=== PATIENT | female | born 1930 | race American Indian/Alaskan Native ===

== ENCOUNTER 2016-11-13 08:45 | Emergency (ER) | payer MEDICARE ==
[2016-11-13 08:45] VITALS: BMI 28.2
[2016-11-13] MEDS ORDERED: Sodium Chloride 0.9% 1,000 ML IV ONE (09:31)
--- NOTE | 2016-11-13 09:40 | C.PDOC ---
History Of Present Illness 86 y/o female brought to ED by daughter who reports increased generalized weakness and decreased appetite since yesterday. Daughter denies fever, cough, vomiting, diarrhea, urinary symptoms, SOB, dizziness, or other associated symptoms. Time Seen by Provider: 11/13/16 08:57 Chief Complaint (Nursing): Weakness/Neurological Deficit History Per: Patient History/Exam Limitations: no limitations Onset/Duration Of Symptoms: Days Current Symptoms Are (Timing): Still Present Fall Associated With With Symptoms: No Recent travel outside of the [place]: No Past Medical History Reviewed: Historical Data, Nursing Documentation, Vital Signs Vital Signs: Last Vital Signs Temp 98.1 F 11/13/16 13:31 Pulse 96 H 11/13/16 13:31 Resp 20 11/13/16 13:31 BP 150/100 H 11/13/16 13:31 Pulse Ox 99 11/13/16 13:31 - Medical History PMH: Arthritis, Asthma, Cardia Arrhythmia, HTN, Hypercholesterolemia, Peripheral Edema - [facility] Procedures CATARAC PHACOEMULS/ASPIR (07/20/13) DEBRIDEMENT OF NAIL, NAIL BED OR NAIL FOLD (11/15/13) INSERT LENS AT CATAR EXT (07/20/13) OP RED-INT FIX TIB/FIBUL (11/15/13) PACKED CELL TRANSFUSION (11/15/13) PLICATION OF VENA CAVA (11/15/13) VACCINATION NEC (11/15/13) Family History: States: Unknown Family Hx - Social History Hx Tobacco Use: No Hx Alcohol Use: No Hx Substance Use: No - Immunization History Hx Tetanus Toxoid Vaccination: No Hx Influenza Vaccination: No Hx Pneumococcal Vaccination: No Review Of Systems Except As Marked, All Systems Reviewed And Found Negative. Constitutional: Positive for: Weakness. Negative for: Fever, Chills Cardiovascular: Negative for: Chest Pain Respiratory: Negative for: Cough, Shortness of Breath, Wheezing Gastrointestinal: Negative for: Vomiting, Diarrhea Skin: Negative for: Rash Neurological: Negative for: Dizziness Physical Exam - Physical Exam Appears: Non-toxic, No Acute Distress Skin: Warm, Dry Head: Atraumatic, Normacephalic Eye(s): bilateral: Normal Inspection, PERRL, EOMI Nose: Normal Oral Mucosa: Moist Neck: Normal ROM Chest: Symmetrical Cardiovascular: Rhythm Irregular Respiratory: Normal Breath Sounds, No Accessory Muscle Use, No Wheezing Gastrointestinal/Abdominal: Soft, No Tenderness, No Guarding, No Rebound Back: Normal Inspection Extremity: Capillary Refill (< 2 sec.), Other (chronic venous changes bilateral lower extremities) Pulses: Left Radial: Normal Neurological/Psych: Oriented x3, Normal Speech Gait: Unable To Assess ED Course And Treatment - Laboratory Results Result Diagrams: 11/13/16 09:50 11/13/16 09:50 ECG: Interpreted By Me ECG Rhythm: Sinus Rhythm Interpretation Of ECst degree AV block Rate From EC (bpm) O2 Sat by Pulse Oximetry: 100 (ra) Pulse Ox Interpretation: Normal Medical Decision Making Medical Decision Making: Prior records show: Admitted on 11/15/13 with a R proximal tibia and fibula Fx after a fall. had Thrombocytopenia, likely platelet dysfunction from aspirin and Plavix Plan: * EKG, CXR, bloodwork, urinalysis ordered * IV fluids * Reassess Progress: Labs reviewed abnormal platelet and WBC. [address] Guevara, does not recommend transfusion and no intervention from hematology point of view, can follow up in office [address] Garcia and discussed case including lab findings. She states if patient hemodynamically stable, appropriate for discharge and can follow up in the office Discussed lab findings with family and they are concerned for patient getting home. Arrangements arranged. Patient is stable for discharge and will follow up outpatient. Disposition Counseled Patient/Family Regarding: Studies Performed, Diagnosis, Need For Followup - Disposition Referrals: Lisette Cornejo MD [Staff Provider] - Karel Guevara MD [Staff Provider] - Disposition: HOME/ ROUTINE Disposition Time: 12:01 Condition: STABLE Additional Instructions: Please follow up with your primary doctor and price accuracy supervisor in the office Continue with your normal medications as prescribed Return to the emergency department at any time if symptoms persist or worsen. Instructions: Thrombocytopenia (ED), Weakness (ED) Forms: Smart Voicemail (Moroccan) - POA Present On Arrival: None - Clinical Impression Clinical Impression: Thrombocytopenia, Weakness - PA / FOOD SAFETY MANAGER / Resident Statement MD/DO has reviewed & agrees with the documentation as recorded. - Scribe Statement The provider has reviewed the documentation as recorded by the Scribe SM All medical record entries made by the Scribe were at my direction and personally dictated by me. I have reviewed the chart and agree that the record accurately reflects my personal performance of the history, physical exam, medical decision making, and the department course for this patient. I have also personally directed, reviewed, and agree with the discharge instructions and disposition.
[2016-11-13] MEDS ORDERED: Sodium Chloride 0.9% 1,000 ML ONE (09:49)
[2016-11-13 09:55] LABS: BASO % 0.6 % (0.0-2.0); EOS % 0.4 % (0.0-4.0); HEMATOCRIT 37.1 % (34.0-47.0); MEAN CELL VOLUME 82.4 fL (81.0-99.0); MEAN CORPUSCULAR HEMOGLOBIN 27.9 pg (27.0-31.0); MEAN CORPUSCULAR HGB CONC 33.9 g/dL (33.0-37.0); MEAN PLATELET VOLUME 9.2 fL (7.2-11.7); MONO # 0.5 K/uL (0.0-0.8); MONO % 14.8 % (0.0-10.0); NRBC % 0.2 % (0.0-2.0); RED CELL DISTRIBUTION WIDTH 14.5 % (11.5-14.5); WHITE BLOOD COUNT 3.3 K/uL (4.8-10.8)
[2016-11-13 10:02] LABS: INR 1.2
[2016-11-13 10:11] LABS: CHLORIDE 105 mmol/L (98-107)
[2016-11-13 10:12] LABS: SODIUM 142 mmol/L (132-148)
[2016-11-13 10:14] LABS: ALB/GLOB RATIO 1.1 (1.0-2.1); ALKALINE PHOSPHATASE 89 U/L (38-126); AST/SGOT 29 U/L (14-36); BILIRUBIN,TOTAL 0.9 mg/dL (0.2-1.3); CARBON DIOXIDE 26 mmol/L (22-30); GFR AFRICAN-AMERICAN > 60; TOTAL PROTEIN 7.1 g/dL (6.3-8.3)
[2016-11-13 10:15] LABS: ALT/SGPT 27 U/L (9-52); BLOOD UREA NITROGEN 13 mg/dL (7-17); CALCIUM 8.9 mg/dl (8.6-10.4); GLUCOSE,RANDOM 89 mg/dL (65-105)
[2016-11-13 10:15] LABS: RBC URINE < 1 /hpf (0-3); URINE BILIRUBIN NEGATIVE (NEGATIVE); URINE BLOOD NEGATIVE (NEGATIVE); URINE COLOR Yellow (YELLOW); URINE GLUCOSE (UA) NORMAL (Normal); URINE KETONE NEGATIVE (NEGATIVE); URINE LEUKOCYTE ESTERASE NEG Leu/uL (Negative); URINE PROTEIN NEGATIVE (NEGATIVE); URINE UROBILINOGEN NORMAL mg/dL (0.2-1.0); WBC URINE 2 /hpf (0-5)
--- NOTE | 2016-11-13 10:15 | RAD ---
PROCEDURE: CHEST RADIOGRAPH, 1 VIEW HISTORY: weakness COMPARISON: 11/23/2013 FINDINGS: LUNGS: Clear. PLEURA: No pneumothorax or pleural fluid seen. CARDIOVASCULAR: Mild cardiomegaly OSSEOUS STRUCTURES: acromioclavicular and glenohumeral joint arthrosis .thoracic spondylosis. VISUALIZED UPPER ABDOMEN: Normal. OTHER FINDINGS: None. IMPRESSION: No interval pathology.
[2016-11-13 13:32] VITALS: BP 150/100; PULSE 96; RESP 20; TEMP 98.1
[2016-11-13 16:23] VITALS: O2SAT 100
--- NOTE | 2016-11-14 19:12 | CARD ---
APPROVED REPORT EKG Measurement Heart [id number] <Conclusion> Sinus rhythm with 1st degree AV block Otherwise normal ECG
== END 2016-11-13 13:31 | disposition home or self-care (01) ==
LOC: C.ER 08:45
DX: D69.6 Thrombocytopenia, unspecified (principal); R53.1 Weakness
CPT/HCPCS: 71010; 80053; 81001; 83880; 84484; 85025; 85610; 85730; 87086; 93005; 96360; 99285; J7040

== ENCOUNTER 2016-11-15 13:25 | Inpatient (IN) | payer MEDICARE ==
[2016-11-15 13:25] VITALS: BMI 28.2
--- NOTE | 2016-11-15 14:05 | C.PDOC ---
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 apparently this is the third episode in the last 3 days. pt family reports she was sitting down at home talking to them and suddenly stopped and was staring straight ahead with her eyes open but would not respond. the pt has no memory of the event and has no complaints currently. Time Seen by Provider: 11/15/16 13:38 Chief Complaint (Nursing): Syncope Past Medical History Vital Signs: Last Vital Signs Temp 98 F 11/18/16 16:01 Pulse 74 11/18/16 16:01 Resp 20 11/18/16 16:01 BP 150/78 11/18/16 18:21 Pulse Ox 99 11/18/16 16:01 - Medical History PMH: Arthritis, Asthma, Cardia Arrhythmia, HTN, Hypercholesterolemia, Peripheral Edema - [facility] Procedures CATARAC PHACOEMULS/ASPIR (07/20/13) DEBRIDEMENT OF NAIL, NAIL BED OR NAIL FOLD (11/15/13) INSERT LENS AT CATAR EXT (07/20/13) OP RED-INT FIX TIB/FIBUL (11/15/13) PACKED CELL TRANSFUSION (11/15/13) PLICATION OF VENA CAVA (11/15/13) VACCINATION NEC (11/15/13) Family History: States: Other Other Family History: nc - Social History Hx Tobacco Use: No Hx Alcohol Use: No Hx Substance Use: No - Immunization History Hx Tetanus Toxoid Vaccination: No Hx Influenza Vaccination: No Hx Pneumococcal Vaccination: No Review Of Systems Except As Marked, All Systems Reviewed And Found Negative. Constitutional: Negative for: Fever Eyes: Negative for: Vision Change Cardiovascular: Negative for: Chest Pain Respiratory: Negative for: Cough, Shortness of Breath Gastrointestinal: Negative for: Nausea, Vomiting, Abdominal Pain Neurological: Positive for: Altered Mental Status. Negative for: Weakness, Numbness, Headache Physical Exam - Physical Exam Appears: Well, Non-toxic, No Acute Distress Skin: Warm, Dry Head: Atraumatic Eye(s): bilateral: PERRL, EOMI Nose: No Epistaxis Oral Mucosa: Moist Neck: Normal ROM Cardiovascular: Rhythm Regular Respiratory: No Decreased Breath Sounds, No Accessory Muscle Use, No Rales, No Rhonchi, No Wheezing Gastrointestinal/Abdominal: Soft, No Tenderness Pulses: Left Radial: Normal, Right Radial: Normal Neurological/Psych: Oriented x3, Other (no focal deficits) ED Course And Treatment - Laboratory Results Result Diagrams: 11/18/16 08:19 11/18/16 08:19 O2 Sat by Pulse Oximetry: 96 (RA) Pulse Ox Interpretation: Normal - CT Scan/US CT - Head Other Rad Studies (CT/US): Read By Radiologist, Radiology Report Reviewed CT/US Interpretation: PROCEDURE: CT HEAD WITHOUT CONTRAST. HISTORY: loc. COMPARISON: None available. TECHNIQUE: Axial computed tomography images were obtained through the head/brain without intravenous contrast. Radiation dose: Total exam DLP = 868.72 mGy-cm. This CT exam was performed using one or more of the following dose reduction techniques: Automated exposure control, adjustment of the mA and/or kV according to patient size, and/or use of iterative reconstruction technique. FINDINGS: HEMORRHAGE: No intracranial hemorrhage. BRAIN: No mass effect or edema. Mild diffuse age-appropriate cerebral atrophy. Moderate periventricular white matter lucency with patchy and confluent deep and subcortical white matter lucencies consistent with microvascular ischemic change. No evidence of acute infarct. VENTRICLES: Unremarkable. No hydrocephalus. CALVARIUM: Unremarkable. PARANASAL SINUSES: Unremarkable as visualized. No significant inflammatory changes. MASTOID AIR CELLS: Unremarkable as visualized. No inflammatory changes. OTHER FINDINGS: None. IMPRESSION: No intracranial mass, hemorrhage or evidence of acute infarct. Age-appropriate involutional changes. Medical Decision Making Medical Decision Making: ecg- nsr 90 1st deg avb, no acute ischemia unable to reach pcp after multiple attempts. pt admitted to Dr Suresh. Disposition - Disposition Disposition: HOSPITALIZED Disposition Time: 16:31 Condition: STABLE - Clinical Impression Clinical Impression: Unresponsive episode
[2016-11-15 14:40] LABS: BASO % 0.6 % (0.0-2.0); EOS % 0.4 % (0.0-4.0); HEMATOCRIT 36.1 % (34.0-47.0); LYMPH # 0.9 K/uL (1.0-4.3); LYMPH % 28.9 % (20.0-40.0); MEAN CELL VOLUME 83.2 fL (81.0-99.0); MEAN CORPUSCULAR HEMOGLOBIN 27.9 pg (27.0-31.0); MEAN CORPUSCULAR HGB CONC 33.5 g/dL (33.0-37.0); MEAN PLATELET VOLUME 9.3 fL (7.2-11.7); MONO # 0.5 K/uL (0.0-0.8); MONO % 14.9 % (0.0-10.0); RED CELL DISTRIBUTION WIDTH 14.4 % (11.5-14.5); WHITE BLOOD COUNT 3.2 K/uL (4.8-10.8)
[2016-11-15 14:47] LABS: CHLORIDE 105 mmol/L (98-107); POTASSIUM 4.3 mmol/L (3.6-5.2); SODIUM 139 mmol/L (132-148)
--- NOTE | 2016-11-15 14:47 | CT ---
PROCEDURE: CT HEAD WITHOUT CONTRAST. HISTORY: loc COMPARISON: None available. TECHNIQUE: Axial computed tomography images were obtained through the head/brain without intravenous contrast. Radiation dose: Total exam DLP = 868.72 mGy-cm. This CT exam was performed using one or more of the following dose reduction techniques: Automated exposure control, adjustment of the mA and/or kV according to patient size, and/or use of iterative reconstruction technique. FINDINGS: HEMORRHAGE: No intracranial hemorrhage. BRAIN: No mass effect or edema. Mild diffuse age-appropriate cerebral atrophy. Moderate periventricular white matter lucency with patchy and confluent deep and subcortical white matter lucencies consistent with microvascular ischemic change. No evidence of acute infarct. VENTRICLES: Unremarkable. No hydrocephalus. CALVARIUM: Unremarkable. PARANASAL SINUSES: Unremarkable as visualized. No significant inflammatory changes. MASTOID AIR CELLS: Unremarkable as visualized. No inflammatory changes. OTHER FINDINGS: None. IMPRESSION: No intracranial mass, hemorrhage or evidence of acute infarct. Age-appropriate involutional changes.
[2016-11-15 14:49] LABS: GFR AFRICAN-AMERICAN > 60
[2016-11-15 14:50] LABS: ALB/GLOB RATIO 1.1 (1.0-2.1); ALKALINE PHOSPHATASE 84 U/L (38-126); ALT/SGPT 23 U/L (9-52); AST/SGOT 27 U/L (14-36); BILIRUBIN,TOTAL 0.7 mg/dL (0.2-1.3); BLOOD UREA NITROGEN 15 mg/dL (7-17); CALCIUM 8.8 mg/dl (8.6-10.4); CARBON DIOXIDE 25 mmol/L (22-30); GLUCOSE,RANDOM 97 mg/dL (65-105); TOTAL PROTEIN 6.8 g/dL (6.3-8.3)
[2016-11-15 15:20] LABS: RBC URINE 1 /hpf (0-3); URINE BACTERIA RARE (<OCC); URINE BILIRUBIN NEGATIVE (NEGATIVE); URINE BLOOD NEGATIVE (NEGATIVE); URINE COLOR Yellow (YELLOW); URINE GLUCOSE (UA) NORMAL (Normal); URINE HYALINE CAST 0-2 /lpf (0-2); URINE KETONE NEGATIVE (NEGATIVE); URINE LEUKOCYTE ESTERASE NEG Leu/uL (Negative); URINE PROTEIN NEGATIVE (NEGATIVE); URINE UROBILINOGEN NORMAL mg/dL (0.2-1.0); WBC URINE 2 /hpf (0-5)
--- NOTE | 2016-11-15 15:53 | RAD ---
HISTORY: loc COMPARISON: 11/13/2016 FINDINGS: LUNGS: Probable subsegmental atelectasis right base. PLEURA: No significant pleural effusion identified, no pneumothorax apparent. CARDIOVASCULAR: Normal. OSSEOUS STRUCTURES: No significant abnormalities. VISUALIZED UPPER ABDOMEN: Normal. OTHER FINDINGS: None. IMPRESSION: No active disease.
[2016-11-15] MEDS: Magnesium Oxide 400 mg Tab UD PO SCH (21:32)
[2016-11-16] MEDS: Magnesium Oxide 400 mg Tab UD PO SCH ×2 (10:06→17:57)
[2016-11-16] MEDS: Potassium Chloride 10 mEq ER Tab PO SCH (10:06)
[2016-11-16] MEDS: Calcium-Vit D 250 mg-125 Units Tab UD PO SCH (10:07)
--- NOTE | 2016-11-16 10:58 | CP.PCM.HP ---
Past Patient History - Past Medical History & Family History Past Medical History?: Yes - Past Social History Smoking Status: Never Smoked - CARDIAC Hx Cardiac Disorders: Yes Hx Cardia Arrhythmia: Yes Hx Hypercholesterolemia: Yes Hx Hypertension: Yes Hx Peripheral Edema: Yes - PULMONARY Hx Respiratory Disorders: Yes Hx Asthma: Yes - NEUROLOGICAL Hx Neurological Disorder: Yes Hx Syncope: Yes (10 yrs ago unknown reason) - HEENT Hx HEENT Problems: Yes Hx Cataracts: Yes Hx Glaucoma: Yes - RENAL Hx Chronic Kidney Disease: No - ENDOCRINE/METABOLIC Hx Endocrine Disorders: No - HEMATOLOGICAL/ONCOLOGICAL Hx Blood Disorders: No - INTEGUMENTARY Hx Dermatological Problems: No - MUSCULOSKELETAL/RHEUMATOLOGICAL Hx Musculoskeletal Disorders: Yes Hx Arthritis: Yes Hx Falls: Yes - GASTROINTESTINAL Hx Gastrointestinal Disorders: No - GENITOURINARY/GYNECOLOGICAL Hx Genitourinary Disorders: No - PSYCHIATRIC Hx Substance Use: No - SURGICAL HISTORY Hx Surgeries: Yes Hx Cataract Extraction: Yes (cat ext left eye iol 7 yrs ago) Hx Hysterectomy: Yes (35 yrs ago) Hx Orthopedic Surgery: Yes (R leg) Hx Vascular Surgery: No (25 yrs ago) - ANESTHESIA Hx Anesthesia: Yes Hx Anesthesia Reactions: No Hx Malignant Hyperthermia: No Meds Allergies/Adverse Reactions: Allergies Allergy/AdvReac Type Severity Reaction Status Date / Time acetaminophen [From Percocet] AdvReac Verified 11/15/16 13:44 hydromorphone [From Dilaudid] AdvReac Verified 11/15/16 13:44 oxycodone [From Percocet] AdvReac Verified 11/15/16 13:44 Physical Exam - Constitutional Appears: Well - Head Exam Head Exam: ATRAUMATIC, NORMAL INSPECTION, NORMOCEPHALIC - Eye Exam Eye Exam: EOMI, Normal appearance, PERRL Pupil Exam: NORMAL ACCOMODATION, PERRL - ENT Exam ENT Exam: Mucous Membranes Moist, Normal Exam - Neck Exam Neck exam: Positive for: Normal Inspection - Respiratory Exam Respiratory Exam: Decreased Breath Sounds - Cardiovascular Exam Cardiovascular Exam: REGULAR RHYTHM, +S1, +S2 - GI/Abdominal Exam GI & Abdominal Exam: Diminished Bowel Sounds, Soft - Rectal Exam Rectal Exam: Deferred Results - Vital Signs Recent Vital Signs: Last Vital Signs Temp 98.2 F 11/16/16 07:58 Pulse 97 H 11/16/16 07:58 Resp 20 11/16/16 07:58 BP 153/98 H 11/16/16 10:07 Pulse Ox 95 11/16/16 07:58 - Labs Result Diagrams: 11/15/16 14:28 11/15/16 14:28 Labs: Laboratory Results - last 24 hr 11/15/16 11/16/16 19:53 07:32 Total Creatine Kinase 100 76 CK-MB (Mass) 1.16 0.79 Troponin I, Quant 0.0210 0.0190
[2016-11-16] MEDS ORDERED: Sodium Chloride 0.45% 1,000 ML IV SCH (11:45)
[2016-11-16] MEDS: hydrALAZINE 12.5 mg Tab PO SCH (12:17)
--- NOTE | 2016-11-16 20:33 | CP.PCM.CON ---
History of Present Illness - History of Present Illness History of Present Illness: 86 year old with hx of HTN , SEVERE ARTHRITIS, HTN, PALPITATION REFFERED BY DR Wagner FOR GALI, NOW HR IS 80 TO 85, had cataract did well, admitted to after a fall, fx R knee did well with observetion, PT at rehab, [facility], EST Echo at 01/22no ischemi EF 65% and labs at PMD ok 05/22, admitted with weakness, near syncope, sinus on monitor. Review of Systems - Review of Systems Systems not reviewed;Unavailable: Unstable Vital Signs - Constitutional Constitutional: Anorexia, Weakness - EENT Eyes: absent: Discharge Ears: absent: Ear Discharge, Dizziness Nose/Mouth/Throat: absent: Epistaxis - Cardiovascular Cardiovascular: Syncope. absent: Acrocyanosis, Chest Pain, Diaphoresis, Orthopnea, Palpitations - Respiratory Respiratory: absent: Cough, Dyspnea, Hemoptysis - Gastrointestinal Gastrointestinal: absent: Abdominal Pain, Diarrhea, Dysphagia, Hematochezia, Vomiting - Genitourinary Genitourinary: absent: Change in Urinary Stream - Reproductive: Female Reproductive:Female: Post Menopausal Past Patient History - Past Medical History & Family History Past Medical History?: Yes - Past Social History Smoking Status: Never Smoked - CARDIAC Hx Cardiac Disorders: Yes Hx Cardia Arrhythmia: Yes Hx Hypercholesterolemia: Yes Hx Hypertension: Yes Hx Peripheral Edema: Yes - PULMONARY Hx Respiratory Disorders: Yes Hx Asthma: Yes - NEUROLOGICAL Hx Neurological Disorder: Yes Hx Syncope: Yes (10 yrs ago unknown reason) - HEENT Hx HEENT Problems: Yes Hx Cataracts: Yes Hx Glaucoma: Yes - RENAL Hx Chronic Kidney Disease: No - ENDOCRINE/METABOLIC Hx Endocrine Disorders: No - HEMATOLOGICAL/ONCOLOGICAL Hx Blood Disorders: No - INTEGUMENTARY Hx Dermatological Problems: No - MUSCULOSKELETAL/RHEUMATOLOGICAL Hx Musculoskeletal Disorders: Yes Hx Arthritis: Yes Hx Falls: Yes - GASTROINTESTINAL Hx Gastrointestinal Disorders: No - GENITOURINARY/GYNECOLOGICAL Hx Genitourinary Disorders: No - PSYCHIATRIC Hx Substance Use: No - SURGICAL HISTORY Hx Surgeries: Yes Hx Cataract Extraction: Yes (cat ext left eye iol 7 yrs ago) Hx Hysterectomy: Yes (35 yrs ago) Hx Orthopedic Surgery: Yes (R leg) Hx Vascular Surgery: No (25 yrs ago) - ANESTHESIA Hx Anesthesia: Yes Hx Anesthesia Reactions: No Hx Malignant Hyperthermia: No Meds Allergies/Adverse Reactions: Allergies Allergy/AdvReac Type Severity Reaction Status Date / Time acetaminophen [From Percocet] AdvReac Verified 11/15/16 13:44 hydromorphone [From Dilaudid] AdvReac Verified 11/15/16 13:44 oxycodone [From Percocet] AdvReac Verified 11/15/16 13:44 - Medications Medications: Current Medications Allopurinol (Zyloprim) 100 mg PO DAILY [facility] Last Admin: 11/16/16 10:06 Dose: 100 mg Aspirin (Aspirin) 325 mg PO DAILY [facility] Last Admin: 11/16/16 10:06 Dose: 325 mg Calcium/Vitamin D (Oscal-D 250 Mg-125 Units Tab) 1 tab PO DAILY [facility] Last Admin: 11/16/16 10:07 Dose: 1 tab Carvedilol (Coreg) 25 mg PO BID [facility] Last Admin: 11/16/16 17:59 Dose: 25 mg Clonidine HCl (Catapres-Tts3 0.3 Mg/24 Hr) 1 patch TD QWK [facility] Clopidogrel Bisulfate (Plavix) 75 mg PO DAILY [facility] Last Admin: 11/16/16 10:07 Dose: 75 mg Furosemide (Lasix) 20 mg PO DAILY [facility] Last Admin: 11/16/16 10:06 Dose: 20 mg Gabapentin (Neurontin) 100 mg PO DAILY [facility] Last Admin: 11/16/16 10:06 Dose: 100 mg Hydralazine HCl (Apresoline) 37.5 mg PO DAILY [facility] Last Admin: 11/16/16 12:17 Dose: 37.5 mg Sodium Chloride (Sodium Chloride 0.45%) 1,000 mls @ 40 mls/hr IV .Q24H [facility] Stop: 11/17/16 11:44 Last Admin: 11/16/16 12:20 Dose: 40 mls/hr Isosorbide Dinitrate (Isordil) 20 mg PO DAILY [facility] Last Admin: 11/16/16 10:06 Dose: 20 mg Losartan Potassium (Cozaar) 100 mg PO DAILY [facility] Last Admin: 11/16/16 12:17 Dose: 100 mg Magnesium Oxide (Mag-Ox) 400 mg PO BID [facility] Last Admin: 11/16/16 17:57 Dose: 400 mg Potassium Chloride (Klor-Con 10) 10 meq PO DAILY [facility] Last Admin: 11/16/16 10:06 Dose: 10 meq Rosuvastatin Calcium (Crestor) 10 mg PO HS [facility] Last Admin: 11/15/16 21:27 Dose: Not Given Tramadol HCl (Ultram) 50 mg PO BID PRN PRN Reason: Pain Physical Exam - Constitutional Appears: Non-toxic - Head Exam Head Exam: ATRAUMATIC - Eye Exam Eye Exam: EOMI - ENT Exam ENT Exam: Mucous Membranes Moist - Neck Exam Neck exam: Negative for: Lymphadenopathy, Thyromegaly - Respiratory Exam Respiratory Exam: Clear to Auscultation Bilateral. absent: Rales - Cardiovascular Exam Cardiovascular Exam: REGULAR RHYTHM, Systolic Murmur - GI/Abdominal Exam GI & Abdominal Exam: Normal Bowel Sounds. absent: Organomegaly - Rectal Exam Rectal Exam: Deferred - Extremities Exam Extremities exam: Positive for: normal capillary refill. Negative for: calf tenderness - Neurological Exam Neurological exam: Alert, Oriented x3 - Psychiatric Exam Psychiatric exam: Anxious - Skin Skin Exam: Dry Results - Vital Signs Recent Vital Signs: Last Vital Signs Temp 97.7 F 11/16/16 15:16 Pulse 70 11/16/16 15:16 Resp 18 11/16/16 15:16 BP 130/90 11/16/16 17:59 Pulse Ox 99 11/16/16 15:16 - Labs Result Diagrams: 11/15/16 14:28 11/15/16 14:28 Labs: Laboratory Results - last 24 hr 11/16/16 07:32 Total Creatine Kinase 76 CK-MB (Mass) 0.79 Troponin I, Quant 0.0190 Assessment & Plan (1) Syncope and collapse Status: Acute Comment: near syncope observe (2) HTN (hypertension) Status: Chronic Priority: Low (3) Thrombocytopenia Status: Acute Priority: Medium
--- NOTE | 2016-11-17 07:10 | CON ---
ATTENDING PHYSICIAN: Natali Suresh MD REASON FOR CONSULTATION: Unresponsiveness. HISTORY OF PRESENT ILLNESS: The patient is an 86-year-old right-handed pleasant lady with past medical history of hypertension, arthritis, right knee replacement, asthma, cardiac arrhythmia, hyperlipidemia, peripheral vascular disease. The patient was admitted because of an episode of unresponsiveness, lasted approximately 10 minutes without postictal confusion, urinary incontinence, tongue biting, but during the episode, the patient's eyes were rolling up and the patient was unresponsive and the daughter tried to wake her up unsuccessfully. This is the third episode in the last several day. The patient denies any history of seizures, head trauma, although the patient is complaining of left shoulder pain and weakness, which is old for the last few months as per the patient. The patient has been ambulating with the walker at home, unable to walk with the cane or without support. PAST MEDICAL HISTORY: As mentioned above. SURGICAL HISTORY: Cataract surgery, lens surgery for the eyes, blood transfusion. SOCIAL HISTORY: No smoking, ethanol or drug abuser. ALLERGIES: ALLERGIC TO ACETAMINOPHEN, HYDROMORPHONE, OXYCODONE. MEDICATIONS: Hydralazine, aspirin, clonidine, carvedilol, losartan, rosuvastatin 10 mg, isosorbide, potassium, tramadol, allopurinol, calcium, gabapentin, magnesium oxide. FAMILY HISTORY: Noncontributory. REVIEW OF SYSTEMS: As per H and P and ER notes reviewed. PHYSICAL EXAMINATION: VITAL SIGNS: Blood pressure 131/76, pulse 65, respirations 18. Temperature afebrile. Pulse ox 96%. MENTAL STATUS EXAMINATION: The patient is alert, awake, oriented to place and person, partially to time, slow mental processing, decreased attention span, short-term memory, able to follow one to two-step commands and able to follow three-step commands. CRANIAL NERVES: Pupils 3 mm, bilaterally reactive. No facial asymmetry. Corneal reflex intact. No field defect. V1 to V3 intact. Accessory nerve intact. MOTOR: Limited range of left shoulder movement, probably old rotated cuff. No cogwheel rigidity. No spasticity. Fine finger movement impaired bilaterally. 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 Lower extremities; hip flexion, 4/5 knee flexion and extension, ankle dorsiflexion, plantarflexion 4+/5. Deep tendon reflexes are 1 in upper extremities. Absent bilateral lower extremities. SENSORY: Increased pinprick, light touch below mid legs bilaterally with pigmentation and discoloration of the legs bilaterally, most likely secondary to peripheral vascular disease. Position intact. Coordination, [id number] intact. A CAT scan of the brain: I have reviewed CAT scan, CAT scan consistent with significant periventricular white matter disease and questionable small old right frontal lacunar infarct in addition to atrophy. LABORATORY DATA: White blood cells 3.2, red blood cells 4.34, platelets 82. Sodium 134, potassium 4.3, chloride 105, carbon dioxide of 25, BUN 15, creatinine 0.8, glucose 121. Urinalysis; white blood cells 2, red blood cells 1, epithelia less than 1, urine bacteria rare, nitrite negative. IMPRESSION: Loss of consciousness lasted 10 minutes without postictal confusion with eyes rolling up, possibility of seizures, anticonvulsive seizure cannot be excluded versus cerebellar hyperperfusion, and the patient had 2 previous episodes during the last few days, possibility of arrhythmia also has to be excluded. Cardiology evaluation strongly recommended.. PLAN: 1. MRI of the brain to rule out structural lesion and CVA. 2. Carotid Doppler to rule out carotid stenosis. 3. EEG to rule out supplemental seizures.. 4. Cardiology evaluation. 5. Continue aspirin 81 mg daily and rosuvastatin. 6. Physical therapy for lower extremities. In addition, the patient has peripheral neuropathy, most likely secondary to peripheral vascular disease in addition to left rotator cuff tear that has to be addressed as an outpatient. Out of bed to chair with assistance, DVT prophylaxis. Thank you for the consultation, and Dr. Michelle will follow up with the patient tomorrow. Kojo Polanco MD
[2016-11-17] MEDS: Calcium-Vit D 250 mg-125 Units Tab UD PO SCH (10:07)
[2016-11-17] MEDS: hydrALAZINE 12.5 mg Tab PO SCH (10:07)
[2016-11-17] MEDS: Magnesium Oxide 400 mg Tab UD PO SCH ×2 (10:12→19:43)
[2016-11-17] MEDS: Potassium Chloride 10 mEq ER Tab PO SCH (10:13)
--- NOTE | 2016-11-17 13:55 | CP.PCM.PN ---
Subjective - Date & Time of Evaluation Date of Evaluation: 11/17/16 Time of Evaluation: 10:30 - Subjective Subjective: Orthopedic consultation requested Dr. Monahan, full consult to follow 86F with complaints of periods of unconsciousness as witnessed by family, up to 10 minutes and has happened a few times. She has been seeing Dr. Monahan as outpatient for B hand weakness, r/o carpal tunnel syndrome, no improvement with bracing. Patient went for EMG/NCV 11/05, still awaiting results as per Dr. Monahan. She says the hand weakness is the same, no change. At present, she is also complaining of right leg pain, says it is mostly in the back of her calf, and she has pain when she bends knee. She has been walking with walker, but due to hand weakness and now leg pain, she has been less ambulatory. Denies CP/SOB/dizziness. Denies numbness/tingling to legs Prior IM nailing R tibia DR. Monahan 11/20 Objective - Vital Signs/Intake and Output Vital Signs (last 24 hours): Temp Pulse Resp BP Pulse Ox 98.4 F 78 20 161/84 H 97 11/17/16 08:00 11/17/16 08:00 11/17/16 08:00 11/17/16 10:13 11/17/16 08:00 - Medications Medications: Current Medications Allopurinol (Zyloprim) 100 mg PO DAILY [facility] Last Admin: 11/17/16 10:12 Dose: 100 mg Aspirin (Aspirin) 325 mg PO DAILY [facility] Last Admin: 11/17/16 10:05 Dose: 325 mg Calcium/Vitamin D (Oscal-D 250 Mg-125 Units Tab) 1 tab PO DAILY [facility] Last Admin: 11/17/16 10:07 Dose: 1 tab Carvedilol (Coreg) 25 mg PO BID [facility] Last Admin: 11/17/16 10:13 Dose: 25 mg Clonidine HCl (Catapres-Tts3 0.3 Mg/24 Hr) 1 patch TD QWK [facility] Clopidogrel Bisulfate (Plavix) 75 mg PO DAILY [facility] Last Admin: 11/17/16 10:06 Dose: 75 mg Furosemide (Lasix) 20 mg PO DAILY [facility] Last Admin: 11/17/16 10:08 Dose: 20 mg Gabapentin (Neurontin) 100 mg PO DAILY [facility] Last Admin: 11/17/16 10:12 Dose: 100 mg Hydralazine HCl (Apresoline) 37.5 mg PO DAILY [facility] Last Admin: 11/17/16 10:07 Dose: 37.5 mg Isosorbide Dinitrate (Isordil) 20 mg PO DAILY [facility] Last Admin: 11/17/16 10:14 Dose: 20 mg Losartan Potassium (Cozaar) 100 mg PO DAILY [facility] Last Admin: 11/17/16 10:13 Dose: 100 mg Magnesium Oxide (Mag-Ox) 400 mg PO BID [facility] Last Admin: 11/17/16 10:12 Dose: 400 mg Potassium Chloride (Klor-Con 10) 10 meq PO DAILY [facility] Last Admin: 11/17/16 10:13 Dose: 10 meq Rosuvastatin Calcium (Crestor) 10 mg PO HS [facility] Last Admin: 11/16/16 21:53 Dose: 10 mg Tramadol HCl (Ultram) 50 mg PO BID PRN PRN Reason: Pain - Extremities Exam Additional comments: LLE: no erythema, no joint effusion, significant tenderness to posterior calf and knee. No tenderness anteriorly or to knee joint. Sensation intact, +DP/PT pulses. +homans on left, negative on right. No swelling noted to BLE. Bhands: full ROM, no swelling, no erythema, +radial pulses Assessment and Plan (1) Hand weakness Assessment & Plan: currently with outpatient workup, awaiting results EMG/NCV as per Dr. Monahan Status: Acute (2) Pain of left calf Assessment & Plan: with decreased ambulation dopplers to r/o DVT recommend VTE proph PT/OT venodynes if negative d/w , agrees with above Status: Acute
--- NOTE | 2016-11-17 18:02 | CP.PCM.CON ---
History of Present Illness - History of Present Illness History of Present Illness: Surgery: Dr. Scales Reason for consult: IVC filter, DVT CC: left leg pain HPI: Patient is an 86 y/o female with limited mobility 2/2 multiple falls, prior fractures, and chronic LE pain found to have DVT in the right legs which appears to be chronic in nature per ultrasound report. Discussing with family, per their report patient already had a filter placed when she underwent right leg surgery 3 years ago. Patient denies any LE swelling, out of proportion to her norm. Patient reports Left leg pain mainly when it is manipulated by exams. PMH: HTN, severe arthritis, palpitations, near syncope events, prior falls PSH:P right leg surgery, cataract, possible IVC filter placement? Review of Systems - Review of Systems All systems: reviewed and no additional remarkable complaints except Review of Systems: unless stated in HPI Past Patient History - Past Medical History & Family History Past Medical History?: Yes - Past Social History Smoking Status: Never Smoked - CARDIAC Hx Cardiac Disorders: Yes Hx Hypercholesterolemia: Yes Hx Hypertension: Yes - PULMONARY Hx Respiratory Disorders: Yes Hx Asthma: Yes - NEUROLOGICAL Hx Neurological Disorder: Yes Hx Syncope: Yes (10 yrs ago unknown reason) - HEENT Hx HEENT Problems: Yes Hx Cataracts: Yes Hx Glaucoma: Yes - RENAL Hx Chronic Kidney Disease: No - ENDOCRINE/METABOLIC Hx Endocrine Disorders: No - HEMATOLOGICAL/ONCOLOGICAL Hx Blood Disorders: No - INTEGUMENTARY Hx Dermatological Problems: No - MUSCULOSKELETAL/RHEUMATOLOGICAL Hx Arthritis: Yes - GASTROINTESTINAL Hx Gastrointestinal Disorders: No - GENITOURINARY/GYNECOLOGICAL Hx Genitourinary Disorders: No - PSYCHIATRIC Hx Substance Use: No - SURGICAL HISTORY Hx Surgeries: Yes Hx Cataract Extraction: Yes (cat ext left eye iol 7 yrs ago) Hx Hysterectomy: Yes (35 yrs ago) Hx Orthopedic Surgery: Yes (R leg) Hx Vascular Surgery: No (25 yrs ago) - ANESTHESIA Hx Anesthesia: Yes Hx Anesthesia Reactions: No Hx Malignant Hyperthermia: No Meds Allergies/Adverse Reactions: Allergies Allergy/AdvReac Type Severity Reaction Status Date / Time acetaminophen [From Percocet] AdvReac Verified 11/15/16 13:44 hydromorphone [From Dilaudid] AdvReac Verified 11/15/16 13:44 oxycodone [From Percocet] AdvReac Verified 11/15/16 13:44 - Medications Medications: Current Medications Allopurinol (Zyloprim) 100 mg PO DAILY [facility] Last Admin: 11/17/16 10:12 Dose: 100 mg Aspirin (Aspirin) 325 mg PO DAILY [facility] Last Admin: 11/17/16 10:05 Dose: 325 mg Calcium/Vitamin D (Oscal-D 250 Mg-125 Units Tab) 1 tab PO DAILY [facility] Last Admin: 11/17/16 10:07 Dose: 1 tab Carvedilol (Coreg) 25 mg PO BID [facility] Last Admin: 11/17/16 10:13 Dose: 25 mg Clonidine HCl (Catapres-Tts3 0.3 Mg/24 Hr) 1 patch TD QWK [facility] Clopidogrel Bisulfate (Plavix) 75 mg PO DAILY [facility] Last Admin: 11/17/16 10:06 Dose: 75 mg Enoxaparin Sodium (Lovenox) 30 mg SC 1000,2200 [facility] Furosemide (Lasix) 20 mg PO DAILY [facility] Last Admin: 11/17/16 10:08 Dose: 20 mg Gabapentin (Neurontin) 100 mg PO DAILY [facility] Last Admin: 11/17/16 10:12 Dose: 100 mg Hydralazine HCl (Apresoline) 37.5 mg PO DAILY [facility] Last Admin: 11/17/16 10:07 Dose: 37.5 mg Isosorbide Dinitrate (Isordil) 20 mg PO DAILY [facility] Last Admin: 11/17/16 10:14 Dose: 20 mg Losartan Potassium (Cozaar) 100 mg PO DAILY [facility] Last Admin: 11/17/16 10:13 Dose: 100 mg Magnesium Oxide (Mag-Ox) 400 mg PO BID [facility] Last Admin: 11/17/16 10:12 Dose: 400 mg Potassium Chloride (Klor-Con 10) 10 meq PO DAILY [facility] Last Admin: 11/17/16 10:13 Dose: 10 meq Rosuvastatin Calcium (Crestor) 10 mg PO HS [facility] Last Admin: 11/16/16 21:53 Dose: 10 mg Tramadol HCl (Ultram) 50 mg PO BID PRN PRN Reason: Pain Physical Exam - Constitutional Appears: Non-toxic, No Acute Distress - Head Exam Head Exam: ATRAUMATIC, NORMOCEPHALIC - Eye Exam Eye Exam: EOMI, Normal appearance - ENT Exam ENT Exam: Mucous Membranes Moist - Respiratory Exam Respiratory Exam: NORMAL BREATHING PATTERN. absent: Respiratory Distress - Cardiovascular Exam Cardiovascular Exam: REGULAR RHYTHM. absent: Tachycardia - Extremities Exam Extremities exam: Positive for: calf tenderness (left side). Negative for: pedal edema Additional comments: LE are warm to touch, negative Linsey's sign - Neurological Exam Neurological exam: Alert - Psychiatric Exam Psychiatric exam: Normal Affect, Normal Mood - Skin Skin Exam: Dry, Warm Results - Vital Signs Recent Vital Signs: Last Vital Signs Temp 98.2 F 11/17/16 16:15 Pulse 91 H 11/17/16 16:15 Resp 20 11/17/16 16:15 BP 133/82 11/17/16 16:15 Pulse Ox 95 11/17/16 16:15 - Labs Result Diagrams: 11/15/16 14:28 11/15/16 14:28 - Impressions Impression: chronic DVT on right LE, no findings on left Assessment & Plan - Assessment and Plan (Free Text) Assessment: 86 y/o female w/ chronic DVT on right, possible prior IVC filter placement Plan: -abdominal film to evaluate if IVC filter is present -if so, no further surgical intervention required -thrombocytopenic?, chronic: -anticoagulation per primary team and heme/onc -d/w Dr. Yordy Aguilar PGY3
--- NOTE | 2016-11-17 20:55 | CP.PCM.PN ---
Subjective - Date & Time of Evaluation Date of Evaluation: 11/17/16 Time of Evaluation: 13:00 - Subjective Subjective: no LOC had MRI, EEG f/u with neuro, seen by ortho for IVC filter Objective - Vital Signs/Intake and Output Vital Signs (last 24 hours): Temp Pulse Resp BP Pulse Ox 98.2 F 91 H 20 133/82 95 11/17/16 16:15 11/17/16 16:15 11/17/16 16:15 11/17/16 19:43 11/17/16 16:15 Intake and Output: 11/17/16 11/18/16 18:59 06:59 Intake Total 580 Balance 580 - Medications Medications: Current Medications Allopurinol (Zyloprim) 100 mg PO DAILY [facility] Last Admin: 11/17/16 10:12 Dose: 100 mg Aspirin (Aspirin) 325 mg PO DAILY [facility] Last Admin: 11/17/16 10:05 Dose: 325 mg Calcium/Vitamin D (Oscal-D 250 Mg-125 Units Tab) 1 tab PO DAILY [facility] Last Admin: 11/17/16 10:07 Dose: 1 tab Carvedilol (Coreg) 25 mg PO BID [facility] Last Admin: 11/17/16 19:43 Dose: 25 mg Clonidine HCl (Catapres-Tts3 0.3 Mg/24 Hr) 1 patch TD QWK [facility] Clopidogrel Bisulfate (Plavix) 75 mg PO DAILY [facility] Last Admin: 11/17/16 10:06 Dose: 75 mg Enoxaparin Sodium (Lovenox) 30 mg SC 1000,2200 [facility] Furosemide (Lasix) 20 mg PO DAILY [facility] Last Admin: 11/17/16 10:08 Dose: 20 mg Gabapentin (Neurontin) 100 mg PO DAILY [facility] Last Admin: 11/17/16 10:12 Dose: 100 mg Hydralazine HCl (Apresoline) 37.5 mg PO DAILY [facility] Last Admin: 11/17/16 10:07 Dose: 37.5 mg Isosorbide Dinitrate (Isordil) 20 mg PO DAILY [facility] Last Admin: 11/17/16 10:14 Dose: 20 mg Losartan Potassium (Cozaar) 100 mg PO DAILY [facility] Last Admin: 11/17/16 10:13 Dose: 100 mg Magnesium Oxide (Mag-Ox) 400 mg PO BID [facility] Last Admin: 11/17/16 19:43 Dose: 400 mg Potassium Chloride (Klor-Con 10) 10 meq PO DAILY [facility] Last Admin: 11/17/16 10:13 Dose: 10 meq Rosuvastatin Calcium (Crestor) 10 mg PO HS [facility] Last Admin: 11/16/16 21:53 Dose: 10 mg Tramadol HCl (Ultram) 50 mg PO BID PRN PRN Reason: Pain - Constitutional Appears: Non-toxic - Head Exam Head Exam: ATRAUMATIC - Eye Exam Eye Exam: EOMI - ENT Exam ENT Exam: Mucous Membranes Moist - Neck Exam Neck Exam: absent: Lymphadenopathy, Thyromegaly - Respiratory Exam Respiratory Exam: Clear to Ausculation Bilateral. absent: Rales - Cardiovascular Exam Cardiovascular Exam: REGULAR RHYTHM, Murmur - GI/Abdominal Exam GI & Abdominal Exam: Normal Bowel Sounds. absent: Organomegaly - Rectal Exam Rectal Exam: Deferred - Extremities Exam Extremities Exam: Normal Capillary Refill. absent: Calf Tenderness - Neurological Exam Neurological Exam: Alert, Oriented x3 - Psychiatric Exam Psychiatric exam: Anxious - Skin Skin Exam: Dry Assessment and Plan (1) Syncope and collapse Status: Acute (2) HTN (hypertension) Status: Chronic (3) Thrombocytopenia Status: Acute
--- NOTE | 2016-11-17 20:57 | CON ---
HISTORY OF PRESENT ILLNESS: The patient is admitted by Dr. Natali Suresh with a diagnosis of unresponsive episodes. The patient has had multiple unresponsive episodes in the past few days, she is admitted for management of the same. I have known this patient for several years with severe degenerative joint disease of both knees. She also had a fracture of the right tibia which was treated with open reduction and internal fixation. The patient has also had subjective complaints of paresthesias, tingling and numbness of both upper extremities. Recently, she had an EMG which revealed bilateral carpal tunnel syndrome and ulnar nerve compression syndromes at the elbow. PHYSICAL EXAMINATION: Reveals an elderly female in acute distress. Evidence of severe tricompartmental arthritis of both knees with severe valgus deformity of the right knee and varus deformity of the left knee noted. Range of motion of both knees is painful. Highly positive Tinel's sign noted bilaterally. Phalen's sign is highly positive. Atrophy of the thenar muscles is noted. The patient had diminished light touch on the thumb, index and middle fingers. DIAGNOSES: 1. Severe degenerative joint disease of both knees. 2. Bilateral carpal tunnel syndrome with established thenar atrophy. At this point, the patient is being followed by neurologist. I will appraise the neurologist of the EMG report. At this point, treatment is symptomatic and we will follow. Jerry Monahan MD
--- NOTE | 2016-11-17 21:38 | CP.PCM.PN ---
Subjective - Date & Time of Evaluation Date of Evaluation: 11/17/16 Time of Evaluation: 10:20 - Subjective Subjective: clinically same Objective - Vital Signs/Intake and Output Vital Signs (last 24 hours): Temp Pulse Resp BP Pulse Ox 98.2 F 91 H 20 133/82 95 11/17/16 16:15 11/17/16 16:15 11/17/16 16:15 11/17/16 19:43 11/17/16 16:15 Intake and Output: 11/17/16 11/18/16 18:59 06:59 Intake Total 580 Balance 580 - Medications Medications: Current Medications Allopurinol (Zyloprim) 100 mg PO DAILY [facility] Last Admin: 11/17/16 10:12 Dose: 100 mg Aspirin (Aspirin) 325 mg PO DAILY [facility] Last Admin: 11/17/16 10:05 Dose: 325 mg Calcium/Vitamin D (Oscal-D 250 Mg-125 Units Tab) 1 tab PO DAILY [facility] Last Admin: 11/17/16 10:07 Dose: 1 tab Carvedilol (Coreg) 25 mg PO BID [facility] Last Admin: 11/17/16 19:43 Dose: 25 mg Clonidine HCl (Catapres-Tts3 0.3 Mg/24 Hr) 1 patch TD QWK [facility] Clopidogrel Bisulfate (Plavix) 75 mg PO DAILY [facility] Last Admin: 11/17/16 10:06 Dose: 75 mg Enoxaparin Sodium (Lovenox) 30 mg SC 1000,2200 [facility] Furosemide (Lasix) 20 mg PO DAILY [facility] Last Admin: 11/17/16 10:08 Dose: 20 mg Gabapentin (Neurontin) 100 mg PO DAILY [facility] Last Admin: 11/17/16 10:12 Dose: 100 mg Hydralazine HCl (Apresoline) 37.5 mg PO DAILY [facility] Last Admin: 11/17/16 10:07 Dose: 37.5 mg Isosorbide Dinitrate (Isordil) 20 mg PO DAILY [facility] Last Admin: 11/17/16 10:14 Dose: 20 mg Losartan Potassium (Cozaar) 100 mg PO DAILY [facility] Last Admin: 11/17/16 10:13 Dose: 100 mg Magnesium Oxide (Mag-Ox) 400 mg PO BID [facility] Last Admin: 11/17/16 19:43 Dose: 400 mg Potassium Chloride (Klor-Con 10) 10 meq PO DAILY [facility] Last Admin: 11/17/16 10:13 Dose: 10 meq Rosuvastatin Calcium (Crestor) 10 mg PO HS [facility] Last Admin: 11/16/16 21:53 Dose: 10 mg Tramadol HCl (Ultram) 50 mg PO BID PRN PRN Reason: Pain - Constitutional Appears: Well - Head Exam Head Exam: ATRAUMATIC, NORMAL INSPECTION, NORMOCEPHALIC - Eye Exam Eye Exam: EOMI, Normal appearance, PERRL Pupil Exam: NORMAL ACCOMODATION, PERRL - ENT Exam ENT Exam: Mucous Membranes Moist, Normal Exam - Neck Exam Neck Exam: Full ROM, Normal Inspection. absent: Lymphadenopathy - Respiratory Exam Respiratory Exam: Decreased Breath Sounds - Cardiovascular Exam Cardiovascular Exam: REGULAR RHYTHM, +S1, +S2 - GI/Abdominal Exam GI & Abdominal Exam: Soft, Diminished Bowel Sounds - Rectal Exam Rectal Exam: Deferred
[2016-11-17] MEDS: Enoxaparin 30 mg Syringe SC SCH (22:20)
[2016-11-18 08:33] LABS: BASO % 0.6 % (0.0-2.0); EOS % 0.4 % (0.0-4.0); HEMATOCRIT 37.3 % (34.0-47.0); LYMPH # 1.2 K/uL (1.0-4.3); LYMPH % 34.6 % (20.0-40.0); MEAN CELL VOLUME 82.8 fL (81.0-99.0); MEAN CORPUSCULAR HEMOGLOBIN 28.3 pg (27.0-31.0); MEAN CORPUSCULAR HGB CONC 34.1 g/dL (33.0-37.0); MONO # 0.5 K/uL (0.0-0.8); MONO % 15.1 % (0.0-10.0); NRBC % 0.1 % (0.0-2.0); RED CELL DISTRIBUTION WIDTH 14.4 % (11.5-14.5); WHITE BLOOD COUNT 3.4 K/uL (4.8-10.8)
[2016-11-18 08:38] LABS: CHLORIDE 107 mmol/L (98-107)
[2016-11-18 08:39] LABS: POTASSIUM 4.1 mmol/L (3.6-5.2); SODIUM 141 mmol/L (132-148)
[2016-11-18 08:41] LABS: AST/SGOT 26 U/L (14-36); BILIRUBIN,TOTAL 0.8 mg/dL (0.2-1.3); CARBON DIOXIDE 25 mmol/L (22-30); GFR AFRICAN-AMERICAN > 60; TOTAL PROTEIN 6.7 g/dL (6.3-8.3)
--- NOTE | 2016-11-18 08:41 | RAD ---
HISTORY: check for IVC filter COMPARISON: No prior. FINDINGS: BOWEL: . No obstruction. No free air. BONES: Generalized osteopenia. Mild rightward thoracolumbar convexity. Thoraco lumbar marginal osteophytes is-bridging right thoraco lumbar level. Bilateral hip osteoarthrosis right greater than left OTHER FINDINGS: Vascular calcifications abdominal and pelvic. . IVC filter in place - apex right-sided L1-2 level. Longitudinal prientation appears normal. Further detail regarding relationship to renal vein, touching of any inferior vena caval wall or IVC caliber not possible with this exam . IMPRESSION: IVC filter placement -as above . If further evaluation for IVC filter detail is needed, consider CT of the abdomen.
[2016-11-18 08:42] LABS: ALKALINE PHOSPHATASE 76 U/L (38-126); ALT/SGPT 24 U/L (9-52); BLOOD UREA NITROGEN 14 mg/dL (7-17); CALCIUM 8.9 mg/dl (8.6-10.4); GLUCOSE,RANDOM 86 mg/dL (65-105)
[2016-11-18] MEDS: Potassium Chloride 10 mEq ER Tab PO SCH (09:32)
[2016-11-18] MEDS: Calcium-Vit D 250 mg-125 Units Tab UD PO SCH (09:32)
[2016-11-18] MEDS: hydrALAZINE 12.5 mg Tab PO SCH (09:32)
[2016-11-18] MEDS: Enoxaparin 30 mg Syringe SC SCH ×2 (09:38→21:18)
--- NOTE | 2016-11-18 09:52 | CP.PCM.PN ---
Subjective - Date & Time of Evaluation Date of Evaluation: 11/18/16 Time of Evaluation: 09:52 - Subjective Subjective: Patient still complaining of numbness and weakness to hands. Still complaining of left leg pain. No new complaints today. Review of Systems - Review of Systems All systems: reviewed and no additional remarkable complaints except - Constitutional Constitutional: UN Additional comments: denies fever - EENT Eyes: UNREMARKABLE Ears: UNREMARKABLE Nose/Mouth/Throat: UNREMARKABLE - Cardiovascular Cardiovascular: UNREMARKABLE - Musculoskeletal Musculoskeletal: As Par HPI - Integumentary Integumentary: As Per HPI - Neurological Neurological: As Per HPI - Hematologic/Lymphatic Hematologic: UNREMARKABLE Objective - Vital Signs/Intake and Output Vital Signs (last 24 hours): Temp Pulse Resp BP Pulse Ox 97.8 F 105 H 18 150/74 99 11/18/16 08:04 11/18/16 08:04 11/18/16 08:04 11/18/16 09:37 11/18/16 08:04 Intake and Output: 11/18/16 11/18/16 06:59 18:59 Intake Total 580 Balance 580 - Medications Medications: Current Medications Allopurinol (Zyloprim) 100 mg PO DAILY [facility] Last Admin: 11/18/16 09:32 Dose: 100 mg Aspirin (Aspirin) 325 mg PO DAILY [facility] Last Admin: 11/18/16 09:31 Dose: 325 mg Calcium/Vitamin D (Oscal-D 250 Mg-125 Units Tab) 1 tab PO DAILY [facility] Last Admin: 11/18/16 09:32 Dose: 1 tab Carvedilol (Coreg) 25 mg PO BID [facility] Last Admin: 11/18/16 09:37 Dose: 25 mg Clonidine HCl (Catapres-Tts3 0.3 Mg/24 Hr) 1 patch TD QWK [facility] Clopidogrel Bisulfate (Plavix) 75 mg PO DAILY [facility] Last Admin: 11/18/16 09:32 Dose: 75 mg Enoxaparin Sodium (Lovenox) 30 mg SC 1000,2200 [facility] Last Admin: 11/18/16 09:38 Dose: 30 mg Furosemide (Lasix) 20 mg PO DAILY [facility] Last Admin: 11/18/16 09:37 Dose: 20 mg Gabapentin (Neurontin) 100 mg PO DAILY [facility] Last Admin: 11/18/16 09:38 Dose: 100 mg Hydralazine HCl (Apresoline) 37.5 mg PO DAILY [facility] Last Admin: 11/18/16 09:32 Dose: 37.5 mg Isosorbide Dinitrate (Isordil) 20 mg PO DAILY [facility] Last Admin: 11/18/16 09:33 Dose: 20 mg Losartan Potassium (Cozaar) 100 mg PO DAILY [facility] Last Admin: 11/18/16 09:31 Dose: 100 mg Magnesium Oxide (Mag-Ox) 400 mg PO BID [facility] Last Admin: 11/17/16 19:43 Dose: 400 mg Potassium Chloride (Klor-Con 10) 10 meq PO DAILY [facility] Last Admin: 11/18/16 09:32 Dose: 10 meq Rosuvastatin Calcium (Crestor) 10 mg PO HS [facility] Last Admin: 11/17/16 22:20 Dose: 10 mg Tramadol HCl (Ultram) 50 mg PO BID PRN PRN Reason: Pain - Labs Labs: 11/18/16 08:19 11/18/16 08:19 - Constitutional Appears: Well, No Acute Distress - Head Exam Head Exam: ATRAUMATIC, NORMAL INSPECTION, NORMOCEPHALIC - Respiratory Exam Respiratory Exam: NORMAL BREATHING PATTERN - Cardiovascular Exam Additional comments: +DP/PT pulses - Extremities Exam Additional comments: +DP/PT pulses, calves soft but tender entire left leg sensitive to light touch today, especially calf and anterior thigh +tinels B decreased sensation to B median nerve distrib - Neurological Exam Neurological Exam: Alert, Awake Additional comments: Pain with left knee ROM - Skin Skin Exam: Dry, Intact, Warm Additional comments: brawny skin to distal 1/2 lower legs chronic Assessment and Plan (1) Carpal tunnel syndrome on both sides Assessment & Plan: per Dr. Monahan had outpatient EMG prior to admission that demonstrated B CTS and nerve compression at elbow as well PT/OT will follow as outpatient Status: Chronic (2) Primary osteoarthritis of left knee Assessment & Plan: severe DJD of left knee with deformity, no acute fracture noted on xray PT/OT d/w Dr. Monahan, agrees with above patient to f/u as outpatient Dr. 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 Scales orthopedically stable to continue PT Dr. Monahan notified of above Status: Chronic
[2016-11-18] MEDS: Magnesium Oxide 400 mg Tab UD PO SCH ×2 (11:00→18:20)
--- NOTE | 2016-11-18 13:07 | CP.PCM.PN ---
Subjective - Date & Time of Evaluation Date of Evaluation: 11/18/16 Time of Evaluation: 13:00 - Subjective Subjective: No further loss of consciousness, for IVC filter, follow-up with MRI and EEG Objective - Vital Signs/Intake and Output Vital Signs (last 24 hours): Temp Pulse Resp BP Pulse Ox 97.8 F 105 H 18 90/60 L 99 11/18/16 08:04 11/18/16 08:04 11/18/16 08:04 11/18/16 11:01 11/18/16 08:04 Intake and Output: 11/18/16 11/18/16 06:59 18:59 Intake Total 580 Balance 580 - Medications Medications: Current Medications Allopurinol (Zyloprim) 100 mg PO DAILY [facility] [place] Last Admin: 11/18/16 09:32 Dose: 100 mg Aspirin (Aspirin) 325 mg PO DAILY [facility] Last Admin: 11/18/16 09:31 Dose: 325 mg Calcium/Vitamin D (Oscal-D 250 Mg-125 Units Tab) 1 tab PO DAILY [facility] Last Admin: 11/18/16 09:32 Dose: 1 tab Carvedilol (Coreg) 25 mg PO BID [facility] Last Admin: 11/18/16 11:01 Dose: Not Given Clonidine HCl (Catapres-Tts3 0.3 Mg/24 Hr) 1 patch TD QWK [facility] Clopidogrel Bisulfate (Plavix) 75 mg PO DAILY [facility] [place] Last Admin: 11/18/16 09:32 Dose: 75 mg Enoxaparin Sodium (Lovenox) 30 mg SC 1000,2200 [facility] Last Admin: 11/18/16 09:38 Dose: 30 mg Furosemide (Lasix) 20 mg PO DAILY [facility] Last Admin: 11/18/16 09:37 Dose: 20 mg Gabapentin (Neurontin) 100 mg PO DAILY [facility] [place] Last Admin: 11/18/16 09:38 Dose: 100 mg Hydralazine HCl (Apresoline) 37.5 mg PO DAILY [facility] [place] Last Admin: 11/18/16 09:32 Dose: 37.5 mg Isosorbide Dinitrate (Isordil) 20 mg PO DAILY [facility] [place] Last Admin: 11/18/16 09:33 Dose: 20 mg Losartan Potassium (Cozaar) 100 mg PO DAILY [facility] [place] Last Admin: 11/18/16 11:01 Dose: Not Given Magnesium Oxide (Mag-Ox) 400 mg PO BID [facility] [place] Last Admin: 11/18/16 11:00 Dose: 400 mg Potassium Chloride (Klor-Con 10) 10 meq PO DAILY [facility] [place] Last Admin: 11/18/16 09:32 Dose: 10 meq Rosuvastatin Calcium (Crestor) 10 mg PO HS [facility] Last Admin: 11/17/16 22:20 Dose: 10 mg Tramadol HCl (Ultram) 50 mg PO BID PRN PRN Reason: Pain - Labs Labs: 11/18/16 08:19 11/18/16 08:19 - Head Exam Head Exam: ATRAUMATIC - Eye Exam Eye Exam: EOMI - ENT Exam ENT Exam: Mucous Membranes Moist - Neck Exam Neck Exam: absent: Lymphadenopathy, Thyromegaly - Respiratory Exam Respiratory Exam: Clear to Ausculation Bilateral. absent: Rales - Cardiovascular Exam Cardiovascular Exam: REGULAR RHYTHM, Murmur - GI/Abdominal Exam GI & Abdominal Exam: Normal Bowel Sounds. absent: Organomegaly - Rectal Exam Rectal Exam: Deferred - Extremities Exam Extremities Exam: Normal Capillary Refill. absent: Calf Tenderness - Neurological Exam Neurological Exam: Alert, Oriented x3 - Psychiatric Exam Psychiatric exam: Normal Mood - Skin Skin Exam: Dry Assessment and Plan (1) Syncope and collapse Status: Acute (2) HTN (hypertension) Status: Chronic (3) Thrombocytopenia Status: Acute
--- NOTE | 2016-11-18 14:45 | VASCLAB ---
PROCEDURE: HISTORY: Unresponsive episodes COMPARISON: None available. TECHNIQUE: Grayscale and duplex Doppler evaluation of the cervical carotid and vertebral arteries were performed. The common carotid, carotid bifurcations and cervical Internal Carotid Artery (ICA) and proximal External Carotid Artery (ECA) were evaluated. The vertebral arteries were evaluated for gross patency and flow direction. Report prepared by Mando Diamond, BS, RVT FINDINGS: RIGHT CAROTID ARTERIES: 1. Common Carotid Artery: No significant focal plaque formation of the right common carotid artery. Maximum Peak Systolic velocity: 84 cm/sec: End-diastolic velocity 20 cm/sec. 2. Carotid Bifurcation: Calcific plaque formation. Maximum Peak Systolic velocity: 28 cm/sec: End-diastolic velocity 8 cm/sec. 3. Internal Carotid Artery: Plaque description: Calcific 3.1. Proximal Segment: Peak systolic velocity 42 cm/sec: End-diastolic velocity 11 cm/sec - % stenosis 0-15% 3.2. Middle Segment: Peak systolic velocity 67 cm/sec: End-diastolic velocity 19 cm/sec - % stenosis 0-15% 3.3. Distal Segment: Peak systolic velocity 40 cm/sec: End-diastolic velocity 9 cm/sec - % stenosis 0-15% 4. External Carotid Artery: No significant focal plaque formation. Peak systolic velocity 46 cm/sec 5. ICA/CCA Ratio: 1.3 LEFT CAROTID ARTERIES: 1. Common Carotid Artery: No significant focal plaque formation of the left common carotid artery. Maximum Peak Systolic velocity: 78 cm/sec: End-diastolic velocity 16 cm/sec. 2. Carotid Bifurcation: Calcific plaque formation. Maximum Peak Systolic velocity: 35 cm/sec: End-diastolic velocity 9 cm/sec. 3. Internal Carotid Artery: Plaque description: Calcific 3.1. Proximal Segment: Peak systolic velocity 84 cm/sec: End-diastolic velocity 28 cm/sec - % stenosis 0-15% 3.2. Middle Segment: Peak systolic velocity 103 cm/sec: End-diastolic velocity 34 cm/sec - % stenosis 0-15% 3.3. Distal Segment: Peak systolic velocity 94 cm/sec: End-diastolic velocity 28 cm/sec - % stenosis 0-15% 4. External Carotid Artery: No significant focal plaque formation. Peak systolic velocity 44 cm/sec 5. ICA/CCA Ratio: 2.1 VERTEBRAL ARTERIES: 1. Right Vertebral Artery: The right vertebral artery flow direction is antegrade. 2. Left Vertebral Artery: The left vertebral artery flow direction is antegrade. OTHER FINDINGS: 1. Right Brachial Blood pressure: 164 mmHg. 2. Left Brachial Blood pressure: 160 mmHg. IMPRESSION: RIGHT: Duplex scan does not suggest hemodynamically significant stenosis of the right extracranial carotid arteries. LEFT: Duplex scan does not suggest hemodynamically significant stenosis of the left extracranial carotid arteries.
--- NOTE | 2016-11-18 15:16 | MRI ---
PROCEDURE: MRI BRAIN WITHOUT CONTRAST HISTORY: period of unresponsiveness COMPARISON: None. TECHNIQUE: Multiplanar, multisequence MR images of the brain were obtained without intravenous contrast enhancement. FINDINGS: HEMORRHAGE: None DWI: No evidence of an acute or early subacute infarction. BRAIN PARENCHYMA: No mass effect or edema. Atrophy present with periventricular white matter hyperintensity compatible chronic microvascular ischemic disease. VENTRICLES: Unremarkable. No hydrocephalus. CRANIUM: Unremarkable. ORBITS: Grossly unremarkable. PARANASAL SINUSES/MASTOIDS: Clear VASCULAR SYSTEM: Skull base flow voids intact. OTHER FINDINGS: None. IMPRESSION: Atrophy present with periventricular white matter hyperintensity compatible chronic microvascular ischemic disease.
--- NOTE | 2016-11-18 15:23 | VASCLAB ---
PROCEDURE: Lower Extremity Venous Duplex Exam. HISTORY: left calf pain r/o DVT PRIORS: None. TECHNIQUE: Bilateral common femoral, femoral, popliteal and posterior tibial, peroneal and great saphenous veins were evaluated. Flow was assessed with color Doppler, compressibility, assessment of phasic flow and augmentation response. Report prepared by Mando Diamond, JAMILAH, RVT FINDINGS: RIGHT: 1. Common Femoral Vein: 1.1. Compressibility - Fully compressible: Thrombus - None : Flow - Phasic: Augmentation -Normal: Reflux - None. 2. Femoral Vein: 2.1. Compressibility - Partial: Thrombus - Chronic : Flow - Reduced : Augmentation -Reduced: Reflux - None. 3. Popliteal Vein: 3.1. Compressibility - Fully compressible: Thrombus - None : Flow - Phasic: Augmentation -Normal: Reflux - Severe. 4. Posterior Tibial Vein: 4.1. Compressibility - Fully compressible: Thrombus - None: Flow - Phasic: Augmentation -Normal: Reflux - None. 5. Peroneal Vein: 5.1. Compressibility - Fully compressible: Thrombus - None: Flow - Phasic: Augmentation -Normal: Reflux - None. 6. Great Saphenous Vein: 6.1. Compressibility - Fully compressible: Thrombus - None: Flow - Phasic: Augmentation - Normal: Reflux - None. LEFT: 1. Common Femoral Vein: 1.1. Compressibility - Fully compressible: Thrombus - None: Flow - Phasic: Augmentation -Normal: Reflux - None. 2. Femoral Vein: 2.1. Compressibility - Fully compressible: Thrombus - None: Flow - Phasic: Augmentation -Normal: Reflux - None. 3. Popliteal Vein: 3.1. Compressibility - Fully compressible: Thrombus - None : Flow - Phasic: Augmentation -Normal: Reflux - None. 4. Posterior Tibial Vein: 4.1. Compressibility - Fully compressible: Thrombus - None: Flow - Phasic: Augmentation -Normal: Reflux - None. 5. Peroneal Vein: 5.1. Compressibility - Fully compressible: Thrombus - None: Flow - Phasic: Augmentation -Normal: Reflux - None. 6. Great Saphenous Vein: 6.1. Compressibility - Fully compressible: Thrombus - None: Flow - Phasic: Augmentation - Normal: Reflux - None. OTHER FINDINGS: Right: Severe valvular incompetence of the right popliteal vein. Left: Intima wall thickening noted in the left common femoral vein. IMPRESSION: Right: Chronic thrombosis of the right proximal femoral vein with mild reduction of the venous return. Left: No evidence of deep or superficial vein thrombosis of the left lower extremity. Normal valve function noted of the left side.
--- NOTE | 2016-11-18 15:34 | RAD ---
PROCEDURE: Left Knee Radiographs. HISTORY: Pain. No history of recent/ related trauma provided COMPARISON: None. FINDINGS: BONES: No acute fracture. Proliferative hypertrophic changes emanating from the femoral condyle and tibial plateau JOINTS: Severe multi compartment disease primarily affecting medial compartment, to a lesser extent patellofemoral joint and lateral compartment. JOINT EFFUSION: None. OTHER FINDINGS: None. IMPRESSION: Severe degenerative changes the overall appearance suggests a neuropathic component.
--- NOTE | 2016-11-18 17:31 | CARD ---
APPROVED REPORT EKG Measurement Heart [id number] VT [id number] [id number] <Conclusion> Sinus rhythm with 1st degree AV block Otherwise normal ECG
--- NOTE | 2016-11-18 20:56 | CP.PCM.PN ---
Subjective - Date & Time of Evaluation Date of Evaluation: 11/18/16 Time of Evaluation: 09:40 - Subjective Subjective: clinically same Objective - Vital Signs/Intake and Output Vital Signs (last 24 hours): Temp Pulse Resp BP Pulse Ox 97.3 F L 98 H 14 115/69 97 11/18/16 20:00 11/18/16 20:00 11/18/16 20:00 11/18/16 20:00 11/18/16 20:00 Intake and Output: 11/18/16 11/19/16 18:59 06:59 Intake Total 350 Balance 350 - Medications Medications: Current Medications Allopurinol (Zyloprim) 100 mg PO DAILY [facility] Last Admin: 11/18/16 09:32 Dose: 100 mg Aspirin (Aspirin) 325 mg PO DAILY [facility] Last Admin: 11/18/16 09:31 Dose: 325 mg Calcium/Vitamin D (Oscal-D 250 Mg-125 Units Tab) 1 tab PO DAILY [facility] Last Admin: 11/18/16 09:32 Dose: 1 tab Carvedilol (Coreg) 25 mg PO BID [facility] Last Admin: 11/18/16 18:21 Dose: 25 mg Clonidine HCl (Catapres-Tts3 0.3 Mg/24 Hr) 1 patch TD QWK [facility] Clopidogrel Bisulfate (Plavix) 75 mg PO DAILY [facility] Last Admin: 11/18/16 09:32 Dose: 75 mg Enoxaparin Sodium (Lovenox) 30 mg SC 1000,2200 [facility] Last Admin: 11/18/16 09:38 Dose: 30 mg Furosemide (Lasix) 20 mg PO DAILY [facility] Last Admin: 11/18/16 09:37 Dose: 20 mg Gabapentin (Neurontin) 100 mg PO DAILY [facility] Last Admin: 11/18/16 09:38 Dose: 100 mg Hydralazine HCl (Apresoline) 37.5 mg PO DAILY [facility] Last Admin: 11/18/16 09:32 Dose: 37.5 mg Isosorbide Dinitrate (Isordil) 20 mg PO DAILY [facility] Last Admin: 11/18/16 09:33 Dose: 20 mg Losartan Potassium (Cozaar) 100 mg PO DAILY [facility] Last Admin: 11/18/16 11:01 Dose: Not Given Magnesium Oxide (Mag-Ox) 400 mg PO BID [facility] Last Admin: 11/18/16 18:20 Dose: 400 mg Potassium Chloride (Klor-Con 10) 10 meq PO DAILY [facility] Last Admin: 11/18/16 09:32 Dose: 10 meq Rosuvastatin Calcium (Crestor) 10 mg PO HS [facility] Last Admin: 11/17/16 22:20 Dose: 10 mg Tramadol HCl (Ultram) 50 mg PO BID PRN PRN Reason: Pain - Labs Labs: 11/18/16 08:19 11/18/16 08:19 - Constitutional Appears: Well - Head Exam Head Exam: ATRAUMATIC, NORMAL INSPECTION, NORMOCEPHALIC - Eye Exam Eye Exam: EOMI, Normal appearance, PERRL Pupil Exam: NORMAL ACCOMODATION, PERRL - ENT Exam ENT Exam: Mucous Membranes Moist, Normal Exam - Neck Exam Neck Exam: Full ROM, Normal Inspection. absent: Lymphadenopathy - Respiratory Exam Respiratory Exam: Decreased Breath Sounds - Cardiovascular Exam Cardiovascular Exam: REGULAR RHYTHM, +S1, +S2 - GI/Abdominal Exam GI & Abdominal Exam: Soft, Diminished Bowel Sounds - Rectal Exam Rectal Exam: Deferred
[2016-11-19 07:56] LABS: BASO % 0.5 % (0.0-2.0); EOS % 0.3 % (0.0-4.0); HEMATOCRIT 35.2 % (34.0-47.0); LYMPH # 1.3 K/uL (1.0-4.3); LYMPH % 35.6 % (20.0-40.0); MEAN CORPUSCULAR HEMOGLOBIN 28.3 pg (27.0-31.0); MEAN CORPUSCULAR HGB CONC 34.1 g/dL (33.0-37.0); MEAN PLATELET VOLUME 9.2 fL (7.2-11.7); MONO # 0.6 K/uL (0.0-0.8); NRBC % 0.2 % (0.0-2.0); RED CELL DISTRIBUTION WIDTH 14.3 % (11.5-14.5); WHITE BLOOD COUNT 3.7 K/uL (4.8-10.8)
[2016-11-19] MEDS: Enoxaparin 30 mg Syringe SC SCH (10:20)
[2016-11-19] MEDS: Potassium Chloride 10 mEq ER Tab PO SCH (10:21)
[2016-11-19] MEDS: Magnesium Oxide 400 mg Tab UD PO SCH ×2 (10:22→17:50)
[2016-11-19] MEDS: hydrALAZINE 12.5 mg Tab PO SCH (10:22)
[2016-11-19] MEDS: Calcium-Vit D 250 mg-125 Units Tab UD PO SCH (10:22)
--- NOTE | 2016-11-19 12:19 | CP.PCM.PN ---
Subjective - Date & Time of Evaluation Date of Evaluation: 11/19/16 Time of Evaluation: 13:00 - Subjective Subjective: MRI with atrophy and white matter microvascular disease, follow-up with EEG, staring as explained by family suggestive of seizures Objective - Vital Signs/Intake and Output Vital Signs (last 24 hours): Temp Pulse Resp BP Pulse Ox 97.2 F L 89 18 124/76 100 11/19/16 08:53 11/19/16 08:53 11/19/16 08:53 11/19/16 10:22 11/19/16 08:53 - Medications Medications: Current Medications Allopurinol (Zyloprim) 100 mg PO DAILY [facility] Last Admin: 11/19/16 10:20 Dose: 100 mg Aspirin (Aspirin) 325 mg PO DAILY [facility] Last Admin: 11/19/16 10:22 Dose: 325 mg Calcium/Vitamin D (Oscal-D 250 Mg-125 Units Tab) 1 tab PO DAILY [facility] Last Admin: 11/19/16 10:22 Dose: 1 tab Carvedilol (Coreg) 25 mg PO BID [facility] Last Admin: 11/19/16 10:21 Dose: 25 mg Clonidine HCl (Catapres-Tts3 0.3 Mg/24 Hr) 1 patch TD QWK [facility] Clopidogrel Bisulfate (Plavix) 75 mg PO DAILY [facility] Last Admin: 11/19/16 10:20 Dose: 75 mg Enoxaparin Sodium (Lovenox) 30 mg SC 1000,2200 [facility] Last Admin: 11/19/16 10:20 Dose: 30 mg Furosemide (Lasix) 20 mg PO DAILY [facility] Last Admin: 11/19/16 10:22 Dose: 20 mg Gabapentin (Neurontin) 100 mg PO DAILY [facility] Last Admin: 11/19/16 10:22 Dose: 100 mg Hydralazine HCl (Apresoline) 37.5 mg PO DAILY [facility] Last Admin: 11/19/16 10:22 Dose: 37.5 mg Isosorbide Dinitrate (Isordil) 20 mg PO DAILY [facility] Last Admin: 11/19/16 10:20 Dose: 20 mg Losartan Potassium (Cozaar) 100 mg PO DAILY [facility] Last Admin: 11/19/16 10:20 Dose: 100 mg Magnesium Oxide (Mag-Ox) 400 mg PO BID [facility] Last Admin: 11/19/16 10:22 Dose: 400 mg Potassium Chloride (Klor-Con 10) 10 meq PO DAILY [facility] Last Admin: 11/19/16 10:21 Dose: 10 meq Rosuvastatin Calcium (Crestor) 10 mg PO HS [facility] Last Admin: 11/18/16 21:18 Dose: 10 mg Tramadol HCl (Ultram) 50 mg PO BID PRN PRN Reason: Pain Last Admin: 11/18/16 21:18 Dose: 50 mg - Labs Labs: 11/19/16 07:35 11/18/16 08:19 - Constitutional Appears: Non-toxic - Head Exam Head Exam: ATRAUMATIC - Eye Exam Eye Exam: EOMI - ENT Exam ENT Exam: Mucous Membranes Moist - Neck Exam Neck Exam: absent: Lymphadenopathy, Thyromegaly - Respiratory Exam Respiratory Exam: Clear to Ausculation Bilateral. absent: Rales - Cardiovascular Exam Cardiovascular Exam: REGULAR RHYTHM, Murmur - GI/Abdominal Exam GI & Abdominal Exam: Normal Bowel Sounds. absent: Organomegaly - Rectal Exam Rectal Exam: Deferred - Extremities Exam Extremities Exam: Normal Capillary Refill. absent: Calf Tenderness - Neurological Exam Neurological Exam: Alert, Oriented x3 - Psychiatric Exam Psychiatric exam: Anxious, Normal Affect - Skin Skin Exam: Dry Assessment and Plan (1) Syncope and collapse Status: Acute (2) HTN (hypertension) Status: Chronic (3) Thrombocytopenia Status: Acute
--- NOTE | 2016-11-19 12:34 | CP.PCM.CON ---
History of Present Illness - History of Present Illness History of Present Illness: 86 year old female with a history of HTN, osteoarthritis, femoral DVT with IVC filter, chronic thrombocytopenia, admitted with unresponsive episode. The patients family report to several periods of blank stares and inappropriate laughter. She was found to have reduced platelet count in the outpatient setting. Due to the mild nature of her thrombocytopenia, further work up was not felt to be necessary. Past medical history: HTN, osteorathritis, DVT, thrombocytopenia Past surgical hisotry: ankle ORIF Family history: Daughter has CLL Social history: Denies tobacco, alcohol, and illicit drug use. Allergies: Several, see list. Review of systems: All remaining review of systems including HEENT, cardiovascular, respiratory, gastrointestinal, genitourinary, musculoskeletal, dermatologic and neurologic are negative unless mentioned in the HPI. Past Patient History - Past Medical History & Family History Past Medical History?: Yes - Past Social History Smoking Status: Never Smoked - CARDIAC Hx Cardia Arrhythmia: Yes Hx Hypercholesterolemia: Yes Hx Hypertension: Yes Hx Peripheral Edema: Yes - PULMONARY Hx Asthma: Yes - NEUROLOGICAL Hx Neurological Disorder: Yes Hx Syncope: Yes (10 yrs ago unknown reason) - HEENT Hx HEENT Problems: Yes Hx Cataracts: Yes Hx Glaucoma: Yes - RENAL Hx Chronic Kidney Disease: No - ENDOCRINE/METABOLIC Hx Endocrine Disorders: No - HEMATOLOGICAL/ONCOLOGICAL Hx Blood Disorders: No - INTEGUMENTARY Hx Dermatological Problems: No - MUSCULOSKELETAL/RHEUMATOLOGICAL Hx Arthritis: Yes - GASTROINTESTINAL Hx Gastrointestinal Disorders: No - GENITOURINARY/GYNECOLOGICAL Hx Genitourinary Disorders: No - PSYCHIATRIC Hx Substance Use: No - SURGICAL HISTORY Hx Surgeries: Yes Hx Cataract Extraction: Yes (cat ext left eye iol 7 yrs ago) Hx Hysterectomy: Yes (35 yrs ago) Hx Orthopedic Surgery: Yes (R leg) Hx Vascular Surgery: No (25 yrs ago) - ANESTHESIA Hx Anesthesia: Yes Hx Anesthesia Reactions: No Hx Malignant Hyperthermia: No Meds Allergies/Adverse Reactions: Allergies Allergy/AdvReac Type Severity Reaction Status Date / Time acetaminophen [From Percocet] AdvReac Verified 11/15/16 13:44 hydromorphone [From Dilaudid] AdvReac Verified 11/15/16 13:44 oxycodone [From Percocet] AdvReac Verified 11/15/16 13:44 - Medications Medications: Current Medications Allopurinol (Zyloprim) 100 mg PO DAILY [facility] Last Admin: 11/19/16 10:20 Dose: 100 mg Aspirin (Aspirin) 325 mg PO DAILY [facility] Last Admin: 11/19/16 10:22 Dose: 325 mg Calcium/Vitamin D (Oscal-D 250 Mg-125 Units Tab) 1 tab PO DAILY [facility] Last Admin: 11/19/16 10:22 Dose: 1 tab Carvedilol (Coreg) 25 mg PO BID [facility] Last Admin: 11/19/16 10:21 Dose: 25 mg Clonidine HCl (Catapres-Tts3 0.3 Mg/24 Hr) 1 patch TD QWK [facility] Clopidogrel Bisulfate (Plavix) 75 mg PO DAILY [facility] Last Admin: 11/19/16 10:20 Dose: 75 mg Enoxaparin Sodium (Lovenox) 30 mg SC 1000,2200 [facility] Last Admin: 11/19/16 10:20 Dose: 30 mg Furosemide (Lasix) 20 mg PO DAILY [facility] Last Admin: 11/19/16 10:22 Dose: 20 mg Gabapentin (Neurontin) 100 mg PO DAILY [facility] Last Admin: 11/19/16 10:22 Dose: 100 mg Hydralazine HCl (Apresoline) 37.5 mg PO DAILY [facility] Last Admin: 11/19/16 10:22 Dose: 37.5 mg Isosorbide Dinitrate (Isordil) 20 mg PO DAILY [facility] Last Admin: 11/19/16 10:20 Dose: 20 mg Losartan Potassium (Cozaar) 100 mg PO DAILY [facility] Last Admin: 11/19/16 10:20 Dose: 100 mg Magnesium Oxide (Mag-Ox) 400 mg PO BID [facility] Last Admin: 11/19/16 10:22 Dose: 400 mg Potassium Chloride (Klor-Con 10) 10 meq PO DAILY [facility] Last Admin: 11/19/16 10:21 Dose: 10 meq Rosuvastatin Calcium (Crestor) 10 mg PO HS [facility] Last Admin: 11/18/16 21:18 Dose: 10 mg Tramadol HCl (Ultram) 50 mg PO BID PRN PRN Reason: Pain Last Admin: 11/18/16 21:18 Dose: 50 mg Physical Exam - Head Exam Head Exam: ATRAUMATIC - Eye Exam Eye Exam: Normal appearance - ENT Exam ENT Exam: Mucous Membranes Dry - Respiratory Exam Respiratory Exam: NORMAL BREATHING PATTERN - Cardiovascular Exam Cardiovascular Exam: +S1, +S2 - GI/Abdominal Exam GI & Abdominal Exam: Normal Bowel Sounds - Extremities Exam Extremities exam: Positive for: pedal edema - Neurological Exam Neurological exam: Oriented x3 - Psychiatric Exam Psychiatric exam: Normal Affect, Normal Mood - Skin Skin Exam: Warm Results - Vital Signs Recent Vital Signs: Last Vital Signs Temp 97.2 F L 11/19/16 08:53 Pulse 89 11/19/16 08:53 Resp 18 11/19/16 08:53 BP 124/76 11/19/16 10:22 Pulse Ox 100 11/19/16 08:53 - Labs Result Diagrams: 11/19/16 07:35 11/18/16 08:19 Labs: Laboratory Results - last 24 hr 11/19/16 11/19/16 07:35 11:22 WBC 3.7 L RBC 4.24 Hgb 12.0 Hct 35.2 MCV 83.0 MCH 28.3 MCHC 34.1 RDW 14.3 Plt Count 80 L MPV 9.2 Neut % (Auto) 48.6 L Lymph % (Auto) 35.6 [place] % (Auto) 15.0 H Eos % (Auto) 0.3 Baso % (Auto) 0.5 Neut # 1.8 Lymph # 1.3 [place] # 0.6 Eos # 0.0 Baso # 0.0 POC Glucose (mg/dL) 92 Assessment & Plan (1) Thrombocytopenia Assessment and Plan: chronic ?MDS ?ITP given mild nature, no intervention or work up required Status: Acute Priority: Medium (2) Leukopenia Assessment and Plan: mild neutropenia no bone marrow biopsy required Status: Acute (3) 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 Assessment and Plan: has IVC filter no anticoagulation required Thank you for this interesting consult. Status: Chronic
--- NOTE | 2016-11-19 18:52 | CP.PCM.PN ---
Subjective - Date & Time of Evaluation Date of Evaluation: 11/19/16 Time of Evaluation: 09:40 - Subjective Subjective: clinically same Objective - Vital Signs/Intake and Output Vital Signs (last 24 hours): Temp Pulse Resp BP Pulse Ox 98.3 F 98 H 18 94/58 L 100 11/19/16 15:00 11/19/16 18:00 11/19/16 15:00 11/19/16 17:48 11/19/16 15:00 Intake and Output: 11/19/16 11/19/16 06:59 18:59 Intake Total 360 Balance 360 - Medications Medications: Current Medications Allopurinol (Zyloprim) 100 mg PO DAILY [facility] Last Admin: 11/19/16 10:20 Dose: 100 mg Apixaban (Eliquis) 5 mg PO DAILY [facility] Aspirin (Aspirin) 325 mg PO DAILY [facility] Last Admin: 11/19/16 10:22 Dose: 325 mg Calcium/Vitamin D (Oscal-D 250 Mg-125 Units Tab) 1 tab PO DAILY [facility] Last Admin: 11/19/16 10:22 Dose: 1 tab Carvedilol (Coreg) 25 mg PO BID [facility] Last Admin: 11/19/16 17:48 Dose: Not Given Clonidine HCl (Catapres-Tts3 0.3 Mg/24 Hr) 1 patch TD QWK [facility] Clopidogrel Bisulfate (Plavix) 75 mg PO DAILY [facility] Last Admin: 11/19/16 10:20 Dose: 75 mg Furosemide (Lasix) 20 mg PO DAILY [facility] Last Admin: 11/19/16 10:22 Dose: 20 mg Gabapentin (Neurontin) 100 mg PO DAILY [facility] Last Admin: 11/19/16 10:22 Dose: 100 mg Hydralazine HCl (Apresoline) 37.5 mg PO DAILY [facility] Last Admin: 11/19/16 10:22 Dose: 37.5 mg Isosorbide Dinitrate (Isordil) 20 mg PO DAILY [facility] Last Admin: 11/19/16 10:20 Dose: 20 mg Losartan Potassium (Cozaar) 100 mg PO DAILY [facility] Last Admin: 11/19/16 10:20 Dose: 100 mg Magnesium Oxide (Mag-Ox) 400 mg PO BID [facility] Last Admin: 11/19/16 17:50 Dose: 400 mg Potassium Chloride (Klor-Con 10) 10 meq PO DAILY [facility] Last Admin: 11/19/16 10:21 Dose: 10 meq Rosuvastatin Calcium (Crestor) 10 mg PO HS [facility] Last Admin: 11/18/16 21:18 Dose: 10 mg Tramadol HCl (Ultram) 50 mg PO BID PRN PRN Reason: Pain Last Admin: 11/18/16 21:18 Dose: 50 mg - Labs Labs: 11/19/16 07:35 11/18/16 08:19
[2016-11-20 00:23] VITALS: RESP 20
--- NOTE | 2016-11-20 02:39 | EEG ---
DATE: This is a 16-channel electroencephalogram of awake and drowsy adult. During the study photic stimulation was performed. Hyperventilation was not performed. The resting electroencephalogram consists of 8-9 Hz with 20-30 microvolts alpha activity seen at parietal and occipital leads. Anteriorly, fast activity superimposed with 2 to 3 Hz, with delta activities seen. Intermittent movement artifact mostly contaminating the right temporal leads which maybe masking the underlying pathological activities. The photic stimulation did not evoke driving response noted at 2-20 Hz. IMPRESSION: This is normal electroencephalogram for her age. During the study, neither electroencephalographic paroxysmal activities nor focal slowing noted; however, if the clinical suspicion is high, please repeat the study or extended hour ambulatory electroencephalogram. Jackson Michelle MD
--- NOTE | 2016-11-20 09:38 | PN ---
DATE: 11/20/2016 TIME OF EVALUATION: 7:05 a.m. NEUROLOGIC PROBLEM: Reference to staring spell and impaired consciousness, possible seizures. SUBJECTIVE: The patient was seen and evaluated by Dr. Kojo Polanco over the weekend, being investigated and workup is being on process. As per the family members, she did have recurrent episode of staring spell and unconsciousness manifesting with losing her conversation, speech errors during the process. From cardiac point of view, the patient did have cardiomyopathy. She has been on medications including Eliquis, Plavix, and aspirin for the same. However, since the admission of the patient, she does not have any new episode of staring spell. PHYSICAL EXAMINATION VITAL SIGNS: Blood pressure 135/89, mean arterial pressure 104, respiratory rate 16, temperature 97.9, pulse rate 103. NEUROLOGIC: The patient is awake, alert, knows she is in the hospital. She knows the problem, why she is in the hospital. She follows all commands. No right or left confusion. Speech is clear. Cranial nerve examination, grossly intact. Motor examination, she moves all 4 extremities. Lower extremities, hyperpigmented. Trace edema, legs. HEART: Tachycardia. LUNGS: Respiration is stable. EXTREMITIES: Deep tendon reflexes are absent. Plantars are mute. LABORATORY DATA: Her workup, MRI of the brain consistent with small-vessel disease and atrophy. The EEG has been reviewed by me, suggestive of normal electroencephalogram for her age. No focal slowing. However, the temporal lead on her right side shows some artifact versus some paroxysmal activities which is probably artifactual. CONCLUSION: Because of recurrent episode of staring spell in the situation of cardiac workup is negative, though electroencephalogram is normal for her age, I would like to place her on lamotrigine empirically and closely observe her. In case if she has any new episodes, the electroencephalogram should be repeated. The patient has been taking 2 antiplatelets with higher dose for her age; considering this problem, I would like to put her down on Ecotrin 81 mg. Continue Plavix with Eliquis at present. The patient should get out of the bed, DVT prophylaxis should be maintained. The patient will be followed closely with you. Jackson Michelle MD
[2016-11-20] MEDS: hydrALAZINE 12.5 mg Tab PO SCH (11:16)
[2016-11-20] MEDS: Potassium Chloride 10 mEq ER Tab PO SCH (11:16)
[2016-11-20] MEDS: Magnesium Oxide 400 mg Tab UD PO SCH ×2 (11:17→17:28)
[2016-11-20] MEDS: Calcium-Vit D 250 mg-125 Units Tab UD PO SCH (11:17)
[2016-11-20 15:21] VITALS: BP 145/85; PULSE 106; TEMP 98; O2SAT 96
--- NOTE | 2016-11-20 20:09 | CP.PCM.PN ---
Subjective - Date & Time of Evaluation Date of Evaluation: 11/20/16 Time of Evaluation: 09:20 - Subjective Subjective: clinically same Objective - Vital Signs/Intake and Output Vital Signs (last 24 hours): Temp Pulse Resp BP Pulse Ox 98 F 106 H 20 145/85 96 11/20/16 15:19 11/20/16 15:19 11/20/16 15:19 11/20/16 17:29 11/20/16 15:19 - Medications Medications: Current Medications Allopurinol (Zyloprim) 100 mg PO DAILY [facility] Last Admin: 11/20/16 11:16 Dose: 100 mg Apixaban (Eliquis) 5 mg PO DAILY [facility] Last Admin: 11/20/16 11:16 Dose: 5 mg Calcium/Vitamin D (Oscal-D 250 Mg-125 Units Tab) 1 tab PO DAILY [facility] Last Admin: 11/20/16 11:17 Dose: 1 tab Carvedilol (Coreg) 25 mg PO BID [facility] Last Admin: 11/20/16 17:29 Dose: 25 mg Clonidine HCl (Catapres-Tts3 0.3 Mg/24 Hr) 1 patch TD QWK [facility] Clopidogrel Bisulfate (Plavix) 75 mg PO DAILY [facility] Last Admin: 11/20/16 11:18 Dose: 75 mg Furosemide (Lasix) 20 mg PO DAILY [facility] Last Admin: 11/20/16 11:17 Dose: 20 mg Hydralazine HCl (Apresoline) 37.5 mg PO DAILY [facility] Last Admin: 11/20/16 11:16 Dose: 37.5 mg Isosorbide Dinitrate (Isordil) 20 mg PO DAILY [facility] Last Admin: 11/20/16 11:17 Dose: 20 mg Lamotrigine (Lamictal) 25 mg PO BID [facility] Last Admin: 11/20/16 17:28 Dose: 25 mg Losartan Potassium (Cozaar) 100 mg PO DAILY [facility] Last Admin: 11/20/16 11:16 Dose: 100 mg Magnesium Oxide (Mag-Ox) 400 mg PO BID [facility] Last Admin: 11/20/16 17:28 Dose: 400 mg Potassium Chloride (Klor-Con 10) 10 meq PO DAILY [facility] Last Admin: 11/20/16 11:16 Dose: 10 meq Rosuvastatin Calcium (Crestor) 10 mg PO [facility] Last Admin: 11/19/16 21:55 Dose: 10 mg - Labs Labs: 11/19/16 07:35 11/18/16 08:19 Assessment and Plan - Assessment and Plan (Free Text) Plan: Discussed at length with the daughter + and then daughter came in again the same thing discussed patient started on the Lamictal report of the EEG given Patient started on the Eliquis Total duct very clearly the daughter and the son to call Dr. 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 Santizo To be followed up with the venous Doppler again in 1 week
== END 2016-11-20 20:48 | DRG 312 ==
LOC: C.ER 13:25 → C.9E 16:30 → C.5S 17:06 → OBSVTOIN 11-17 10:47
PROVIDERS: ADMIT Internal Medicine Nephrology; ATTEND Internal Medicine Nephrology
DX: R55 Syncope and collapse (principal); I82.511 Chronic embolism and thrombosis of right femoral vein; I42.9 Cardiomyopathy, unspecified; D70.9 Neutropenia, unspecified; I73.9 Peripheral vascular disease, unspecified; I10 Essential (primary) hypertension; M17.0 Bilateral primary osteoarthritis of knee; D72.819 Decreased white blood cell count, unspecified; G56.03 Carpal tunnel syndrome, bilateral upper limbs; G56.23 Lesion of ulnar nerve, bilateral upper limbs; H26.9 Unspecified cataract; H40.9 Unspecified glaucoma; J45.909 Unspecified asthma, uncomplicated; K21.9 Gastro-esophageal reflux disease without esophagitis; R29.6 Repeated falls; E78.5 Hyperlipidemia, unspecified; E78.00 Pure hypercholesterolemia, unspecified; Z96.651 Presence of right artificial knee joint; Z90.710 Acquired absence of both cervix and uterus; Z91.81 History of falling

== ENCOUNTER 2017-02-25 12:42 | Inpatient (IN) | payer MEDICARE ==
[2017-02-25 12:42] VITALS: BMI 28.2
--- NOTE | 2017-02-25 13:30 | C.PDOC ---
History Of Present Illness 86 year old female with PMHx of CHF, cardiac disease and chronic peripheral edema presents to the ED with family reporting an episode of low blood pressure this morning. She has also had a swollen, tender left wrist for the past several , of days. Patient states she usually get SOB on exertion. According to her family they usually measure her BP on a regular basis and this morning she seemed a little out of it, still oriented but with slurred speech, they measured her BP again and it was 80/60 which prompted them to bring her in for evaluation.Upon arrival to the ED patients BP is much better and she is asymptomatic. Patient denies injury, fall, trauma, CP, headache, back pain, nausea, vomit, abdominal pain. Time Seen by Provider: 02/25/17 13:12 Chief Complaint (Nursing): Weakness/Neurological Deficit History Per: Patient History/Exam Limitations: no limitations Onset/Duration Of Symptoms: Hrs Current Symptoms Are (Timing): Gone Seizure Or Post-ictal Symptoms: None Fall Associated With With Symptoms: No Severity: None Recent travel outside of the [place]: No Additional History Per: Patient Past Medical History Reviewed: Historical Data, Nursing Documentation, Vital Signs Vital Signs: Last Vital Signs Temp 98.2 F 02/25/17 12:50 Pulse 84 02/25/17 12:50 Resp 16 02/25/17 12:50 BP 138/80 02/25/17 12:50 Pulse Ox 99 02/25/17 14:40 - Medical History PMH: Arthritis, Asthma, Cardia Arrhythmia, HTN, Hypercholesterolemia, Peripheral Edema Denies: Chronic Kidney Disease Surgical History: No Surg Hx - [facility] Procedures CATARAC PHACOEMULS/ASPIR (07/20/13) DEBRIDEMENT OF NAIL, NAIL BED OR NAIL FOLD (11/15/13) INSERT LENS AT CATAR EXT (07/20/13) OP RED-INT FIX TIB/FIBUL (11/15/13) PACKED CELL TRANSFUSION (11/15/13) PLICATION OF VENA CAVA (11/15/13) VACCINATION NEC (11/15/13) Family History: States: Unknown Family Hx - Social History Hx Tobacco Use: No Hx Alcohol Use: No Hx Substance Use: No - Immunization History Hx Tetanus Toxoid Vaccination: No Hx Influenza Vaccination: No Hx Pneumococcal Vaccination: No Review Of Systems Constitutional: Negative for: Fever, Chills Eyes: Negative for: Vision Change Cardiovascular: Negative for: Chest Pain, Palpitations Respiratory: Positive for: SOB with Excertion. Negative for: Cough Gastrointestinal: Negative for: Nausea, Vomiting, Abdominal Pain Musculoskeletal: Negative for: Back Pain Skin: Negative for: Rash Neurological: Negative for: Weakness, Numbness, Headache, Dizziness Physical Exam - Physical Exam Appears: Non-toxic, No Acute Distress Skin: Normal Color, Warm, Dry Head: Atraumatic, Normacephalic Nose: No Discharge, No Deformity Oral Mucosa: Moist Neck: Normal ROM, Supple Chest: Symmetrical Cardiovascular: Rhythm Regular, No Murmur Respiratory: Normal Breath Sounds, No Rales, No Rhonchi, No Wheezing Gastrointestinal/Abdominal: Soft, No Tenderness, No Distention, No Rebound Extremity: Normal ROM, Pedal Edema (Chronic, tense peripheral edema in both legs ), Capillary Refill (< 2 seconds), Swelling (left wrist, tender and warm to touch), Other (stasis dermatitis B/L legs) Neurological/Psych: Oriented x3, Normal Speech, Normal Cognition Gait: Steady ED Course And Treatment - Laboratory Results Result Diagrams: 02/25/17 13:47 02/25/17 13:47 Lab Interpretation: Abnormal (WBC 3.8, plt 84, BUN 20, Cr 0.7, BNP 1390, Troponin 0.1600) ECG: Interpreted By [facility] ECG Rhythm: Sinus Rhythm, 1st Degree HB, ST/T Changes (inverted in III, flat in AVR) ECG Interpretation: No Acute Changes O2 Sat by Pulse Oximetry: 99 (On RA) Pulse Ox Interpretation: Normal - Radiology CXR: Interpreted by [facility] CXR Interpretation: Yes: No Acute Disease (unchanged since 11/2016) - Physician Consult Information Time Consulting Physician Contacted: 14:39 Physician Contacted: Lisette Cornejo Outcome Of Conversation: She knows the patient but cannot admit at this time for personal reasons. Requests patient be admitted to control clerk head . Dr Rivera agrees to admit the patient. Medical Decision Making Medical Decision Making: Impression : 86 y/o female with swollen left wrist. Plan: * EKG * CXR * Blood work * Left wrist X-Ray * UA Disposition - Disposition Disposition: HOSPITALIZED Disposition Time: 15:48 Condition: STABLE - POA Present On Arrival: None - Clinical Impression Clinical Impression: CHF (congestive heart failure), Abnormal cardiac enzyme level, Osteoarthritis - Scribe Statement The provider has reviewed the documentation as recorded by the Scribe Eulalio Beckford All medical record entries made by the Scribe were at my direction and personally dictated by me. I have reviewed the chart and agree that the record accurately reflects my personal performance of the history, physical exam, medical decision making, and the department course for this patient. I have also personally directed, reviewed, and agree with the discharge instructions and disposition.
[2017-02-25 13:51] LABS: BASO % 0.5 % (0.0-2.0); EOS % 0.4 % (0.0-4.0); HEMATOCRIT 33.9 % (34.0-47.0); LYMPH # 0.8 K/uL (1.0-4.3); LYMPH % 22.1 % (20.0-40.0); MEAN CELL VOLUME 82.8 fL (81.0-99.0); MEAN PLATELET VOLUME 8.7 fL (7.2-11.7); MONO # 0.7 K/uL (0.0-0.8); MONO % 18.9 % (0.0-10.0); NRBC % 0.1 % (0.0-2.0); RED CELL DISTRIBUTION WIDTH 15.5 % (11.5-14.5); WHITE BLOOD COUNT 3.8 K/uL (4.8-10.8)
[2017-02-25 14:03] LABS: ALB/GLOB RATIO 0.9 (1.0-2.1); ALKALINE PHOSPHATASE 71 U/L (38-126); ALT/SGPT 19 U/L (9-52); AST/SGOT 22 U/L (14-36); BLOOD UREA NITROGEN 20 mg/dL (7-17); CALCIUM 8.5 mg/dl (8.6-10.4); CARBON DIOXIDE 28 mmol/L (22-30); CHLORIDE 99 mmol/L (98-107); GFR AFRICAN-AMERICAN > 60; GLUCOSE,RANDOM 94 mg/dL (65-105); MAGNESIUM 1.6 mg/dL (1.6-2.3); POTASSIUM 3.7 mmol/L (3.6-5.2); SODIUM 136 mmol/L (132-148); TOTAL PROTEIN 7.8 g/dL (6.3-8.3); URIC ACID 3.5 mg/dL (2.2-7.5)
--- NOTE | 2017-02-25 16:01 | CP.PCM.PN ---
Subjective - Date & Time of Evaluation Date of Evaluation: 02/25/17 Time of Evaluation: 16:00 - Subjective Subjective: 86 year old female with PMHx of CHF, cardiac disease and chronic peripheral edema presents to the ED with family reporting an episode of low blood pressure this morning around 11:30/ Per the son she looked "dazed" and was talking in a weird voice. He then took her Bp which was 80/49. This lasted for about 30 minutes so they called the ambulance. In the ambulance she appeared to be "normal". He stated now in the ED she is back to baseline. Per family this patient has had these episodes before but last for a smaller amount of time. On Thursday the patient woke up with a swollen painful left wrist. Patient has a hx of gout. Patient denies injury, fall, trauma, CP, headache, back pain, nausea, vomit, abdominal pain. PMHx - HTN, osteoarthritis, DVT, thrombocytopenia, gout, carpal tunnel, ( possible hx of "irregular heart beat" per fam) SurgHx - ankle ORIF, hysterectomy, IVC filter placement FamilyHx - daughter has CLL Social - denies drugs, tobacco, or alcohol use Allergies - tylenol, hydromorphone, oxycodone Meds - as per listed in the EMR Pul - Dr. Huntley Cardio - Dr. Sousa (last visit in December) Neuro - Dr. Bernal (for carpal tunnel) PMD - Dr. Lisette Cornejo Objective - Vital Signs/Intake and Output Vital Signs (last 24 hours): Temp Pulse Resp BP Pulse Ox 98.2 F 84 16 138/80 99 02/25/17 12:50 02/25/17 12:50 02/25/17 12:50 02/25/17 12:50 02/25/17 15:48 - Labs Labs: 02/25/17 13:47 02/25/17 13:47 - Constitutional Appears: Non-toxic, No Acute Distress - Head Exam Head Exam: ATRAUMATIC, NORMAL INSPECTION - Eye Exam Eye Exam: EOMI Pupil Exam: PERRL - ENT Exam ENT Exam: Mucous Membranes Moist - Respiratory Exam Respiratory Exam: Clear to Ausculation Bilateral, NORMAL BREATHING PATTERN. absent: Rales, Wheezes, Respiratory Distress - Cardiovascular Exam Cardiovascular Exam: Irregular Rhythm, +S1, +S2. absent: Murmur - GI/Abdominal Exam GI & Abdominal Exam: Soft, Normal Bowel Sounds. absent: Distended, Firm, Guarding, Tenderness - Extremities Exam Extremities Exam: Normal Inspection Additional comments: Chronic edema, stasis dermatitis bilaterally. 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 Small opacity at the right lung base may reflet atelectasis or pneumonia. scattered probable calcified granulomas Dr. Sousa consulted, help appreciated - will discuss heparin/lovenox therapy Bidil prn f/u am labs Congestive heart failure Lasix 20mg PO daily Plavix 75 mg PO daily Coreg 25mg PO BID ASA 81mg PO daily Losartan 100mg PO daily Crestor 10mg PO HS Last echo on file 12/20/15: grade 1 abnormal relaxation pattern, mitral regurg is mild to moderate, severe pulmonary hypertension f/u echo BNP 1390 Hypertension Clonidine patch was placed this past Thursday - weekly placement Coreg 25mg PO BID Losartan 100mg PO daily Bidil BID (non-formulary here- into two components- hydralazine 37.5 BID and isosorbide dinitrate BID) Left swollen wrist f/u X ray uric acid normal, which can be normal for acute gout attack Hx seizures Has been evaluated by Dr. Michelle with normal EEG one year ago Lamictal 25mg PO BID Aspiration/seizure precautions Dr. Michelle consulted, help appreciated Thrombocytopenia Has been evaluated by Dr. Guevara in the place stable and chronic Hx Carpal Tunnel Gabapentin 100mg PO daily Hx DVT Patient has IVC filter in place Hx. Gout Allopurinol 100mg PO daily wrist examination appears consistent with gout, will start colchicine Osteoarthritis Tramadol 50mg PO BID prn Prophylactic measures Patient has IVC filter GI prophylaxis not indicated Further management as per Dr. Rivera
--- NOTE | 2017-02-25 16:10 | RAD ---
HISTORY: SOB COMPARISON: Chest x-ray performed 11/15/16 TECHNIQUE: Chest, one view. FINDINGS: LUNGS: Small opacity at the right lung base may reflect atelectasis or pneumonia. Scattered probable calcified granulomas. Please note that chest x-ray has limited sensitivity for the detection of pulmonary masses. PLEURA: No significant pleural effusion identified. No definite pneumothorax . CARDIOVASCULAR: Cardiomegaly. Ectatic aorta. Atherosclerotic calcifications. OSSEOUS STRUCTURES: Osseous demineralization. Degenerative changes. Acromioclavicular arthropathy. VISUALIZED UPPER ABDOMEN: Unremarkable. OTHER FINDINGS: None. IMPRESSION: Cardiomegaly. Ectatic aorta. Atherosclerotic calcifications. Small opacity at the right lung base may reflect atelectasis or pneumonia. Scattered probable calcified granulomas.
--- NOTE | 2017-02-25 16:17 | RAD ---
PROCEDURE: Left Wrist Radiographs. HISTORY: SWELLING AND PAIN COMPARISON: None. FINDINGS: BONES: Limited examination. No true AP view submitted. Suspect scaphoid fracture, likely old. The distal aspect of the proximal fragment shows a corticated border favoring remote injury. However, recommend further evaluation. Consider MRI. No other fracture identified. JOINTS: Narrowing of the radiocarpal articulation consistent with degenerate arthritis. SOFT TISSUES: Normal. OTHER FINDINGS: None. IMPRESSION: Suspect remote scaphoid fracture. However, cannot rule out acute injury. Consider evaluation with MRI. Radiocarpal degenerative arthritis. Limited examination.
[2017-02-25] MEDS: Magnesium Oxide 400 mg Tab UD PO SCH (17:58)
[2017-02-25] MEDS: hydrALAZINE 12.5 mg Tab PO SCH (18:11)
--- NOTE | 2017-02-25 20:09 | CT ---
EXAM: CT Head Without Intravenous Contrast EXAM DATE/TIME: Exam ordered 02/25/2017 6:09 PM CLINICAL HISTORY: 86 years old, female; Signs and symptoms; Altered mental status/memory loss; Confusion or disorientation TECHNIQUE: Axial computed tomography images of the head/brain without intravenous contrast. All CT scans at this facility use one or more dose reduction techniques, viz.: automated exposure control; ma/kV adjustment per patient size (including targeted exams where dose is matched to indication; i.e. head); or iterative reconstruction technique. Coronal and sagittal reformatted images were created and reviewed. COMPARISON: No relevant prior studies available. FINDINGS: Brain: There is calcification of the basal ganglia bilaterally and the dentate nuclei bilaterally. Low density is noted within the periventricular white matter extending into the espino radiata and centrum semiovale bilaterally. No hemorrhage. Ventricles: Unremarkable. No ventriculomegaly. Bones/joints: There is hyperostosis frontalis interna.. No acute fracture. Soft tissues: Unremarkable. Sinuses: Unremarkable as visualized. No acute sinusitis. Mastoid air cells: Unremarkable as visualized. No mastoid effusion. Orbits: Patient has had bilateral lens replacement surgery. IMPRESSION: 1. No acute findings. 2. Chronic microvascular ischemic changes and deep white matter
[2017-02-25 20:47] LABS: TROPONIN I 0.091 ng/mL (0.00-0.120)
--- NOTE | 2017-02-25 20:57 | CP.PCM.PN ---
Subjective - Date & Time of Evaluation Date of Evaluation: 02/25/17 Time of Evaluation: 20:55 - Subjective Subjective: Nurse tried to call Dr. Rivera but was unable to get a reach of him. Day team are considering scaphoid fracture. Will give tramadol one time for pain. Objective - Vital Signs/Intake and Output Vital Signs (last 24 hours): Temp Pulse Resp BP Pulse Ox 98.1 F 76 18 111/65 96 02/25/17 19:05 02/25/17 19:05 02/25/17 19:05 02/25/17 19:05 02/25/17 19:05 - Medications Medications: Current Medications Allopurinol (Zyloprim) 100 mg PO DAILY [facility] Aspirin (Ecotrin) 81 mg PO DAILY [facility] Carvedilol (Coreg) 25 mg PO BID [facility] Last Admin: 02/25/17 17:58 Dose: 25 mg Clonidine HCl (Catapres-Tts2 0.2 Mg/24 Hr) 1 patch TD Q7D@1000 [facility] Clopidogrel Bisulfate (Plavix) 75 mg PO DAILY [facility] Colchicine (Colocrys) 0.6 mg PO BID [facility] Colchicine (Colocrys) 0.6 mg PO ONCE ONE Stop: 02/26/17 19:01 Furosemide (Lasix) 20 mg PO DAILY [facility] Gabapentin (Neurontin) 100 mg PO DAILY [facility] Hydralazine HCl (Apresoline) 37.5 mg PO BID [facility] Last Admin: 02/25/17 18:11 Dose: 37.5 mg Isosorbide Dinitrate (Isordil) 20 mg PO BID [facility] Last Admin: 02/25/17 18:11 Dose: 20 mg Lamotrigine (Lamictal) 25 mg PO BID [facility] Last Admin: 02/25/17 17:58 Dose: 25 mg Losartan Potassium (Cozaar) 100 mg PO DAILY [facility] Magnesium Oxide (Mag-Ox) 400 mg PO BID [facility] Last Admin: 02/25/17 17:58 Dose: 400 mg Rosuvastatin Calcium (Crestor) 10 mg PO HS [facility] - Labs Labs: 02/25/17 13:47 02/25/17 13:47
[2017-02-25] MEDS ORDERED: Tramadol 25 mg PO ONE (21:18)
--- NOTE | 2017-02-25 23:55 | CP.PCM.CON ---
History of Present Illness - History of Present Illness History of Present Illness: 86 year old with hx of HTN , SEVERE ARTHRITIS, HTN, PALPITATION REFFERED BY DR Wagner FOR GALI, NOW HR IS 80 TO 85, had cataract did well, admitted to after a fall, fx R knee did well with observetion, PT at rehab, [facility], EST Echo at 01/22no ischemia EF 65% . suspected to have seizures. treated as such, now admitted with altered mentation, minimally elevated TNI, observe , hydrate Review of Systems - Review of Systems Systems not reviewed;Unavailable: Altered Mental Status - Constitutional Constitutional: Anorexia, Weakness - EENT Eyes: absent: Discharge Ears: absent: Decreased Hearing, Ear Discharge, Disequilibrium, Dizziness Nose/Mouth/Throat: absent: Epistaxis - Cardiovascular Cardiovascular: absent: Acrocyanosis, Chest Pain, Diaphoresis, Leg Edema, Palpitations, Syncope - Respiratory Respiratory: absent: Cough, Dyspnea, Hemoptysis - Gastrointestinal Gastrointestinal: absent: Abdominal Pain - Genitourinary Genitourinary: absent: Change in Urinary Stream Past Patient History - Past Medical History & Family History Past Medical History?: Yes - Past Social History Smoking Status: Never Smoked - CARDIAC Hx Cardiac Disorders: Yes Hx Cardia Arrhythmia: Yes Hx Hypercholesterolemia: Yes Hx Hypertension: Yes Hx Peripheral Edema: Yes - PULMONARY Hx Respiratory Disorders: Yes Hx Asthma: Yes - NEUROLOGICAL Hx Neurological Disorder: Yes Hx Syncope: Yes (10 yrs ago unknown reason) - HEENT Hx HEENT Problems: Yes Hx Cataracts: Yes Hx Glaucoma: Yes - RENAL Hx Chronic Kidney Disease: No - ENDOCRINE/METABOLIC Hx Endocrine Disorders: No - HEMATOLOGICAL/ONCOLOGICAL Hx Blood Disorders: No - INTEGUMENTARY Hx Dermatological Problems: No - MUSCULOSKELETAL/RHEUMATOLOGICAL Hx Musculoskeletal Disorders: Yes Hx Arthritis: Yes Hx Falls: Yes - GASTROINTESTINAL Hx Gastrointestinal Disorders: No - GENITOURINARY/GYNECOLOGICAL Hx Genitourinary Disorders: No - PSYCHIATRIC Hx Psychophysiologic Disorder: No Hx Substance Use: No - SURGICAL HISTORY Hx Surgeries: Yes Hx Cataract Extraction: Yes (cat ext left eye iol 7 yrs ago) Hx Hysterectomy: Yes Hx Orthopedic Surgery: Yes (R leg) Hx Vascular Surgery: Yes - ANESTHESIA Hx Anesthesia: Yes Hx Anesthesia Reactions: No Hx Malignant Hyperthermia: No Meds Allergies/Adverse Reactions: Allergies Allergy/AdvReac Type Severity Reaction Status Date / Time acetaminophen [From Percocet] AdvReac Verified 11/15/16 13:44 hydromorphone [From Dilaudid] AdvReac Verified 11/15/16 13:44 oxycodone [From Percocet] AdvReac Verified 11/15/16 13:44 - Medications Medications: Current Medications Allopurinol (Zyloprim) 100 mg PO DAILY [facility] Aspirin (Ecotrin) 81 mg PO DAILY [facility] Carvedilol (Coreg) 25 mg PO BID [facility] Last Admin: 02/25/17 17:58 Dose: 25 mg Clonidine HCl (Catapres-Tts2 0.2 Mg/24 Hr) 1 patch TD Q7D@1000 [facility] Clopidogrel Bisulfate (Plavix) 75 mg PO DAILY [facility] Colchicine (Colocrys) 0.6 mg PO BID [facility] Colchicine (Colocrys) 0.6 mg PO ONCE ONE Stop: 02/26/17 19:01 Furosemide (Lasix) 20 mg PO DAILY [facility] Gabapentin (Neurontin) 100 mg PO DAILY [facility] Hydralazine HCl (Apresoline) 37.5 mg PO BID [facility] Last Admin: 02/25/17 18:11 Dose: 37.5 mg Isosorbide Dinitrate (Isordil) 20 mg PO BID [facility] Last Admin: 02/25/17 18:11 Dose: 20 mg Lamotrigine (Lamictal) 25 mg PO BID [facility] Last Admin: 02/25/17 17:58 Dose: 25 mg Losartan Potassium (Cozaar) 100 mg PO DAILY [facility] Magnesium Oxide (Mag-Ox) 400 mg PO BID [facility] Last Admin: 02/25/17 17:58 Dose: 400 mg Rosuvastatin Calcium (Crestor) 10 mg PO [facility] Last Admin: 02/25/17 21:39 Dose: 10 mg Physical Exam - Constitutional Appears: Non-toxic - Head Exam Head Exam: ATRAUMATIC - Eye Exam Eye Exam: EOMI - ENT Exam ENT Exam: Mucous Membranes Moist - Neck Exam Neck exam: Negative for: Lymphadenopathy, Thyromegaly - Respiratory Exam Respiratory Exam: Clear to Auscultation Bilateral. absent: Rales - Cardiovascular Exam Cardiovascular Exam: REGULAR RHYTHM, Systolic Murmur - GI/Abdominal Exam GI & Abdominal Exam: Normal Bowel Sounds. absent: Organomegaly - Rectal Exam Rectal Exam: Deferred - Extremities Exam Extremities exam: Positive for: normal capillary refill. Negative for: calf tenderness - Neurological Exam Neurological exam: Alert, Oriented x3 - Psychiatric Exam Psychiatric exam: Normal Mood - Skin Skin Exam: Dry Results - Vital Signs Recent Vital Signs: Last Vital Signs Temp 98.1 F 02/25/17 19:05 Pulse 77 02/25/17 20:57 Resp 18 02/25/17 19:05 BP 111/65 02/25/17 19:05 Pulse Ox 96 02/25/17 19:05 - Labs Result Diagrams: 02/26/17 09:28 02/26/17 09:28 Labs: Laboratory Results - last 24 hr 02/25/17 02/25/17 02/25/17 13:47 13:47 20:11 WBC 3.8 L RBC 4.10 Hgb 11.9 Hct 33.9 L MCV 82.8 MCH 29.0 MCHC 35.0 RDW 15.5 H Plt Count 84 L MPV 8.7 Neut % (Auto) 58.1 Lymph % (Auto) 22.1 [place] % (Auto) 18.9 H Eos % (Auto) 0.4 Baso % (Auto) 0.5 Neut # 2.2 Lymph # 0.8 L [place] # 0.7 Eos # 0.0 Baso # 0.0 Sodium 136 Potassium 3.7 Chloride 99 Carbon Dioxide 28 Anion Gap 12 BUN 20 H Creatinine 0.7 Est GFR ( Amer) > 60 Est GFR (Non-Af Amer) > 60 Random Glucose 94 Uric Acid 3.5 Calcium 8.5 L Magnesium 1.6 Total Bilirubin 1.0 AST 22 ALT 19 Alkaline Phosphatase 71 Total Creatine Kinase 70 CK-MB (Mass) 0.65 Troponin I 0.1600 H* 0.0910 NT-Pro-B Natriuret Pep 1390 H Total Protein 7.8 Albumin 3.6 Globulin 4.1 H Albumin/Globulin Ratio 0.9 L Assessment & Plan (1) Abnormal cardiac enzyme level Status: Acute Comment: minimal, neg EST observe , had prior bady (Significant) on B Blockers, No CHF (2) Syncope and collapse Status: Acute Comment: probable seizures
[2017-02-26 03:36] LABS: TROPONIN I 0.123 ng/mL (0.00-0.120)
[2017-02-26] MEDS: Magnesium Oxide 400 mg Tab UD PO SCH ×2 (09:07→18:36)
[2017-02-26] MEDS: hydrALAZINE 12.5 mg Tab PO SCH ×2 (09:08→18:42)
[2017-02-26 09:37] LABS: BASO % 0.4 % (0.0-2.0); EOS % 0.5 % (0.0-4.0); HEMATOCRIT 31.2 % (34.0-47.0); LYMPH # 1.1 K/uL (1.0-4.3); MEAN CORPUSCULAR HEMOGLOBIN 29.2 pg (27.0-31.0); MEAN CORPUSCULAR HGB CONC 35.2 g/dL (33.0-37.0); MEAN PLATELET VOLUME 9.2 fL (7.2-11.7); MONO # 0.5 K/uL (0.0-0.8); MONO % 16.3 % (0.0-10.0); NRBC % 0.1 % (0.0-2.0); RED CELL DISTRIBUTION WIDTH 15.4 % (11.5-14.5); WHITE BLOOD COUNT 2.9 K/uL (4.8-10.8)
[2017-02-26 09:52] LABS: ALB/GLOB RATIO 1.1 (1.0-2.1); ALKALINE PHOSPHATASE 58 U/L (38-126); ALT/SGPT 14 U/L (9-52); AST/SGOT 25 U/L (14-36); BILIRUBIN,TOTAL 1.1 mg/dL (0.2-1.3); BLOOD UREA NITROGEN 16 mg/dL (7-17); CALCIUM 8.4 mg/dl (8.6-10.4); CARBON DIOXIDE 28 mmol/L (22-30); CHLORIDE 101 mmol/L (98-107); GFR AFRICAN-AMERICAN > 60; GLUCOSE,RANDOM 83 mg/dL (65-105); MAGNESIUM 1.6 mg/dL (1.6-2.3); PHOSPHOROUS 3.2 mg/dL (2.5-4.5); POTASSIUM 3.5 mmol/L (3.6-5.2); SODIUM 135 mmol/L (132-148)
[2017-02-26 10:58] LABS: FOLATE 15.3 ng/mL
[2017-02-26 13:26] LABS: HOMOCYSTEINE 10.7 umol/L (4.7-12.6)
--- NOTE | 2017-02-26 13:34 | MRI ---
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 FINDINGS: HEMORRHAGE: None DWI: No evidence of an acute or early subacute infarction. BRAIN PARENCHYMA: There are mild chronic microangiopathic changes. There are old lacunar infarctions in the right inferior jennifer and right cerebellar hemisphere. There is no mass, mass effect or abnormal extra-axial fluid collection. The midline sagittal structures are normal. VENTRICLES: There is moderate age-related global parenchymal volume loss and proportionate enlargement of the ventricles and cortical sulci. CRANIUM: There is normal bone marrow signal pattern. ORBITS: Grossly unremarkable. PARANASAL SINUSES/MASTOIDS: Predominantly clear. VASCULAR SYSTEM: There are normal signal voids in the larger intracranial arteries. OTHER FINDINGS: None. IMPRESSION: No acute intracranial abnormality. Specifically, no evidence of acute infarction. Mild chronic microangiopathic changes and moderate age-related global parenchymal volume loss. 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
--- NOTE | 2017-02-26 16:21 | CP.PCM.PN ---
Subjective - Date & Time of Evaluation Date of Evaluation: 02/26/17 Time of Evaluation: 09:20 - Subjective Subjective: PGY-[address] Rivera Patient seen and examined at bedside with family member present. No acute events overnight. Patient complains of left arm swelling, denies pain or recent trauma. Patient is eating and drinking well. She further denies fever, chills, headache, shortness of breath, chest pain, nausea, or vomiting. Objective - Vital Signs/Intake and Output Vital Signs (last 24 hours): Temp Pulse Resp BP Pulse Ox 98.5 F 66 18 170/85 H 100 02/26/17 08:00 02/26/17 14:00 02/26/17 08:00 02/26/17 09:07 02/26/17 08:00 Intake and Output: 02/26/17 02/26/17 06:59 18:59 Intake Total 650 Output Total 700 Balance -50 - Medications Medications: Current Medications Allopurinol (Zyloprim) 100 mg PO DAILY [facility] Last Admin: 02/26/17 09:06 Dose: 100 mg Aspirin (Ecotrin) 81 mg PO DAILY [facility] Last Admin: 02/26/17 09:07 Dose: 81 mg Carvedilol (Coreg) 25 mg PO BID [facility] Last Admin: 02/26/17 09:06 Dose: 25 mg Clonidine HCl (Catapres-Tts2 0.2 Mg/24 Hr) 1 patch TD Q7D@1000 [facility] Clopidogrel Bisulfate (Plavix) 75 mg PO DAILY [facility] Last Admin: 02/26/17 09:06 Dose: 75 mg Colchicine (Colocrys) 0.6 mg PO BID [facility] Last Admin: 02/26/17 09:08 Dose: 0.6 mg Colchicine (Colocrys) 0.6 mg PO ONCE ONE Stop: 02/26/17 19:01 Donepezil HCl (Aricept) 5 mg PO HS [facility] Furosemide (Lasix) 20 mg PO DAILY [facility] Last Admin: 02/26/17 09:07 Dose: 20 mg Hydralazine HCl (Apresoline) 37.5 mg PO BID [facility] Last Admin: 02/26/17 09:08 Dose: 37.5 mg Isosorbide Dinitrate (Isordil) 20 mg PO BID [facility] Last Admin: 02/26/17 09:08 Dose: 20 mg Lamotrigine (Lamictal) 50 mg PO BID [facility] Last Admin: 02/26/17 09:41 Dose: 50 mg Losartan Potassium (Cozaar) 100 mg PO DAILY [facility] Last Admin: 02/26/17 09:06 Dose: 100 mg Magnesium Oxide (Mag-Ox) 400 mg PO BID [facility] Last Admin: 02/26/17 09:07 Dose: 400 mg Rosuvastatin Calcium (Crestor) 10 mg PO HS [facility] Last Admin: 02/25/17 21:39 Dose: 10 mg - Labs Labs: 02/26/17 09:28 02/26/17 09:28 - Constitutional Appears: Non-toxic, No Acute Distress - Head Exam Head Exam: ATRAUMATIC, NORMOCEPHALIC - Eye Exam Eye Exam: Normal appearance - ENT Exam ENT Exam: Mucous Membranes Moist - Neck Exam Neck Exam: Normal Inspection - Respiratory Exam Respiratory Exam: Clear to Ausculation Bilateral, NORMAL BREATHING PATTERN. absent: Respiratory Distress - Cardiovascular Exam Cardiovascular Exam: +S1, +S2. absent: Murmur - GI/Abdominal Exam GI & Abdominal Exam: Soft, Normal Bowel Sounds. absent: Distended - Extremities Exam Additional comments: left wrist to left forearm swollen, tender to palpation, mild erythema, sensory function intact - Neurological Exam Neurological Exam: Alert, Awake, Oriented x3 - Psychiatric Exam Psychiatric exam: Normal Affect, Normal Mood - Skin Skin Exam: Dry, Warm Assessment and Plan - Assessment and Plan (Free Text) Assessment: Seizures VS TIA Increased Lamictal 50mg PO BID Aricept 5mg PO hs for vascular dementia Aspiration/seizure precautions Dr. Michelle consulted, help appreciated Follow up MRA of the brain, carotid doppler, echo, EEG results Left swollen wrist Wrist X ray showed suspect remote scaphoid fracture. Cannot rule out acute injury. Consider MRI. Radiocarpal degen arthritis Orthopedic consult, Dr. Monahan help appreciated NSTEMI Elevated Troponin likely secondary to seizure activity EKG Sinus Rhythm, 1st Degree HB, ST/T Changes (inverted in III, flat in AVR) On ASA and plavix therapy Chest X ray - cardiomegaly, ectatic aorta, athersclerotic califications. Small opacity at the right lung base may reflet atelectasis or pneumonia. scattered probable calcified granulomas Dr. Sousa consulted, help appreciated Bidil prn Congestive heart failure Lasix 20mg PO daily Plavix 75 mg PO daily Coreg 25mg PO BID ASA 81mg PO daily Losartan 100mg PO daily Crestor 10mg PO HS Last echo on file 12/20/15: grade 1 abnormal relaxation pattern, mitral regurg is mild to moderate, severe pulmonary hypertension f/u echo BNP 1390 Hypertension Clonidine patch was placed this past Thursday - weekly placement Coreg 25mg PO BID Losartan 100mg PO daily Bidil BID (non-formulary here- into two components- hydralazine 37.5 BID and isosorbide dinitrate BID) Thrombocytopenia Has been evaluated by Dr. Guevara in the pasat stable and chronic Hx Carpal Tunnel Gabapentin 100mg PO daily Hx DVT Patient has IVC filter in place Hx. Gout Allopurinol 100mg PO daily colchicine Osteoarthritis Tramadol 50mg PO BID prn Prophylactic measures Patient has IVC filter GI prophylaxis not indicated Further management as per Dr. Rivera
--- NOTE | 2017-02-26 18:27 | CARD ---
APPROVED REPORT EXAM: Two-dimensional and M-mode echocardiogram with Doppler and color Doppler. Other Information Quality : GoodRhythm : INDICATION Syncope Congestive Heart Failure ELEVATED TROPONIN RISK FACTORS Hypertension 2D DIMENSIONS IVSd1.6 (0.7-1.1cm)LVDd3.9 (3.9-5.9cm) PWd0.9 (0.7-1.1cm)LVDs2.4 (2.5-4.0cm) FS (%) 39.4 %LVEF (%)70.6 (>50%) M-Mode DIMENSIONS Left Atrium (MM)2.80 (2.5-4.0cm)Aortic Root2.70 (2.2-3.7cm) Aortic Cusp Exc.1.66 (1.5-2.0cm) Aortic Valve AoV Peak Ycgelmeg401.7cm/sAoV VTI42.3cmAO Peak GR.17mmHg LVOT Peak Vwnlchkt82.5cm/sLVOT VTI18.93cmAO Mean GR.8mmHg Mitral Valve MV E Ssujdrtx48.5cm/sMV A Tdwyhmow01.8cm/sE/A ratio0.7 TDI E/Lateral E'0.0E/Medial E'0.0 Tricuspid Valve TR Peak Fjmcwonl651mi/sTR Peak Gr.72rzGuWUOZ76jkTv LEFT VENTRICLE The left ventricle is normal size. There is moderate to severe concentric left ventricular hypertrophy. The left ventricular function is normal. The left ventricular ejection fraction is within the normal range. There is normal LV segmental wall motion. Transmitral Doppler flow pattern is Grade I-abnormal relaxation pattern. RIGHT VENTRICLE The right ventricle is normal size. There is normal right ventricular wall thickness. The right ventricular systolic function is normal. ATRIA The left atrium size is normal. The right atrium is mildly dilated. AORTIC VALVE The aortic valve is severely sclerotic. No aortic regurgitation is present. There is trace valvular aortic stenosis. MITRAL VALVE The mitral valve is mildly thickened. There is no mitral valve stenosis. Mitral regurgitation is mild. TRICUSPID VALVE There is moderate tricuspid regurgitation. There is severe pulmonary hypertension. PULMONIC VALVE There is mild pulmonic valvular regurgitation. GREAT VESSELS The aortic root is normal in size. The IVC is dilated. The IVC collapses <50% with inspiration. <Conclusion> The left ventricle is normal size. There is moderate to severe concentric left ventricular hypertrophy. The left ventricular function is normal. The left ventricular ejection fraction is within the normal range. There is normal LV segmental wall motion. Transmitral Doppler flow pattern is Grade I-abnormal relaxation pattern. The aortic valve is severely sclerotic. Mitral regurgitation is mild. There is moderate tricuspid regurgitation. There is severe pulmonary hypertension. There is mild pulmonic valvular regurgitation.
--- NOTE | 2017-02-26 18:35 | CON ---
DATE: 02/26/2017 LOCATION: The patient's room number 664, bed A. REASON FOR THE CONSULTATION: Change in mental status. CHIEF COMPLAINT: The patient was brought into the [facility] ([facility]) with a history of change in mental status and family would not understand what she has been talking to them. From neurological point of view, I was called in to evaluate her for further management. HISTORY OF PRESENT ILLNESS: Ms. Radha Covington is an 86-year-old moderately obese female who has been bedridden for the last recent few months, presenting with abrupt onset of change in mental status and with this, incoherent speech. The family could not be able to understand. This lasted for about a few minutes. The patient admits she had similar episodes happen few times in the past as well. This episode is not associating with loss of consciousness or any focal weakness. She could not be able to move well on her left arm as well as her left leg to compare with the right side for the last few weeks as per the patient. This weakness is not increased since this new episode of slurred speech. This weakness associating with pain and swelling in her left arm, wrist and hand. PAST MEDICAL HISTORY: Significant to hypertension, CHF, peripheral edema and stroke. PERSONAL HISTORY: Denies smoking or alcohol use. ALLERGIES: NO KNOWN ALLERGIES. REVIEW OF SYSTEMS: A 12-point systems being reviewed. From neuro, slurred speech versus incoherent speech. MEDICATIONS: Apresoline, Catapres, colchicine, Coreg, Cozaar, Crestor, aspirin, Isordil, lamotrigine, Lasix, magnesium, and clopidogrel. PHYSICAL EXAMINATION: VITAL SIGNS: Blood pressure 151/67, mean arterial pressure of 95, respiratory rate 16, temperature afebrile. NECK: Supple. HEART: Sounds showed irregularly irregular. The patient also showed split second sound with systolic murmur. EXTREMITIES: Both legs are externally rotated, right is more pronounced than the left side. A 2-3+ pitting edema on both lower extremities. Left upper extremity also edematous, more pronounced distally in the left arm. NEUROLOGICAL: Mental status examination: She is awake, alert and oriented to person, place and time. She knows why she is in the hospital. She follows one to two step command. No other significant right and left confusion. No sign of suicidal ideation. No sign of depression. Cranial nerve examination: Visual field intact. Pupils reactive to light. Extraocular movement seems to be intact in all direction. No facial sensory deficit. No facial asymmetry. Hearing is normal. Tongue is midline. Good gag. Motor examination: Significant weakness on the left side secondary to the pain as she states. She could be able to lift both her lower extremities against the gravity with some extent limited due to the pain as well. Deep tendon reflexes: Biceps, brachialis, triceps, knee and ankle all are absent. Right knee showed postsurgical scar. Plantars are upgoing on her left side, right side was downgoing. Sensory examination: Significantly decreased temperature on the left side to compare with the right side. Coordination: Zbtrfr-pw-lgdi test is intact on the right side, left side inability to do it due to the pain and weakness. WORKUP: CT of the head reviewed by me showed global atrophy with periventricular ischemic changes, no acute ischemic process or bleeding noted. EKG shows sinus tachycardia. BLOOD WORKUP: hemoglobin 11.9, hematocrit 33.9, platelet 84. Sodium 136, potassium 3.6, chloride 99, bicarbonate 28, BUN 20, creatinine 0.7. The GFR is more than 60, random glucose 94, uric acid 3.5, calcium 8.5. Troponin was 0.1230, BNP 1390. CONCLUSION: 1. Ms. Radha Covington has been presenting with, as per the neurological examination, recurrent speech impairment consistent with either seizures versus new transient ischemic attack. The current examination also showed evidence of left hemiparesis, which is a subacute process compared to the speech impairment, which is probably old versus new. 2. The patient also showed evidence of either senile dementia versus vascular dementia. 3. Significant distal sensory-motor neuropathy. 4. Uncontrolled hypertension and congestive heart failure. 5. The patient is bedridden due to the previous stroke and significant arthritis associating with gout. RECOMMENDATIONS: 1. MRA of the brain to rule out new acute ischemic process. 2. Carotid Doppler. 3. Blood workup as per the order. 4. Cardiology consult is also recommended. The current examination shows irregularly irregular heart beat with a split second sound and systolic murmur. 5. The patient should be kept on DVT prophylaxis. Continue aspirin with the Plavix for now. 6. Lamictal dose is increased to 250 mg twice a day. The patient is also getting Aricept for vascular dementia. The patient will be followed closely with you. Jackson Michelle MD MIN
--- NOTE | 2017-02-26 19:47 | CP.PCM.PN ---
Subjective - Date & Time of Evaluation Date of Evaluation: 02/26/17 Time of Evaluation: 16:00 - Subjective Subjective: alert, pleasant, no pain, TNI trending down, unlikely ME, No CP, EKG changes, TNI was checked to evaluate AMS, it is probably with seizures Objective - Vital Signs/Intake and Output Vital Signs (last 24 hours): Temp Pulse Resp BP Pulse Ox 97.3 F L 71 18 160/85 H 96 02/26/17 16:23 02/26/17 16:23 02/26/17 16:23 02/26/17 18:36 02/26/17 16:23 Intake and Output: 02/26/17 02/27/17 18:59 06:59 Intake Total 650 Output Total 700 Balance -50 - Medications Medications: Current Medications Allopurinol (Zyloprim) 100 mg PO DAILY [facility] Last Admin: 02/26/17 09:06 Dose: 100 mg Aspirin (Ecotrin) 81 mg PO DAILY [facility] Last Admin: 02/26/17 09:07 Dose: 81 mg Carvedilol (Coreg) 25 mg PO BID [facility] Last Admin: 02/26/17 18:36 Dose: 25 mg Clonidine HCl (Catapres-Tts2 0.2 Mg/24 Hr) 1 patch TD Q7D@1000 [facility] Clopidogrel Bisulfate (Plavix) 75 mg PO DAILY [facility] Last Admin: 02/26/17 09:06 Dose: 75 mg Colchicine (Colocrys) 0.6 mg PO BID [facility] Last Admin: 02/26/17 18:37 Dose: Not Given Donepezil HCl (Aricept) 5 mg PO HS [facility] Furosemide (Lasix) 20 mg PO DAILY [facility] Last Admin: 02/26/17 09:07 Dose: 20 mg Hydralazine HCl (Apresoline) 37.5 mg PO BID [facility] Last Admin: 02/26/17 18:42 Dose: 37.5 mg Isosorbide Dinitrate (Isordil) 20 mg PO BID [facility] Last Admin: 02/26/17 18:36 Dose: 20 mg Lamotrigine (Lamictal) 50 mg PO BID [facility] Last Admin: 02/26/17 18:36 Dose: 50 mg Losartan Potassium (Cozaar) 100 mg PO DAILY [facility] Last Admin: 02/26/17 09:06 Dose: 100 mg Magnesium Oxide (Mag-Ox) 400 mg PO BID [facility] Last Admin: 12/21/17 18:36 Dose: 400 mg Rosuvastatin Calcium (Crestor) 10 mg PO HS [facility] Last Admin: 02/25/17 21:39 Dose: 10 mg - Labs Labs: 02/26/17 09:28 02/26/17 09:28 - Constitutional Appears: Non-toxic - Head Exam Head Exam: ATRAUMATIC - Eye Exam Eye Exam: EOMI - ENT Exam ENT Exam: Mucous Membranes Moist - Neck Exam Neck Exam: absent: Lymphadenopathy, Thyromegaly - Respiratory Exam Respiratory Exam: Clear to Ausculation Bilateral. absent: Rales - Cardiovascular Exam Cardiovascular Exam: REGULAR RHYTHM, Murmur - GI/Abdominal Exam GI & Abdominal Exam: Normal Bowel Sounds. absent: Organomegaly - Rectal Exam Rectal Exam: Deferred - Extremities Exam Extremities Exam: Normal Capillary Refill. absent: Calf Tenderness - Neurological Exam Neurological Exam: Alert, Oriented x3 - Psychiatric Exam Psychiatric exam: Normal Mood - Skin Skin Exam: Dry Assessment and Plan (1) Abnormal cardiac enzyme level Status: Acute (2) Syncope and collapse Status: Acute
[2017-02-26] MEDS ORDERED: Tramadol 25 mg PO ONE (20:57)
[2017-02-26] MEDS ORDERED: Bisacodyl 5mg EC Tab PO ONE (21:21)
[2017-02-26 21:56] LABS: RBC URINE 8 /hpf (0-3); TRANSITIONAL EPITHIAL < 1 /hpf (0-3); URINE BACTERIA FEW (<OCC); URINE BILIRUBIN NEGATIVE (NEGATIVE); URINE BLOOD 1+ (NEGATIVE); URINE COLOR Yellow (YELLOW); URINE GLUCOSE (UA) NORMAL (Normal); URINE HYALINE CAST 0-2 /lpf (0-2); URINE KETONE NEGATIVE (NEGATIVE); URINE LEUKOCYTE ESTERASE 1+ Leu/uL (Negative); URINE PROTEIN NEGATIVE (NEGATIVE); WBC URINE 11 /hpf (0-5)
--- NOTE | 2017-02-27 06:57 | HP ---
HISTORY OF PRESENT ILLNESS: An 86-year-old, presenting with chief complaint of sudden onset of slurred speech, unusual behavior. Patient came to the hospital, advised admission. The patient has history of seizure, uses Lamictal; atrial fibrillation. PHYSICAL EXAMINATION: GENERAL: Patient is awake, alert, and oriented. VITAL SIGNS: Temperature 98, pulse is 90, regular. HEENT: Within normal limits. NECK: Supple. CHEST: Symmetrical. HEART: Irregular. ABDOMEN: Soft. EXTREMITIES: No edema. IMPRESSION: Patient suffers from transient ischemic attack versus seizure. Patient to get bedrest, neuro checks, MRI, echocardiogram. John Paul Rivera MD
[2017-02-27 08:24] LABS: ALB/GLOB RATIO 0.8 (1.0-2.1); ALKALINE PHOSPHATASE 83 U/L (38-126); ALT/SGPT 15 U/L (9-52); AST/SGOT 34 U/L (14-36); BILIRUBIN,TOTAL 1.1 mg/dL (0.2-1.3); BLOOD UREA NITROGEN 13 mg/dL (7-17); CALCIUM 8.8 mg/dl (8.6-10.4); CARBON DIOXIDE 27 mmol/L (22-30); CHLORIDE 99 mmol/L (98-107); GFR AFRICAN-AMERICAN > 60; GLUCOSE,RANDOM 94 mg/dL (65-105); POTASSIUM 3.6 mmol/L (3.6-5.2); SODIUM 135 mmol/L (132-148); TOTAL PROTEIN 8.2 g/dL (6.3-8.3)
--- NOTE | 2017-02-27 09:47 | CP.PCM.PN ---
Subjective - Date & Time of Evaluation Date of Evaluation: 02/27/17 Time of Evaluation: 07:40 - Subjective Subjective: PGY-[address] Rivera Patient seen and examined at bedside. No acute events overnight. Patient reports her left arm swelling is improving with the splint. She complains of constipation overnight but was resolved after colace and dulcolax were given. Patient denies headache, fever, chills, shortness of breath, chest pain, nausea , vomiting, or urinary symptoms. Objective - Vital Signs/Intake and Output Vital Signs (last 24 hours): Temp Pulse Resp BP Pulse Ox 98.5 F 80 20 191/100 H 98 02/27/17 07:00 02/27/17 07:00 02/27/17 07:00 02/27/17 07:00 02/27/17 07:00 Intake and Output: 02/27/17 02/27/17 06:59 18:59 Intake Total 300 Output Total 400 Balance -100 - Medications Medications: Current Medications Allopurinol (Zyloprim) 100 mg PO DAILY [facility] Last Admin: 02/26/17 09:06 Dose: 100 mg Aspirin (Ecotrin) 81 mg PO DAILY [facility] Last Admin: 02/26/17 09:07 Dose: 81 mg Carvedilol (Coreg) 25 mg PO BID [facility] Last Admin: 02/26/17 18:36 Dose: 25 mg Clonidine HCl (Catapres-Tts2 0.2 Mg/24 Hr) 1 patch TD Q7D@1000 [facility] Clopidogrel Bisulfate (Plavix) 75 mg PO DAILY [facility] Last Admin: 02/26/17 09:06 Dose: 75 mg Colchicine (Colocrys) 0.6 mg PO BID [facility] Last Admin: 02/26/17 18:37 Dose: Not Given Donepezil HCl (Aricept) 5 mg PO HS [facility] Last Admin: 02/26/17 21:15 Dose: 5 mg Furosemide (Lasix) 20 mg PO DAILY [facility] Last Admin: 02/26/17 09:07 Dose: 20 mg Hydralazine HCl (Apresoline) 37.5 mg PO BID [facility] Last Admin: 02/26/17 18:42 Dose: 37.5 mg Isosorbide Dinitrate (Isordil) 20 mg PO BID [facility] Last Admin: 02/26/17 18:36 Dose: 20 mg Lamotrigine (Lamictal) 50 mg PO BID [facility] Last Admin: 02/26/17 18:36 Dose: 50 mg Losartan Potassium (Cozaar) 100 mg PO DAILY [facility] Last Admin: 02/26/17 09:06 Dose: 100 mg Magnesium Oxide (Mag-Ox) 400 mg PO BID [facility] Last Admin: 02/26/17 18:36 Dose: 400 mg Rosuvastatin Calcium (Crestor) 10 mg PO HS [facility] Last Admin: 02/26/17 21:14 Dose: 10 mg - Labs Labs: 02/26/17 09:28 02/27/17 06:31 - Constitutional Appears: Non-toxic, No Acute Distress - Head Exam Head Exam: ATRAUMATIC, NORMOCEPHALIC - Eye Exam Eye Exam: Normal appearance - ENT Exam ENT Exam: Mucous Membranes Moist - Neck Exam Neck Exam: Normal Inspection - Respiratory Exam Respiratory Exam: Clear to Ausculation Bilateral, NORMAL BREATHING PATTERN. absent: Respiratory Distress - Cardiovascular Exam Cardiovascular Exam: +S1, +S2. absent: Tachycardia - GI/Abdominal Exam GI & Abdominal Exam: Soft, Normal Bowel Sounds. absent: Tenderness - Extremities Exam Additional comments: Left wrist splint in place. Left wrist to left forearm swollen, tender to palpation, mild erythema, sensory function intact. Chronic Left side hemiparesis - Neurological Exam Neurological Exam: Alert, Awake, Oriented x3 - Psychiatric Exam Psychiatric exam: Normal Affect, Normal Mood - Skin Skin Exam: Dry, Warm Assessment and Plan - Assessment and Plan (Free Text) Assessment: Seizures VS TIA Continue Lamictal 50mg PO BID Aricept 5mg PO hs for vascular dementia Aspiration/seizure precautions Follow neurology recommendations MRI of the brain showed No acute intracranial abnormality. 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 Cannot rule out acute injury. Consider MRI. Radiocarpal degen arthritis Orthopedic consult, Dr. Monahan help appreciated Left wrist splint ordered by ortho NSTEMI Elevated Troponin likely secondary to seizure activity EKG Sinus Rhythm, 1st Degree HB, ST/T Changes (inverted in III, flat in AVR) On ASA and plavix therapy Chest X ray - cardiomegaly, ectatic aorta, athersclerotic califications. Small opacity at the right lung base may reflet atelectasis or pneumonia. scattered probable calcified granulomas Dr. Sousa consulted, help appreciated Bidil prn Congestive heart failure Lasix 20mg PO daily Plavix 75 mg PO daily Coreg 25mg PO BID ASA 81mg PO daily Losartan 100mg PO daily Crestor 10mg PO HS Echo 02/25/17 showed similar findings as her previous echo:grade 1 abnormal relaxation pattern, mitral regurg is mild to moderate, severe pulmonary hypertension Hypertension Clonidine patch was placed this past Thursday - weekly placement Coreg 25mg PO BID Losartan 100mg PO daily Bidil BID (non-formulary here- into two components- hydralazine 37.5 BID and isosorbide dinitrate BID) Hydralazine 5mg IV PRN for SBP>190 Thrombocytopenia Has been evaluated by Dr. Guevara in the pasat stable and chronic Hx Carpal Tunnel Gabapentin 100mg PO daily Hx DVT Patient has IVC filter in place Hx. Gout Allopurinol 100mg PO daily colchicine Osteoarthritis Tramadol 50mg PO BID prn Prophylactic measures Patient has IVC filter GI prophylaxis not indicated Further management as per Dr. Rivera
[2017-02-27] MEDS: Magnesium Oxide 400 mg Tab UD PO SCH ×2 (10:24→18:36)
[2017-02-27] MEDS: hydrALAZINE 12.5 mg Tab PO SCH ×2 (10:25→18:37)
[2017-02-27 11:41] LABS: BASO % 0.6 % (0.0-2.0); EOS % 0.2 % (0.0-4.0); HEMATOCRIT 38.2 % (34.0-47.0); LYMPH # 0.7 K/uL (1.0-4.3); MEAN CELL VOLUME 81.7 fL (81.0-99.0); MEAN CORPUSCULAR HEMOGLOBIN 28.9 pg (27.0-31.0); MEAN CORPUSCULAR HGB CONC 35.4 g/dL (33.0-37.0); MEAN PLATELET VOLUME 9.9 fL (7.2-11.7); MONO # 0.5 K/uL (0.0-0.8); MONO % 7.8 % (0.0-10.0); NRBC % 0.1 % (0.0-2.0); RED CELL DISTRIBUTION WIDTH 15.5 % (11.5-14.5); WHITE BLOOD COUNT 6.6 K/uL (4.8-10.8)
--- NOTE | 2017-02-27 13:06 | PN ---
NEUROLOGICAL PROBLEM: Transient ischemic attack and old left hemiparesis. PHYSICAL EXAMINATION: VITAL SIGNS: Blood pressure 198/92; mean arterial pressure of 127; pulse rate 90, regular; temperature 98.3. NEUROLOGIC: The patient is awake, alert, oriented to person, place and time. Speech is clear. Moving all 4 extremities. Left side increased tone and limited movement due to the secondary arthritis from her old stroke. Rest of the examination which is unchanged compared with my previous exam. LABORATORY DATA: MRI of the brain consistent with small lacunar stroke over the right jennifer as well as the right cerebellum, which may contribute to her left hemiparesis. ASSESSMENT AND PLAN: The patient is tolerating newer medication on increasing Lamotrigine dose and Aricept. The patient should get physical therapy and improve her mobility and ambulation. The patient will be followed closely with you. Jackson Michelle MD
--- NOTE | 2017-02-27 14:37 | CON ---
HISTORY OF PRESENT ILLNESS: The patient was admitted by Dr. John Paul Rivera with a diagnoses of congestive heart failure, abnormal cardiac enzymes, osteoarthritis. I have known this patient for a long time. 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 She has a fracture of the right proximal tibia, which was treated with open reduction and internal fixation with an intramedullary joseluis. She also has tingling, numbness and paresthesias in both upper extremities. She has clinical evidence of a carpal tunnel syndrome. Highly positive Tinel sign noted bilaterally. Thenar atrophy noted bilaterally. Diminished light touch of the thumb, index and middle fingers noted. Phalen sign is highly positive. I was also called into evaluate a scaphoid fracture of the left wrist. The patient denied any history of trauma. She has onset of off and on pain and swelling at the left wrist and 1+ swelling of the wrist noted. In fact, according to the family, the swelling has subsided since yesterday. Crepitus noted. Range of motion of the wrist is painful. Global tenderness noted, but predominantly over the radiocarpal joint of the wrist towards the ulnar side. Minimal scaphoid-snuffbox tenderness noted. X-ray of the wrist revealed evidence of narrowing of the radiocarpal joints and evidence of a chronic fracture, delayed union of the scaphoid bone. DIAGNOSES: 1. Degenerative joint disease of both knees. 2. Bilateral carpal tunnel syndrome. 3. 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 PLAN: 1. At this point, the patient will be placed in a cock-up wrist splint for the left side. 2. We will consider bilateral carpal tunnel release. Problems and complications, risks and benefits including incomplete relief of symptoms, permanent weakness, permanent numbness, possible loss of life and limb, need for future surgery. The patient has a longstanding history of carpal tunnel syndrome and she may not have a very satisfactory recovery. She will have definite residual complaints of pain, swelling, tingling, numbness and weakness. Currently, she has weakness in gripping smaller objections. At the same time, we will consider removing the distal interlocking screw from the tibial joseluis and once the patient starts ambulating with a walker and gets relief form the carpal tunnel syndrome, we will consider a total knee replacement and arthroplasty. Prognosis and complications, risks and benefits of the surgery explained. The patient fully understands and agreeable. All the questions were answered. Jerry Monahan MD
--- NOTE | 2017-02-27 14:53 | CP.PCM.PN ---
Subjective - Date & Time of Evaluation Date of Evaluation: 02/27/17 Time of Evaluation: 13:00 - Subjective Subjective: Normal episode of seizure, no CHF clinically and normal ejection fraction on stress test and echo, still blood pressure was elevated today, will observe on medical treatment Objective - Vital Signs/Intake and Output Vital Signs (last 24 hours): Temp Pulse Resp BP Pulse Ox 98 F 70 16 153/72 H 98 02/27/17 13:48 02/27/17 12:10 02/27/17 13:48 02/27/17 13:48 02/27/17 13:50 Intake and Output: 02/27/17 02/27/17 06:59 18:59 Intake Total 300 900 Output Total 400 Balance -100 900 - Medications Medications: Current Medications Allopurinol (Zyloprim) 100 mg PO DAILY [facility] Last Admin: 02/27/17 10:25 Dose: 100 mg Aspirin (Ecotrin) 81 mg PO DAILY [facility] Last Admin: 02/27/17 10:24 Dose: 81 mg Carvedilol (Coreg) 25 mg PO BID [facility] Last Admin: 02/27/17 10:25 Dose: 25 mg Clonidine HCl (Catapres-Tts2 0.2 Mg/24 Hr) 1 patch TD Q7D@1000 [facility] Clopidogrel Bisulfate (Plavix) 75 mg PO DAILY [facility] Last Admin: 02/27/17 10:24 Dose: 75 mg Colchicine (Colocrys) 0.6 mg PO BID [facility] Last Admin: 02/27/17 10:26 Dose: 0.6 mg Donepezil HCl (Aricept) 5 mg PO HS [facility] Last Admin: 02/26/17 21:15 Dose: 5 mg Furosemide (Lasix) 20 mg PO DAILY [facility] Last Admin: 02/27/17 10:24 Dose: 20 mg Hydralazine HCl (Apresoline) 37.5 mg PO BID [facility] Last Admin: 02/27/17 10:25 Dose: 37.5 mg Hydralazine HCl (Apresoline) 5 mg IVP Q6H PRN PRN Reason: Systolic Blood Pressure Isosorbide Dinitrate (Isordil) 20 mg PO BID [facility] Last Admin: 02/27/17 10:26 Dose: 20 mg Lamotrigine (Lamictal) 50 mg PO BID [facility] Last Admin: 02/27/17 10:25 Dose: 50 mg Losartan Potassium (Cozaar) 100 mg PO DAILY [facility] Last Admin: 02/27/17 10:25 Dose: 100 mg Magnesium Oxide (Mag-Ox) 400 mg PO BID [facility] Last Admin: 02/27/17 10:24 Dose: 400 mg Rosuvastatin Calcium (Crestor) 10 mg PO HS [facility] Last Admin: 02/26/17 21:14 Dose: 10 mg - Labs Labs: 02/27/17 11:29 02/27/17 06:31 - Constitutional Appears: Non-toxic - Head Exam Head Exam: ATRAUMATIC - Eye Exam Eye Exam: EOMI - ENT Exam ENT Exam: Mucous Membranes Moist - Neck Exam Neck Exam: absent: Lymphadenopathy, Thyromegaly - Respiratory Exam Respiratory Exam: Clear to Ausculation Bilateral. absent: Rales - Cardiovascular Exam Cardiovascular Exam: REGULAR RHYTHM, Murmur - GI/Abdominal Exam GI & Abdominal Exam: Normal Bowel Sounds. absent: Organomegaly - Rectal Exam Rectal Exam: Deferred - Extremities Exam Extremities Exam: Normal Capillary Refill. absent: Calf Tenderness - Neurological Exam Neurological Exam: Alert, Oriented x3 - Psychiatric Exam Psychiatric exam: Normal Mood - Skin Skin Exam: Dry Assessment and Plan (1) Abnormal cardiac enzyme level Status: Acute (2) Syncope and collapse Status: Acute
[2017-02-27 16:37] VITALS: RESP 20
--- NOTE | 2017-02-27 18:42 | CARD ---
APPROVED REPORT EKG Measurement Heart [id number] SC [id number] <Conclusion> Sinus rhythm with 1st degree AV block with occasional premature ventricular complexes Otherwise normal ECG
[2017-02-28 07:30] LABS: BASO % 0.5 % (0.0-2.0); EOS % 0.4 % (0.0-4.0); HEMATOCRIT 32.5 % (34.0-47.0); LYMPH # 1.2 K/uL (1.0-4.3); LYMPH % 35.8 % (20.0-40.0); MEAN CELL VOLUME 81.9 fL (81.0-99.0); MEAN CORPUSCULAR HEMOGLOBIN 29.2 pg (27.0-31.0); MEAN CORPUSCULAR HGB CONC 35.7 g/dL (33.0-37.0); MEAN PLATELET VOLUME 9.8 fL (7.2-11.7); MONO # 0.5 K/uL (0.0-0.8); NRBC % 0.3 % (0.0-2.0); WHITE BLOOD COUNT 3.3 K/uL (4.8-10.8)
[2017-02-28 08:15] LABS: ALB/GLOB RATIO 1.1 (1.0-2.1); ALKALINE PHOSPHATASE 62 U/L (38-126); ALT/SGPT 19 U/L (9-52); AST/SGOT 26 U/L (14-36); BILIRUBIN,TOTAL 0.9 mg/dL (0.2-1.3); BLOOD UREA NITROGEN 13 mg/dL (7-17); CARBON DIOXIDE 29 mmol/L (22-30); CHLORIDE 101 mmol/L (98-107); GFR AFRICAN-AMERICAN > 60; GLUCOSE,RANDOM 90 mg/dL (65-105); POTASSIUM 2.9 mmol/L (3.6-5.2); SODIUM 137 mmol/L (132-148); TOTAL PROTEIN 5.9 g/dL (6.3-8.3)
[2017-02-28] MEDS ORDERED: Potassium Chloride 20 mEq ER Tab PO ONE (10:00)
[2017-02-28] MEDS: Magnesium Oxide 400 mg Tab UD PO SCH ×2 (10:09→17:56)
[2017-02-28] MEDS: hydrALAZINE 12.5 mg Tab PO SCH ×2 (10:10→18:29)
--- NOTE | 2017-02-28 16:24 | CP.PCM.PN ---
Subjective - Date & Time of Evaluation Date of Evaluation: 02/28/17 Time of Evaluation: 16:24 - Subjective Subjective: PATIENT WAS ADMITTED FOR CHF OSTEOARTHRITIS; AAOX3 FAMILY AT THE BEDSIDE; DENIES CHEST PAIN, SOB , NAUSEA , OR VOMITING; DENIES WRIST PAIN NO SIGN OF DISTRESS NOTED Objective - Vital Signs/Intake and Output Vital Signs (last 24 hours): Temp Pulse Resp BP Pulse Ox 97.6 F 86 20 140/80 96 02/28/17 07:00 02/28/17 11:40 02/28/17 07:00 02/28/17 10:09 02/28/17 07:00 Intake and Output: 02/28/17 02/28/17 06:59 18:59 Intake Total 400 700 Output Total 500 Balance -100 700 - Medications Medications: Current Medications Allopurinol (Zyloprim) 100 mg PO DAILY [facility] Last Admin: 02/28/17 10:08 Dose: 100 mg Aspirin (Ecotrin) 81 mg PO DAILY [facility] Last Admin: 02/28/17 10:08 Dose: 81 mg Carvedilol (Coreg) 25 mg PO BID [facility] Last Admin: 02/28/17 10:08 Dose: 25 mg Clonidine HCl (Catapres-Tts2 0.2 Mg/24 Hr) 1 patch TD Q7D@1000 [facility] Last Admin: 02/28/17 10:09 Dose: 1 patch Clopidogrel Bisulfate (Plavix) 75 mg PO DAILY [facility] Last Admin: 02/28/17 10:08 Dose: 75 mg Colchicine (Colocrys) 0.6 mg PO BID [facility] Last Admin: 02/28/17 10:10 Dose: 0.6 mg Donepezil HCl (Aricept) 5 mg PO HS [facility] Last Admin: 02/27/17 22:25 Dose: 5 mg Furosemide (Lasix) 20 mg PO DAILY [facility] Last Admin: 02/28/17 10:09 Dose: 20 mg Hydralazine HCl (Apresoline) 37.5 mg PO BID [facility] Last Admin: 02/28/17 10:10 Dose: 37.5 mg Hydralazine HCl (Apresoline) 5 mg IVP Q6H PRN PRN Reason: Systolic Blood Pressure Isosorbide Dinitrate (Isordil) 20 mg PO BID [facility] Last Admin: 02/28/17 10:09 Dose: 20 mg Lamotrigine (Lamictal) 50 mg PO BID [facility] Last Admin: 02/28/17 10:10 Dose: 50 mg Losartan Potassium (Cozaar) 100 mg PO DAILY [facility] Last Admin: 02/28/17 10:09 Dose: 100 mg Magnesium Oxide (Mag-Ox) 400 mg PO BID [facility] Last Admin: 02/28/17 10:09 Dose: 400 mg Rosuvastatin Calcium (Crestor) 10 mg PO HS [facility] Last Admin: 02/27/17 22:25 Dose: 10 mg - Labs Labs: 02/28/17 07:16 02/28/17 07:16 Assessment and Plan - Assessment and Plan (Free Text) Assessment: A/P PATIENT IS SEEN AND EXAMINED AT THE BEDSIDE; LUNG SOUND CLEAR; LEFT WRIST COCK- UP NOTED DISCUSS WITH LINDSEY DURING ROUND/ PATIENT IS CLEAR TO DC HOME FOLLOW UP WITH DR PORTILLO IN HIS OFFICE IN A WEEK----CALL FOR ANOINTMENT FOLLOW UP WITH DR ARZOLA IN 1-2 AT HIS OFFICE ---CALL FOR APPOINTMENT FOLLOW UP WITH DR BARNARD AT HIS OFFICE IN 1-2 WEEK ---CALL FOR APPOINTMENT CONTINUE TAKING ALL YOUR HOME MEDICATION PER MED REC NEW RX GIVEN [facility] 50MG PO BID CALL DR PORTILLO OR GO TO THE EMERGENCY ROOM IF SYMPTOMS RETURN OR WORSENING DISCUSS WITH PATIENT AND PATIENT'S FAMILY WHO AGREE AND VERBALIZED UNDERSTANDING
[2017-02-28 17:44] VITALS: TEMP 98.4; O2SAT 99
[2017-02-28 17:57] VITALS: BP 171/90
[2017-02-28 23:45] VITALS: PULSE 86
--- NOTE | 2017-03-03 22:29 | CARD ---
APPROVED REPORT EKG Measurement Heart [id number] CT 250P59 [id number] <Conclusion> Sinus rhythm with 1st degree AV block Otherwise normal ECG
--- NOTE | 2017-03-03 22:30 | CARD ---
APPROVED REPORT EKG Measurement Heart [id number] MI 228P68 [id number] <Conclusion> Sinus rhythm with marked sinus arrhythmia with 1st degree AV block Otherwise normal ECG
== END 2017-02-28 20:00 | disposition home or self-care (01) | DRG 101 ==
LOC: C.ER 12:42 → C.9E 15:45 → C.6T 17:41 → OBSVTOIN 02-27 15:55
PROVIDERS: ADMIT Internal Medicine Pulmonary Disease; ATTEND Internal Medicine Pulmonary Disease
DX: R56.9 Unspecified convulsions (principal); D69.6 Thrombocytopenia, unspecified; I50.9 Heart failure, unspecified; I11.0 Hypertensive heart disease with heart failure; G45.9 Transient cerebral ischemic attack, unspecified; I69.354 Hemiplegia and hemiparesis following cerebral infarction affecting left non-dominant side; M17.0 Bilateral primary osteoarthritis of knee; M10.9 Gout, unspecified; Z86.718 Personal history of other venous thrombosis and embolism

== ENCOUNTER 2017-03-08 12:25 | Emergency (ER) | payer MEDICARE ==
[2017-03-08 12:25] VITALS: BMI 28.2
[2017-03-08 12:33] VITALS: TEMP 97.7
--- NOTE | 2017-03-08 13:20 | C.PDOC ---
History Of Present Illness 86 y/o F c PMHx CHF, cardiac disease, seizure disorder p/w daily episodes of hypotension, drowsiness, general weakness. Daughter states this occurs daily in the morning after medication and states patient was admitted for these same episodes last week but they did not occur in the hospital. Patient is awake during episodes, can speak but with slurred speech. No urinary or bowel incontinence or vomiting. Denies convulsions or post ictal period. Denies pain or dyspnea. Time Seen by Provider: 03/08/17 12:56 Chief Complaint (Nursing): Syncope Past Medical History Vital Signs: Last Vital Signs Temp 97.7 F 03/08/17 12:29 Pulse 84 03/08/17 16:19 Resp 24 03/08/17 16:19 BP 179/111 H 03/08/17 16:19 Pulse Ox 99 03/08/17 16:19 - Medical History PMH: Arthritis, Asthma, Cardia Arrhythmia, CHF, HTN, Hypercholesterolemia, Peripheral Edema Denies: Chronic Kidney Disease - [facility] Procedures CATARAC PHACOEMULS/ASPIR (07/20/13) DEBRIDEMENT OF NAIL, NAIL BED OR NAIL FOLD (11/15/13) INSERT LENS AT CATAR EXT (07/20/13) OP RED-INT FIX TIB/FIBUL (11/15/13) PACKED CELL TRANSFUSION (11/15/13) PLICATION OF VENA CAVA (11/15/13) VACCINATION NEC (11/15/13) Family History: States: Unknown Family Hx - Social History Hx Tobacco Use: No Hx Alcohol Use: No Hx Substance Use: No - Immunization History Hx Tetanus Toxoid Vaccination: No Hx Influenza Vaccination: No Hx Pneumococcal Vaccination: No Review Of Systems Except As Marked, All Systems Reviewed And Found Negative. Constitutional: Negative for: Fever Cardiovascular: Negative for: Chest Pain Physical Exam - Physical Exam Additional Physical Exam Comments: Constitutional: No acute distress. Head: Normocephalic. Atraumatic. Eyes: PERRL. ENT: Moist mucous membranes. Neck: Supple. Cardiovascular: Regular rate. Radial pulse 2+ bilaterally. Chest: No tenderness. Respiratory: Clear to auscultation bilaterally. GI: Soft. Nontender. Nondistended. Back: No CVA tenderness. Musculoskeletal: No tenderness to extremities. Bilateral lower leg swelling. Skin: No rash. Neurologic: Alert, no focal deficit. ED Course And Treatment - Laboratory Results Result Diagrams: 12/31/17 13:49 03/08/17 13:49 O2 Sat by Pulse Oximetry: 96 Medical Decision Making Medical Decision Making: Labs unremarkable. Discussed case with PMD Dr. Lea who does not recommend admission at this time. Also discussed with Dr. Sousa who does not think patient needs to be admitted. Patient asymptomatic. Instructed to return to ED for worsening pain, fever, vomiting, dyspnea, or any other problem. Disposition - Disposition Referrals: Lisette Cornejo MD [Staff Provider] - Jackson Michelle MD [Staff Provider] - Disposition: HOME/ ROUTINE Disposition Time: 15:00 Condition: STABLE Instructions: Epilepsy (ED) Forms: [employer] (Portuguese) - Clinical Impression Clinical Impression: Altered mental status - Scribe Statement The provider has reviewed the documentation as recorded by the Scribe Katerine Suresh All medical record entries made by the Scribe were at my direction and personally dictated by me. I have reviewed the chart and agree that the record accurately reflects my personal performance of the history, physical exam, medical decision making, and the department course for this patient. I have also personally directed, reviewed, and agree with the discharge instructions and disposition.
[2017-03-08 13:59] LABS: BASO % 0.6 % (0.0-2.0); EOS % 0.3 % (0.0-4.0); HEMOGLOBIN 12.3 g/dL (11.0-16.0); LYMPH # 0.9 K/uL (1.0-4.3); LYMPH % 25.8 % (20.0-40.0); MEAN CELL VOLUME 82.4 fL (81.0-99.0); MEAN CORPUSCULAR HEMOGLOBIN 28.6 pg (27.0-31.0); MEAN CORPUSCULAR HGB CONC 34.7 g/dL (33.0-37.0); MEAN PLATELET VOLUME 8.7 fL (7.2-11.7); MONO # 0.4 K/uL (0.0-0.8); MONO % 12.1 % (0.0-10.0); NEUT # 2.2 K/uL (1.8-7.0); NEUT % 61.2 % (50.0-75.0); NRBC % 0.1 % (0.0-2.0); RBC 4.31 Mil/uL (3.80-5.20); RED CELL DISTRIBUTION WIDTH 15.1 % (11.5-14.5); WHITE BLOOD COUNT 3.5 K/uL (4.8-10.8)
[2017-03-08 14:23] LABS: B-TYPE NATRIURETIC PEPTIDE 578 pg/mL (0-900); CK-MB 0.73 ng/mL (0.0-3.38)
[2017-03-08 14:40] LABS: ALB/GLOB RATIO 1.1 (1.0-2.1); ALBUMIN 3.6 g/dL (3.5-5.0); ALT/SGPT 23 U/L (9-52); AST/SGOT 22 U/L (14-36); BLOOD UREA NITROGEN 16 mg/dL (7-17); CALCIUM 8.6 mg/dl (8.6-10.4); GFR AFRICAN-AMERICAN > 60; GFR NON-AFRICAN AMERICAN > 60
[2017-03-08 14:52] LABS: SQUAMOUS EPITHIAL < 1 /hpf (0-5); URINE BILIRUBIN NEGATIVE (NEGATIVE); URINE BLOOD NEGATIVE (NEGATIVE); URINE CLARITY Hazy (Clear); URINE COLOR Yellow (YELLOW); URINE GLUCOSE (UA) NORMAL (Normal); URINE HYALINE CAST 0-2 /lpf (0-2); URINE LEUKOCYTE ESTERASE 1+ Leu/uL (Negative); URINE NITRATE NEGATIVE (NEGATIVE); URINE PROTEIN 1+ mg/dL (NEGATIVE)
[2017-03-08 14:53] LABS: URINE BACTERIA MANY (<OCC)
[2017-03-08 16:20] VITALS: BP 179/111; PULSE 84; RESP 24
[2017-03-08 16:58] VITALS: O2SAT 96
--- NOTE | 2017-03-08 17:19 | RAD ---
HISTORY: hypotensive episodes COMPARISON: Comparison is made with 02/25/2017 FINDINGS: LUNGS: No significant interval change in the lungs noted since the previous study. Mild pulmonary vascular congestion. PLEURA: Ting of the right costophrenic angle is again noted. CARDIOVASCULAR: Normal. OSSEOUS STRUCTURES: No significant abnormalities. VISUALIZED UPPER ABDOMEN: Normal. OTHER FINDINGS: None. IMPRESSION: No significant interval change. Pulmonary vascular congestion and blunting of the right costophrenic angle.
--- NOTE | 2017-03-10 13:23 | CARD ---
APPROVED REPORT EKG Measurement Heart [id number] [place] 216P75 [id number] <Conclusion> Sinus rhythm with 1st degree AV block with premature supraventricular complexes Otherwise normal ECG
== END 2017-03-08 20:41 | disposition home or self-care (01) ==
LOC: C.ER 12:25
DX: R41.82 Altered mental status, unspecified (principal); I10 Essential (primary) hypertension

== ENCOUNTER 2018-06-01 13:12 | Inpatient (IN) | payer MEDICARE ==
[2018-06-01 13:12] VITALS: BMI 28.2
--- NOTE | 2018-06-01 14:53 | C.PDOC ---
History Of Present Illness 87 year old female sent to ED by PMD for evaluation of leg swelling that has persisted for the past 2-3 weeks. Patient has a PMHx of CHF, hypertension, COPD, and previous DVT. Patient's son and daughter state that she stopped taking furosemide when it stopped working and started HCTZ 2 weeks ago and stopped. Patient's family states that she began taking furosemide again when the leg swelling began. Patient also been wearing compression boots on both her legs at home for the past 2-3 weeks. Patient's son believes that it has been making the swelling worse. Patient denies SOB, cough ,and chest pain. Time Seen by Provider: 06/01/18 14:09 Chief Complaint (Nursing): Abnormal Labs History Per: Patient, Family (son and daughter) History/Exam Limitations: no limitations Onset/Duration Of Symptoms: Other (2-3 weeks) Current Symptoms Are (Timing): Still Present Past Medical History Reviewed: Historical Data, Nursing Documentation, Vital Signs Vital Signs: Last Vital Signs Temp 98.1 F 06/01/18 13:21 Pulse 100 H 06/01/18 13:21 Resp 18 06/01/18 13:21 BP 110/72 06/01/18 13:21 Pulse Ox 96 06/01/18 13:21 - Medical History PMH: Arthritis, Asthma, Cardia Arrhythmia, CHF, HTN, Hypercholesterolemia, Peripheral Edema Denies: Chronic Kidney Disease Surgical History: No Surg Hx - [facility] Procedures CATARAC PHACOEMULS/ASPIR (07/20/13) DEBRIDEMENT OF NAIL, NAIL BED OR NAIL FOLD (11/15/13) INSERT LENS AT CATAR EXT (07/20/13) OP RED-INT FIX TIB/FIBUL (11/15/13) PACKED CELL TRANSFUSION (11/15/13) PLICATION OF VENA CAVA (11/15/13) VACCINATION NEC (11/15/13) Family History: States: Unknown Family Hx - Social History Hx Tobacco Use: No Hx Alcohol Use: No Hx Substance Use: No - Immunization History Hx Tetanus Toxoid Vaccination: No Hx Influenza Vaccination: No Hx Pneumococcal Vaccination: No Review Of Systems Constitutional: Negative for: Fever, Chills, Weakness Cardiovascular: Negative for: Chest Pain Respiratory: Negative for: Cough, Shortness of Breath Musculoskeletal: Positive for: Other (swelling of the bilateral extremities) Neurological: Negative for: Weakness, Numbness, Dizziness Physical Exam - Physical Exam Appears: Well, Non-toxic, No Acute Distress Skin: Normal Color, Warm, Dry Head: Atraumatic, Normacephalic Eye(s): bilateral: PERRL, EOMI Neck: Normal ROM, Supple Chest: Symmetrical, No Deformity Cardiovascular: Murmur (2-3/6 systolic murmur) Respiratory: No Accessory Muscle Use, No Rales, No Rhonchi, No Wheezing Gastrointestinal/Abdominal: Soft, No Tenderness Extremity: Other (bilateral venous stasis, +2 bilateral pitting edema of the feet and upper leg , +1 pitting edema along the lower leg) Neurological/Psych: Oriented x3, Normal Speech, Normal Cognition ED Course And Treatment - Laboratory Results Result Diagrams: 06/01/18 15:08 06/01/18 15:08 ECG: Interpreted By Me, Viewed By Me (NSR 99bpm, normal axis, no acute ST/T wave changes) O2 Sat by Pulse Oximetry: 96 (RA) Pulse Ox Interpretation: Normal - Other Rad CXR X-Ray: Interpreted by Me, Viewed By Me Interpretation: IMPRESSION: Biapical pleural thickening and granulomatous changes. Mild venous congestion. Small bilateral pleural effusions and associated consolidations. Enlargement of the cardiomediastinal silhouette. Markedly ectatic aorta. Atherosclerotic calcifications of the aorta. Progress Note: Blood work, EKG, CXR ordered and reviewed. Patient given PO ASA, IV Lasix. 6:50PM - Spoke with hospitalist (Dr. Kelly), agrees with admission to their service under Dr. Solorzano. - Physician Consult Information Physician Contacted: Tory Sousa Outcome Of Conversation: Discussed patient with her anesthesiologist and critical care Dr. Sousa, patient has h/o pulmonary HTN. Will see her for cardiology, would like her admitted to hospitalist service. Disposition - Disposition Forms: [employer] (Citizen Of [place]) - Scribe Statement The provider has reviewed the documentation as recorded by the Scribe (Yin Humphrey) All medical record entries made by the Scribe were at my direction and person ally dictated by me. I have reviewed the chart and agree that the record accurately reflects my personal performance of the history, physical exam, medical decision making, and the department course for this patient. I have also personally directed, reviewed, and agree with the discharge instructions and disposition.
[2018-06-01 15:17] LABS: BASO % 0.7 % (0.0-2.0); EOS % 0.2 % (0.0-4.0); HEMOGLOBIN 12.6 g/dL (11.0-16.0); LYMPH # 0.9 K/uL (1.0-4.3); LYMPH % 25.2 % (20.0-40.0); MEAN CELL VOLUME 82.7 fL (81.0-99.0); MEAN CORPUSCULAR HEMOGLOBIN 27.6 pg (27.0-31.0); MEAN CORPUSCULAR HGB CONC 33.4 g/dL (33.0-37.0); MEAN PLATELET VOLUME 9.4 fL (7.2-11.7); MONO # 0.4 K/uL (0.0-0.8); MONO % 10.9 % (0.0-10.0); NEUT # 2.2 K/uL (1.8-7.0); NRBC % 0.1 % (0.0-2.0); RBC 4.54 Mil/uL (3.80-5.20); RED CELL DISTRIBUTION WIDTH 14.7 % (11.5-14.5); WHITE BLOOD COUNT 3.5 K/uL (4.8-10.8)
[2018-06-01 15:32] LABS: BLOOD UREA NITROGEN 26 mg/dL (7-17); CALCIUM 9.4 mg/dl (8.6-10.4); GFR NON-AFRICAN AMERICAN 59; INR 2.3; PROTHROMBIN TIME 25.3 SECONDS (9.7-12.2)
[2018-06-01 15:33] LABS: ALB/GLOB RATIO 1.2 (1.0-2.1); ALBUMIN 4.4 g/dL (3.5-5.0); ALT/SGPT 13 U/L (9-52); AST/SGOT 62 U/L (14-36)
[2018-06-01 15:52] LABS: B-TYPE NATRIURETIC PEPTIDE 6740 pg/mL (0-900); CK-MB 4.07 ng/mL (0.0-3.38)
--- NOTE | 2018-06-01 16:43 | RAD ---
HISTORY: SOB COMPARISON: Chest x-ray performed 03/08/17 TECHNIQUE: Chest, one view. FINDINGS: Examination limited by habitus. LUNGS: Biapical pleural thickening and granulomatous changes. Mild venous congestion small bilateral pleural effusions and associated consolidations. No definite pneumothorax. Please note that chest x-ray has limited sensitivity for the detection of pulmonary masses. CARDIOVASCULAR: Enlargement of the cardiomediastinal silhouette. Markedly ectatic aorta. Atherosclerotic calcifications of the aorta. OSSEOUS STRUCTURES: Osseous demineralization. Degenerative changes of the spine. VISUALIZED UPPER ABDOMEN: Unremarkable. OTHER FINDINGS: None. IMPRESSION: Biapical pleural thickening and granulomatous changes. Mild venous congestion. Small bilateral pleural effusions and associated consolidations. Enlargement of the cardiomediastinal silhouette. Markedly ectatic aorta. Atherosclerotic calcifications of the aorta.
[2018-06-01 17:41] LABS: SQUAMOUS EPITHIAL 1 /hpf (0-5); URINE BACTERIA OCC (<OCC); URINE BILIRUBIN NEGATIVE (NEGATIVE); URINE BLOOD NEGATIVE (NEGATIVE); URINE CLARITY Hazy (Clear); URINE COLOR Yellow (YELLOW); URINE GLUCOSE (UA) NORMAL (Normal); URINE LEUKOCYTE ESTERASE 1+ Leu/uL (Negative); URINE PROTEIN NEGATIVE (NEGATIVE); URINE UROBILINOGEN NORMAL mg/dL (0.2-1.0)
--- NOTE | 2018-06-01 19:58 | CP.PCM.HP ---
<Celeste Hazel P - Last Filed: 06/02/18 05:46> History of Present Illness - History of Present Illness History of Present Illness: Medicine H&P HPI: 87 year old female with PMHx of CHF, HTN, HLD, asthma, previous DVT, and arthritis presents for worsening bilateral lower extremity edema for the past 2 weeks. Patient also complains of mild shortness of breath with activity. Treatment with Lasix 20mg has not provided any improvement. Family member states that swelling began worsening after using compression boots. Patient denies chest pain, palpitations, cough, abdominal pain, nausea, vomiting, diarrhea, fever and chills. PMHx: PMHx of CHF, HTN, HLD, asthma, previous DVT, and arthritis PSHx: IVC filter, R leg surgery, hysterectomy Meds: Asa 81mg daily, allopurinol 100mg daily, Eliquis 5mg Daily, Gabapentin 100mg daily, ferrous sulfate 325mg daily, Irbesartan 300mg QPM, Crestor 10mg HS, Carvedilol 3.125mg HS Allergies: hydromorphone, oxycodone-unknown reaction FamHx: HTN in parents SocHx: Denies tobacco, alcohol and drugs. Lives with son. Patient is wheelchair bound. PMD: Dr. Sousa Review of Systems: -Gen: No fever, No chills, No headache, No lethargy, No weakness. -HEENT: No dizziness, No change in vision, No change in hearing, No sore throat, No dysphagia, No nasal congestion, No mucous. -Cardio: No chest pain, No palpitations, + lower extremity edema, No orthopnea. -Resp: No cough, +shortness of breath on exertion, No hemoptysis, No wheezing, No pain on inspiration. -GI: No abdominal pain, No nausea/vomiting, No diarrhea/constipation, No hematochezia, No hematemesis. -: No dysuria, No urinary freq, No incontinence, No hematuria, No change in urinary stream. -MSK: No back pain, No muscle weakness, No radiating pain. -Skin: No itching, No rash, No lesions. -Neuro: No confusion, No numbness, No tingling, No focal weakness, No radicular pain, No syncope. -Psych: No anxiety, No depression, No H/I, No S/I, No hallucinations. Present on Admission - Present on Admission Any Indicators Present on Admission: Yes History of DVT/PE: Yes Past Patient History - Infectious Disease Hx of Infectious Diseases: None - Past Medical History & Family History Past Medical History?: Yes - Past Social History Smoking Status: Never Smoked - CARDIAC Hx Cardia Arrhythmia: Yes Hx Congestive Heart Failure: Yes Hx Hypercholesterolemia: Yes Hx Hypertension: Yes Hx Peripheral Edema: Yes - PULMONARY Hx Asthma: Yes - NEUROLOGICAL Hx Neurological Disorder: Yes Hx Syncope: Yes (10 yrs ago unknown reason) - HEENT Hx HEENT Problems: Yes Hx Cataracts: Yes Hx Glaucoma: Yes - RENAL Hx Chronic Kidney Disease: No - ENDOCRINE/METABOLIC Hx Endocrine Disorders: No - HEMATOLOGICAL/ONCOLOGICAL Hx Blood Disorders: No - INTEGUMENTARY Hx Dermatological Problems: No - MUSCULOSKELETAL/RHEUMATOLOGICAL Hx Arthritis: Yes - GASTROINTESTINAL Hx Gastrointestinal Disorders: No - GENITOURINARY/GYNECOLOGICAL Hx Genitourinary Disorders: No - PSYCHIATRIC Hx Substance Use: No - SURGICAL HISTORY Hx Surgeries: Yes Hx Cataract Extraction: Yes (cat ext left eye iol 7 yrs ago) Hx Hysterectomy: Yes Hx Orthopedic Surgery: Yes (R leg) Hx Vascular Surgery: Yes - ANESTHESIA Hx Anesthesia: Yes Hx Anesthesia Reactions: No Hx Malignant Hyperthermia: No Meds Allergies/Adverse Reactions: Allergies Allergy/AdvReac Type Severity Reaction Status Date / Time acetaminophen [From Percocet] AdvReac RASH Verified 06/02/18 01:29 hydromorphone [From Dilaudid] AdvReac RASH Verified 06/02/18 01:29 oxycodone [From Percocet] AdvReac RASH Verified 06/02/18 01:29 Physical Exam - Constitutional Appears: Non-toxic, No Acute Distress - Head Exam Head Exam: ATRAUMATIC, NORMOCEPHALIC - Eye Exam Eye Exam: EOMI, Normal appearance, PERRL - ENT Exam ENT Exam: Mucous Membranes Moist - Neck Exam Neck exam: Positive for: Full Rom. Negative for: Normal Inspection (JVD) - Respiratory Exam Respiratory Exam: Decreased Breath Sounds (bilateral bases). absent: Rales, Rhonchi, Wheezes, Respiratory Distress - Cardiovascular Exam Cardiovascular Exam: REGULAR RHYTHM, JVD, +S1, +S2, Systolic Murmur. absent: Gallop - GI/Abdominal Exam GI & Abdominal Exam: Normal Bowel Sounds, Soft. absent: Distended, Guarding, Rebound, Tenderness Additional comments: Well healed lower abdominal surgical scar - Extremities Exam Additional comments: 2+ RLE pitting edema from toes to tibial tuberosity. 1+ LLE pitting edema from toes to tibial tuberosity. DP pulses weakly palpable bilaterally. Capillary refill < 3 seconds bilateral toes. Limited ROM of lower extremities secondary to severe arthritis. - Neurological Exam Neurological exam: Alert, CN II-XII Intact, Oriented x3 - Psychiatric Exam Psychiatric exam: Normal Affect, Normal Mood - Skin Skin Exam: Dry, Normal Color, Warm Additional comments: 0.5cm necrotic wound noted to 2nd L toe Results - Vital Signs Recent Vital Signs: Last Vital Signs Temp 98.1 F 06/01/18 13:21 Pulse 90 06/01/18 18:52 Resp 16 06/01/18 18:52 BP 137/97 H 06/01/18 18:52 Pulse Ox 96 06/01/18 19:00 - Labs Result Diagrams: 06/01/18 15:08 06/01/18 15:08 Labs: Laboratory Results - last 24 hr 06/01/18 06/01/18 06/01/18 15:08 15:08 15:08 WBC 3.5 L RBC 4.54 Hgb 12.6 Hct 37.6 MCV 82.7 MCH 27.6 MCHC 33.4 RDW 14.7 H Plt Count 81 L D MPV 9.4 Neut % (Auto) 63.0 Lymph % (Auto) 25.2 [place] % (Auto) 10.9 H Eos % (Auto) 0.2 Baso % (Auto) 0.7 Neut # (Auto) 2.2 Lymph # (Auto) 0.9 L [place] # (Auto) 0.4 Eos # (Auto) 0.0 Baso # (Auto) 0.0 Differential Comment PT 25.3 H INR 2.3 APTT 36 H Sodium 139 Potassium 5.4 H Chloride 99 Carbon Dioxide 31 H Anion Gap 15 BUN 26 H Creatinine 0.9 Est GFR ( Amer) > 60 Est GFR (Non-Af Amer) 59 POC Glucose (mg/dL) Random Glucose 86 D Calcium 9.4 Total Bilirubin 1.3 AST 62 H D ALT 13 Alkaline Phosphatase 90 Total Creatine Kinase 190 H CK-MB (Mass) 4.07 H Troponin I 0.2260 H* NT-Pro-B Natriuret Pep 6740 H Total Protein 8.0 Albumin 4.4 Globulin 3.7 Albumin/Globulin Ratio 1.2 Urine Color Urine Clarity Urine pH Ur Specific [place] Urine Protein Urine Glucose (UA) Urine Ketones Urine Blood Urine Nitrate Urine Bilirubin Urine Urobilinogen Ur Leukocyte Esterase Urine WBC (Auto) Urine RBC (Auto) Ur Squamous Epith Cells Urine Bacteria 06/01/18 06/01/18 16:30 17:30 WBC RBC Hgb Hct MCV MCH MCHC RDW Plt Count MPV Neut % (Auto) Lymph % (Auto) [place] % (Auto) Eos % (Auto) Baso % (Auto) Neut # (Auto) Lymph # (Auto) [place] # (Auto) Eos # (Auto) Baso # (Auto) Differential Comment PT INR APTT Sodium Potassium Chloride Carbon Dioxide Anion Gap BUN Creatinine Est GFR ( Amer) Est GFR (Non-Af Amer) POC Glucose (mg/dL) 84 Random Glucose Calcium Total Bilirubin AST ALT Alkaline Phosphatase Total Creatine Kinase CK-MB (Mass) Troponin I NT-Pro-B Natriuret Pep Total Protein Albumin Globulin Albumin/Globulin Ratio Urine Color Yellow Urine Clarity Hazy Urine pH 6.0 Ur Specific [place] 1.009 Urine Protein Negative Urine Glucose (UA) Normal Urine Ketones Negative Urine Blood Negative Urine Nitrate Negative Urine Bilirubin Negative Urine Urobilinogen Normal Ur Leukocyte Esterase 1+ H Urine WBC (Auto) 4 Urine RBC (Auto) 2 Ur Squamous Epith Cells 1 Urine Bacteria Occ H Assessment & Plan - Assessment and Plan (Free Text) Assessment: 87 year old female with PMHx of CHF, HTN, HLD, asthma, previous DVT, and arthritis admitted for CHF exacerbation Plan: CHF exacerbation ProBNP: 6740 (578 on previous lab work 2017) f/u echo Echo 2017: EF 70%, severe pulm HTN, moderate TR, severe sclerosis aortic valve. see full report. troponin 0.226, f/u serial troponin Dr. Sousa, cardiology consulted I&O 1500ml fluid restriction Lasix 40mg IVP daily Hyperkalemia Potassium: 5.4 EKG: NSR no spiked T waves Albuterol treatment once follow up AM labs Hold home med irbeartan Hx of HTN Carvedilol 3.125mg PO HS Hx of HLD Crestor 10mg PO HS Hx of Asthma Patient unsure of inhaler- reconcile with pharmacy in AM Hx of dvt Eliquis 5mg PO daily PPx Eliquis 5mg PO GI not indicated HHD Discussed with Dr. Jeanine Hazel PGY1 <Tien Solorzano - Last Filed: 06/02/18 06:13> Results - Vital Signs Recent Vital Signs: Last Vital Signs Temp 98.0 F 06/02/18 04:00 Pulse 90 06/02/18 04:00 Resp 20 06/02/18 04:00 BP 112/68 06/02/18 04:00 Pulse Ox 100 06/02/18 04:00 - Labs Result Diagrams: 06/01/18 15:08 06/01/18 15:08 Labs: Laboratory Results - last 24 hr 06/01/18 06/01/18 06/01/18 15:08 15:08 15:08 WBC 3.5 L RBC 4.54 Hgb 12.6 Hct 37.6 MCV 82.7 MCH 27.6 MCHC 33.4 RDW 14.7 H Plt Count 81 L D MPV 9.4 Neut % (Auto) 63.0 Lymph % (Auto) 25.2 [place] % (Auto) 10.9 H Eos % (Auto) 0.2 Baso % (Auto) 0.7 Neut # (Auto) 2.2 Lymph # (Auto) 0.9 L [place] # (Auto) 0.4 Eos # (Auto) 0.0 Baso # (Auto) 0.0 Differential Comment PT 25.3 H INR 2.3 APTT 36 H Sodium 139 Potassium 5.4 H Chloride 99 Carbon Dioxide 31 H Anion Gap 15 BUN 26 H Creatinine 0.9 Est GFR ( Amer) > 60 Est GFR (Non-Af Amer) 59 POC Glucose (mg/dL) Random Glucose 86 D Calcium 9.4 Total Bilirubin 1.3 AST 62 H D ALT 13 Alkaline Phosphatase 90 Total Creatine Kinase 190 H CK-MB (Mass) 4.07 H Troponin I 0.2260 H* NT-Pro-B Natriuret Pep 6740 H Total Protein 8.0 Albumin 4.4 Globulin 3.7 Albumin/Globulin Ratio 1.2 Urine Color Urine Clarity Urine pH Ur Specific [place] Urine Protein Urine Glucose (UA) Urine Ketones Urine Blood Urine Nitrate Urine Bilirubin Urine Urobilinogen Ur Leukocyte Esterase Urine WBC (Auto) Urine RBC (Auto) Ur Squamous Epith Cells Urine Bacteria 06/01/18 06/01/18 06/02/18 16:30 17:30 00:41 WBC RBC Hgb Hct MCV MCH MCHC RDW Plt Count MPV Neut % (Auto) Lymph % (Auto) [place] % (Auto) Eos % (Auto) Baso % (Auto) Neut # (Auto) Lymph # (Auto) [place] # (Auto) Eos # (Auto) Baso # (Auto) Differential Comment PT INR APTT Sodium Potassium Chloride Carbon Dioxide Anion Gap BUN Creatinine Est GFR ( Amer) Est GFR (Non-Af Amer) POC Glucose (mg/dL) 84 Random Glucose Calcium Total Bilirubin AST ALT Alkaline Phosphatase Total Creatine Kinase CK-MB (Mass) Troponin I 0.2260 H* NT-Pro-B Natriuret Pep Total Protein Albumin Globulin Albumin/Globulin Ratio Urine Color Yellow Urine Clarity Hazy Urine pH 6.0 Ur Specific [place] 1.009 Urine Protein Negative Urine Glucose (UA) Normal Urine Ketones Negative Urine Blood Negative Urine Nitrate Negative Urine Bilirubin Negative Urine Urobilinogen Normal Ur Leukocyte Esterase 1+ H Urine WBC (Auto) 4 Urine RBC (Auto) 2 Ur Squamous Epith Cells 1 Urine Bacteria Occ H Assessment & Plan - Date & Time Date: 06/02/18 (I have seen and examined the patient. I agree with the findings and plan of care as documented by Dr. Hazel. Patient with CHF exacerbation. History of Hypertension. Consult to Cardio. Continue home meds. ROMIx3 with EKG. Also with hyperkalemia. Hold Ibesartan. Recheck in AM. Monitor for acute changes.) Time: 06:11 Attending/Attestation - Attestation I have personally seen and examined this patient.: Yes I have fully participated in the care of the patient.: Yes I have reviewed all pertinent clinical information: Yes
[2018-06-01] MEDS ORDERED: Albuterol 0.083% Inhal Sol (2.5 mg/3 mL) UD INH ONE ×2 (23:04→23:59)
[2018-06-02 07:31] LABS: BASO % 0.5 % (0.0-2.0); EOS % 0.4 % (0.0-4.0); HEMOGLOBIN 10.9 g/dL (11.0-16.0); LYMPH # 0.8 K/uL (1.0-4.3); MEAN CELL VOLUME 82.3 fL (81.0-99.0); MEAN CORPUSCULAR HGB CONC 32.9 g/dL (33.0-37.0); MEAN PLATELET VOLUME 9.7 fL (7.2-11.7); MONO # 0.4 K/uL (0.0-0.8); MONO % 12.5 % (0.0-10.0); NEUT # 1.8 K/uL (1.8-7.0); NEUT % 60.6 % (50.0-75.0); NRBC % 0.1 % (0.0-2.0); RBC 4.04 Mil/uL (3.80-5.20)
[2018-06-02 07:53] LABS: ALB/GLOB RATIO 1.2 (1.0-2.1); ALBUMIN 3.6 g/dL (3.5-5.0); CALCIUM 9.3 mg/dl (8.6-10.4)
[2018-06-02 08:18] LABS: TROPONIN I 0.222 ng/mL (0.00-0.120)
--- NOTE | 2018-06-02 09:28 | CP.PCM.PN ---
<Carlos Castellano - Last Filed: 06/02/18 16:01> Subjective - Date & Time of Evaluation Date of Evaluation: 06/02/18 Time of Evaluation: 10:58 - Subjective Subjective: Medicine progress note for Dr. Kelly Pt seen and examined at bedside. Pt is resting comfortably, reports feeling better than when she was admitted. Denies SOB at this time but states that she does have it when she is moved. Denies fever, chills, chest pain, palpitations, abdominal pain, n/v/d, headache, dizziness, visual changes, numbness or tingling. Objective - Vital Signs/Intake and Output Vital Signs (last 24 hours): Temp Pulse Resp BP Pulse Ox 97.8 F 80 20 134/70 100 06/02/18 07:00 06/02/18 07:00 06/02/18 07:00 06/02/18 09:17 06/02/18 07:00 Intake and Output: 06/02/18 06/02/18 06:59 18:59 Intake Total 50 Output Total 200 Balance -150 - Medications Medications: Current Medications Allopurinol (Zyloprim) 100 mg PO DAILY [facility] Last Admin: 06/02/18 09:17 Dose: 100 mg Apixaban (Eliquis) 2.5 mg PO BID [facility] Last Admin: 06/02/18 09:17 Dose: 2.5 mg Aspirin (Aspirin Chewable) 81 mg PO DAILY [facility] Last Admin: 06/02/18 09:17 Dose: 81 mg Carvedilol (Coreg) 3.125 mg PO HS [facility] Last Admin: 06/01/18 23:49 Dose: 3.125 mg Ferrous Sulfate (Feosol) 325 mg PO DAILY [facility] Last Admin: 06/02/18 09:17 Dose: 325 mg Furosemide (Lasix) 40 mg IVP DAILY [facility] Last Admin: 06/02/18 09:17 Dose: 40 mg Gabapentin (Neurontin) 100 mg PO DAILY [facility] Last Admin: 06/02/18 09:17 Dose: 100 mg Rosuvastatin Calcium (Crestor) 10 mg PO HS [facility] Last Admin: 06/01/18 23:49 Dose: 10 mg - Labs Labs: 06/02/18 07:07 06/02/18 07:07 PT 25.3 SECONDS (9.7-12.2) H 06/01/18 15:08 INR 2.3 06/01/18 15:08 APTT 36 SECONDS (21-34) H 06/01/18 15:08 - Additional Findings Additional findings: - Constitutional Appears: Non-toxic, No Acute Distress - Head Exam Head Exam: ATRAUMATIC, NORMOCEPHALIC - Eye Exam Eye Exam: EOMI, Normal appearance, PERRL - ENT Exam ENT Exam: Mucous Membranes Moist - Neck Exam Neck exam: Normal - Respiratory Exam Respiratory Exam: Decreased Breath Sounds. (+) Rales at bases bilaterally. absent: Rhonchi, Wheezes, Respiratory Distress - Cardiovascular Exam Cardiovascular Exam: REGULAR RHYTHM, +S1, +S2, 1/6 Systolic Murmur. absent: Gallop - GI/Abdominal Exam GI & Abdominal Exam: Normal Bowel Sounds, Soft. absent: Distended, Guarding, Rebound, Tenderness Additional comments: Well healed lower abdominal surgical scar. - Genitourinary Exam Genitourinary Exam: (+) pure wick on suction, clear yellow urine - Extremities Exam Additional comments: 2+ pitting edema to bilateral lower extremities to the mid ruiz. Bilateral thready DP pulses. Capillary refill < 3 seconds bilateral toes. Limited ROM of lower extremities secondary to severe arthritis. (+) left distal foot is cold to touch compared to right. (+) normal sensation and perfusion - Neurological Exam Neurological exam: Alert, Oriented x3 - Psychiatric Exam Psychiatric exam: Normal Affect, Normal Mood - Skin Skin Exam: Dry, Normal Color, Warm Additional comments: (+) 0.5cm necrotic wound noted to 2nd L toe (+) erythema to the lower abdominal skin folds Assessment and Plan - Assessment and Plan (Free Text) Assessment: 87 year old female with PMHx of CHF, HTN, HLD, asthma, previous DVT with IVC filter placement, PAD and arthritis admitted for CHF exacerbation Plan: Exacerbation of HFpEF Elevated troponins CXR shows on admission Biapical pleural thickening and granulomatous changes. Mild venous congestion. Small bilateral pleural effusions and associated consolidations. Enlargement of the cardiomediastinal silhouette. Markedly ect atic aorta. Atherosclerotic calcifications of the aorta. Pt not tachycardic, afebrile, no leukocytosis. F/u chest CT without contrast ProBNP: 6740 decreased to 5730 after Lasix 20 mg IVP on admission Echo 2017: EF 70%, severe pulm HTN, moderate TR, severe sclerosis aortic valve. see full report. Troponin 0.2260-->0.2260-->0.2220, likely due to CHF EKG is NSR no acute STTW changes Dr. Sousa, cardiology consulted I&Os, daily weights 1500ml fluid restriction Lasix 40mg IVP daily Coreg 3.125 mg PO QHS Home Irbesartan not on formulary, will continue Losartan 100 mg PO daily F/u echocardiogram Lower extremity swelling, likey secondary to CHF exacerbation Hx of DVT F/u lower extremity venous dopplers bilaterally Poikilothermia of left distal foot Hx of PAD ASA 81 mg PO daily Crestor 10 mg PO QHS Vsacular surgery, Dr. Scales, consulted. F/u bilateral lower extremity arterial dopplers Erythema to lower abdominal folds, like intertrigo Will start Nystatin Continue to monitor Hyperkalemia, resolved Potassium: 5.4 EKG: NSR no spiked T waves Albuterol treatment once, and given Lasix IVP Today potassium is 3.4, repleted wih KDur 40 meq PO x1 Thrombocytopenia, chronic 68,000 currently Pt without any signs of bleeding Hx of HTN Carvedilol, Losartan as above Hx of HLD Crestor 10mg PO HS F/u lipid panel Hx of Asthma Duoneb prn Hx of dvt Eliquis 5mg PO daily PPx NO indication for GI ppx at this time Eliquis 5mg PO, no need for other VTE ppx GI not indicated HHD PT eval Palliative care consult for advanced directive <Heide Kelly V - Last Filed: 06/02/18 18:36> Objective - Vital Signs/Intake and Output Vital Signs (last 24 hours): Temp Pulse Resp BP Pulse Ox 97.9 F 103 H 20 110/75 95 06/02/18 15:10 06/02/18 15:10 06/02/18 15:10 06/02/18 15:10 06/02/18 15:10 Intake and Output: 06/02/18 06/02/18 06:59 18:59 Intake Total 50 Output Total 200 Balance -150 - Medications Medications: Current Medications Albuterol/Ipratropium (Duoneb 3 Mg/0.5 Mg (3 Ml) Ud) 3 ml INH RQ6 PRN PRN Reason: Shortness of Breath Allopurinol (Zyloprim) 100 mg PO DAILY [facility] Last Admin: 06/02/18 09:17 Dose: 100 mg Apixaban (Eliquis) 2.5 mg PO BID [facility] Last Admin: 06/02/18 09:17 Dose: 2.5 mg Aspirin (Aspirin Chewable) 81 mg PO DAILY [facility] Last Admin: 06/02/18 09:17 Dose: 81 mg Carvedilol (Coreg) 3.125 mg PO HS [facility] Last Admin: 06/01/18 23:49 Dose: 3.125 mg Ferrous Sulfate (Feosol) 325 mg PO DAILY [facility] Last Admin: 06/02/18 09:17 Dose: 325 mg Furosemide (Lasix) 40 mg IVP DAILY [facility] Last Admin: 06/02/18 09:17 Dose: 40 mg Gabapentin (Neurontin) 100 mg PO DAILY [facility] Last Admin: 06/02/18 09:17 Dose: 100 mg Nystatin (Nystop Topical Powder) 1 applic TOP BID [facility] Last Admin: 06/02/18 12:51 Dose: 1 applic Rosuvastatin Calcium (Crestor) 10 mg PO [facility] Last Admin: 06/01/18 23:49 Dose: 10 mg - Labs Labs: 06/02/18 07:07 06/02/18 07:07 PT 25.3 SECONDS (9.7-12.2) H 06/01/18 15:08 INR 2.3 06/01/18 15:08 APTT 36 SECONDS (21-34) H 06/01/18 15:08 Attending/Attestation - Attestation I have personally seen and examined this patient.: Yes I have fully participated in the care of the patient.: Yes I have reviewed all pertinent clinical information, including history, physical exam and plan: Yes Notes (Text): Patient seen, examined and case discussed with day-time resident. patient seen at bedside with her son at bedside. Patient reports she is feeling better. Patient noted muscle atrophy and difficult to assess DP pulses. Patient to undergo echocardiogram, venous and MIRLANDE dopplers, and diuresis for CHF. Cardiology on board. Palliative care on board to discuss creation of a POLST Assessment/Plan 1. Exacerbation of HFpEF Elevated troponin secondary to congestive heart failure exacerbation Assessment/Plan * Cardiology (Dr. Sousa) on help appreciated * CXR shows on admission Biapical pleural thickening and granulomatous changes. Mild venous congestion. Small bilateral pleural effusions and associated co nsolidations. Enlargement of the cardiomediastinal silhouette. Markedly ectatic aorta. Atherosclerotic calcifications of the aorta. * Pt not tachycardic, afebrile, no leukocytosis. * Chest CT without contrast (06/02/18): small bilateral pleural effusion, right greater than left. right lower lobe compressive atelectasis. cardiomegaly. no acute infiltrate. * ProBNP: 6740 decreased to 5730 after Lasix 20 mg IVP on admission * Echo 2017: EF 70%, severe pulm HTN, moderate TR, severe sclerosis aortic jaime ve. see full report. * pending Echocardiogram * I&Os, daily weights * 1500ml fluid restriction * Lasix 40mg IVP daily * Coreg 3.125 mg PO QHS * Home Irbesartan not on formulary, will continue Losartan 100 mg PO daily 2. Lower extremity swelling, likey secondary to CHF exacerbation Hx of DVT Assessment/Plan * F/u lower extremity venous dopplers bilaterally * Vascular surgery on board * [facility] 3. Poikilothermia of left distal foot Hx of PAD Assessment/Plan * ASA 81 mg PO daily * Crestor 10 mg PO QHS * Vascular surgery, Dr. Scales, consulted. * F/u bilateral lower extremity arterial dopplers 4. Erythema to lower abdominal folds, like intertrigo Assessment/Plan * Will start Nystatin * Continue to monitor 5. Hyperkalemia, resolved Assessment/Plan * Potassium: 3.4 6. Thrombocytopenia, chronic Assessment/Plan * 68,000 currently * Pt without any signs of bleeding 7.Hypertension Assessment/Plan * Carvedilol 3.125mg POqHS * Losartan 25mg PO daily 8. Lipid Disorder Assessment/Plan * Crestor 10mg PO HS * F/u lipid panel 9. Hx of Asthma Assessment/Plan * Duoneb prn 10. Hx of dvt Assessment/Plan * History of IVC filter * Eliquis 2.5mg PO BID * SCDS b/l contraindication 11. PPx * NO indication for GI ppx at this time * Eliquis 2.5mg PO BID * GI not indicated * HHD * PT eval * Palliative care consult for advanced directive
[2018-06-02] MEDS ORDERED: Potassium Chloride 20 mEq ER Tab PO ONE (10:55)
[2018-06-02] MEDS ORDERED: Albuterol-Ipratrop 3 mg / 0.5 (3 ml) UD INH PRN (11:16)
--- NOTE | 2018-06-02 13:24 | CP.PCM.CON ---
History of Present Illness - History of Present Illness History of Present Illness: Consult Note for Dr. Scales HPI: Patient is a 87 year old female with history of CHF, HTN, HLD, asthma, previous DVT, and arthritis who initially presented for worsening lower extremity edema and shortness of breath. Consult placed to evaluate thready pulses, poikilothermia on left foot. She denies pain to left foot, just states that it has been more swollen recently. PMH: CHF, HTN, HLD, asthma, previous DVT, and arthritis PSH :IVC filter, ORIF of right tibia with IMN, hysterectomy Allergies: oxycodone, hydromorphone - unknown reaction Family hx: HTN in parents Social hx: denies tobacco, alcohol and drug use. Lives with son, wheelchair bound. PMD: Dr. Sousa Review of Systems - Constitutional Constitutional: absent: Chills - Cardiovascular Cardiovascular: Dyspnea - Respiratory Respiratory: Dyspnea - Gastrointestinal Gastrointestinal: absent: Abdominal Pain, Nausea, Vomiting - Genitourinary Genitourinary: absent: Dysuria - Psychiatric Psychiatric: absent: Anxiety, Depression Past Patient History - Infectious Disease Hx of Infectious Diseases: None - Past Medical History & Family History Past Medical History?: Yes - Past Social History Smoking Status: Never Smoked - CARDIAC Hx Cardia Arrhythmia: Yes Hx Congestive Heart Failure: Yes Hx Hypercholesterolemia: Yes Hx Hypertension: Yes Hx Peripheral Edema: Yes - PULMONARY Hx Asthma: Yes - NEUROLOGICAL Hx Neurological Disorder: Yes Hx Syncope: Yes (10 yrs ago unknown reason) - HEENT Hx HEENT Problems: Yes Hx Cataracts: Yes Hx Glaucoma: Yes - RENAL Hx Chronic Kidney Disease: No - ENDOCRINE/METABOLIC Hx Endocrine Disorders: No - HEMATOLOGICAL/ONCOLOGICAL Hx Blood Disorders: No - INTEGUMENTARY Hx Dermatological Problems: No - MUSCULOSKELETAL/RHEUMATOLOGICAL Hx Arthritis: Yes - GASTROINTESTINAL Hx Gastrointestinal Disorders: No - GENITOURINARY/GYNECOLOGICAL Hx Genitourinary Disorders: No - PSYCHIATRIC Hx Substance Use: No - SURGICAL HISTORY Hx Surgeries: Yes Hx Cataract Extraction: Yes (cat ext left eye iol 7 yrs ago) Hx Hysterectomy: Yes Hx Orthopedic Surgery: Yes (R leg) Hx Vascular Surgery: Yes - ANESTHESIA Hx Anesthesia: Yes Hx Anesthesia Reactions: No Hx Malignant Hyperthermia: No Meds Allergies/Adverse Reactions: Allergies Allergy/AdvReac Type Severity Reaction Status Date / Time acetaminophen [From Percocet] AdvReac RASH Verified 03/27/19 01:29 hydromorphone [From Dilaudid] AdvReac RASH Verified 06/02/18 01:29 oxycodone [From Percocet] AdvReac RASH Verified 06/02/18 01:29 - Medications Medications: Current Medications Albuterol/Ipratropium (Duoneb 3 Mg/0.5 Mg (3 Ml) Ud) 3 ml INH RQ6 PRN PRN Reason: Shortness of Breath Allopurinol (Zyloprim) 100 mg PO DAILY [facility] Last Admin: 06/02/18 09:17 Dose: 100 mg Apixaban (Eliquis) 2.5 mg PO BID [facility] Last Admin: 06/02/18 09:17 Dose: 2.5 mg Aspirin (Aspirin Chewable) 81 mg PO DAILY [facility] Last Admin: 06/02/18 09:17 Dose: 81 mg Carvedilol (Coreg) 3.125 mg PO [facility] Last Admin: 06/01/18 23:49 Dose: 3.125 mg Ferrous Sulfate (Feosol) 325 mg PO DAILY [facility] Last Admin: 06/02/18 09:17 Dose: 325 mg Furosemide (Lasix) 40 mg IVP DAILY [facility] Last Admin: 06/02/18 09:17 Dose: 40 mg Gabapentin (Neurontin) 100 mg PO DAILY [facility] Last Admin: 06/02/18 09:17 Dose: 100 mg Nystatin (Nystop Topical Powder) 1 applic TOP BID [facility] Last Admin: 06/02/18 12:51 Dose: 1 applic Rosuvastatin Calcium (Crestor) 10 mg PO [facility] Last Admin: 06/01/18 23:49 Dose: 10 mg Physical Exam - Constitutional Appears: Well, No Acute Distress - Head Exam Head Exam: ATRAUMATIC, NORMOCEPHALIC - Eye Exam Eye Exam: EOMI, PERRL - ENT Exam ENT Exam: Mucous Membranes Moist - Neck Exam Neck exam: Positive for: Full Rom. Negative for: Tenderness - Respiratory Exam Respiratory Exam: NORMAL BREATHING PATTERN - Cardiovascular Exam Cardiovascular Exam: REGULAR RHYTHM, +S1, +S2 - GI/Abdominal Exam GI & Abdominal Exam: Normal Bowel Sounds, Soft. absent: Tenderness - Extremities Exam Additional comments: RLE: Scar on knee, pedal edema, dopplerable PT and DP pulses. no calf tenderness. Left 2nd toe ulceration, no active bleeding, scab in place. LLE: dopplerable PT and DP pulses. Pedal edema, no calf tenderness. Left foot slightly cold compared to right. - Neurological Exam Neurological exam: Alert, Oriented x3 Results - Vital Signs Recent Vital Signs: Last Vital Signs Temp 97.8 F 06/02/18 07:00 Pulse 80 06/02/18 07:00 Resp 20 06/02/18 07:00 BP 134/70 06/02/18 09:17 Pulse Ox 100 06/02/18 07:00 - Labs Result Diagrams: 06/02/18 07:07 06/02/18 07:07 Labs: Laboratory Results - last 24 hr 06/01/18 06/01/18 06/01/18 15:08 15:08 15:08 WBC 3.5 L RBC 4.54 Hgb 12.6 Hct 37.6 MCV 82.7 MCH 27.6 MCHC 33.4 RDW 14.7 H Plt Count 81 L D MPV 9.4 Neut % (Auto) 63.0 Lymph % (Auto) 25.2 [place] % (Auto) 10.9 H Eos % (Auto) 0.2 Baso % (Auto) 0.7 Neut # (Auto) 2.2 Lymph # (Auto) 0.9 L [place] # (Auto) 0.4 Eos # (Auto) 0.0 Baso # (Auto) 0.0 Differential Comment PT 25.3 H INR 2.3 APTT 36 H Sodium 139 Potassium 5.4 H Chloride 99 Carbon Dioxide 31 H Anion Gap 15 BUN 26 H Creatinine 0.9 Est GFR ( Amer) > 60 Est GFR (Non-Af Amer) 59 POC Glucose (mg/dL) Random Glucose 86 D Calcium 9.4 Phosphorus Magnesium Total Bilirubin 1.3 AST 62 H D ALT 13 Alkaline Phosphatase 90 Total Creatine Kinase 190 H CK-MB (Mass) 4.07 H Troponin I 0.2260 H* NT-Pro-B Natriuret Pep 6740 H Total Protein 8.0 Albumin 4.4 Globulin 3.7 Albumin/Globulin Ratio 1.2 Triglycerides Cholesterol LDL Cholesterol Direct HDL Cholesterol Urine Color Urine Clarity Urine pH Ur Specific [place] Urine Protein Urine Glucose (UA) Urine Ketones Urine Blood Urine Nitrate Urine Bilirubin Urine Urobilinogen Ur Leukocyte Esterase Urine WBC (Auto) Urine RBC (Auto) Ur Squamous Epith Cells Urine Bacteria 06/01/18 06/01/18 06/02/18 16:30 17:30 00:41 WBC RBC Hgb Hct MCV MCH MCHC RDW Plt Count MPV Neut % (Auto) Lymph % (Auto) [place] % (Auto) Eos % (Auto) Baso % (Auto) Neut # (Auto) Lymph # (Auto) [place] # (Auto) Eos # (Auto) Baso # (Auto) Differential Comment PT INR APTT Sodium Potassium Chloride Carbon Dioxide Anion Gap BUN Creatinine Est GFR ( Amer) Est GFR (Non-Af Amer) POC Glucose (mg/dL) 84 Random Glucose Calcium Phosphorus Magnesium Total Bilirubin AST ALT Alkaline Phosphatase Total Creatine Kinase CK-MB (Mass) Troponin I 0.2260 H* NT-Pro-B Natriuret Pep Total Protein Albumin Globulin Albumin/Globulin Ratio Triglycerides Cholesterol LDL Cholesterol Direct HDL Cholesterol Urine Color Yellow Urine Clarity Hazy Urine pH 6.0 Ur Specific [place] 1.009 Urine Protein Negative Urine Glucose (UA) Normal Urine Ketones Negative Urine Blood Negative Urine Nitrate Negative Urine Bilirubin Negative Urine Urobilinogen Normal Ur Leukocyte Esterase 1+ H Urine WBC (Auto) 4 Urine RBC (Auto) 2 Ur Squamous Epith Cells 1 Urine Bacteria Occ H 06/02/18 06/02/18 06/02/18 07:07 07:07 07:07 WBC 3.0 L RBC 4.04 Hgb 10.9 L Hct 33.2 L MCV 82.3 MCH 27.0 MCHC 32.9 L RDW 15.0 H Plt Count 68 L MPV 9.7 Neut % (Auto) 60.6 Lymph % (Auto) 26.0 [place] % (Auto) 12.5 H Eos % (Auto) 0.4 Baso % (Auto) 0.5 Neut # (Auto) 1.8 Lymph # (Auto) 0.8 L [place] # (Auto) 0.4 Eos # (Auto) 0.0 Baso # (Auto) 0.0 Differential Comment PT INR APTT Sodium 139 Potassium 3.4 L Chloride 99 Carbon Dioxide 32 H Anion Gap 12 BUN 23 H Creatinine 1.1 Est GFR ( Amer) 57 Est GFR (Non-Af Amer) 47 POC Glucose (mg/dL) Random Glucose 88 Calcium 9.3 Phosphorus 3.2 Magnesium 2.0 Total Bilirubin 0.8 AST 46 H D ALT 28 Alkaline Phosphatase 79 Total Creatine Kinase CK-MB (Mass) Troponin I 0.2220 H* NT-Pro-B Natriuret Pep 5730 H Total Protein 6.6 Albumin 3.6 Globulin 3.0 Albumin/Globulin Ratio 1.2 Triglycerides 69 D Cholesterol 77 LDL Cholesterol Direct 37 HDL Cholesterol 42 Urine Color Urine Clarity Urine pH Ur Specific [place] Urine Protein Urine Glucose (UA) Urine Ketones Urine Blood Urine Nitrate Urine Bilirubin Urine Urobilinogen Ur Leukocyte Esterase Urine WBC (Auto) Urine RBC (Auto) Ur Squamous Epith Cells Urine Bacteria Assessment & Plan - Assessment and Plan (Free Text) Assessment: 87 year old female with history of DVT and IVC filter presenting with chronic lower extremity edema. Plan: F/u iliofemoral abd CT Ileana Davila, PGY1
[2018-06-02] MEDS ORDERED: Iodixanol 320 mg/ml 150 ml Bottle IV ONE (15:31)
--- NOTE | 2018-06-02 17:43 | CT ---
Date of service: 06/02/2018 PROCEDURE: CT Chest without contrast HISTORY: history chf, dyspnea COMPARISON: None available. TECHNIQUE: Contiguous axial images were obtained through the chest without intravenous contrast enhancement. Sagittal and coronal reconstructions were performed. Radiation dose (DLP): 672.87 mGy-cm. This CT exam was performed using one or more of the following dose reduction techniques: Automated exposure control, adjustment of the mA and/or kV according to patient size, and/or use of iterative reconstruction technique. FINDINGS: LUNGS: No infiltrate. Right lower lobe compressive atelectasis associated with small pleural effusion. MEDIASTINUM: Unremarkable thoracic aorta. No aneurysm. Cardiomegaly. Coronary arterial calcification. Dilated main pulmonary artery to a diameter of 3.8 cm. No lymphadenopathy. There is atherosclerotic calcification of the thoracic aorta. PLEURA: Small bilateral pleural effusion, right greater than left. BONES: No fracture. No destructive lesion. UPPER ABDOMEN: Grossly unremarkable. OTHER FINDINGS: Inferior vena caval filter noted. IMPRESSION: Small bilateral pleural effusion, right greater than left. Right lower lobe compressive atelectasis. Cardiomegaly. No acute infiltrate.
--- NOTE | 2018-06-02 18:34 | CARD ---
APPROVED REPORT Date of service: 06/01/2018 EKG Measurement Heart [id number] <Conclusion> Normal sinus rhythm Normal ECG
--- NOTE | 2018-06-02 23:33 | CARD ---
APPROVED REPORT Date of service: 06/02/2018 EXAM: Two-dimensional and M-mode echocardiogram with Doppler and color Doppler. Other Information Quality : TDSRhythm : INDICATION Syncope Congestive Heart Failure RISK FACTORS Hypertension Hyperlipidemia 2D DIMENSIONS IVSd1.5 (0.7-1.1cm)LVDd2.7 (3.9-5.9cm) LVOT Diameter2.2 (1.8-2.4cm)PWd1.5 (0.7-1.1cm) LA [id number] (18-58mL)LVDs1.7 (2.5-4.0cm) FS (%) 36.7 %LVEF (%)68.5 (>50%) LVEF (Corcoran's)71.32 % M-Mode DIMENSIONS Left Atrium (MM)2.81 (2.5-4.0cm)IVSd1.58 (0.7-1.1cm) Aortic Root3.19 (2.2-3.7cm)LVDd3.30 (4.0-5.6cm) Aortic Cusp Exc.1.24 (1.5-2.0cm)PWd1.39 (0.7-1.1cm) FS (%) 45 %LVDs1.80 (2.0-3.8cm) LVEF (%)78 (>50%) Mitral Valve MV E Rcoszmvk10.0cm/sMV A Ntpcmkii55.6cm/sE/A ratio0.6 TDI Lateral E' Peak V4.48cm/sMedial E' Peak V5.25cm/sE/Lateral E'10.5 E/Medial E'9.0 Tricuspid Valve TR Peak [id number]/sTR Peak [id number] LEFT VENTRICLE The left ventricle is normal size. There is moderate concentric left ventricular hypertrophy. Left ventricle systolic function is normal. The Ejection Fraction is 65-70%. There is normal LV segmental wall motion. Transmitral Doppler flow pattern is Grade I-abnormal relaxation pattern. There is no ventricular septal defect visualized. RIGHT VENTRICLE The right ventricle is moderately dilated. The right ventricle is mildly hypertrophied. The right ventricular systolic function is normal. ATRIA The left atrium is mildly dilated. The right atrium is moderately dilated. AORTIC VALVE The aortic valve is moderately thickened.sclerotic. The aortic valve is tri-cuspid. No aortic regurgitation is present. There is no aortic valvular stenosis. MITRAL VALVE Mitral annular calcification is mild. There is no evidence of mitral valve prolapse. There is no mitral valve regurgitation noted. TRICUSPID VALVE The tricuspid valve is normal in structure. There is moderate tricuspid regurgitation. Right ventricular systolic pressure is estimated at 100 mmHg. There is severe pulmonary hypertension. PULMONIC VALVE The pulmonic valve is not well visualized. There is moderate pulmonic valvular regurgitation. GREAT VESSELS The aortic root is normal in size. The ascending aorta is normal in size. The IVC is dilated. PERICARDIAL EFFUSION There is no pericardial effusion. <Conclusion> There is moderate concentric left ventricular hypertrophy. Left ventricle systolic function is normal. The Ejection Fraction is 65-70%. Transmitral Doppler flow pattern is Grade I-abnormal relaxation pattern. There is severe pulmonary hypertension. The IVC is dilated.
--- NOTE | 2018-06-02 23:56 | CP.PCM.CON ---
History of Present Illness - History of Present Illness History of Present Illness: 86 year old with hx of HTN , SEVERE ARTHRITIS, HTN, PALPITATION , had cataract did well, admitted to after a fall, fx R knee did well with surgery, PT at rehab, [facility], EST Echo at 01/22no ischemia EF 65% . suspected to have seizures. 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 Review of Systems - Review of Systems Systems not reviewed;Unavailable: Acuity of Condition - Constitutional Constitutional: Anorexia, Weight Gain, Weakness - EENT Eyes: absent: Discharge Ears: absent: Ear Discharge, Dizziness Nose/Mouth/Throat: absent: Epistaxis - Cardiovascular Cardiovascular: absent: Acrocyanosis, Chest Pain, Diaphoresis, Syncope - Respiratory Respiratory: Cough, Dyspnea. absent: Hemoptysis - Gastrointestinal Gastrointestinal: absent: Abdominal Pain, Hematochezia, Vomiting - Reproductive: Female Reproductive:Female: Post Menopausal Past Patient History - Infectious Disease Hx of Infectious Diseases: None - Past Medical History & Family History Past Medical History?: Yes - Past Social History Smoking Status: Never Smoked - CARDIAC Hx Cardia Arrhythmia: Yes Hx Congestive Heart Failure: Yes Hx Hypercholesterolemia: Yes Hx Hypertension: Yes Hx Peripheral Edema: Yes - PULMONARY Hx Asthma: Yes - NEUROLOGICAL Hx Neurological Disorder: Yes Hx Syncope: Yes (10 yrs ago unknown reason) - HEENT Hx HEENT Problems: Yes Hx Cataracts: Yes Hx Glaucoma: Yes - RENAL Hx Chronic Kidney Disease: No - ENDOCRINE/METABOLIC Hx Endocrine Disorders: No - HEMATOLOGICAL/ONCOLOGICAL Hx Blood Disorders: No - INTEGUMENTARY Hx Dermatological Problems: No - MUSCULOSKELETAL/RHEUMATOLOGICAL Hx Arthritis: Yes - GASTROINTESTINAL Hx Gastrointestinal Disorders: No - GENITOURINARY/GYNECOLOGICAL Hx Genitourinary Disorders: No - PSYCHIATRIC Hx Substance Use: No - SURGICAL HISTORY Hx Surgeries: Yes Hx Cataract Extraction: Yes (cat ext left eye iol 7 yrs ago) Hx Hysterectomy: Yes Hx Orthopedic Surgery: Yes (R leg) Hx Vascular Surgery: Yes - ANESTHESIA Hx Anesthesia: Yes Hx Anesthesia Reactions: No Hx Malignant Hyperthermia: No Meds Allergies/Adverse Reactions: Allergies Allergy/AdvReac Type Severity Reaction Status Date / Time acetaminophen [From Percocet] AdvReac RASH Verified 06/02/18 01:29 hydromorphone [From Dilaudid] AdvReac RASH Verified 06/02/18 01:29 oxycodone [From Percocet] AdvReac RASH Verified 06/02/18 01:29 - Medications Medications: Current Medications Albuterol/Ipratropium (Duoneb 3 Mg/0.5 Mg (3 Ml) Ud) 3 ml INH RQ6 PRN PRN Reason: Shortness of Breath Allopurinol (Zyloprim) 100 mg PO DAILY [facility] Last Admin: 06/02/18 09:17 Dose: 100 mg Apixaban (Eliquis) 2.5 mg PO BID [facility] Last Admin: 06/02/18 18:25 Dose: 2.5 mg Aspirin (Aspirin Chewable) 81 mg PO DAILY [facility] Last Admin: 06/02/18 09:17 Dose: 81 mg Carvedilol (Coreg) 3.125 mg PO [facility] Last Admin: 06/02/18 21:17 Dose: 3.125 mg Ferrous Sulfate (Feosol) 325 mg PO DAILY [facility] Last Admin: 06/02/18 09:17 Dose: 325 mg Furosemide (Lasix) 40 mg IVP DAILY [facility] Last Admin: 06/02/18 09:17 Dose: 40 mg Gabapentin (Neurontin) 100 mg PO DAILY [facility] Last Admin: 06/02/18 09:17 Dose: 100 mg Losartan Potassium (Cozaar) 25 mg PO DAILY [facility] Nystatin (Nystop Topical Powder) 1 applic TOP BID [facility] Last Admin: 06/02/18 18:28 Dose: 1 applic Rosuvastatin Calcium (Crestor) 10 mg PO [facility] Last Admin: 06/02/18 21:17 Dose: 10 mg Physical Exam - Constitutional Appears: Non-toxic - Head Exam Head Exam: ATRAUMATIC - Eye Exam Eye Exam: EOMI - ENT Exam ENT Exam: Mucous Membranes Moist - Neck Exam Neck exam: Negative for: Lymphadenopathy, Thyromegaly - Respiratory Exam Respiratory Exam: Clear to Auscultation Bilateral. absent: Wheezes - Cardiovascular Exam Cardiovascular Exam: REGULAR RHYTHM, Systolic Murmur - GI/Abdominal Exam GI & Abdominal Exam: Normal Bowel Sounds. absent: Organomegaly, Tenderness - Rectal Exam Rectal Exam: Deferred - Extremities Exam Extremities exam: Positive for: joint swelling, pedal edema. Negative for: calf tenderness - Neurological Exam Neurological exam: Alert, Oriented x3 - Psychiatric Exam Psychiatric exam: Normal Mood Results - Vital Signs Recent Vital Signs: Last Vital Signs Temp 97.9 F 06/02/18 15:10 Pulse 96 H 06/02/18 18:47 Resp 20 06/02/18 15:10 BP 110/75 06/02/18 15:10 Pulse Ox 95 06/02/18 15:10 - Labs Result Diagrams: 06/03/18 07:55 06/03/18 07:55 Labs: Laboratory Results - last 24 hr 06/02/18 06/02/18 06/02/18 00:41 07:07 07:07 WBC 3.0 L RBC 4.04 Hgb 10.9 L Hct 33.2 L MCV 82.3 MCH 27.0 MCHC 32.9 L RDW 15.0 H Plt Count 68 L MPV 9.7 Neut % (Auto) 60.6 Lymph % (Auto) 26.0 Bland % (Auto) 12.5 H Eos % (Auto) 0.4 Baso % (Auto) 0.5 Neut # (Auto) 1.8 Lymph # (Auto) 0.8 L Bland # (Auto) 0.4 Eos # (Auto) 0.0 Baso # (Auto) 0.0 Sodium 139 Potassium 3.4 L Chloride 99 Carbon Dioxide 32 H Anion Gap 12 BUN 23 H Creatinine 1.1 Est GFR ( Amer) 57 Est GFR (Non-Af Amer) 47 Random Glucose 88 Calcium 9.3 Phosphorus Magnesium Total Bilirubin 0.8 AST 46 H D ALT 28 Alkaline Phosphatase 79 Troponin I 0.2260 H* NT-Pro-B Natriuret Pep Total Protein 6.6 Albumin 3.6 Globulin 3.0 Albumin/Globulin Ratio 1.2 Triglycerides Cholesterol LDL Cholesterol Direct HDL Cholesterol 06/02/18 07:07 WBC RBC Hgb Hct MCV MCH MCHC RDW Plt Count MPV Neut % (Auto) Lymph % (Auto) Bland % (Auto) Eos % (Auto) Baso % (Auto) Neut # (Auto) Lymph # (Auto) Bland # (Auto) Eos # (Auto) Baso # (Auto) Sodium Potassium Chloride Carbon Dioxide Anion Gap BUN Creatinine Est GFR ( Amer) Est GFR (Non-Af Amer) Random Glucose Calcium Phosphorus 3.2 Magnesium 2.0 Total Bilirubin AST ALT Alkaline Phosphatase Troponin I 0.2220 H* NT-Pro-B Natriuret Pep 5730 H Total Protein Albumin Globulin Albumin/Globulin Ratio Triglycerides 69 D Cholesterol 77 LDL Cholesterol Direct 37 HDL Cholesterol 42 Assessment & Plan (1) CHF (congestive heart failure) Status: Acute Comment: acute over chronic RV failure, Normal EF severe PAH
--- NOTE | 2018-06-03 07:13 | CP.PCM.PN ---
<Carlos Castellano - Last Filed: 06/03/18 14:30> Subjective - Date & Time of Evaluation Date of Evaluation: 06/03/18 Time of Evaluation: 10:25 - Subjective Subjective: Medicine progress note for Dr. Klely Pt seen and examined at bedside. Pt denies any complaints at this time. Pt remains borderline tachycardic (99) on the tele monitor. Denies fever, chills, chest pain, sob, abdominal pain, n/v/d, dysuria, cough, leg pain. Objective - Vital Signs/Intake and Output Vital Signs (last 24 hours): Temp Pulse Resp BP Pulse Ox 98.0 F 99 H 20 125/74 96 06/03/18 04:46 06/03/18 04:46 06/03/18 04:46 06/03/18 04:46 06/03/18 04:46 Intake and Output: 06/03/18 06/03/18 06:59 18:59 Intake Total 380 Output Total 650 Balance -270 - Medications Medications: Current Medications Albuterol/Ipratropium (Duoneb 3 Mg/0.5 Mg (3 Ml) Ud) 3 ml INH RQ6 PRN PRN Reason: Shortness of Breath Allopurinol (Zyloprim) 100 mg PO DAILY [facility] Last Admin: 06/02/18 09:17 Dose: 100 mg Apixaban (Eliquis) 2.5 mg PO BID [facility] Last Admin: 06/02/18 18:25 Dose: 2.5 mg Aspirin (Aspirin Chewable) 81 mg PO DAILY [facility] Last Admin: 06/02/18 09:17 Dose: 81 mg Carvedilol (Coreg) 3.125 mg PO HS [facility] Last Admin: 06/02/18 21:17 Dose: 3.125 mg Ferrous Sulfate (Feosol) 325 mg PO DAILY [facility] Last Admin: 06/02/18 09:17 Dose: 325 mg Furosemide (Lasix) 40 mg IVP DAILY [facility] Last Admin: 06/02/18 09:17 Dose: 40 mg Gabapentin (Neurontin) 100 mg PO DAILY [facility] Last Admin: 06/02/18 09:17 Dose: 100 mg Losartan Potassium (Cozaar) 25 mg PO DAILY [facility] Nystatin (Nystop Topical Powder) 1 applic TOP BID [facility] Last Admin: 06/02/18 18:28 Dose: 1 applic Rosuvastatin Calcium (Crestor) 10 mg PO HS [facility] Last Admin: 06/02/18 21:17 Dose: 10 mg - Labs Labs: 06/02/18 07:07 06/02/18 07:07 PT 25.3 SECONDS (9.7-12.2) H 06/01/18 15:08 INR 2.3 06/01/18 15:08 APTT 36 SECONDS (21-34) H 06/01/18 15:08 - Additional Findings Additional findings: - Constitutional Appears: Non-toxic, No Acute Distress - Head Exam Head Exam: ATRAUMATIC, NORMOCEPHALIC - Eye Exam Eye Exam: EOMI, Normal appearance, PERRL - ENT Exam ENT Exam: Mucous Membranes Moist - Neck Exam Neck exam: Normal - Respiratory Exam Respiratory Exam: Decreased Breath Sounds. (+) Rales at bases bilaterally. absent: Rhonchi, Wheezes, Respiratory Distress - Cardiovascular Exam Cardiovascular Exam: REGULAR RHYTHM, +S1, +S2, 1/6 Systolic Murmur. absent: Gallop - GI/Abdominal Exam GI & Abdominal Exam: Normal Bowel Sounds, Soft. absent: Distended, Guarding, Rebound, Tenderness Additional comments: Well healed lower abdominal surgical scar. - Genitourinary Exam Genitourinary Exam: (+) pure wick on suction, clear yellow urine - Extremities Exam Additional comments: 2+ pitting edema to bilateral lower extremities to the mid ruiz. Bilateral thready DP pulses. Capillary refill < 3 seconds bilateral toes. Limited ROM of lower extremities secondary to severe arthritis. (+) left distal foot is warm. (+) normal sensation and perfusion - Neurological Exam Neurological exam: Alert, Oriented x3 - Psychiatric Exam Psychiatric exam: Normal Affect, Normal Mood - Skin Skin Exam: Dry, Normal Color, Warm Additional comments: (+) 0.5cm necrotic wound noted to 2nd L toe (+) erythema to the lower abdominal skin folds Assessment and Plan - Assessment and Plan (Free Text) Assessment: 87 year old female with PMHx of CHF, HTN, HLD, asthma, previous DVT with IVC filter placement, PAD and arthritis admitted for CHF exacerbation Plan: Exacerbation of HFpEF Elevated troponins CXR shows on admission Biapical pleural thickening and granulomatous changes. Mild venous congestion. Small bilateral pleural effusions and associated consolidations. Enlargement of the cardiomediastinal silhouette. Markedly ectatic aorta. Atherosclerotic calcifications of the aorta. Pt not tachycardic, afebrile, no leukocytosis. Chest CT without contrast shows bilateral small pleural effusions. ProBNP: 6740-->5730--->7760 Troponin 0.2260-->0.2260-->0.2220, likely due to CHF EKG is NSR no acute STTW changes Dr. Sousa, cardiology consulted. 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 Supportive care. I&Os, daily weights negative balance for the past 48 hours 1500ml fluid restriction Lasix 40mg IVP daily increased to BID as pt's proBNP increased today Coreg 3.125 mg PO QHS increased to BID due to tachycardia Losartan 100 mg PO daily Echocardiogram (06/02) shows EF 65-70%, severe pulmonary hypertension. grade I diastolic dysfunction. Hx of COPD Chest CT findings as above Duonebs q6 Pulmonology, Dr. Huntley, consulted. Severe pulmonary hypertension RVSP is 100 mmHg Pulmonology, Dr. Huntley, consulted. 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 Pt with IVC filter and on Xarelto 2.5 mg PO BID (home dose of 5 mg PO daily) Poikilothermia of left distal foot, resolved Hx of PAD Dopplerable pulses ASA 81 mg PO daily Crestor 10 mg PO QHS Vsacular surgery, Dr. Scales, consulted. Abdominal CTA with iliofemoral run off shows possible moderate stenosis of the left proximal peroneal artery. Mild calcific plaque throughout right SFA. Stenosis of right popliteal artery. Mild calcifications. Erythema to lower abdominal folds, like intertrigo Continue Nystatin power Continue to monitor Hyperkalemia, resolved EKG: NSR no spiked T waves Continue to replete as needed. Thrombocytopenia, chronic PLT 70 Pt without any signs of bleeding Hx of HTN Carvedilol, Losartan as above Hx of HLD Crestor 10mg PO HS TG/CHL/LDL/HDL is 69/77/37/42 Hx of Asthma Duoneb prn PPx NO indication for GI ppx at this time Eliquis 2.5mg PO BID, no need for other VTE ppx GI not indicated HHD PT eval Palliative care consult for advanced directive <Heide Kelly V - Last Filed: 06/04/18 18:26> Objective - Vital Signs/Intake and Output Vital Signs (last 24 hours): Temp Pulse Resp BP Pulse Ox 97.4 F L 91 H 18 112/77 100 06/04/18 15:02 06/04/18 15:02 06/04/18 15:02 06/04/18 15:02 06/04/18 15:02 Intake and Output: 06/04/18 06/04/18 06:59 18:59 Intake Total 360 450 Output Total 600 400 Balance -240 50 - Medications Medications: Current Medications Albuterol/Ipratropium (Duoneb 3 Mg/0.5 Mg (3 Ml) Ud) 3 ml INH RQ6 PRN PRN Reason: Shortness of Breath Allopurinol (Zyloprim) 100 mg PO DAILY [facility] Last Admin: 06/04/18 09:38 Dose: 100 mg Apixaban (Eliquis) 2.5 mg PO BID [facility] Last Admin: 06/04/18 09:33 Dose: 2.5 mg Aspirin (Aspirin Chewable) 81 mg PO DAILY [facility] Last Admin: 06/04/18 09:33 Dose: 81 mg Carvedilol (Coreg) 3.125 mg PO Q12 [facility] Last Admin: 06/04/18 09:39 Dose: 3.125 mg Ferrous Sulfate (Feosol) 325 mg PO DAILY [facility] Last Admin: 06/04/18 09:33 Dose: 325 mg Furosemide (Lasix) 40 mg IVP BID [facility] Last Admin: 06/04/18 09:38 Dose: 40 mg Gabapentin (Neurontin) 100 mg PO DAILY [facility] Last Admin: 06/04/18 09:33 Dose: 100 mg Losartan Potassium (Cozaar) 25 mg PO DAILY [facility] Last Admin: 06/04/18 09:38 Dose: 25 mg Nystatin (Nystop Topical Powder) 1 applic TOP BID [facility] Last Admin: 06/04/18 09:32 Dose: 1 applic Rosuvastatin Calcium (Crestor) 10 mg PO HS [facility] Last Admin: 06/03/18 21:49 Dose: 10 mg Sennosides (Senokot Tab) 8.6 mg PO DAILY [facility] Last Admin: 06/04/18 12:40 Dose: 8.6 mg - Labs Labs: 06/04/18 07:59 06/04/18 07:59 PT 25.3 SECONDS (9.7-12.2) H 06/01/18 15:08 INR 2.3 06/01/18 15:08 APTT 36 SECONDS (21-34) H 06/01/18 15:08 Attending/Attestation - Attestation I have personally seen and examined this patient.: Yes I have fully participated in the care of the patient.: Yes I have reviewed all pertinent clinical information, including history, physical exam and plan: Yes Notes (Text): This is late computer entry for 06/03/18. Patient seen, examined and case discussed with day-time resident. patient seen at bedside with her son at bedside. patient completed working with physical therapy today. Son does not want rehab given patient has entensive knee arthritis but unable to undergo knee surgery given her clinical co morbidities. patient to continue to benefit from diuresis for chf congestion. pulmonary consulted given copd/severe pulmonary hypertension history Assessment/Plan 1. Exacerbation of HFpEF Elevated troponin secondary to congestive heart failure exacerbation Assessment/Plan * Cardiology (Dr. Sousa) on help appreciated * CXR shows on admission Biapical pleural thickening and granulomatous changes. Mild venous congestion. Small bilateral pleural effusions and associated consolidations. Enlargement of the cardiomediastinal silhouette. Markedly ectatic aorta. Atherosclerotic calcifications of the aorta. * Pt not tachycardic, afebrile, no leukocytosis. * Chest CT without contrast (06/02/18): small bilateral pleural effusion, right greater than left. right lower lobe compressive atelectasis. cardiomegaly. no acute infiltrate. * ProBNP: 6740-->5730--->7760 * Echo 2017: EF 70%, severe pulm HTN, moderate TR, severe sclerosis aortic valve. see full report. * Echocardiogram (06/02/18): moderate concentric left ventricular hypertrophy. left ventricle systolic function is normal. ejection fraction: 65-70%, severe pulmonary hypertension, ivc is dilated. * I&Os, daily weights * 1500ml fluid restriction * Lasix 40mg IVP daily * Coreg 3.125 mg PO BID * Losartan 100mg PO daily 2. Pulmonary Hypertension, Severe Assessment/Plan * RVSP is 100 mmHg * Pulmonology, Dr. Huntley, consulted. 3. Lower extremity swelling, likey secondary to CHF exacerbation Hx of DVT Assessment/Plan * chronic R deep vein + * IVC filter * Vascular surgery on board * Angiography per vascular surgery: common femoral artery and profunda femoral artery normal, mild calcific plaque throughout the SFA which is patent. stenosis of popliteral artery. runoff shows a patent peroneal artery. anterior tibial artery is mildly calcified which limits evaluation. posterior tibial is mildly calcified and believe to be patent. * no surgery intervention * continue chemical anticoagulation 4. Poikilothermia of left distal foot Hx of PAD Assessment/Plan * ASA 81 mg PO daily * Crestor 10 mg PO QHS * Vascular surgery, Dr. Scales, consulted. * Angiography per vascular surgery: common femoral artery and profunda femoral artery normal, mild calcific plaque throughout the SFA which is patent. stenosis of popliteral artery. runoff shows a patent peroneal artery. anterior tibial artery is mildly calcified which limits evaluation. posterior tibial is mildly calcified and believe to be patent. * no surgery intervention * dopplerable pulse 5. Erythema to lower abdominal folds, like intertrigo Assessment/Plan * Will start Nystatin * Continue to monitor 6. Hyperkalemia, resolved Assessment/Plan * Potassium: 3.4 7. Thrombocytopenia, chronic Assessment/Plan * Pt without any signs of bleeding 8.Hypertension Assessment/Plan * Carvedilol 3.125mg POBID * Losartan 25mg PO daily 9. Lipid Disorder Assessment/Plan * Crestor 10mg PO HS * G/CHL/LDL/HDL is 69/77/37/42 10. Hx of Asthma/COPD Assessment/Plan * Dr. Huntley on board help appreciated * Duoneb prn 11. Hx of dvt Assessment/Plan * History of IVC filter * Eliquis 2.5mg PO BID * SCDS b/l contraindication 12. PPx * NO indication for GI ppx at this time * Eliquis 2.5mg PO BID * GI ppx: * HHD * PT eval * Palliative care consult * Full code
--- NOTE | 2018-06-03 07:57 | CP.PCM.PN ---
Subjective - Date & Time of Evaluation Date of Evaluation: 06/03/18 Time of Evaluation: 07:55 - Subjective Subjective: SURGERY NOTE FOR DR. WALLACE 87F seen and examined at bedside. Patient doing well, no acute events overnight. Dopplerable signals in DP/PT Objective - Vital Signs/Intake and Output Vital Signs (last 24 hours): Temp Pulse Resp BP Pulse Ox 98.0 F 99 H 20 125/74 96 06/03/18 04:46 06/03/18 04:46 06/03/18 04:46 06/03/18 04:46 06/03/18 04:46 Intake and Output: 06/03/18 06/03/18 06:59 18:59 Intake Total 380 Output Total 650 Balance -270 - Medications Medications: Current Medications Albuterol/Ipratropium (Duoneb 3 Mg/0.5 Mg (3 Ml) Ud) 3 ml INH RQ6 PRN PRN Reason: Shortness of Breath Allopurinol (Zyloprim) 100 mg PO DAILY [facility] Last Admin: 06/02/18 09:17 Dose: 100 mg Apixaban (Eliquis) 2.5 mg PO BID [facility] Last Admin: 06/02/18 18:25 Dose: 2.5 mg Aspirin (Aspirin Chewable) 81 mg PO DAILY [facility] Last Admin: 06/02/18 09:17 Dose: 81 mg Carvedilol (Coreg) 3.125 mg PO HS [facility] Last Admin: 06/02/18 21:17 Dose: 3.125 mg Ferrous Sulfate (Feosol) 325 mg PO DAILY [facility] Last Admin: 06/02/18 09:17 Dose: 325 mg Furosemide (Lasix) 40 mg IVP DAILY [facility] Last Admin: 06/02/18 09:17 Dose: 40 mg Gabapentin (Neurontin) 100 mg PO DAILY [facility] Last Admin: 06/02/18 09:17 Dose: 100 mg Losartan Potassium (Cozaar) 25 mg PO DAILY [facility] Nystatin (Nystop Topical Powder) 1 applic TOP BID [facility] Last Admin: 06/02/18 18:28 Dose: 1 applic Rosuvastatin Calcium (Crestor) 10 mg PO HS [facility] Last Admin: 06/02/18 21:17 Dose: 10 mg - Labs Labs: 06/02/18 07:07 06/02/18 07:07 PT 25.3 SECONDS (9.7-12.2) H 06/01/18 15:08 INR 2.3 06/01/18 15:08 APTT 36 SECONDS (21-34) H 06/01/18 15:08 - Constitutional Appears: Non-toxic, No Acute Distress - Respiratory Exam Respiratory Exam: Clear to Ausculation Bilateral, NORMAL BREATHING PATTERN - Cardiovascular Exam Cardiovascular Exam: REGULAR RHYTHM, +S1, +S2 - GI/Abdominal Exam GI & Abdominal Exam: Soft. absent: Distended, Firm, Guarding, Rigid, Tenderness - Extremities Exam Additional comments: Dopplerable signals in DP/PT Assessment and Plan - Assessment and Plan (Free Text) Assessment: 87F with PAD Plan: - F/u CTA report Further recs discuss with Dr. Yordy Garvin, PGY3
[2018-06-03 08:21] LABS: BASO % 0.4 % (0.0-2.0); EOS % 0.2 % (0.0-4.0); HEMOGLOBIN 11.1 g/dL (11.0-16.0); LYMPH # 0.8 K/uL (1.0-4.3); LYMPH % 23.4 % (20.0-40.0); MEAN CELL VOLUME 82.1 fL (81.0-99.0); MEAN CORPUSCULAR HEMOGLOBIN 27.3 pg (27.0-31.0); MEAN CORPUSCULAR HGB CONC 33.3 g/dL (33.0-37.0); MEAN PLATELET VOLUME 9.6 fL (7.2-11.7); MONO # 0.4 K/uL (0.0-0.8); NEUT # 2.2 K/uL (1.8-7.0); NRBC % 0.2 % (0.0-2.0); RBC 4.08 Mil/uL (3.80-5.20); RED CELL DISTRIBUTION WIDTH 14.7 % (11.5-14.5); WHITE BLOOD COUNT 3.4 K/uL (4.8-10.8)
[2018-06-03 08:31] LABS: ALB/GLOB RATIO 1.2 (1.0-2.1); ALBUMIN 3.7 g/dL (3.5-5.0); ALT/SGPT 26 U/L (9-52); AST/SGOT 65 U/L (14-36); BLOOD UREA NITROGEN 24 mg/dL (7-17); CALCIUM 9.1 mg/dl (8.6-10.4); GFR NON-AFRICAN AMERICAN 52
[2018-06-03 10:56] LABS: B-TYPE NATRIURETIC PEPTIDE 7760 pg/mL (0-900)
--- NOTE | 2018-06-03 11:09 | CT ---
Date of service: 06/02/2018 PROCEDURE: CT Angiography Chest ,abdomen, Pelvis and Lower Extremity with Contrast HISTORY: PAD, poikilothermia COMPARISON: None available. TECHNIQUE: Technique: CT angiography of the abdomen, pelvis and bilateral lower extremities performed in the arterial phase of enhancement. Coronal and sagittal reformats, and well as rotating MIP images of the vessels generated at the workstation. Intravenous contrast dose: 150 milliliters Visipaque 320 Radiation dose: Total exam DLP = 3724.35 mGy-cm. This CT exam was performed using one or more of the following dose reduction techniques: Automated exposure control, adjustment of the mA and/or kV according to patient size, and/or use of iterative reconstruction technique. FINDINGS: CT ANGIOGRAPHY: CT ANGIOGRAM CHEST: Pulmonary artery is unremarkable with no evidence of embolism. Mild aortic calcific plaque. The thoracic aorta is otherwise unremarkable. Normal aortic arch. Heart and mediastinum are normal. Motion artifact limits gross evaluation of the coronary arteries. There is a small right effusion. Trace left effusion. Lungs otherwise clear. ABDOMINAL AORTA:: The abdominal aorta is mild calcific plaque but otherwise unremarkable. MAJOR AORTIC BRANCHES: Celiac [place]: Unremarkable. Superior mesenteric artery: Unremarkable. Inferior mesenteric artery: Unremarkable. Renal arteries: Unremarkable. PELVIC ARTERIES: Right Common Iliac: Unremarkable. Right External Iliac: Unremarkable. Right Internal Iliac: Unremarkable. Left Common Iliac: Unremarkable. Left External Iliac: Unremarkable. Left Internal Iliac: Unremarkable. RIGHT LOWER EXTREMITY ARTERIES: Right Common Femoral: Unremarkable. Right Superficial Femoral: Mild plaque in the SFA without significant stenosis. Right Profunda Femoris: Unremarkable. Right Popliteal:Possible mild stenosis of popliteal artery. Right Anterior Tibial: Mild calcific plaque limits evaluation. Right Tibioperoneal Trunk: Unremarkable. Right Posterior Tibial: Unremarkable. Right Peroneal: Unremarkable. Right dorsalis pedis : Unremarkable. LEFT LOWER EXTREMITY ARTERIES: Left Common Femoral: Unremarkable. Left Superficial Femoral: Mild plaque in the SFA otherwise unremarkable. Left Profunda Femoris: Unremarkable. Left Popliteal: Unremarkable. Left Anterior Tibial: Moderate calcific plaque limits evaluation. Left Tibioperoneal Trunk: Unremarkable. Left Posterior Tibial: Moderate calcific plaque limits evaluation. Left Peroneal: Possible moderate stenosis in the proximal segment. There is mild calcific throughout the peroneal artery. Believed to be patent. Left Dorsalis pedis: Unremarkable. NON-ANGIOGRAPHIC ASPECT OF THE EXAM: LOWER THORAX: Small right effusion. Trace left effusion. LIVER: Unremarkable. No gross lesion or ductal dilatation. GALLBLADDER AND BILE DUCTS: Unremarkable. PANCREAS: Unremarkable. No gross lesion or ductal dilatation. SPLEEN: Unremarkable. ADRENALS: Unremarkable. No mass. KIDNEYS AND URETERS: Unremarkable. No hydronephrosis. No solid mass. STOMACH AND BOWEL: Evaluation without PO contrast. No obstruction. No gross mural thickening. APPENDIX: Normal appendix. PERITONEUM: Unremarkable. No free fluid. No free air. LYMPH NODES: Unremarkable. No enlarged lymph nodes. BLADDER: Unremarkable. REPRODUCTIVE: Unremarkable. BONES: No acute fracture. OTHER FINDINGS: None. IMPRESSION: CT ANGIOGRAM CHEST: 1. Mild aortic calcific plaque but otherwise unremarkable. Pulmonary arteries are unremarkable. Heart and mediastinum are unremarkable. 2. Small right pleural effusion. CT ANGIOGRAM ABDOMEN/PELVIS: 1. Essentially unremarkable CT angiogram of the abdomen pelvis. There is mild aortic calcific plaque. LEFT LOWER EXTREMITY CT ANGIOGRAM: 1. The common femoral artery, profunda femoral artery, superficial femoral artery and popliteal artery normal. 2. Moderate calcific plaque in the anterior tibial artery posterior tibial artery limits evaluation. Possible moderate stenosis of the proximal peroneal artery which is otherwise patent. RIGHT LOWER EXTREMITY CT ANGIOGRAM: 1. The common femoral artery and profunda femoral artery normal. 2. There is mild calcific plaque throughout the SFA which is otherwise patent. 3. Stenosis of popliteal artery. 4. Runoff shows a patent peroneal artery. Anterior tibial artery is mildly calcified which limits evaluation. The posterior tibial is mildly calcified and believed to be patent.
--- NOTE | 2018-06-03 12:51 | VASCLAB ---
Date of service: 06/02/2018 PROCEDURE: Lower Extremity Venous Duplex Exam. HISTORY: prior hx of dvt PRIORS: None. TECHNIQUE: Bilateral common femoral, femoral, popliteal and posterior tibial, peroneal and great saphenous veins were evaluated. Flow was assessed with color Doppler, compressibility, assessment of phasic flow and augmentation response. Report prepared by Mando Diamond, JAMILAH, RVT FINDINGS: RIGHT: 1. Common Femoral Vein: 1.1. Compressibility - Fully compressible: Thrombus - None : Flow - Phasic: Augmentation -Normal: Reflux - None. 2. Femoral Vein: 2.1. Compressibility - Partial: Thrombus - Chronic : Flow - Absent : Augmentation - None: Reflux - None. 3. Popliteal Vein: 3.1. Compressibility - : Thrombus - : Flow - : Augmentation -: Reflux - . 4. Posterior Tibial Vein: 4.1. Compressibility - Fully compressible: Thrombus - None: Flow - Phasic: Augmentation -Normal: Reflux - None. 5. Peroneal Vein: 5.1. Compressibility - : Thrombus - : Flow - : Augmentation -: Reflux - . 6. Great Saphenous Vein: 6.1. Compressibility - Fully compressible: Thrombus - None: Flow - Phasic: Augmentation - Normal: Reflux - None. LEFT: 1. Common Femoral Vein: 1.1. Compressibility - Fully compressible: Thrombus - None: Flow - Phasic: Augmentation -Normal: Reflux - None. 2. Femoral Vein: 2.1. Compressibility - Fully compressible: Thrombus - None: Flow - Phasic: Augmentation -Normal: Reflux - None. 3. Popliteal Vein: 3.1. Compressibility - : Thrombus - : Flow - : Augmentation -: Reflux - . 4. Posterior Tibial Vein: 4.1. Compressibility - Fully compressible: Thrombus - None: Flow - Phasic: Augmentation -Normal: Reflux - None. 5. Peroneal Vein: 5.1. Compressibility - : Thrombus - : Flow - : Augmentation -: Reflux - . 6. Great Saphenous Vein: 6.1. Compressibility - Fully compressible: Thrombus - None: Flow - Phasic: Augmentation - Normal: Reflux - None. OTHER FINDINGS: Technically very limited study due to patient body habitus and severe swelling. Arterial flow noted in both tibial and dorsalis pedis arteries. 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 Left: No evidence of deep or superficial vein thrombosis of the left lower extremity. Normal valve function noted of the left side.
--- NOTE | 2018-06-03 13:08 | CP.PCM.PN ---
Subjective - Date & Time of Evaluation Date of Evaluation: 06/03/18 Time of Evaluation: 13:00 - Subjective Subjective: Stable vitals, blood pressure 1:30 and heart rate in the 90s on diuresis, no shortness of breath still with edema observed with severe right-sided failure Objective - Vital Signs/Intake and Output Vital Signs (last 24 hours): Temp Pulse Resp BP Pulse Ox 98.0 F 91 H 18 130/70 99 06/03/18 07:05 06/03/18 08:26 06/03/18 07:05 06/03/18 09:25 06/03/18 07:05 Intake and Output: 06/03/18 06/03/18 06:59 18:59 Intake Total 380 Output Total 650 Balance -270 - Medications Medications: Current Medications Albuterol/Ipratropium (Duoneb 3 Mg/0.5 Mg (3 Ml) Ud) 3 ml INH RQ6 PRN PRN Reason: Shortness of Breath Allopurinol (Zyloprim) 100 mg PO DAILY [facility] Last Admin: 06/03/18 09:26 Dose: 100 mg Apixaban (Eliquis) 2.5 mg PO BID [facility] Last Admin: 06/03/18 09:26 Dose: 2.5 mg Aspirin (Aspirin Chewable) 81 mg PO DAILY [facility] Last Admin: 06/03/18 09:25 Dose: 81 mg Carvedilol (Coreg) 3.125 mg PO Q12 [facility] Ferrous Sulfate (Feosol) 325 mg PO DAILY [facility] Last Admin: 06/03/18 09:25 Dose: 325 mg Furosemide (Lasix) 40 mg IVP DAILY [facility] Last Admin: 06/03/18 09:25 Dose: 40 mg Gabapentin (Neurontin) 100 mg PO DAILY [facility] Last Admin: 06/03/18 09:26 Dose: 100 mg Losartan Potassium (Cozaar) 25 mg PO DAILY [facility] Nystatin (Nystop Topical Powder) 1 applic TOP BID [facility] Last Admin: 06/03/18 09:26 Dose: 1 applic Rosuvastatin Calcium (Crestor) 10 mg PO HS [facility] Last Admin: 06/02/18 21:17 Dose: 10 mg - Labs Labs: 06/03/18 07:55 06/03/18 07:55 PT 25.3 SECONDS (9.7-12.2) H 06/01/18 15:08 INR 2.3 06/01/18 15:08 APTT 36 SECONDS (21-34) H 06/01/18 15:08 - Constitutional Appears: Non-toxic - Head Exam Head Exam: ATRAUMATIC - Eye Exam Eye Exam: EOMI - ENT Exam ENT Exam: Mucous Membranes Moist - Neck Exam Neck Exam: absent: Lymphadenopathy, Thyromegaly - Respiratory Exam Respiratory Exam: Clear to Ausculation Bilateral. absent: Wheezes - Cardiovascular Exam Cardiovascular Exam: REGULAR RHYTHM, Murmur - GI/Abdominal Exam GI & Abdominal Exam: Normal Bowel Sounds. absent: Organomegaly - Rectal Exam Rectal Exam: Deferred - Extremities Exam Extremities Exam: Normal Capillary Refill, Pedal Edema. absent: Calf Tenderness - Neurological Exam Neurological Exam: Alert, Oriented x3 - Psychiatric Exam Psychiatric exam: Normal Affect Assessment and Plan (1) CHF (congestive heart failure) Status: Acute
--- NOTE | 2018-06-03 15:09 | CP.PCM.CON ---
History of Present Illness - History of Present Illness History of Present Illness: Palliative consult requested by Doctor Robin galvez goals of care /code status discussion Patient is a 87 yo female admitted from her PMD's office with LEs edema. Patient reportd the swelling was there for about 2-3 weeks. patient was initially on Lasix daily, and once her edema sunbsided Lasix was discontinued and patient was ordered the Compression boots to use at home. Patient's son feels , condition got worse with these Compression boots. CXR on admision was significant for CHF and B/L pleural effusion. BNP 5730, TRPI elevated X3. Patient placed on Lasix 40 mg and K Dur PO. Eliquis continued. PMH: CHF, HTN, COPD, DVT, on Eliquis Soc. Hx: single, lives at home, son is manager home healthcare, denies alcohol/drug abuse Fam. Hx: HTN in family Review of Systems - Constitutional Constitutional: absent: As Per HPI, Anorexia, Chills, Daytime Sleepiness, Excessive Sweating, Fatigue, Fever, Frequent Falls, Headache, Increased Appetite, Lethargy, Malaise, Night Sweats, Snoring, Sleep Apnea, Weight Gain, Weight Loss, Weakness, Other - EENT Eyes: absent: As Per HPI, Blind Spots, Blurred Vision, Change in Vision, Decreased Night Vision, Diplopia, Discharge, Dry Eye, Exophthalmos, Floaters, Irritation, Itchy Eyes, Loss of Peripheral Vision, Pain, Photophobia, Requires Corrective Lenses, Sees Flashes, Spots in Vision, Tunnel Vision, Other Visual Disturbances, Loss of Vision, Other Ears: absent: As Per HPI, Decreased Hearing, Ear Discharge, Ear Pain, Tinnitus, Abnormal Hearing, Disequilibrium, Dizziness, Other Nose/Mouth/Throat: absent: As Per HPI, Epistaxis, Nasal Congestion, Nasal Discharge, Nasal Obstruction, Nasal Trauma, Nose Pain, Post Nasal Drip, Sinus Pain, Sinus Pressure, Bleeding Gums, Change in Voice, Dental Pain, Dry Mouth, Dysphagia, Halitosis, Hoarsness, Lip Swelling, Mouth Lesions, Mouth Pain, Odynophagia, Sore Throat, Throat Swelling, Tongue Swelling, Facial Pain, Neck Pain, Neck Mass, Other - Breasts Breasts: absent: As Per HPI, Change in Shape, Mass, Pain, Nipple Discharge, Nipple Inversion, Skin Changes, Swelling, Other - Cardiovascular Cardiovascular: Dyspnea on Exertion, Edema, Pedal Edema - Respiratory Respiratory: Dyspnea on Exertion - Gastrointestinal Gastrointestinal: absent: As Per HPI, Abdominal Pain, Belching, Bloating, Change in Bowel Habits, Change in Stool Character, Coffee Ground Emesis, Constipation, Cramping, Diarrhea, Dyspepsia, Dysphagia, Early Satiety, Excessive Flatus, Fecal Incontinence, Heartburn, Hematemesis, Hematochezia, Loose Stools, Melena, Nausea, Odynophagia, Temesmus, Vomiting, Other - Genitourinary Genitourinary: absent: As Per HPI, Change in Urinary Stream, Difficulty Urinating, Dysuria, Flank Pain, Hematuria, Pyuria, Nocturia, Urinary Incontinence, Urinary Frequency, Urinary Hesitance, Urinary Urgency, Voiding Freq/Small Amts, Freq UTI, Hx Renal/Bladder Calculi, Hx /Renal Surgery, Bladder Distension, Other - Reproductive: Female Reproductive:Female: Post Menopausal - Menstruation Menstruation: Post Menopausal - Musculoskeletal Musculoskeletal: Deformity, Muscle Weakness - Integumentary Integumentary: Change in Pigmentation, Dry Skin - Neurological Neurological: absent: As Per HPI, Abnormal Gait, Abnormal Hearing, Abnormal Movements, Abnormal Speech, Behavioral Changes, Burning Sensations, Confusion, Convulsions, Disequilibrium, Dizziness, Numbness, Focal Weakness, Frequent Falls, Headaches, Lack of Coordination, Loss of Vision, Memory Loss, Paresthesias, Radicular Pain, Restless Legs, Sensory Deficit, Syncope, Tingling, Tremor, Vertigo, Weakness, Other Visual Disturbances, Other - Psychiatric Psychiatric: absent: As Per HPI, Abnormal Sleep Pattern, Anhedonia, Anxiety, Auditory Hallucinations, Behavioral Changes, Change in Appetite, Change in Libid o, Confusion, Depression, Difficulty Concentrating, Hallucinations, Homicidal Ideation, Hopelessness, Irritability, Memory Loss, Mood Swings, Panic Attacks, Paranoia, Suicidal Ideation, Visual Hallucinations, Tactile Hallucinations, Other - Endocrine Endocrine: absent: As Per HPI, Change in Body Appearance, Change in Libido, Cold Intolorance, Deepening of Voice, Excessive Sweating, Fatigue, Flushing, Heat Intolorance, Increase in Ring/Shoe/Hat Size, Palpitations, Polydipsia, Polyphagia, Polyuria, Other - Hematologic/Lymphatic Hematologic: Easy Bleeding Past Patient History - Infectious Disease Hx of Infectious Diseases: None - Past Medical History & Family History Past Medical History?: Yes - Past Social History Smoking Status: Never Smoked - CARDIAC Hx Congestive Heart Failure: Yes Hx Hypercholesterolemia: Yes Hx Hypertension: Yes - PULMONARY Hx Asthma: Yes - NEUROLOGICAL Hx Neurological Disorder: Yes Hx Syncope: Yes (10 yrs ago unknown reason) - HEENT Hx HEENT Problems: Yes Hx Cataracts: Yes Hx Glaucoma: Yes - RENAL Hx Chronic Kidney Disease: No - ENDOCRINE/METABOLIC Hx Endocrine Disorders: No - HEMATOLOGICAL/ONCOLOGICAL Hx Blood Disorders: No - INTEGUMENTARY Hx Dermatological Problems: No - MUSCULOSKELETAL/RHEUMATOLOGICAL Hx Arthritis: Yes - GASTROINTESTINAL Hx Gastrointestinal Disorders: No - GENITOURINARY/GYNECOLOGICAL Hx Genitourinary Disorders: No - PSYCHIATRIC Hx Substance Use: No - SURGICAL HISTORY Hx Surgeries: Yes Hx Cataract Extraction: Yes (cat ext left eye iol 7 yrs ago) Hx Hysterectomy: Yes Hx Orthopedic Surgery: Yes (R leg) Hx Vascular Surgery: Yes - ANESTHESIA Hx Anesthesia: Yes Hx Anesthesia Reactions: No Hx Malignant Hyperthermia: No Meds Allergies/Adverse Reactions: Allergies Allergy/AdvReac Type Severity Reaction Status Date / Time acetaminophen [From Percocet] AdvReac RASH Verified 06/02/18 01:29 hydromorphone [From Dilaudid] AdvReac RASH Verified 06/02/18 01:29 oxycodone [From Percocet] AdvReac RASH Verified 06/02/18 01:29 - Medications Medications: Current Medications Albuterol/Ipratropium (Duoneb 3 Mg/0.5 Mg (3 Ml) Ud) 3 ml INH RQ6 PRN PRN Reason: Shortness of Breath Allopurinol (Zyloprim) 100 mg PO DAILY [facility] Last Admin: 06/03/18 09:26 Dose: 100 mg Apixaban (Eliquis) 2.5 mg PO BID [facility] Last Admin: 06/03/18 09:26 Dose: 2.5 mg Aspirin (Aspirin Chewable) 81 mg PO DAILY [facility] Last Admin: 06/03/18 09:25 Dose: 81 mg Carvedilol (Coreg) 3.125 mg PO Q12 [facility] Ferrous Sulfate (Feosol) 325 mg PO DAILY [facility] Last Admin: 06/03/18 09:25 Dose: 325 mg Furosemide (Lasix) 40 mg IVP BID [facility] Gabapentin (Neurontin) 100 mg PO DAILY [facility] Last Admin: 06/03/18 09:26 Dose: 100 mg Losartan Potassium (Cozaar) 25 mg PO DAILY [facility] Last Admin: 06/03/18 14:57 Dose: 25 mg Nystatin (Nystop Topical Powder) 1 applic TOP BID [facility] Last Admin: 06/03/18 09:26 Dose: 1 applic Rosuvastatin Calcium (Crestor) 10 mg PO HS [facility] Last Admin: 06/02/18 21:17 Dose: 10 mg Physical Exam - Constitutional Appears: Chronically Ill - Head Exam Head Exam: ATRAUMATIC, NORMAL INSPECTION, NORMOCEPHALIC - Eye Exam Eye Exam: EOMI, Normal appearance, PERRL Pupil Exam: NORMAL ACCOMODATION, PERRL - ENT Exam ENT Exam: Mucous Membranes Moist, Normal Exam - Neck Exam Neck exam: Positive for: Normal Inspection - Respiratory Exam Respiratory Exam: Decreased Breath Sounds, Rhonchi, NORMAL BREATHING PATTERN - Cardiovascular Exam Cardiovascular Exam: Tachycardia, REGULAR RHYTHM - GI/Abdominal Exam GI & Abdominal Exam: Normal Bowel Sounds, Soft - Rectal Exam Rectal Exam: Deferred - Extremities Exam Extremities exam: Positive for: joint swelling, pedal edema, pedal pulses present - Back Exam Back exam: NORMAL INSPECTION - Neurological Exam Neurological exam: Alert, Oriented x3 - Psychiatric Exam Psychiatric exam: Normal Affect, Normal Mood - Skin Skin Exam: Abrasion, Dry, Intact, Mottled, Normal Color, Warm Results - Vital Signs Recent Vital Signs: Last Vital Signs Temp 98.0 F 06/03/18 07:05 Pulse 91 H 06/03/18 08:26 Resp 18 06/03/18 07:05 BP 130/70 06/03/18 09:25 Pulse Ox 99 06/03/18 07:05 - Labs Result Diagrams: 06/03/18 07:55 06/03/18 07:55 Labs: Laboratory Results - last 24 hr 06/03/18 06/03/18 07:55 07:55 WBC 3.4 L RBC 4.08 Hgb 11.1 Hct 33.5 L MCV 82.1 MCH 27.3 MCHC 33.3 RDW 14.7 H Plt Count 70 L MPV 9.6 Neut % (Auto) 63.0 Lymph % (Auto) 23.4 Ray % (Auto) 13.0 H Eos % (Auto) 0.2 Baso % (Auto) 0.4 Neut # (Auto) 2.2 Lymph # (Auto) 0.8 L Ray # (Auto) 0.4 Eos # (Auto) 0.0 Baso # (Auto) 0.0 Sodium 138 Potassium 3.8 Chloride 99 Carbon Dioxide 33 H Anion Gap 11 BUN 24 H Creatinine 1.0 Est GFR ( Amer) > 60 Est GFR (Non-Af Amer) 52 Random Glucose 96 Calcium 9.1 Phosphorus 3.7 Magnesium 2.0 Total Bilirubin 0.9 AST 65 H D ALT 26 Alkaline Phosphatase 99 NT-Pro-B Natriuret Pep 7760 H Total Protein 6.8 Albumin 3.7 Globulin 3.1 Albumin/Globulin Ratio 1.2 Assessment & Plan - Assessment and Plan (Free Text) Assessment: Palliative consult Full Code, there is no Advance directive on chart, PPS 40% I reviewed all Medical records, diagnostic studies, examined and interviewed patient in the bed. Patient is alert, oriented X 3 with speech that is clear, and appropriate affect. Skin dry, discoloration to LEs, there is no wounds. Breathing normal, breath sounds diminished, ronchi on auscultation, no sputum production, reports SOB with activity HR 80, rhythm regular, denies chest pain, no SOB at rest Abd. soft, active bowel sounds, uses bed duenas LEs positive edema, left leg very tender to touch to upper calf, skin discoloration, pedal pulses present, limited mobility, needs max assistance with repositioning. WBC 3.0, Hb 10.9, Platelets 68, TRPI elevated X 3, BNP 5730 BP 134/70, HR 80, O2Sat 100 % RA. Goals of care discussed with patient and son at bed side. They are both aware of chronic nature of patient's condition and need for symptoms management. Patient wants to get better and return home. Patient reported feeling much better since admission. Patient complains of pain to LEs. Pain is elicited by touch and reposition. Pain is described as burning sensation and heaviness. patient takes Allopurinol. She needs max assistance with repositioning and ambulation. Son is concerned that his mother can not leave the house as she has 6 stairs to climb. We discussed the Stair Lift options . SS asked to assist in process. Code status discussed. patient and her son asked for Full Code. Patient wants her son to make medical decisions for her in case she becomes unable to. Impression * CHF exacerbation * LEs edema * Burning sensation of LEs,,possible neuropathy * Limited mobility * Needs moderate to max assistance with ADLs * Concerns about climbing the stairs entering the house * patient and her son are requesting a Full Code Suggestion * Continue Lasix * Supplement K * Consider increasing Neurontin 100 mg to TID, given patient's weight * SS to assist patient with Medicade application if possible * SS assist with Stair Lift services * Home discharge planing * Full Code Palliative Care will sign off. Advance care planing 60 min.
--- NOTE | 2018-06-03 15:59 | CP.PCM.CON ---
History of Present Illness - History of Present Illness History of Present Illness: Reason for consultation: Shortness of breath and swelling of legs 87-year-old female with history of asthma, DVT/pulmonary embolism, arthritis, hypertension, CHF, arthritis who presented to emergency room with bilateral lower extremity edema getting worse for the past 2 weeks associated with shortness of breath on exertion. Patient was started on Lasix without any improvement. Denies any chest pain, denies cough, denies fever chills, denies nausea vomiting, denies diarrhea constipation. Echocardiogram done showed severe pulmonary hypertension PMHx: PMHx of CHF, HTN, HLD, asthma, previous DVT, and arthritis PSHx: IVC filter, R leg surgery, hysterectomy Meds: Asa 81mg daily, allopurinol 100mg daily, Eliquis 5mg Daily, Gabapentin 100mg daily, ferrous sulfate 325mg daily, Irbesartan 300mg QPM, Crestor 10mg HS, Carvedilol 3.125mg HS Allergies: hydromorphone, oxycodone-unknown reaction FamHx: HTN in parents SocHx: Denies tobacco, alcohol and drugs. Lives with son. Patient is wheelchair bound. Review of Systems - Review of Systems All systems: reviewed and no additional remarkable complaints except (Shortness of breath and swelling of legs) Past Patient History - Infectious Disease Hx of Infectious Diseases: None - Past Medical History & Family History Past Medical History?: Yes - Past Social History Smoking Status: Never Smoked - CARDIAC Hx Congestive Heart Failure: Yes Hx Hypercholesterolemia: Yes Hx Hypertension: Yes - PULMONARY Hx Asthma: Yes - NEUROLOGICAL Hx Neurological Disorder: Yes Hx Syncope: Yes (10 yrs ago unknown reason) - HEENT Hx HEENT Problems: Yes Hx Cataracts: Yes Hx Glaucoma: Yes - RENAL Hx Chronic Kidney Disease: No - ENDOCRINE/METABOLIC Hx Endocrine Disorders: No - HEMATOLOGICAL/ONCOLOGICAL Hx Blood Disorders: No - INTEGUMENTARY Hx Dermatological Problems: No - MUSCULOSKELETAL/RHEUMATOLOGICAL Hx Arthritis: Yes - GASTROINTESTINAL Hx Gastrointestinal Disorders: No - GENITOURINARY/GYNECOLOGICAL Hx Genitourinary Disorders: No - PSYCHIATRIC Hx Substance Use: No - SURGICAL HISTORY Hx Surgeries: Yes Hx Cataract Extraction: Yes (cat ext left eye iol 7 yrs ago) Hx Hysterectomy: Yes Hx Orthopedic Surgery: Yes (R leg) Hx Vascular Surgery: Yes - ANESTHESIA Hx Anesthesia: Yes Hx Anesthesia Reactions: No Hx Malignant Hyperthermia: No Meds Allergies/Adverse Reactions: Allergies Allergy/AdvReac Type Severity Reaction Status Date / Time acetaminophen [From Percocet] AdvReac RASH Verified 06/02/18 01:29 hydromorphone [From Dilaudid] AdvReac RASH Verified 06/02/18 01:29 oxycodone [From Percocet] AdvReac RASH Verified 06/02/18 01:29 - Medications Medications: Current Medications Albuterol/Ipratropium (Duoneb 3 Mg/0.5 Mg (3 Ml) Ud) 3 ml INH RQ6 PRN PRN Reason: Shortness of Breath Allopurinol (Zyloprim) 100 mg PO DAILY [facility] Last Admin: 06/03/18 09:26 Dose: 100 mg Apixaban (Eliquis) 2.5 mg PO BID [facility] Last Admin: 06/03/18 09:26 Dose: 2.5 mg Aspirin (Aspirin Chewable) 81 mg PO DAILY [facility] Last Admin: 06/03/18 09:25 Dose: 81 mg Carvedilol (Coreg) 3.125 mg PO Q12 [facility] Ferrous Sulfate (Feosol) 325 mg PO DAILY [facility] Last Admin: 06/03/18 09:25 Dose: 325 mg Furosemide (Lasix) 40 mg IVP BID [facility] Gabapentin (Neurontin) 100 mg PO DAILY [facility] Last Admin: 06/03/18 09:26 Dose: 100 mg Losartan Potassium (Cozaar) 25 mg PO DAILY [facility] Last Admin: 06/03/18 14:57 Dose: 25 mg Nystatin (Nystop Topical Powder) 1 applic TOP BID [facility] Last Admin: 06/03/18 09:26 Dose: 1 applic Rosuvastatin Calcium (Crestor) 10 mg PO [facility] Last Admin: 06/02/18 21:17 Dose: 10 mg Physical Exam - Head Exam Head Exam: ATRAUMATIC, NORMOCEPHALIC - ENT Exam ENT Exam: Mucous Membranes Moist - Neck Exam Neck exam: Positive for: Normal Inspection - Respiratory Exam Respiratory Exam: Decreased Breath Sounds - Cardiovascular Exam Cardiovascular Exam: REGULAR RHYTHM - GI/Abdominal Exam GI & Abdominal Exam: Normal Bowel Sounds - Extremities Exam Extremities exam: Positive for: pedal edema Results - Vital Signs Recent Vital Signs: Last Vital Signs Temp 98.0 F 06/03/18 07:05 Pulse 96 H 06/03/18 14:42 Resp 18 06/03/18 07:05 BP 130/70 06/03/18 09:25 Pulse Ox 99 06/03/18 07:05 - Labs Result Diagrams: 06/03/18 07:55 06/03/18 07:55 Labs: Laboratory Results - last 24 hr 06/03/18 06/03/18 07:55 07:55 WBC 3.4 L RBC 4.08 Hgb 11.1 Hct 33.5 L MCV 82.1 MCH 27.3 MCHC 33.3 RDW 14.7 H Plt Count 70 L MPV 9.6 Neut % (Auto) 63.0 Lymph % (Auto) 23.4 [place] % (Auto) 13.0 H Eos % (Auto) 0.2 Baso % (Auto) 0.4 Neut # (Auto) 2.2 Lymph # (Auto) 0.8 L [place] # (Auto) 0.4 Eos # (Auto) 0.0 Baso # (Auto) 0.0 Sodium 138 Potassium 3.8 Chloride 99 Carbon Dioxide 33 H Anion Gap 11 BUN 24 H Creatinine 1.0 Est GFR ( Amer) > 60 Est GFR (Non-Af Amer) 52 Random Glucose 96 Calcium 9.1 Phosphorus 3.7 Magnesium 2.0 Total Bilirubin 0.9 AST 65 H D ALT 26 Alkaline Phosphatase 99 NT-Pro-B Natriuret Pep 7760 H Total Protein 6.8 Albumin 3.7 Globulin 3.1 Albumin/Globulin Ratio 1.2 Assessment & Plan (1) 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 Continue anticoagulation. Continue diuretics. 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
[2018-06-03] MEDS ORDERED: Bisacodyl 5mg EC Tab PO ONE (19:23)
[2018-06-04 04:30] VITALS: O2SAT 100
[2018-06-04 07:56] VITALS: RESP 18
[2018-06-04 08:07] LABS: BASO % 0.6 % (0.0-2.0); EOS % 0.9 % (0.0-4.0); HEMOGLOBIN 11.5 g/dL (11.0-16.0); LYMPH % 28.2 % (20.0-40.0); MEAN CELL VOLUME 82.9 fL (81.0-99.0); MEAN CORPUSCULAR HEMOGLOBIN 27.7 pg (27.0-31.0); MEAN CORPUSCULAR HGB CONC 33.4 g/dL (33.0-37.0); MEAN PLATELET VOLUME 9.5 fL (7.2-11.7); MONO # 0.4 K/uL (0.0-0.8); MONO % 12.4 % (0.0-10.0); NEUT % 57.9 % (50.0-75.0); NRBC % 0.2 % (0.0-2.0); RBC 4.15 Mil/uL (3.80-5.20); RED CELL DISTRIBUTION WIDTH 14.9 % (11.5-14.5); WHITE BLOOD COUNT 3.4 K/uL (4.8-10.8)
[2018-06-04 08:20] LABS: ALB/GLOB RATIO 1.3 (1.0-2.1); ALBUMIN 3.7 g/dL (3.5-5.0)
--- NOTE | 2018-06-04 11:09 | CP.PCM.PN ---
Subjective - Date & Time of Evaluation Date of Evaluation: 06/04/18 Time of Evaluation: 09:20 - Subjective Subjective: Patient seen and examined Lying comfortably in no distress Poor appetite Afebrile Objective - Vital Signs/Intake and Output Vital Signs (last 24 hours): Temp Pulse Resp BP Pulse Ox 97.7 F 83 18 117/78 100 06/04/18 07:00 06/04/18 07:49 06/04/18 07:00 06/04/18 09:38 06/04/18 07:00 Intake and Output: 06/04/18 06/04/18 06:59 18:59 Intake Total 360 Output Total 600 Balance -240 - Medications Medications: Current Medications Albuterol/Ipratropium (Duoneb 3 Mg/0.5 Mg (3 Ml) Ud) 3 ml INH RQ6 PRN PRN Reason: Shortness of Breath Allopurinol (Zyloprim) 100 mg PO DAILY [facility] Last Admin: 06/04/18 09:38 Dose: 100 mg Apixaban (Eliquis) 2.5 mg PO BID [facility] Last Admin: 06/04/18 09:33 Dose: 2.5 mg Aspirin (Aspirin Chewable) 81 mg PO DAILY [facility] Last Admin: 06/04/18 09:33 Dose: 81 mg Carvedilol (Coreg) 3.125 mg PO Q12 [facility] Last Admin: 06/04/18 09:39 Dose: 3.125 mg Ferrous Sulfate (Feosol) 325 mg PO DAILY [facility] Last Admin: 06/04/18 09:33 Dose: 325 mg Furosemide (Lasix) 40 mg IVP BID [facility] Last Admin: 06/04/18 09:38 Dose: 40 mg Gabapentin (Neurontin) 100 mg PO DAILY [facility] Last Admin: 06/04/18 09:33 Dose: 100 mg Losartan Potassium (Cozaar) 25 mg PO DAILY [facility] Last Admin: 06/04/18 09:38 Dose: 25 mg Nystatin (Nystop Topical Powder) 1 applic TOP BID [facility] Last Admin: 06/04/18 09:32 Dose: 1 applic Rosuvastatin Calcium (Crestor) 10 mg PO HS [facility] Last Admin: 06/03/18 21:49 Dose: 10 mg - Labs Labs: 06/04/18 07:59 06/04/18 07:59 PT 25.3 SECONDS (9.7-12.2) H 06/01/18 15:08 INR 2.3 06/01/18 15:08 APTT 36 SECONDS (21-34) H 06/01/18 15:08 - Head Exam Head Exam: ATRAUMATIC, NORMOCEPHALIC - ENT Exam ENT Exam: Mucous Membranes Moist - Neck Exam Neck Exam: Normal Inspection - Respiratory Exam Respiratory Exam: Clear to Ausculation Bilateral - Cardiovascular Exam Cardiovascular Exam: REGULAR RHYTHM - GI/Abdominal Exam GI & Abdominal Exam: Normal Bowel Sounds - Extremities Exam Extremities Exam: Pedal Edema Assessment and Plan (1) 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
--- NOTE | 2018-06-04 12:39 | CP.PCM.PN ---
Subjective - Date & Time of Evaluation Date of Evaluation: 06/04/18 Time of Evaluation: 13:00 - Subjective Subjective: No shortness of breath, seen by pulmonary on anticoagulation and diuresis, improved edema remarkably, on physical therapy for arthritis, consider rehabilitation Objective - Vital Signs/Intake and Output Vital Signs (last 24 hours): Temp Pulse Resp BP Pulse Ox 97.7 F 86 18 117/78 100 06/04/18 07:00 06/04/18 12:11 06/04/18 07:00 06/04/18 09:38 06/04/18 07:00 Intake and Output: 06/04/18 06/04/18 06:59 18:59 Intake Total 360 Output Total 600 Balance -240 - Medications Medications: Current Medications Albuterol/Ipratropium (Duoneb 3 Mg/0.5 Mg (3 Ml) Ud) 3 ml INH RQ6 PRN PRN Reason: Shortness of Breath Allopurinol (Zyloprim) 100 mg PO DAILY [facility] Last Admin: 06/04/18 09:38 Dose: 100 mg Apixaban (Eliquis) 2.5 mg PO BID [facility] Last Admin: 06/04/18 09:33 Dose: 2.5 mg Aspirin (Aspirin Chewable) 81 mg PO DAILY [facility] Last Admin: 06/04/18 09:33 Dose: 81 mg Carvedilol (Coreg) 3.125 mg PO Q12 [facility] Last Admin: 06/04/18 09:39 Dose: 3.125 mg Ferrous Sulfate (Feosol) 325 mg PO DAILY [facility] Last Admin: 06/04/18 09:33 Dose: 325 mg Furosemide (Lasix) 40 mg IVP BID [facility] Last Admin: 06/04/18 09:38 Dose: 40 mg Gabapentin (Neurontin) 100 mg PO DAILY [facility] Last Admin: 06/04/18 09:33 Dose: 100 mg Losartan Potassium (Cozaar) 25 mg PO DAILY [facility] Last Admin: 06/04/18 09:38 Dose: 25 mg Nystatin (Nystop Topical Powder) 1 applic TOP BID [facility] Last Admin: 06/04/18 09:32 Dose: 1 applic Rosuvastatin Calcium (Crestor) 10 mg PO HS [facility] Last Admin: 06/03/18 21:49 Dose: 10 mg Sennosides (Senokot Tab) 8.6 mg PO DAILY [facility] - Labs Labs: 06/04/18 07:59 06/04/18 07:59 PT 25.3 SECONDS (9.7-12.2) H 06/01/18 15:08 INR 2.3 06/01/18 15:08 APTT 36 SECONDS (21-34) H 06/01/18 15:08 - Constitutional Appears: No Acute Distress - Head Exam Head Exam: ATRAUMATIC - Eye Exam Eye Exam: EOMI - ENT Exam ENT Exam: TM's Normal Bilaterally - Neck Exam Neck Exam: absent: Lymphadenopathy, Thyromegaly - Respiratory Exam Respiratory Exam: Clear to Ausculation Bilateral. absent: Wheezes - Cardiovascular Exam Cardiovascular Exam: REGULAR RHYTHM, Murmur - GI/Abdominal Exam GI & Abdominal Exam: Normal Bowel Sounds. absent: Organomegaly - Rectal Exam Rectal Exam: Deferred - Extremities Exam Extremities Exam: Normal Capillary Refill. absent: Calf Tenderness - Neurological Exam Neurological Exam: Alert, Oriented x3 - Psychiatric Exam Psychiatric exam: Normal Mood - Skin Skin Exam: Dry Assessment and Plan (1) CHF (congestive heart failure) Status: Acute
--- NOTE | 2018-06-04 14:24 | CP.PCM.DIS ---
<Heide Kelly V - Last Filed: 06/04/18 18:26> Provider - Provider Date of Admission: 06/01/18 18:53 Attending physician: Heide Kelly DO Consults: 06/01/18 19:01 Physician Consult Routine Comment: cardiology Consulting Provider: Tory Sousa Consulting Physician: Tory Sousa Reason for Consult: cardiology 06/01/18 23:25 Nursing Referral for Wound Care Routine Comment: Physician Instructions: Reason For Exam: wound to L 2nd toe 06/02/18 07:36 Inpatient MEDIA SUPERVISOR Core Measures Referral Routine Comment: Physician Instructions: Reason For Exam: chf 06/02/18 07:39 Palliative Care [Nursing Referral for Palliative Care] Routine Comment: Physician Instructions: Reason For Exam: creation of polst 06/02/18 09:16 Palliative Care Consult Routine Comment: Consulting Provider: Tracy Elaine Physician Instructions: TO Robin COOLEY Reason For Exam: Goals of care/POLST discussion 06/02/18 11:43 Physician Consult Routine Comment: vascular surgery Consulting Provider: Parish Scales Jr. Consulting Physician: Parish Scales Jr. Reason for Consult: left foot poikilothermia, and ulcer. hx of pad 06/03/18 10:32 Pulmonology Consult Routine Comment: Consulting Provider: Michael Huntley Consulting Physician: Michael Huntley Reason for Consult: copd, chf, severe pulmonary hypertension 06/04/18 12:03 Case Management Referral Routine Comment: Physician Instructions: Reason For Exam: home with services and pt Reason for Referral: Discharge Planning Hospital Course - Lab Results Lab Results: Most Recent Lab Values WBC 3.4 K/uL (4.8-10.8) L 06/04/18 07:59 RBC 4.15 Mil/uL (3.80-5.20) 06/04/18 07:59 Hgb 11.5 g/dL (11.0-16.0) 06/04/18 07:59 Hct 34.4 % (34.0-47.0) 06/04/18 07:59 MCV 82.9 fL (81.0-99.0) 06/04/18 07:59 MCH 27.7 pg (27.0-31.0) 06/04/18 07:59 MCHC 33.4 g/dL (33.0-37.0) 06/04/18 07:59 RDW 14.9 % (11.5-14.5) H 06/04/18 07:59 Plt Count 68 K/uL (130-400) L 06/04/18 07:59 MPV 9.5 fL (7.2-11.7) 06/04/18 07:59 Neut % (Auto) 57.9 % (50.0-75.0) 06/04/18 07:59 Lymph % (Auto) 28.2 % (20.0-40.0) 06/04/18 07:59 Ashley % (Auto) 12.4 % (0.0-10.0) H 06/04/18 07:59 Eos % (Auto) 0.9 % (0.0-4.0) 06/04/18 07:59 Baso % (Auto) 0.6 % (0.0-2.0) 06/04/18 07:59 Neut # (Auto) 2.0 K/uL (1.8-7.0) 06/04/18 07:59 Lymph # (Auto) 1.0 K/uL (1.0-4.3) 06/04/18 07:59 Ashley # (Auto) 0.4 K/uL (0.0-0.8) 06/04/18 07:59 Eos # (Auto) 0.0 K/uL (0.0-0.7) 06/04/18 07:59 Baso # (Auto) 0.0 K/uL (0.0-0.2) 06/04/18 07:59 Differential Comment 06/01/18 15:08 PT 25.3 SECONDS (9.7-12.2) H 06/01/18 15:08 INR 2.3 06/01/18 15:08 APTT 36 SECONDS (21-34) H 06/01/18 15:08 Sodium 138 mmol/L (132-148) 06/04/18 07:59 Potassium 3.8 mmol/L (3.6-5.2) 06/04/18 07:59 Chloride 95 mmol/L (98-107) L 06/04/18 07:59 Carbon Dioxide 35 mmol/L (22-30) H 06/04/18 07:59 Anion Gap 12 (10-20) 06/04/18 07:59 BUN 24 mg/dL (7-17) H 06/04/18 07:59 Creatinine 1.2 mg/dL (0.7-1.2) 06/04/18 07:59 Est GFR ( Amer) 51 06/04/18 07:59 Est GFR (Non-Af Amer) 42 06/04/18 07:59 POC Glucose (mg/dL) 84 mg/dL (65-110) 06/01/18 16:30 Random Glucose 90 mg/dL (65-105) 06/04/18 07:59 Calcium 9.0 mg/dl (8.6-10.4) 06/04/18 07:59 Phosphorus 3.8 mg/dL (2.5-4.5) 06/04/18 07:59 Magnesium 1.9 mg/dL (1.6-2.3) 06/04/18 07:59 Total Bilirubin 0.9 mg/dL (0.2-1.3) 06/04/18 07:59 AST 82 U/L (14-36) H D 06/04/18 07:59 ALT 39 U/L (9-52) 06/04/18 07:59 Alkaline Phosphatase 88 U/L (38-126) 06/04/18 07:59 Total Creatine Kinase 190 U/L (30-135) H 06/01/18 15:08 CK-MB (Mass) 4.07 ng/mL (0.0-3.38) H 06/01/18 15:08 Troponin I 0.2220 ng/mL (0.00-0.120) H* 06/02/18 07:07 NT-Pro-B Natriuret Pep 6430 pg/mL (0-900) H 06/04/18 07:59 Total Protein 6.6 g/dL (6.3-8.3) 06/04/18 07:59 Albumin 3.7 g/dL (3.5-5.0) 06/04/18 07:59 Globulin 2.9 gm/dL (2.2-3.9) 06/04/18 07:59 Albumin/Globulin Ratio 1.3 (1.0-2.1) 06/04/18 07:59 Triglycerides 69 mg/dL (0-149) D 06/02/18 07:07 Cholesterol 77 mg/dL (0-199) 06/02/18 07:07 LDL Cholesterol Direct 37 mg/dL (0-129) 06/02/18 07:07 HDL Cholesterol 42 mg/dL (30-70) 06/02/18 07:07 Urine Color Yellow (YELLOW) 06/01/18 17:30 Urine Clarity Hazy (Clear) 06/01/18 17:30 Urine pH 6.0 (5.0-8.0) 06/01/18 17:30 Ur Specific Throckmorton 1.009 (1.003-1.030) 06/01/18 17:30 Urine Protein Negative mg/dL (NEGATIVE) 06/01/18 17:30 Urine Glucose (UA) Normal mg/dL (Normal) 06/01/18 17:30 Urine Ketones Negative mg/dL (NEGATIVE) 06/01/18 17:30 Urine Blood Negative (NEGATIVE) 06/01/18 17:30 Urine Nitrate Negative (NEGATIVE) 06/01/18 17:30 Urine Bilirubin Negative (NEGATIVE) 06/01/18 17:30 Urine Urobilinogen Normal mg/dL (0.2-1.0) 06/01/18 17:30 Ur Leukocyte Esterase 1+ Sera/uL (Negative) H 06/01/18 17:30 Urine WBC (Auto) 4 /hpf (0-5) 06/01/18 17:30 Urine RBC (Auto) 2 /hpf (0-3) 06/01/18 17:30 Ur Squamous Epith Cells 1 /hpf (0-5) 06/01/18 17:30 Urine Bacteria Occ (<OCC) H 06/01/18 17:30 Discharge Plan - Discharge Medications Prescriptions: Nystatin [Nystop Topical Powder] 1 applic TOP BID #1 bottle Sennosides A and B [Senokot Tab] 8.6 mg PO DAILY #30 tab - Follow Up Plan Condition: GOOD Disposition: HOME/ ROUTINE Instructions: Heart Healthy Diet, Heart Failure, Adult (DC), Nystatin (Topical) , Dependent Edema (DC), Pulmonary Hypertension, Adult (DC), Senna Additional Instructions: Pt is medically stable for discharge home as per Dr. Kelly. New prescriptions: Sennosides 1 tab daily as needed for constipation, #30 Nystatin powder Please follow up with Dr. Sousa, cardiology, within 1 week of discharge. Please follow up with Dr. Huntley, pulmonology, within 1 week of discharge. Should symptoms worsen, please return to nearest Emergency Department for further evaluation. Instructions explained to pt and son, who understand and agree with discharge plan. Attending/Attestation - Attestation I have personally seen and examined this patient.: Yes I have fully participated in the care of the patient.: Yes I have reviewed all pertinent clinical information, including history, physical exam and plan: Yes Notes (Text): patient seen, examined, and case discussed with day-time resident. patient reports she is feeling better. Per pulm standpoint stable for discharge Per cardiology standpoint stable for discharge. Son does not want rehab for his rehab given inability to participate given arthritic kness; wants the patient to be discharged home. patient to resume home medications upon discharge. Case management referral for home services and home pt upon discharge. This is a brief summary of patient's hospital stay. Please refer to EMR for full detail of record. Discharge diagnoses: 1. Exacerbation of HFpEF Elevated troponin secondary to right sided heart congestive heart failure exacerbation Assessment/Plan * Cardiology (Dr. Sousa) on help appreciated * CXR shows on admission Biapical pleural thickening and granulomatous changes. Mild venous congestion. Small bilateral pleural effusions and associated consolidations. Enlargement of the cardiomediastinal silhouette. Markedly ectatic aorta. Atherosclerotic calcifications of the aorta. * Pt not tachycardic, afebrile, no leukocytosis. * Chest CT without contrast (06/02/18): small bilateral pleural effusion, right greater than left. right lower lobe compressive atelectasis. cardiomegaly. no acute infiltrate. * ProBNP: 6740-->5730--->7760 * Echo 2017: EF 70%, severe pulm HTN, moderate TR, severe sclerosis aortic valve . see full report. * Echocardiogram (06/02/18): moderate concentric left ventricular hypertrophy. left ventricle systolic function is normal. ejection fraction: 65-70%, severe pulmonary hypertension, ivc is dilated. * I&Os, daily weights * 1500ml fluid restriction * Lasix 40mg IVP daily * Coreg 3.125 mg PO BID * Losartan 100mg PO daily 2. Pulmonary Hypertension, Severe Assessment/Plan * RVSP is 100 mmHg * Pulmonology, Dr. Huntley, consulted. 3. Lower extremity swelling, likey secondary to CHF exacerbation Hx of DVT Assessment/Plan * chronic R deep vein + * IVC filter * Vascular surgery on board * Angiography per vascular surgery: common femoral artery and profunda femoral artery normal, mild calcific plaque throughout the SFA which is patent. stenosis of popliteral artery. runoff shows a patent peroneal artery. anterior tibial artery is mildly calcified which limits evaluation. posterior tibial is mildly calcified and believe to be patent. * no surgery intervention * continue chemical anticoagulation 4. Poikilothermia of left distal foot Hx of PAD Assessment/Plan * ASA 81 mg PO daily * Crestor 10 mg PO QHS * Vascular surgery, Dr. Scales, consulted. * Angiography per vascular surgery: common femoral artery and profunda femoral artery normal, mild calcific plaque throughout the SFA which is patent. stenosis of popliteral artery. runoff shows a patent peroneal artery. anterior tibial artery is mildly calcified which limits evaluation. posterior tibial is mildly calcified and believe to be patent. * no surgery intervention * dopplerable pulse 5. Erythema to lower abdominal folds, like intertrigo Assessment/Plan * Will start Nystatin * Continue to monitor 6. Hyperkalemia, resolved Assessment/Plan * Potassium: 3.4 7. Thrombocytopenia, chronic Assessment/Plan * Pt without any signs of bleeding 8.Hypertension Assessment/Plan * Carvedilol 3.125mg POBID * Losartan 25mg PO daily 9. Lipid Disorder Assessment/Plan * Crestor 10mg PO HS * G/CHL/LDL/HDL is 69/77/37/42 10. Hx of Asthma/COPD Assessment/Plan * Dr. Huntley on board help appreciated * Duoneb prn 11. Hx of dvt Assessment/Plan * History of IVC filter * Eliquis 2.5mg PO BID * SCDS b/l contraindication 12. PPx * NO indication for GI ppx at this time * Eliquis 2.5mg PO BID * GI ppx: * HHD * PT eval * Palliative care consult * Full code <Carlos Castellano - Last Filed: 06/05/18 18:41> Provider - Provider Date of Admission: 06/01/18 18:53 Attending physician: Heide Kelly DO Consults: 06/01/18 19:01 Physician Consult Routine Comment: cardiology Consulting Provider: Tory Sousa Consulting Physician: Tory Sousa Reason for Consult: cardiology 06/01/18 23:25 Nursing Referral for Wound Care Routine Comment: Physician Instructions: Reason For Exam: wound to L 2nd toe 06/02/18 07:36 Inpatient MEDIA SUPERVISOR Core Measures Referral Routine Comment: Physician Instructions: Reason For Exam: chf 06/02/18 07:39 Palliative Care [Nursing Referral for Palliative Care] Routine Comment: Physician Instructions: Reason For Exam: creation of polst 06/02/18 09:16 Palliative Care Consult Routine Comment: Consulting Provider: Tracy Elaine Physician Instructions: TO Robin COOLEY Reason For Exam: Goals of care/POLST discussion 06/02/18 11:43 Physician Consult Routine Comment: vascular surgery Consulting Provider: Parish Scales Jr. Consulting Physician: Parish Scales Jr. Reason for Consult: left foot poikilothermia, and ulcer. hx of pad 06/03/18 10:32 Pulmonology Consult Routine Comment: Consulting Provider: Michael Huntley Consulting Physician: Michael Huntley Reason for Consult: copd, chf, severe pulmonary hypertension 06/04/18 12:03 Case Management Referral Routine Comment: Physician Instructions: Reason For Exam: home with services and pt Reason for Referral: Discharge Planning Time Spent in preparation of Discharge (in minutes): 35 Diagnosis - Discharge Diagnosis (1) Pulmonary hypertension Status: Chronic (2) Abnormal cardiac enzyme level Status: Acute (3) Edema extremities Status: Chronic (4) Leukopenia Status: Chronic (5) Thrombocytopenia Status: Chronic Priority: Medium (6) CHF (congestive heart failure) Status: Chronic (7) 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 (8) HTN (hypertension) Status: Chronic Priority: Low Hospital Course - Lab Results Lab Results: Most Recent Lab Values WBC 3.4 K/uL (4.8-10.8) L 06/04/18 07:59 RBC 4.15 Mil/uL (3.80-5.20) 06/04/18 07:59 Hgb 11.5 g/dL (11.0-16.0) 06/04/18 07:59 Hct 34.4 % (34.0-47.0) 06/04/18 07:59 MCV 82.9 fL (81.0-99.0) 06/04/18 07:59 MCH 27.7 pg (27.0-31.0) 06/04/18 07:59 MCHC 33.4 g/dL (33.0-37.0) 06/04/18 07:59 RDW 14.9 % (11.5-14.5) H 06/04/18 07:59 Plt Count 68 K/uL (130-400) L 06/04/18 07:59 MPV 9.5 fL (7.2-11.7) 06/04/18 07:59 Neut % (Auto) 57.9 % (50.0-75.0) 06/04/18 07:59 Lymph % (Auto) 28.2 % (20.0-40.0) 06/04/18 07:59 Ashley % (Auto) 12.4 % (0.0-10.0) H 06/04/18 07:59 Eos % (Auto) 0.9 % (0.0-4.0) 06/04/18 07:59 Baso % (Auto) 0.6 % (0.0-2.0) 06/04/18 07:59 Neut # (Auto) 2.0 K/uL (1.8-7.0) 06/04/18 07:59 Lymph # (Auto) 1.0 K/uL (1.0-4.3) 06/04/18 07:59 Ashley # (Auto) 0.4 K/uL (0.0-0.8) 06/04/18 07:59 Eos # (Auto) 0.0 K/uL (0.0-0.7) 06/04/18 07:59 Baso # (Auto) 0.0 K/uL (0.0-0.2) 06/04/18 07:59 Differential Comment 06/01/18 15:08 PT 25.3 SECONDS (9.7-12.2) H 06/01/18 15:08 INR 2.3 06/01/18 15:08 APTT 36 SECONDS (21-34) H 06/01/18 15:08 Sodium 138 mmol/L (132-148) 06/04/18 07:59 Potassium 3.8 mmol/L (3.6-5.2) 06/04/18 07:59 Chloride 95 mmol/L (98-107) L 06/04/18 07:59 Carbon Dioxide 35 mmol/L (22-30) H 06/04/18 07:59 Anion Gap 12 (10-20) 06/04/18 07:59 BUN 24 mg/dL (7-17) H 06/04/18 07:59 Creatinine 1.2 mg/dL (0.7-1.2) 06/04/18 07:59 Est GFR ( Amer) 51 06/04/18 07:59 Est GFR (Non-Af Amer) 42 06/04/18 07:59 POC Glucose (mg/dL) 84 mg/dL (65-110) 06/01/18 16:30 Random Glucose 90 mg/dL (65-105) 06/04/18 07:59 Calcium 9.0 mg/dl (8.6-10.4) 06/04/18 07:59 Phosphorus 3.8 mg/dL (2.5-4.5) 06/04/18 07:59 Magnesium 1.9 mg/dL (1.6-2.3) 06/04/18 07:59 Total Bilirubin 0.9 mg/dL (0.2-1.3) 06/04/18 07:59 AST 82 U/L (14-36) H D 06/04/18 07:59 ALT 39 U/L (9-52) 06/04/18 07:59 Alkaline Phosphatase 88 U/L (38-126) 06/04/18 07:59 Total Creatine Kinase 190 U/L (30-135) H 06/01/18 15:08 CK-MB (Mass) 4.07 ng/mL (0.0-3.38) H 06/01/18 15:08 Troponin I 0.2220 ng/mL (0.00-0.120) H* 06/02/18 07:07 NT-Pro-B Natriuret Pep 6430 pg/mL (0-900) H 06/04/18 07:59 Total Protein 6.6 g/dL (6.3-8.3) 06/04/18 07:59 Albumin 3.7 g/dL (3.5-5.0) 06/04/18 07:59 Globulin 2.9 gm/dL (2.2-3.9) 06/04/18 07:59 Albumin/Globulin Ratio 1.3 (1.0-2.1) 06/04/18 07:59 Triglycerides 69 mg/dL (0-149) D 06/02/18 07:07 Cholesterol 77 mg/dL (0-199) 06/02/18 07:07 LDL Cholesterol Direct 37 mg/dL (0-129) 06/02/18 07:07 HDL Cholesterol 42 mg/dL (30-70) 06/02/18 07:07 Urine Color Yellow (YELLOW) 06/01/18 17:30 Urine Clarity Hazy (Clear) 06/01/18 17:30 Urine pH 6.0 (5.0-8.0) 06/01/18 17:30 Ur Specific Throckmorton 1.009 (1.003-1.030) 06/01/18 17:30 Urine Protein Negative mg/dL (NEGATIVE) 06/01/18 17:30 Urine Glucose (UA) Normal mg/dL (Normal) 06/01/18 17:30 Urine Ketones Negative mg/dL (NEGATIVE) 06/01/18 17:30 Urine Blood Negative (NEGATIVE) 06/01/18 17:30 Urine Nitrate Negative (NEGATIVE) 06/01/18 17:30 Urine Bilirubin Negative (NEGATIVE) 06/01/18 17:30 Urine Urobilinogen Normal mg/dL (0.2-1.0) 06/01/18 17:30 Ur Leukocyte Esterase 1+ Sera/uL (Negative) H 06/01/18 17:30 Urine WBC (Auto) 4 /hpf (0-5) 06/01/18 17:30 Urine RBC (Auto) 2 /hpf (0-3) 06/01/18 17:30 Ur Squamous Epith Cells 1 /hpf (0-5) 06/01/18 17:30 Urine Bacteria Occ (<OCC) H 06/01/18 17:30 Discharge Exam - Head Exam Head Exam: ATRAUMATIC - Additional Findings Additional findings: - Constitutional Appears: Non-toxic, No Acute Distress - Head Exam Head Exam: ATRAUMATIC, NORMOCEPHALIC - Eye Exam Eye Exam: EOMI, Normal appearance, PERRL - ENT Exam ENT Exam: Mucous Membranes Moist - Neck Exam Neck exam: Normal - Respiratory Exam Respiratory Exam: Decreased Breath Sounds. (+) minimal rales at right lower lung base absent: Rhonchi, Wheezes, Respiratory Distress - Cardiovascular Exam Cardiovascular Exam: REGULAR RHYTHM, +S1, +S2, 1/6 Systolic Murmur. absent: Gallop - GI/Abdominal Exam GI & Abdominal Exam: Normal Bowel Sounds, Soft. absent: Distended, Guarding, Rebound, Tenderness - Extremities Exam Additional comments: 2+ pitting edema to bilateral lower extremities to the mid ruiz. Bilateral thready DP pulses. Capillary refill < 3 seconds bilateral toes. Limited ROM of lower extremities secondary to severe arthritis. (+) left distal foot is warm. (+) normal sensation and perfusion - Neurological Exam Neurological exam: Alert, Oriented x3 - Psychiatric Exam Psychiatric exam: Normal Affect, Normal Mood - Skin Skin Exam: Dry, Normal Color, Warm Additional comments: (+) 0.5cm nonstageable ulcer, with eschar, noted to 2nd L toe (+) erythema to the lower abdominal skin folds
[2018-06-04 16:04] VITALS: BP 112/77; PULSE 91; TEMP 97.4
--- NOTE | 2018-06-04 18:07 | PCM.HF ---
Heart Failure Core Measure - Heart Failure Ejection Fraction: 40 % or Greater Left Ventricular Function to be assessed after discharge: Yes JOSSELINE Inhibitor Prescribed: Yes Beta-Elaine Prescribed: Carvedilol Angiotensin II Receptor Elaine Prescribed: No Contraindication/Reason for not providing: on josseline AnticoagulationTherapy for Atrial Fibrillation/Atrialflutter: No Contraindication/Reason for not providing: anticoagulation for dvt Aldosterone Antagonist Prescribed: No Contraindication/Reason for not providing: not clinically indicated Hydralazine Nitrate Prescribed: No Contraindication/Reason for not providing: not clinically indicated Implantable Cardioverter Defibrillator Therapy: No Contraindication/Reason for not providing: not clinically indicated Cardiac Resynchronization Therapy Prescribed: No Contraindication/Reason for not providing: not clinically indicated - Follow up Will be discharged to: Home Follow Up Date (must be within 7 days from discharge): 06/11/18 Follow Up Time: 09:00
--- NOTE | 2018-06-06 21:57 | CARD ---
APPROVED REPORT Date of service: 06/02/2018 EKG Measurement Heart [id number] <Conclusion> Sinus rhythm with sinus arrhythmia with 1st degree AV block Nonspecific ST and T wave abnormality Abnormal ECG
--- NOTE | 2018-06-06 21:58 | CARD ---
APPROVED REPORT Date of service: 06/02/2018 EKG Measurement Heart [id number] <Conclusion> Sinus rhythm with 1st degree AV block Nonspecific ST/T changes Abnormal Electrocardiogram
== END 2018-06-04 21:15 | disposition home or self-care (01) | DRG 292 ==
LOC: C.ER 13:12 → C.9E 18:53 → C.6T 19:43
PROVIDERS: ADMIT Hospitalist; ATTEND Hospitalist
DX: I11.0 Hypertensive heart disease with heart failure (principal); I82.511 Chronic embolism and thrombosis of right femoral vein; J98.11 Atelectasis; H40.9 Unspecified glaucoma; E87.5 Hyperkalemia; I27.24 Chronic thromboembolic pulmonary hypertension; I70.0 Atherosclerosis of aorta; I77.819 Aortic ectasia, unspecified site; J44.9 Chronic obstructive pulmonary disease, unspecified; Z51.5 Encounter for palliative care; L30.4 Erythema intertrigo; Z79.01 Long term (current) use of anticoagulants; E78.5 Hyperlipidemia, unspecified; D69.6 Thrombocytopenia, unspecified; Z86.711 Personal history of pulmonary embolism; Z95.828 Presence of other vascular implants and grafts; Z99.3 Dependence on wheelchair; D72.819 Decreased white blood cell count, unspecified; I50.33 Acute on chronic diastolic (congestive) heart failure

== ENCOUNTER 2018-06-05 00:29 | Inpatient (IN) | payer MEDICARE ==
[2018-06-05 00:30] VITALS: BMI 28.2
--- NOTE | 2018-06-05 00:59 | C.PDOC ---
History Of Present Illness 87 yr old F w/ hx of CHF, HTN, HLD, p/w intermittent episodes of AMS. Per family pt was previously admitted to the hospital from the to the 04 of june and just recently discharged. When the patient got home, pt had episodes of b/l hand clenching and yelling. Pt would not respond during these episodes, but afterwards did not seem tired. Did not bite her tongue or have enuresis. Pt also had full recollection during these episodes. She notes that she does not know why she was having these episodes. No unilateral weakness or slurred speech. No fall or trauma. No headache. Pt denies any pain at this time. family notes that pt is currently on eliquis. No fever, chills or night sweats. Time Seen by Provider: 06/05/18 00:59 Chief Complaint (Nursing): Altered Mental Status Past Medical History Vital Signs: Last Vital Signs Temp 97.5 F L 06/05/18 00:44 Pulse 64 06/05/18 00:44 Resp 20 06/05/18 00:44 BP 83/45 L 06/05/18 00:44 Pulse Ox 93 L 06/05/18 00:44 - Medical History PMH: Arthritis, Asthma, Cardia Arrhythmia, CHF, HTN, Hypercholesterolemia, Peripheral Edema Denies: Chronic Kidney Disease - [facility] Procedures CATARAC PHACOEMULS/ASPIR (07/20/13) DEBRIDEMENT OF NAIL, NAIL BED OR NAIL FOLD (11/15/13) INSERT LENS AT CATAR EXT (07/20/13) OP RED-INT FIX TIB/FIBUL (11/15/13) PACKED CELL TRANSFUSION (11/15/13) PLICATION OF VENA CAVA (11/15/13) VACCINATION NEC (11/15/13) Family History: States: Unknown Family Hx - Social History Hx Tobacco Use: No Hx Alcohol Use: No Hx Substance Use: No - Immunization History Hx Tetanus Toxoid Vaccination: No Hx Influenza Vaccination: No Hx Pneumococcal Vaccination: No Review Of Systems Constitutional: Negative for: Fever, Chills, Weakness, Malaise Eyes: Negative for: Pain, Vision Change, Conjunctivae Inflammation, Eyelid Inflammation ENT: Negative for: Ear Pain, Ear Discharge, Nose Pain, Nose Discharge, Nose Congestion, Mouth Pain Cardiovascular: Negative for: Chest Pain, Palpitations Respiratory: Negative for: Cough, Shortness of Breath Gastrointestinal: Negative for: Nausea, Vomiting, Abdominal Pain, Constipation, Melena, Hematochezia Genitourinary: Negative for: Dysuria, Hematuria Musculoskeletal: Negative for: Neck Pain, Shoulder Pain, Back Pain, Hand Pain Skin: Negative for: Rash, Lesions Neurological: Positive for: Altered Mental Status. Negative for: Weakness, Incoordination, Change in Speech, Confusion, Headache, Dizziness Psych: Negative for: Anxiety Physical Exam - Physical Exam Appears: Well, Non-toxic, No Acute Distress Skin: Normal Color, Warm Head: Atraumatic, Normacephalic Eye(s): bilateral: Normal Inspection, PERRL, EOMI Nose: Normal Oral Mucosa: Moist Throat: Normal, No Erythema, No Exudate Neck: Normal, Supple, Other (no meningeal signs) Lymphatic: Normal Exam Chest: Symmetrical Cardiovascular: Rhythm Regular, No Friction Rub, No Murmur, No JVD Respiratory: Normal Breath Sounds, No Rales, No Rhonchi, No Stridor, No Wheezing Gastrointestinal/Abdominal: Normal Exam, Soft, Tenderness, No Mass, No Distention, No Guarding Back: Normal Inspection Extremity: Normal ROM, Swelling (b/l LE 2+) Extremity: Bilateral: Atraumatic Neurological/Psych: Oriented x3, Normal Speech, Normal Cognition, Normal Cranial Nerves, No Cerebellar Signs, Normal Motor, Normal Sensation Extremity: Right: No Drift, Left: No Drift ED Course And Treatment - Laboratory Results Result Diagrams: 06/05/18 01:28 06/05/18 01:28 O2 Sat by Pulse Oximetry: 93 Medical Decision Making Medical Decision Makin yr old F w/ CHF, currently on eliquis, HTN, HLD p/w intermittent episodes of AMS w/ b/l hand clenching and yelling. No Stroke like distribution of deficits. ?atypical seizure however unlikely given b/l hand squeezing. No meningeal signs. No fall or trauma. Likely UTI. Lungs CTA b/l. 0502 CXR unremarkable labs largely unremarkable from baseline. No CP or SOB. we are to admit to [facility] per Dr. beck unlikely seizures per Dr. Galvan [id number] appreciate consult w/ Dr. Solorzano: to admit to his service pt in nad Disposition - Disposition Disposition Time: 05:48 Condition: STABLE - Clinical Impression Clinical Impression: Altered mental status
[2018-06-05 01:35] LABS: BASO % 0.3 % (0.0-2.0); EOS % 0.9 % (0.0-4.0); HEMOGLOBIN 12.3 g/dL (11.0-16.0); LYMPH # 0.7 K/uL (1.0-4.3); LYMPH % 16.4 % (20.0-40.0); MEAN CELL VOLUME 82.1 fL (81.0-99.0); MEAN CORPUSCULAR HEMOGLOBIN 27.3 pg (27.0-31.0); MEAN CORPUSCULAR HGB CONC 33.3 g/dL (33.0-37.0); MEAN PLATELET VOLUME 9.5 fL (7.2-11.7); MONO # 0.4 K/uL (0.0-0.8); MONO % 9.3 % (0.0-10.0); NEUT # 3.3 K/uL (1.8-7.0); NEUT % 73.1 % (50.0-75.0); NRBC % 0.2 % (0.0-2.0); RBC 4.49 Mil/uL (3.80-5.20); RED CELL DISTRIBUTION WIDTH 14.6 % (11.5-14.5); WHITE BLOOD COUNT 4.5 K/uL (4.8-10.8)
[2018-06-05 01:52] LABS: ALB/GLOB RATIO 1.3 (1.0-2.1); ALBUMIN 3.9 g/dL (3.5-5.0); CALCIUM 9.1 mg/dl (8.6-10.4)
[2018-06-05 02:03] LABS: TROPONIN I 0.233 ng/mL (0.00-0.120)
[2018-06-05 05:31] LABS: BROAD CAST 4 /lpf (0-1); SQUAMOUS EPITHIAL 4 /hpf (0-5); URINE BACTERIA RARE (<OCC); URINE BILIRUBIN NEGATIVE (NEGATIVE); URINE BLOOD NEGATIVE (NEGATIVE); URINE CLARITY Hazy (Clear); URINE COLOR Yellow (YELLOW); URINE GLUCOSE (UA) NORMAL (Normal); URINE HYALINE CAST >20 /lpf (0-2); URINE LEUKOCYTE ESTERASE 2+ Leu/uL (Negative); URINE PROTEIN 1+ mg/dL (NEGATIVE)
[2018-06-05] MEDS ORDERED: cefTRIAXone IV 1 gm in Dextros 50 ML IVPB STA (06:45)
[2018-06-05 07:45] LABS: ABG ALLEN TEST POS; ARTERIAL BLOOD GAS HEMOGLOBIN 11.9 g/dL (11.7-17.4); ARTERIAL BLOOD GAS O2 SAT 95.5 % (95-98); ARTERIAL BLOOD GAS PCO2 38 mm/Hg (35-45); ARTERIAL BLOOD GAS PH 7.49 (7.35-7.45); ARTERIAL BLOOD GAS PO2 67 mm/Hg (80-100); ARTERIAL BLOOD GAS TCO2 30.2 mmol/L (22-28)
--- NOTE | 2018-06-05 07:49 | CP.PCM.HP ---
<Heide Kelly V - Last Filed: 06/05/18 16:34> Meds Allergies/Adverse Reactions: Allergies Allergy/AdvReac Type Severity Reaction Status Date / Time acetaminophen [From Percocet] AdvReac RASH Verified 06/05/18 00:51 hydromorphone [From Dilaudid] AdvReac RASH Verified 06/05/18 00:51 oxycodone [From Percocet] AdvReac RASH Verified 06/05/18 00:51 Results - Vital Signs Recent Vital Signs: Last Vital Signs Temp 97.4 F L 06/05/18 08:40 Pulse 89 06/05/18 11:24 Resp 18 06/05/18 08:55 BP 137/83 06/05/18 14:07 Pulse Ox 3 L 06/05/18 08:55 - Labs Result Diagrams: 06/05/18 01:28 06/05/18 01:28 Labs: Laboratory Results - last 24 hr 06/05/18 06/05/18 06/05/18 00:37 01:28 01:28 WBC 4.5 L RBC 4.49 Hgb 12.3 Hct 36.8 MCV 82.1 MCH 27.3 MCHC 33.3 RDW 14.6 H Plt Count 81 L MPV 9.5 Neut % (Auto) 73.1 Lymph % (Auto) 16.4 L Cassia % (Auto) 9.3 Eos % (Auto) 0.9 Baso % (Auto) 0.3 Neut # (Auto) 3.3 Lymph # (Auto) 0.7 L Cassia # (Auto) 0.4 Eos # (Auto) 0.0 Baso # (Auto) 0.0 Puncture Site pCO2 pO2 HCO3 ABG pH ABG Total CO2 ABG O2 Saturation ABG Base Excess ABG Hemoglobin ABG Carboxyhemoglobin POC ABG HHb (Measured) ABG Methemoglobin Hitesh Test A-a O2 Difference Respiratory Index Hgb O2 Saturation FiO2 Sodium 136 Potassium 4.2 Chloride 97 L Carbon Dioxide 29 Anion Gap 15 BUN 25 H Creatinine 1.2 Est GFR ( Amer) 51 Est GFR (Non-Af Amer) 42 POC Glucose (mg/dL) 154 H Random Glucose 114 H D Lactic Acid Calcium 9.1 Total Bilirubin 1.4 H AST 77 H ALT 26 Alkaline Phosphatase 73 Troponin I 0.2330 H* NT-Pro-B Natriuret Pep 7990 H Total Protein 7.0 Albumin 3.9 Globulin 3.1 Albumin/Globulin Ratio 1.3 Urine Color Urine Clarity Urine pH Ur Specific Phelan Urine Protein Urine Glucose (UA) Urine Ketones Urine Blood Urine Nitrate Urine Bilirubin Urine Urobilinogen Ur Leukocyte Esterase Urine WBC (Auto) Urine RBC (Auto) Ur Squamous Epith Cells Urine Bacteria Hyaline Casts Broad Casts 06/05/18 06/05/18 06/05/18 05:17 07:41 11:46 WBC RBC Hgb Hct MCV MCH MCHC RDW Plt Count MPV Neut % (Auto) Lymph % (Auto) Cassia % (Auto) Eos % (Auto) Baso % (Auto) Neut # (Auto) Lymph # (Auto) Cassia # (Auto) Eos # (Auto) Baso # (Auto) Puncture Site Rra pCO2 38 pO2 67 L HCO3 29.0 H ABG pH 7.49 H ABG Total CO2 30.2 H ABG O2 Saturation 95.5 ABG Base Excess 5.4 H ABG Hemoglobin 11.9 ABG Carboxyhemoglobin 2.0 H POC ABG HHb (Measured) 4.4 ABG Methemoglobin 1.2 Hitesh Test Pos A-a O2 Difference 35.0 Respiratory Index 0.5 Hgb O2 Saturation 92.5 L FiO2 21.0 Sodium Potassium Chloride Carbon Dioxide Anion Gap BUN Creatinine Est GFR ( Amer) Est GFR (Non-Af Amer) POC Glucose (mg/dL) Random Glucose Lactic Acid 1.9 Calcium Total Bilirubin AST ALT Alkaline Phosphatase Troponin I NT-Pro-B Natriuret Pep Total Protein Albumin Globulin Albumin/Globulin Ratio Urine Color Yellow Urine Clarity Hazy Urine pH 5.0 Ur Specific Phelan 1.018 Urine Protein 1+ H Urine Glucose (UA) Normal Urine Ketones Negative Urine Blood Negative Urine Nitrate Negative Urine Bilirubin Negative Urine Urobilinogen 2.0 H Ur Leukocyte Esterase 2+ H Urine WBC (Auto) 23 H Urine RBC (Auto) 3 Ur Squamous Epith Cells 4 Urine Bacteria Rare Hyaline Casts >20 H Broad Casts 4 Attending/Attestation - Attestation I have personally seen and examined this patient.: Yes I have fully participated in the care of the patient.: Yes I have reviewed all pertinent clinical information: Yes Notes (Text): Patient seen, examined and case discussed with medical laboratory technicians. Patient seen this morning. Patient discharged yesterday following hospitalization for chf exacerbation, sever pulmonary hypertension. Patient remembers me at bedside; does not appear to have neurologic deficits. No facial drifts. Patient's son not present at bedside. on discharge, patient was to resume her old medications including coreg, eliqiuis, losartan and given senakot and nystatin for fungal rash in the intrigenous fold of her pannus. Patient noted to have abnormal UA; possibly accounting for delirum yesterday evening. CT head negative for evidence of acute intracranial hemorrhage, intracranial collection mass effect or midline shift in light of her chronic use of eliquis. On Abg, noted alkalosis given her diuretic but is hypoxic; we spoke with Dr. acosta, recommended nebulizers, add pulmicort, and we have added nasal cannula; patient is noted to have severe pulmonary hypertension. Per review of notes, patient has had "unspecified seizure disorder" has a prior normal EEG with [facility] in the past, and used to be on lamictal. will place neurology eval. Patient is on empiric Iv abx to cover for urinary tract infection. Afebrile. pending blood culture and procalcitonin. lactic acid is normal. patient noted to have elevated troponin; which are similar to her level from prior hospitalization; and mildly elevated probnp. we will continue diuresis, betablocker, arb, statin, fluid restriction. noted from prior admission: patient is a full code. 1. Metabolic encephalopathy Delirium Possible seizure Assessment/Plan * Neurology called in the ED by ED physician on admission * Patient recently discharged yesterday from hospital for chf, pulm htn; noted abnormal behavior at home which prompted family to bring her back. no pain, no narcotic medications given. * suspecting secondary to urinary tract infection * patient noted for prior hx of dvt, unspecified seizure disorder (was seen by [facility] in 2016; has been on lamictal in the past) * CT head negative for acute bleed * neurochecks q4h * cartoid duplex ordered * Echocardiogram (06/02/18): moderate concentric left ventricular hypertrophy. left ventricle systolic function is normal. ejection fraction: 65-70%, severe pulmonary hypertension, ivc is dilated. * pending blood culture * pending procalcitonin 2. Abnormal UA Assessment/Plan * afebrile * abnormal UA, clean catch * Rocephin 1 gram IV q 12H * urine culture * Blood cultures X2 * procalcitonin 3. History of right sided heart congestive heart failure Elevated troponin secondary to right sided heart congestive heart failure exacerbation Assessment/Plan * Cardiology (Dr. Sousa) on help appreciated * CXR shows on admission Biapical pleural thickening and granulomatous changes. Mild venous congestion. Small bilateral pleural effusions and associated consolidations. Enlargement of the cardiomediastinal silhouette. Markedly ectatic aorta. Atherosclerotic calcifications of the aorta. * Pt not tachycardic, afebrile, no leukocytosis. * Chest CT without contrast (06/02/18): small bilateral pleural effusion, right greater than left. right lower lobe compressive atelectasis. cardiomegaly. no acute infiltrate. * ProBNP: 6740-->5730--->7760 * Echo 2017: EF 70%, severe pulm HTN, moderate TR, severe sclerosis aortic valve. see full report. * Echocardiogram (06/02/18): moderate concentric left ventricular hypertrophy. left ventricle systolic function is normal. ejection fraction: 65-70%, severe pulmonary hypertension, ivc is dilated. * I&Os, daily weights * 1500ml fluid restriction * Lasix 40mg IVP daily * Coreg 3.125 mg PO hs (2 tabs at home per son) * Losartan 100mg PO daily 5. Pulmonary Hypertension, Severe Assessment/Plan * RVSP is 100 mmHg * Pulmonology, Dr. Acosta, consulted. * Duonebs PRn shortness of breathe * Pulmicort * 2 Liters of nasal cannula 6. Hx of DVT, Right lower leg Assessment/Plan * chronic R deep vein + in venous doppler * IVC filter * Vascular surgery on board * Angiography per vascular surgery: common femoral artery and profunda femoral artery normal, mild calcific plaque throughout the SFA which is patent. stenosis of popliteral artery. runoff shows a patent peroneal artery. anterior tibial artery is mildly calcified which limits evaluation. posterior tibial is mildly calcified and believe to be patent. * no surgery intervention seen last admission * continue chemical anticoagulation * History of IVC filter * Eliquis 2.5mg PO BID 7.Hx of PAD Assessment/Plan * ASA 81 mg PO daily * Crestor 10 mg PO QHS * Vascular surgery, Dr. Scales, consulted last admission * Angiography per vascular surgery: common femoral artery and profunda femoral artery normal, mild calcific plaque throughout the SFA which is patent. stenosis of popliteral artery. runoff shows a patent peroneal artery. anterior tibial artery is mildly calcified which limits evaluation. posterior tibial is mildly calcified and believe to be patent. * no surgery intervention * dopplerable pulse 8. Erythema to lower abdominal folds, like intertrigo Assessment/Plan * Continue to monitor * nystatin powder under the intrigenous folds 9. Hyperkalemia, resolved Assessment/Plan * Potassium: 3.4 10. Thrombocytopenia, chronic Assessment/Plan * Pt without any signs of bleeding 11.Hypertension Assessment/Plan * Carvedilol 3.125mg PO HS * Losartan 25mg PO daily * Lasix 20mg IV daily 12. Lipid Disorder Assessment/Plan * Crestor 10mg PO HS * G/CHL/LDL/HDL is 69/77/37/42 13. Hx of Asthma/COPD Assessment/Plan * Dr. Acosta on board help appreciated * Duoneb prn * pulmicort * nasal cannula * noted hypoxia on ABG 14. PPx * NO indication for GI ppx at this time * Eliquis 5mg PO daily * GI ppx: * HHD * PT eval/Ot eval * Full code * Fall risk precautions * Seizure precautions <Carlos Castellano - Last Filed: 06/05/18 18:30> History of Present Illness - History of Present Illness History of Present Illness: Medicine H and P for Dr. Kelly HPI: 87 year old female with PMHx of CHF, COPD, HTN, HLD chronic DVT/PE, and arthritis presents after delirious episode while at home last night. Pt reports that she does not remember the episode, but recalls her family telling her that was "talking about weird things." Son reports multiple episodes of bilateral hand clenching, and screaming during these episodes. She endorses history of intermittent pain on urination lately, denies back pain or flank pain. Pt was recently discharged from [facility] for HFpEF exacerbation (06/01-05/26). Patient denies headache, fever, chills, focal weakness, weakness, dysphagia, dysarthria, , loss of consciousness, tongue biting, bowel or bladder incontinence, visual changes, chest pain, palpitations, cough, abdominal pain, nausea, vomiting, diarrhea. Pt with chronic bilateral lower extremity weakness. PMD: Dr. Lars Martines: Adui SMITH reviewed: PMHx: PMHx of CHF, HTN, HLD, asthma, previous DVT, and arthritis PSHx: IVC filter, R leg surgery, hysterectomy Meds: Asa 81mg daily, allopurinol 100mg daily, Eliquis 5mg Daily, Gabapentin 100mg daily, ferrous sulfate 325mg daily, Irbesartan 300mg QPM, Crestor 10mg HS, Carvedilol 6.25mg HS Allergies: hydromorphone, oxycodone-unknown reaction FamHx: HTN in parents SocHx: Denies tobacco, alcohol and drugs. Lives with son. Patient is wheelchair bound. Present on Admission - Present on Admission Any Indicators Present on Admission: Yes History of DVT/PE: Yes Review of Systems - Review of Systems All systems: reviewed and no additional remarkable complaints except (as per HPI) Past Patient History - Infectious Disease Hx of Infectious Diseases: None - Past Medical History & Family History Past Medical History?: Yes - Past Social History Smoking Status: Never Smoked - CARDIAC Hx Cardia Arrhythmia: Yes Hx Congestive Heart Failure: Yes Hx Hypercholesterolemia: Yes Hx Hypertension: Yes Hx Peripheral Edema: Yes - PULMONARY Hx Asthma: Yes - NEUROLOGICAL Hx Neurological Disorder: Yes Hx Syncope: Yes (10 yrs ago unknown reason) - HEENT Hx HEENT Problems: Yes Hx Cataracts: Yes Hx Glaucoma: Yes - RENAL Hx Chronic Kidney Disease: No - ENDOCRINE/METABOLIC Hx Endocrine Disorders: No - HEMATOLOGICAL/ONCOLOGICAL Hx Blood Disorders: No - INTEGUMENTARY Hx Dermatological Problems: No - MUSCULOSKELETAL/RHEUMATOLOGICAL Hx Arthritis: Yes - GASTROINTESTINAL Hx Gastrointestinal Disorders: No - GENITOURINARY/GYNECOLOGICAL Hx Genitourinary Disorders: No - PSYCHIATRIC Hx Substance Use: No - SURGICAL HISTORY Hx Surgeries: Yes Hx Cataract Extraction: Yes (cat ext left eye iol 7 yrs ago) Hx Hysterectomy: Yes Hx Orthopedic Surgery: Yes (R leg) Hx Vascular Surgery: Yes - ANESTHESIA Hx Anesthesia: Yes Hx Anesthesia Reactions: No Hx Malignant Hyperthermia: No Physical Exam - Constitutional Appears: Non-toxic, No Acute Distress, Chronically Ill - Head Exam Head Exam: ATRAUMATIC, NORMAL INSPECTION - Eye Exam Eye Exam: EOMI, Normal appearance, PERRL - ENT Exam ENT Exam: Mucous Membranes Moist Additional comments: no tongue laceration - Neck Exam Neck exam: Positive for: Normal Inspection - Respiratory Exam Respiratory Exam: Decreased Breath Sounds, Clear to Auscultation Bilateral, NORMAL BREATHING PATTERN. absent: Rales, Rhonchi, Wheezes, Stridor - Cardiovascular Exam Cardiovascular Exam: REGULAR RHYTHM, +S1, +S2 Additional comments: 1/6 Systolic Ejection Murmur - GI/Abdominal Exam GI & Abdominal Exam: Normal Bowel Sounds, Soft. absent: Distended, Firm, Rebound, Tenderness Additional comments: no suprapubic tenderness - Extremities Exam Extremities exam: Positive for: pedal edema. Negative for: calf tenderness Additional comments: 2+ pitting edema to bilateral lower extremities to the mid ruiz. Bilateral thready DP pulses. Capillary refill < 3 seconds bilateral toes. Limited ROM of lower extremities secondary to severe arthritis. (+) left distal foot is warm. (+) normal sensation and perfusion - Neurological Exam Neurological exam: Alert, CN II-XII Intact, Oriented x3 Additional comments: decreased strength in the bilateral lower extremities - Psychiatric Exam Psychiatric exam: Normal Affect, Normal Mood - Skin Skin Exam: Dry, Intact, Normal Color, Warm - Additional Findings Additional findings: (+) 0.5cm unstageable ulcer noted to 2nd L toe (+) erythema to the lower abdominal skin folds Results - Vital Signs Recent Vital Signs: Last Vital Signs Temp 98.0 F 06/05/18 07:16 Pulse 93 H 06/05/18 07:16 Resp 20 06/05/18 07:16 BP 95/68 L 06/05/18 07:16 Pulse Ox 95 06/05/18 07:16 - Labs Result Diagrams: 06/05/18 01:28 06/05/18 01:28 Labs: Laboratory Results - last 24 hr 06/05/18 06/05/18 06/05/18 00:37 01:28 01:28 WBC 4.5 L RBC 4.49 Hgb 12.3 Hct 36.8 MCV 82.1 MCH 27.3 MCHC 33.3 RDW 14.6 H Plt Count 81 L MPV 9.5 Neut % (Auto) 73.1 Lymph % (Auto) 16.4 L Cassia % (Auto) 9.3 Eos % (Auto) 0.9 Baso % (Auto) 0.3 Neut # (Auto) 3.3 Lymph # (Auto) 0.7 L Cassia # (Auto) 0.4 Eos # (Auto) 0.0 Baso # (Auto) 0.0 Puncture Site pCO2 pO2 HCO3 ABG pH ABG Total CO2 ABG O2 Saturation ABG Base Excess ABG Hemoglobin ABG Carboxyhemoglobin POC ABG HHb (Measured) ABG Methemoglobin Hitesh Test A-a O2 Difference Respiratory Index Hgb O2 Saturation FiO2 Sodium 136 Potassium 4.2 Chloride 97 L Carbon Dioxide 29 Anion Gap 15 BUN 25 H Creatinine 1.2 Est GFR ( Amer) 51 Est GFR (Non-Af Amer) 42 POC Glucose (mg/dL) 154 H Random Glucose 114 H D Calcium 9.1 Total Bilirubin 1.4 H AST 77 H ALT 26 Alkaline Phosphatase 73 Troponin I 0.2330 H* NT-Pro-B Natriuret Pep 7990 H Total Protein 7.0 Albumin 3.9 Globulin 3.1 Albumin/Globulin Ratio 1.3 Urine Color Urine Clarity Urine pH Ur Specific Phelan Urine Protein Urine Glucose (UA) Urine Ketones Urine Blood Urine Nitrate Urine Bilirubin Urine Urobilinogen Ur Leukocyte Esterase Urine WBC (Auto) Urine RBC (Auto) Ur Squamous Epith Cells Urine Bacteria Hyaline Casts Broad Casts 06/05/18 06/05/18 05:17 07:41 WBC RBC Hgb Hct MCV MCH MCHC RDW Plt Count MPV Neut % (Auto) Lymph % (Auto) Cassia % (Auto) Eos % (Auto) Baso % (Auto) Neut # (Auto) Lymph # (Auto) Cassia # (Auto) Eos # (Auto) Baso # (Auto) Puncture Site Rra pCO2 38 pO2 67 L HCO3 29.0 H ABG pH 7.49 H ABG Total CO2 30.2 H ABG O2 Saturation 95.5 ABG Base Excess 5.4 H ABG Hemoglobin 11.9 ABG Carboxyhemoglobin 2.0 H POC ABG HHb (Measured) 4.4 ABG Methemoglobin 1.2 Hitesh Test Pos A-a O2 Difference 35.0 Respiratory Index 0.5 Hgb O2 Saturation 92.5 L FiO2 21.0 Sodium Potassium Chloride Carbon Dioxide Anion Gap BUN Creatinine Est GFR ( Amer) Est GFR (Non-Af Amer) POC Glucose (mg/dL) Random Glucose Calcium Total Bilirubin AST ALT Alkaline Phosphatase Troponin I NT-Pro-B Natriuret Pep Total Protein Albumin Globulin Albumin/Globulin Ratio Urine Color Yellow Urine Clarity Hazy Urine pH 5.0 Ur Specific Phelan 1.018 Urine Protein 1+ H Urine Glucose (UA) Normal Urine Ketones Negative Urine Blood Negative Urine Nitrate Negative Urine Bilirubin Negative Urine Urobilinogen 2.0 H Ur Leukocyte Esterase 2+ H Urine WBC (Auto) 23 H Urine RBC (Auto) 3 Ur Squamous Epith Cells 4 Urine Bacteria Rare Hyaline Casts >20 H Broad Casts 4 Assessment & Plan - Assessment and Plan (Free Text) Assessment: 87 year old female with PMHx of CHF, COPD, HTN, HLD, asthma, previous DVT with IVC filter placement, PAD and arthritis admitted for altered mental status, likely secondary to UTI. Plan: Delirium, secondary to UTI Possible seizure Currently, pt is at baseline. Pt with history of altered mental status in the past, successfully treated with Keppra Head CT showed no acute intracranial pathology, chronic changes (see report) UTI showed 2+ leukocyte esterase, WBC of 23 Rocephin 1g IVPB q12h No leukocytosis, pt afebrile Pt with leukopenia at baseline; currently similar to past admissions Neurology, Dr. Galvan, consulted. Lactic acid normal at 1.9 F/u BCx x2, UCx, procalcitonin F/u carotid doppler COPD Chest CT findings as above Duonebs q6 Pulmonology, Dr. Acosta, consulted. HFpEF Elevated troponins CXR shows on admission cardiomegaly and pulmoary vascular congestion with small right pleural effusion Pt not tachycardic, afebrile, no leukocytosis. Chest CT without contrast shows bilateral small pleural effusions on prior admission ProBNP: 7990 on admission, will trend daily Troponin 0.2330-->0.3890, likely due to CHF Will trend Q6h x [address] Dr. Sousa, cardiology consulted. 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 Supportive care. * TNI was checked, again elevated minimally, again it is not an FL, did not cause change of mentation. I&Os, daily weights 1500ml fluid restriction Lasix 20mg IVP daily Coreg 3.125 mg PO QHS Losartan 100 mg PO daily Echocardiogram (06/02) shows EF 65-70%, severe pulmonary hypertension. grade I diastolic dysfunction. COPD Chest CT findings as above Duonebs q6, Budesonide Q12 Pulmonology, Dr. Acosta, consulted. Pt with episode of hypoxia in the ED, placed on O2 NC, with resolution ABG shows pO2 67, PH 7.49, PCO2 38 F/u ABG with shock panel in am Severe pulmonary hypertension RVSP is 100 mmHg Pulmonology, Dr. Acosta, consulted. 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 Pt with IVC filter and on home dose of 5 mg PO daily Intertrigo to lower abdominal folds Continue Nystatin power Continue to monitor Hx of PAD ASA 81 mg PO daily Crestor 10 mg PO QHS Thrombocytopenia, chronic Head CT as above. PLT 81 Pt without any signs of bleeding Hx of HTN Carvedilol, Losartan as above Hx of HLD Crestor 10mg PO HS TG/CHL/LDL/HDL is 69/77/37/42 on 06/02 PPx NO indication for GI ppx at this time Eliquis 2.5mg PO BID, no need for other VTE ppx GI not indicated HHD PT/OT eval Fall precautions Seizure precautions
--- NOTE | 2018-06-05 08:33 | CT ---
Date of service: 06/05/2018 PROCEDURE: CT HEAD WITHOUT CONTRAST. HISTORY: ams COMPARISON: Comparison is made to the previous study dated 02/25/2017 TECHNIQUE: Axial computed tomography images were obtained through the head/brain without intravenous contrast. Radiation dose: Total exam DLP = 1154.74 mGy-cm. This CT exam was performed using one or more of the following dose reduction techniques: Automated exposure control, adjustment of the mA and/or kV according to patient size, and/or use of iterative reconstruction technique. FINDINGS: HEMORRHAGE: No intracranial hemorrhage. BRAIN: No mass effect or edema. Volume loss and chronic microvascular white matter ischemic changes are again noted. VENTRICLES: Unremarkable. No hydrocephalus. CALVARIUM: Unremarkable. PARANASAL SINUSES: Unremarkable as visualized. No significant inflammatory changes. MASTOID AIR CELLS: Unremarkable as visualized. No inflammatory changes. OTHER FINDINGS: None. IMPRESSION: No evidence of acute intracranial hemorrhage intracranial collection mass effect or midline shift. Volume loss and chronic microvascular white matter ischemic changes. Preliminary report was submitted by [facility] Radiology contains concordant findings.
--- NOTE | 2018-06-05 10:33 | CP.PCM.CON ---
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 In the emergency room patient was found to be hypoxic and was placed on oxygen. CAT scan of the head negative and no seizure-like activity noted. Review of Systems - Review of Systems All systems: reviewed and no additional remarkable complaints except Past Patient History - Infectious Disease Hx of Infectious Diseases: None - Past Medical History & Family History Past Medical History?: Yes - Past Social History Smoking Status: Never Smoked - CARDIAC Hx Cardia Arrhythmia: Yes Hx Congestive Heart Failure: Yes Hx Hypercholesterolemia: Yes Hx Hypertension: Yes Hx Peripheral Edema: Yes - PULMONARY Hx Asthma: Yes - NEUROLOGICAL Hx Neurological Disorder: Yes Hx Syncope: Yes (10 yrs ago unknown reason) - HEENT Hx HEENT Problems: Yes Hx Cataracts: Yes Hx Glaucoma: Yes - RENAL Hx Chronic Kidney Disease: No - ENDOCRINE/METABOLIC Hx Endocrine Disorders: No - HEMATOLOGICAL/ONCOLOGICAL Hx Blood Disorders: No - INTEGUMENTARY Hx Dermatological Problems: No - MUSCULOSKELETAL/RHEUMATOLOGICAL Hx Arthritis: Yes - GASTROINTESTINAL Hx Gastrointestinal Disorders: No - GENITOURINARY/GYNECOLOGICAL Hx Genitourinary Disorders: No - PSYCHIATRIC Hx Substance Use: No - SURGICAL HISTORY Hx Surgeries: Yes Hx Cataract Extraction: Yes (cat ext left eye iol 7 yrs ago) Hx Hysterectomy: Yes Hx Orthopedic Surgery: Yes (R leg) Hx Vascular Surgery: Yes - ANESTHESIA Hx Anesthesia: Yes Hx Anesthesia Reactions: No Hx Malignant Hyperthermia: No Meds Allergies/Adverse Reactions: Allergies Allergy/AdvReac Type Severity Reaction Status Date / Time acetaminophen [From Percocet] AdvReac RASH Verified 06/05/18 00:51 hydromorphone [From Dilaudid] AdvReac RASH Verified 06/05/18 00:51 oxycodone [From Percocet] AdvReac RASH Verified 06/05/18 00:51 - Medications Medications: Current Medications Albuterol/Ipratropium (Duoneb 3 Mg/0.5 Mg (3 Ml) Ud) 3 ml INH RQ6 [facility] Allopurinol (Zyloprim) 100 mg PO DAILY [facility] Last Admin: 06/05/18 09:55 Dose: 100 mg Apixaban (Eliquis) 5 mg PO DAILY [facility] Last Admin: 06/05/18 09:56 Dose: 5 mg Aspirin (Ecotrin) 81 mg PO DAILY [facility] Last Admin: 06/05/18 09:56 Dose: 81 mg Budesonide (Pulmicort Respules) 0.25 mg INH RQ12 [facility] Carvedilol (Coreg) 3.125 mg PO HS [facility] Furosemide (Lasix) 20 mg IVP ONCE ONE Stop: 06/05/18 14:01 Ceftriaxone Sodium 1 gm/ (Sodium Chloride) 100 mls @ 100 mls/hr IVPB Q12H [facility]; Protocol Nystatin (Nystop Topical Powder) 1 applic TOP BID [facility] Rosuvastatin Calcium (Crestor) 10 mg PO HS [facility] Physical Exam - Head Exam Head Exam: ATRAUMATIC, NORMOCEPHALIC - ENT Exam ENT Exam: Mucous Membranes Moist - Neck Exam Neck exam: Positive for: Normal Inspection - Respiratory Exam Respiratory Exam: Clear to Auscultation Bilateral - Cardiovascular Exam Cardiovascular Exam: REGULAR RHYTHM - GI/Abdominal Exam GI & Abdominal Exam: Normal Bowel Sounds - Extremities Exam Extremities exam: Positive for: pedal edema - Neurological Exam Neurological exam: Alert Results - Vital Signs Recent Vital Signs: Last Vital Signs Temp 97.4 F L 06/05/18 08:40 Pulse 94 H 06/05/18 08:40 Resp 18 06/05/18 08:40 BP 122/84 06/05/18 08:40 Pulse Ox 95 06/05/18 08:40 - Labs Result Diagrams: 06/05/18 01:28 06/05/18 01:28 Labs: Laboratory Results - last 24 hr 06/05/18 06/05/18 06/05/18 00:37 01:28 01:28 WBC 4.5 L RBC 4.49 Hgb 12.3 Hct 36.8 MCV 82.1 MCH 27.3 MCHC 33.3 RDW 14.6 H Plt Count 81 L MPV 9.5 Neut % (Auto) 73.1 Lymph % (Auto) 16.4 L [place] % (Auto) 9.3 Eos % (Auto) 0.9 Baso % (Auto) 0.3 Neut # (Auto) 3.3 Lymph # (Auto) 0.7 L [place] # (Auto) 0.4 Eos # (Auto) 0.0 Baso # (Auto) 0.0 Puncture Site pCO2 pO2 HCO3 ABG pH ABG Total CO2 ABG O2 Saturation ABG Base Excess ABG Hemoglobin ABG Carboxyhemoglobin POC ABG HHb (Measured) ABG Methemoglobin Hitesh Test A-a O2 Difference Respiratory Index Hgb O2 Saturation FiO2 Sodium 136 Potassium 4.2 Chloride 97 L Carbon Dioxide 29 Anion Gap 15 BUN 25 H Creatinine 1.2 Est GFR ( Amer) 51 Est GFR (Non-Af Amer) 42 POC Glucose (mg/dL) 154 H Random Glucose 114 H D Calcium 9.1 Total Bilirubin 1.4 H AST 77 H ALT 26 Alkaline Phosphatase 73 Troponin I 0.2330 H* NT-Pro-B Natriuret Pep 7990 H Total Protein 7.0 Albumin 3.9 Globulin 3.1 Albumin/Globulin Ratio 1.3 Urine Color Urine Clarity Urine pH Ur Specific [place] Urine Protein Urine Glucose (UA) Urine Ketones Urine Blood Urine Nitrate Urine Bilirubin Urine Urobilinogen Ur Leukocyte Esterase Urine WBC (Auto) Urine RBC (Auto) Ur Squamous Epith Cells Urine Bacteria Hyaline Casts Broad Casts 06/05/18 06/05/18 05:17 07:41 WBC RBC Hgb Hct MCV MCH MCHC RDW Plt Count MPV Neut % (Auto) Lymph % (Auto) [place] % (Auto) Eos % (Auto) Baso % (Auto) Neut # (Auto) Lymph # (Auto) [place] # (Auto) Eos # (Auto) Baso # (Auto) Puncture Site Rra pCO2 38 pO2 67 L HCO3 29.0 H ABG pH 7.49 H ABG Total CO2 30.2 H ABG O2 Saturation 95.5 ABG Base Excess 5.4 H ABG Hemoglobin 11.9 ABG Carboxyhemoglobin 2.0 H POC ABG HHb (Measured) 4.4 ABG Methemoglobin 1.2 Hitesh Test Pos A-a O2 Difference 35.0 Respiratory Index 0.5 Hgb O2 Saturation 92.5 L FiO2 21.0 Sodium Potassium Chloride Carbon Dioxide Anion Gap BUN Creatinine Est GFR ( Amer) Est GFR (Non-Af Amer) POC Glucose (mg/dL) Random Glucose Calcium Total Bilirubin AST ALT Alkaline Phosphatase Troponin I NT-Pro-B Natriuret Pep Total Protein Albumin Globulin Albumin/Globulin Ratio Urine Color Yellow Urine Clarity Hazy Urine pH 5.0 Ur Specific [place] 1.018 Urine Protein 1+ H Urine Glucose (UA) Normal Urine Ketones Negative Urine Blood Negative Urine Nitrate Negative Urine Bilirubin Negative Urine Urobilinogen 2.0 H Ur Leukocyte Esterase 2+ H Urine WBC (Auto) 23 H Urine RBC (Auto) 3 Ur Squamous Epith Cells 4 Urine Bacteria Rare Hyaline Casts >20 H Broad Casts 4 Assessment & Plan (1) Pulmonary hypertension Status: Acute Comment: Secondary to CTEPH. Continue Lasix 20 once daily. Continue oxygen. Nebulizer treatment. Budesonide (2) Unresponsive episode Status: Acute Comment: Antibiotics for possible UTI. 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
--- NOTE | 2018-06-05 10:37 | RAD ---
Date of service: 06/05/2018 HISTORY: ams COMPARISON: Comparison is made with 06/01/2018 TECHNIQUE: 1 view obtained. FINDINGS: LUNGS: Mild pulmonary vascular congestion is noted. PLEURA: Small right pleural effusion is again seen. CARDIOVASCULAR: Foci of calcification at the aortic knob is is noted The cardiac silhouette is enlarged. Mild pulmonary vascular congestion. OSSEOUS STRUCTURES: No significant abnormalities. VISUALIZED UPPER ABDOMEN: Normal. OTHER FINDINGS: None. IMPRESSION: Cardiomegaly and pulmonary vascular congestion with small right pleural effusion noted suggestive of CHF.
[2018-06-05 17:37] LABS: CK-MB 3.71 ng/mL (0.0-3.38); TROPONIN I 0.389 ng/mL (0.00-0.120)
[2018-06-05] MEDS: Lactobacillus Acidophilus 500 MU Cap PO SCH (17:54)
--- NOTE | 2018-06-05 18:13 | CP.PCM.CON ---
History of Present Illness - History of Present Illness History of Present Illness: 86 year old with hx of HTN , SEVERE ARTHRITIS, HTN, PALPITATION , had cataract did well, admitted to after a fall, fx R knee did well with surgery, PT at rehab, [facility], [facility] Echo at 01/22no ischemia EF 65% . suspected to have seizures. 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 Review of Systems - Review of Systems Systems not reviewed;Unavailable: Acuity of Condition - Constitutional Constitutional: Anorexia, Weakness - EENT Eyes: absent: Discharge Ears: absent: Ear Discharge Nose/Mouth/Throat: absent: Epistaxis - Cardiovascular Cardiovascular: absent: Acrocyanosis, Chest Pain, Lightheadedness, Orthopnea, Palpitations, Syncope - Respiratory Respiratory: Dyspnea. absent: Cough, Hemoptysis - Gastrointestinal Gastrointestinal: absent: Abdominal Pain, Constipation, Diarrhea, Hematemesis, Vomiting - Genitourinary Genitourinary: absent: Change in Urinary Stream - Reproductive: Female Reproductive:Female: Menopausal Past Patient History - Infectious Disease Hx of Infectious Diseases: None - Past Medical History & Family History Past Medical History?: Yes - Past Social History Smoking Status: Never Smoked - CARDIAC Hx Congestive Heart Failure: Yes Hx Hypercholesterolemia: Yes Hx Hypertension: Yes - PULMONARY Hx Asthma: Yes - NEUROLOGICAL Hx Neurological Disorder: Yes Hx Syncope: Yes (10 yrs ago unknown reason) - HEENT Hx HEENT Problems: Yes Hx Cataracts: Yes Hx Glaucoma: Yes - RENAL Hx Chronic Kidney Disease: No - ENDOCRINE/METABOLIC Hx Endocrine Disorders: No - HEMATOLOGICAL/ONCOLOGICAL Hx Blood Disorders: No - INTEGUMENTARY Hx Dermatological Problems: No - MUSCULOSKELETAL/RHEUMATOLOGICAL Hx Arthritis: Yes - GASTROINTESTINAL Hx Gastrointestinal Disorders: No - GENITOURINARY/GYNECOLOGICAL Hx Genitourinary Disorders: No - PSYCHIATRIC Hx Substance Use: No - SURGICAL HISTORY Hx Surgeries: Yes Hx Cataract Extraction: Yes (cat ext left eye iol 7 yrs ago) Hx Hysterectomy: Yes Hx Orthopedic Surgery: Yes (R leg) Hx Vascular Surgery: Yes - ANESTHESIA Hx Anesthesia: Yes Hx Anesthesia Reactions: No Hx Malignant Hyperthermia: No Meds Allergies/Adverse Reactions: Allergies Allergy/AdvReac Type Severity Reaction Status Date / Time acetaminophen [From Percocet] AdvReac RASH Verified 06/05/18 00:51 hydromorphone [From Dilaudid] AdvReac RASH Verified 06/05/18 00:51 oxycodone [From Percocet] AdvReac RASH Verified 06/05/18 00:51 - Medications Medications: Current Medications Albuterol/Ipratropium (Duoneb 3 Mg/0.5 Mg (3 Ml) Ud) 3 ml INH RQ6 [facility] Allopurinol (Zyloprim) 100 mg PO DAILY [facility] Last Admin: 06/05/18 09:55 Dose: 100 mg Apixaban (Eliquis) 5 mg PO DAILY [facility] Last Admin: 06/05/18 09:56 Dose: 5 mg Aspirin (Ecotrin) 81 mg PO DAILY [facility] Last Admin: 06/05/18 09:56 Dose: 81 mg Budesonide (Pulmicort Respules) 0.25 mg INH RQ12 [facility] Carvedilol (Coreg) 3.125 mg PO HS [facility] Docusate Sodium (Colace) 100 mg PO BID [facility] Last Admin: 06/05/18 17:54 Dose: 100 mg Furosemide (Lasix) 20 mg IVP DAILY [facility] Ceftriaxone Sodium 1 gm/ (Sodium Chloride) 100 mls @ 100 mls/hr IVPB Q12H [facility]; Protocol Lactobacillus Acidophilus (Lactobacillus) 1 cap PO BID [facility] Last Admin: 06/05/18 17:54 Dose: 1 cap Levetiracetam (Keppra) 250 mg PO BID [facility] Nystatin (Nystop Topical Powder) 1 applic TOP BID [facility] Last Admin: 06/05/18 17:54 Dose: 1 applic Rosuvastatin Calcium (Crestor) 10 mg PO HS [facility] Physical Exam - Constitutional Appears: Non-toxic - Head Exam Head Exam: ATRAUMATIC - Eye Exam Eye Exam: EOMI - ENT Exam ENT Exam: Mucous Membranes Moist - Neck Exam Neck exam: Negative for: Lymphadenopathy, Thyromegaly - Respiratory Exam Respiratory Exam: absent: Chest Wall Tenderness, Rales, Rhonchi, Wheezes - Cardiovascular Exam Cardiovascular Exam: REGULAR RHYTHM, Systolic Murmur - GI/Abdominal Exam GI & Abdominal Exam: Normal Bowel Sounds. absent: Organomegaly - Rectal Exam Rectal Exam: Deferred - Extremities Exam Extremities exam: Positive for: normal capillary refill. Negative for: calf tenderness - Neurological Exam Neurological exam: Alert, Oriented x3 - Psychiatric Exam Psychiatric exam: Anxious, Normal Affect - Skin Skin Exam: Dry Results - Vital Signs Recent Vital Signs: Last Vital Signs Temp 98 F 06/05/18 15:10 Pulse 86 06/05/18 15:10 Resp 20 06/05/18 15:10 BP 115/81 06/05/18 15:10 Pulse Ox 96 06/05/18 15:10 - Labs Result Diagrams: 06/06/18 07:50 06/06/18 07:50 Labs: Laboratory Results - last 24 hr 06/05/18 06/05/18 06/05/18 00:37 01:28 01:28 WBC 4.5 L RBC 4.49 Hgb 12.3 Hct 36.8 MCV 82.1 MCH 27.3 MCHC 33.3 RDW 14.6 H Plt Count 81 L MPV 9.5 Neut % (Auto) 73.1 Lymph % (Auto) 16.4 L [place] % (Auto) 9.3 Eos % (Auto) 0.9 Baso % (Auto) 0.3 Neut # (Auto) 3.3 Lymph # (Auto) 0.7 L [place] # (Auto) 0.4 Eos # (Auto) 0.0 Baso # (Auto) 0.0 Puncture Site pCO2 pO2 HCO3 ABG pH ABG Total CO2 ABG O2 Saturation ABG Base Excess ABG Hemoglobin ABG Carboxyhemoglobin POC ABG HHb (Measured) ABG Methemoglobin Hitesh Test A-a O2 Difference Respiratory Index Hgb O2 Saturation FiO2 Sodium 136 Potassium 4.2 Chloride 97 L Carbon Dioxide 29 Anion Gap 15 BUN 25 H Creatinine 1.2 Est GFR ( Amer) 51 Est GFR (Non-Af Amer) 42 POC Glucose (mg/dL) 154 H Random Glucose 114 H D Lactic Acid Calcium 9.1 Total Bilirubin 1.4 H AST 77 H ALT 26 Alkaline Phosphatase 73 Total Creatine Kinase CK-MB (Mass) Troponin I 0.2330 H* NT-Pro-B Natriuret Pep 7990 H Total Protein 7.0 Albumin 3.9 Globulin 3.1 Albumin/Globulin Ratio 1.3 Urine Color Urine Clarity Urine pH Ur Specific [place] Urine Protein Urine Glucose (UA) Urine Ketones Urine Blood Urine Nitrate Urine Bilirubin Urine Urobilinogen Ur Leukocyte Esterase Urine WBC (Auto) Urine RBC (Auto) Ur Squamous Epith Cells Urine Bacteria Hyaline Casts Broad Casts 06/05/18 06/05/18 06/05/18 05:17 07:41 11:46 WBC RBC Hgb Hct MCV MCH MCHC RDW Plt Count MPV Neut % (Auto) Lymph % (Auto) [place] % (Auto) Eos % (Auto) Baso % (Auto) Neut # (Auto) Lymph # (Auto) [place] # (Auto) Eos # (Auto) Baso # (Auto) Puncture Site Rra pCO2 38 pO2 67 L HCO3 29.0 H ABG pH 7.49 H ABG Total CO2 30.2 H ABG O2 Saturation 95.5 ABG Base Excess 5.4 H ABG Hemoglobin 11.9 ABG Carboxyhemoglobin 2.0 H POC ABG HHb (Measured) 4.4 ABG Methemoglobin 1.2 Hitesh Test Pos A-a O2 Difference 35.0 Respiratory Index 0.5 Hgb O2 Saturation 92.5 L FiO2 21.0 Sodium Potassium Chloride Carbon Dioxide Anion Gap BUN Creatinine Est GFR ( Amer) Est GFR (Non-Af Amer) POC Glucose (mg/dL) Random Glucose Lactic Acid 1.9 Calcium Total Bilirubin AST ALT Alkaline Phosphatase Total Creatine Kinase CK-MB (Mass) Troponin I NT-Pro-B Natriuret Pep Total Protein Albumin Globulin Albumin/Globulin Ratio Urine Color Yellow Urine Clarity Hazy Urine pH 5.0 Ur Specific [place] 1.018 Urine Protein 1+ H Urine Glucose (UA) Normal Urine Ketones Negative Urine Blood Negative Urine Nitrate Negative Urine Bilirubin Negative Urine Urobilinogen 2.0 H Ur Leukocyte Esterase 2+ H Urine WBC (Auto) 23 H Urine RBC (Auto) 3 Ur Squamous Epith Cells 4 Urine Bacteria Rare Hyaline Casts >20 H Broad Casts 4 06/05/18 16:58 WBC RBC Hgb Hct MCV MCH MCHC RDW Plt Count MPV Neut % (Auto) Lymph % (Auto) [place] % (Auto) Eos % (Auto) Baso % (Auto) Neut # (Auto) Lymph # (Auto) [place] # (Auto) Eos # (Auto) Baso # (Auto) Puncture Site pCO2 pO2 HCO3 ABG pH ABG Total CO2 ABG O2 Saturation ABG Base Excess ABG Hemoglobin ABG Carboxyhemoglobin POC ABG HHb (Measured) ABG Methemoglobin Hitesh Test A-a O2 Difference Respiratory Index Hgb O2 Saturation FiO2 Sodium Potassium Chloride Carbon Dioxide Anion Gap BUN Creatinine Est GFR ( Amer) Est GFR (Non-Af Amer) POC Glucose (mg/dL) Random Glucose Lactic Acid Calcium Total Bilirubin AST ALT Alkaline Phosphatase Total Creatine Kinase 218 H CK-MB (Mass) 3.71 H Troponin I 0.3890 H* NT-Pro-B Natriuret Pep Total Protein Albumin Globulin Albumin/Globulin Ratio Urine Color Urine Clarity Urine pH Ur Specific [place] Urine Protein Urine Glucose (UA) Urine Ketones Urine Blood Urine Nitrate Urine Bilirubin Urine Urobilinogen Ur Leukocyte Esterase Urine WBC (Auto) Urine RBC (Auto) Ur Squamous Epith Cells Urine Bacteria Hyaline Casts Broad Casts Assessment & Plan (1) Seizure disorder Status: Acute Comment: partial complex probably, now on keppra f/u with neuro (2) CHF (congestive heart failure) Status: Chronic Comment: chronic R V failure NL EF on medical treatment, poo prognosis
[2018-06-05] MEDS: Albuterol-Ipratrop 3 mg / 0.5 (3 ml) UD INH SCH (20:44)
[2018-06-05] MEDS: Budesonide 0.25 mg/2 ml Inhal Susp UD INH SCH (20:44)
[2018-06-06 01:19] LABS: CK-MB 3.07 ng/mL (0.0-3.38); TROPONIN I 0.349 ng/mL (0.00-0.120)
[2018-06-06] MEDS: Albuterol-Ipratrop 3 mg / 0.5 (3 ml) UD INH SCH ×4 (02:38→20:29)
--- NOTE | 2018-06-06 07:33 | CP.PCM.PN ---
<Palma Tamayo - Last Filed: 06/06/18 17:31> Subjective - Date & Time of Evaluation Date of Evaluation: 06/06/18 Time of Evaluation: 07:33 - Subjective Subjective: PGY-1 Palma aTmayo D.O. Medicine progress note for Dr. Kelly's service: Patient was seen and examined this morning. She is alert and oriented. She says she feels fine. Denies chest pain, SOB, palpitations. Denies shaking/tremors. She denies vaginal pain or itching. Denies abdominal pain or itching. Objective - Vital Signs/Intake and Output Vital Signs (last 24 hours): Temp Pulse Resp BP Pulse Ox 97.9 F 92 H 20 148/85 96 06/05/18 23:39 06/05/18 23:45 06/05/18 23:39 06/05/18 23:39 06/06/18 04:38 Intake and Output: 06/06/18 06/06/18 06:59 18:59 Output Total 150 Balance -150 - Medications Medications: Current Medications Albuterol/Ipratropium (Duoneb 3 Mg/0.5 Mg (3 Ml) Ud) 3 ml INH RQ6 [facility] Last Admin: 06/06/18 02:38 Dose: Not Given Allopurinol (Zyloprim) 100 mg PO DAILY [facility] Last Admin: 06/05/18 09:55 Dose: 100 mg Apixaban (Eliquis) 5 mg PO DAILY [facility] Last Admin: 06/05/18 09:56 Dose: 5 mg Aspirin (Ecotrin) 81 mg PO DAILY [facility] Last Admin: 06/05/18 09:56 Dose: 81 mg Budesonide (Pulmicort Respules) 0.25 mg INH RQ12 [facility] Last Admin: 06/05/18 20:44 Dose: Not Given Carvedilol (Coreg) 3.125 mg PO HS [facility] Last Admin: 06/05/18 21:20 Dose: 3.125 mg Docusate Sodium (Colace) 100 mg PO BID [facility] Last Admin: 06/05/18 17:54 Dose: 100 mg Furosemide (Lasix) 20 mg IVP DAILY [facility] Ceftriaxone Sodium 1 gm/ (Sodium Chloride) 100 mls @ 100 mls/hr IVPB Q12H [facility]; Protocol Last Admin: 06/06/18 06:04 Dose: 100 mls/hr Lactobacillus Acidophilus (Lactobacillus) 1 cap PO BID [facility] Last Admin: 06/05/18 17:54 Dose: 1 cap Levetiracetam (Keppra) 250 mg PO BID [facility] Nystatin (Nystop Topical Powder) 1 applic TOP BID [facility] Last Admin: 06/05/18 17:54 Dose: 1 applic Rosuvastatin Calcium (Crestor) 10 mg PO HS [facility] Last Admin: 06/05/18 21:19 Dose: 10 mg - Labs Labs: 06/05/18 01:28 06/05/18 01:28 - Constitutional Appears: Non-toxic, No Acute Distress - Head Exam Head Exam: ATRAUMATIC, NORMAL INSPECTION - Eye Exam Eye Exam: EOMI, Normal appearance - ENT Exam ENT Exam: Mucous Membranes Moist - Neck Exam Neck Exam: Normal Inspection - Respiratory Exam Respiratory Exam: Decreased Breath Sounds, Clear to Ausculation Bilateral, NORMAL BREATHING PATTERN - Cardiovascular Exam Cardiovascular Exam: RRR, +S1, +S2 - GI/Abdominal Exam GI & Abdominal Exam: Soft. absent: Distended, Tenderness - Extremities Exam Extremities Exam: Pedal Edema, Tenderness - Neurological Exam Neurological Exam: Alert, Awake, CN II-XII Intact, Oriented x3 - Psychiatric Exam Psychiatric exam: Normal Affect, Normal Mood - Skin Skin Exam: Dry, Normal Color, Warm Assessment and Plan - Assessment and Plan (Free Text) Assessment: 87 year old female with PMHx of CHF, COPD, HTN, HLD, asthma, previous DVT with IVC filter placement, PAD and arthritis admitted for altered mental status, likely secondary to UTI. Patient was just discharged the previous day from a hospital stay for CHF exacerbation. AMS has resolved. Neurology consulted for h/o seizure disorder. Patient being treated for UTI. Plan: Delirium secondary to Urinary tract infection, acute, improving - CT head: no acute pathology - Afebrile - No leukocytosis- leukopenia at baseline (stable) - Lactate wnl (1.9) - Procal low <0.05 - UA: 2+ leukocyte esterase, WBC of 23, rare jared - Repeat pending - Urine Cx pending - Blood Cx pending - Rocephin 1g IVPB Q12H- started 06/05 - Lactobacillus BID H/o Seizure disorder - CT head: no acute pathology - Keppra 250 mg PO BID - Neurology consulted (Miguel Angel) Diastolic congestive heart failure HFpEF with Elevated troponins - CXR on admission: cardiomegaly and pulmoary vascular congestion with small right pleural effusion - Chest CT (prior admission): bilateral small pleural effusions - Echocardiogram (06/02) shows EF 65-70%, severe pulmonary hypertension. grade I diastolic dysfunction. 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 Supportive care. TNI was checked, again elevated minimally, again it is not an CO, did not cause change of mentation. 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 - Eliquis 5 mg PO daily Intertrigo to lower abdominal folds - Nystatin power BID Peripheral artery disease, chronic - ASA 81 mg PO daily - Crestor 10 mg PO QHS Thrombocytopenia, chronic, stable - Platelets 84 - Monitor Hypertension, chronic - Vitals Q6H - Lasix 20mg IVP daily - Coreg 3.125 mg PO QHS - Losartan 100 mg PO daily Hyperlipidemia, chronic - TG/CHL/LDL/HDL is 69/77/37/42 on 06/02 - Crestor 10mg PO HS H/o Gout - Allopurinol 100 mg PO daily Ppx: VTE: SCDs, Eliquis GI: not indicated Diet: Heart healthy Case discussed with attending, Dr. Kelly. <Heide Kelly V - Last Filed: 06/06/18 19:08> Objective - Vital Signs/Intake and Output Vital Signs (last 24 hours): Temp Pulse Resp BP Pulse Ox 97.7 F 90 20 113/79 100 06/06/18 16:03 06/06/18 18:00 06/06/18 16:03 06/06/18 16:03 06/06/18 16:03 - Medications Medications: Current Medications Albuterol/Ipratropium (Duoneb 3 Mg/0.5 Mg (3 Ml) Ud) 3 ml INH RQ6 [facility] Last Admin: 06/06/18 13:39 Dose: Not Given Allopurinol (Zyloprim) 100 mg PO DAILY [facility] Last Admin: 06/06/18 09:49 Dose: 100 mg Apixaban (Eliquis) 5 mg PO DAILY [facility] Last Admin: 06/06/18 09:49 Dose: 5 mg Aspirin (Ecotrin) 81 mg PO DAILY [facility] Last Admin: 06/06/18 09:48 Dose: 81 mg Budesonide (Pulmicort Respules) 0.25 mg INH RQ12 [facility] Last Admin: 06/06/18 09:06 Dose: Not Given Carvedilol (Coreg) 3.125 mg PO HS [facility] Last Admin: 06/05/18 21:20 Dose: 3.125 mg Docusate Sodium (Colace) 100 mg PO BID [facility] Last Admin: 06/06/18 17:16 Dose: Not Given Furosemide (Lasix) 20 mg IVP DAILY [facility] Last Admin: 06/06/18 09:49 Dose: 20 mg Ceftriaxone Sodium 1 gm/ (Sodium Chloride) 100 mls @ 100 mls/hr IVPB Q12H [facility]; Protocol Last Admin: 06/06/18 18:59 Dose: 100 mls/hr Lactobacillus Acidophilus (Lactobacillus) 1 cap PO BID [facility] Last Admin: 06/06/18 17:18 Dose: 1 cap Levetiracetam (Keppra) 250 mg PO BID [facility] Last Admin: 06/06/18 17:18 Dose: 250 mg Nystatin (Nystop Topical Powder) 1 applic TOP BID [facility] Last Admin: 06/06/18 17:18 Dose: 1 applic Rosuvastatin Calcium (Crestor) 10 mg PO HS [facility] Last Admin: 06/05/18 21:19 Dose: 10 mg - Labs Labs: 06/06/18 07:50 06/06/18 07:50 Attending/Attestation - Attestation I have personally seen and examined this patient.: Yes I have fully participated in the care of the patient.: Yes I have reviewed all pertinent clinical information, including history, physical exam and plan: Yes Notes (Text): This is an 87-year-old female past medical history of acute on chronic right- sided heart failure, severe pulmonary hypertension, IVC filter, right chronic DVT, 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 Patient seen at bedside this morning does not appear in any acute distress no focal neuro deficits no family members at bedside she remains weak and pleasant recognizes me from her prior hospitalization as well. Patient restarted on Keppra per Dr. Sousa who is known the patient for quite some time and I spoke with Dr. Michelle who seen patisugey t in prior hospitalization and has done EEG for her in the past which was normal will come to evaluate the patient tomorrow. We did plan to repeat UA and urine culture since patient did come in with an abnormal UA. Patient has been on Rocephin since yesterday to cover for urinary tract infection patient is currently on a perwick for urine collection. Noted patient repeat ABG while she is on 2 L of nasal cannula which shows improvement of hypoxia while on supplemental oxygen. We will need to follow-up with neuro to see if needs any additional workup while hospitalized. Patient will continue gentle diuresis for her known history of right-sided heart failure.
[2018-06-06 08:16] LABS: ALB/GLOB RATIO 1.1 (1.0-2.1); ALBUMIN 3.5 g/dL (3.5-5.0); CALCIUM 9.1 mg/dl (8.6-10.4)
[2018-06-06 08:21] LABS: BASO % 0.2 % (0.0-2.0); EOS % 0.3 % (0.0-4.0); HEMOGLOBIN 11.8 g/dL (11.0-16.0); LYMPH # 0.6 K/uL (1.0-4.3); LYMPH % 14.1 % (20.0-40.0); MEAN CELL VOLUME 82.4 fL (81.0-99.0); MEAN CORPUSCULAR HEMOGLOBIN 27.8 pg (27.0-31.0); MEAN CORPUSCULAR HGB CONC 33.7 g/dL (33.0-37.0); MEAN PLATELET VOLUME 9.3 fL (7.2-11.7); MONO # 0.4 K/uL (0.0-0.8); MONO % 10.1 % (0.0-10.0); NEUT % 75.3 % (50.0-75.0); NRBC % 0.3 % (0.0-2.0); RBC 4.24 Mil/uL (3.80-5.20); RED CELL DISTRIBUTION WIDTH 14.6 % (11.5-14.5)
[2018-06-06] MEDS: Budesonide 0.25 mg/2 ml Inhal Susp UD INH SCH ×2 (09:06→20:29)
[2018-06-06] MEDS: Lactobacillus Acidophilus 500 MU Cap PO SCH ×2 (09:48→17:18)
--- NOTE | 2018-06-06 11:28 | CP.PCM.PN ---
Subjective - Date & Time of Evaluation Date of Evaluation: 06/06/18 Time of Evaluation: 13:00 - Subjective Subjective: no furthe episodes, on keppra, stable vitals alert oriented Objective - Vital Signs/Intake and Output Vital Signs (last 24 hours): Temp Pulse Resp BP Pulse Ox 98.0 F 91 H 20 119/81 99 06/06/18 08:00 06/06/18 10:00 06/06/18 08:00 06/06/18 09:49 06/06/18 10:00 Intake and Output: 06/06/18 06/06/18 06:59 18:59 Output Total 150 Balance -150 - Medications Medications: Current Medications Albuterol/Ipratropium (Duoneb 3 Mg/0.5 Mg (3 Ml) Ud) 3 ml INH RQ6 [facility] Last Admin: 06/06/18 09:06 Dose: Not Given Allopurinol (Zyloprim) 100 mg PO DAILY [facility] Last Admin: 06/06/18 09:49 Dose: 100 mg Apixaban (Eliquis) 5 mg PO DAILY [facility] Last Admin: 06/06/18 09:49 Dose: 5 mg Aspirin (Ecotrin) 81 mg PO DAILY [facility] Last Admin: 06/06/18 09:48 Dose: 81 mg Budesonide (Pulmicort Respules) 0.25 mg INH RQ12 [facility] Last Admin: 06/06/18 09:06 Dose: Not Given Carvedilol (Coreg) 3.125 mg PO HS [facility] Last Admin: 06/05/18 21:20 Dose: 3.125 mg Docusate Sodium (Colace) 100 mg PO BID [facility] Last Admin: 06/06/18 09:54 Dose: Not Given Furosemide (Lasix) 20 mg IVP DAILY [facility] Last Admin: 06/06/18 09:49 Dose: 20 mg Ceftriaxone Sodium 1 gm/ (Sodium Chloride) 100 mls @ 100 mls/hr IVPB Q12H [facility]; Protocol Last Admin: 06/06/18 06:04 Dose: 100 mls/hr Lactobacillus Acidophilus (Lactobacillus) 1 cap PO BID [facility] Last Admin: 06/06/18 09:48 Dose: 1 cap Levetiracetam (Keppra) 250 mg PO BID [facility] Last Admin: 06/06/18 09:49 Dose: 250 mg Nystatin (Nystop Topical Powder) 1 applic TOP BID [facility] Last Admin: 06/06/18 10:31 Dose: 1 applic Rosuvastatin Calcium (Crestor) 10 mg PO HS [facility] Last Admin: 06/05/18 21:19 Dose: 10 mg - Labs Labs: 06/06/18 07:50 06/06/18 07:50 - Constitutional Appears: Well - Head Exam Head Exam: ATRAUMATIC - Eye Exam Eye Exam: EOMI - ENT Exam ENT Exam: Mucous Membranes Moist - Neck Exam Neck Exam: absent: Lymphadenopathy - Respiratory Exam Respiratory Exam: absent: Chest Wall Tenderness, Rhonchi, Wheezes - Cardiovascular Exam Cardiovascular Exam: REGULAR RHYTHM, Murmur - GI/Abdominal Exam GI & Abdominal Exam: Soft, Normal Bowel Sounds. absent: Organomegaly - Rectal Exam Rectal Exam: Deferred - Extremities Exam Extremities Exam: Normal Capillary Refill. absent: Calf Tenderness - Neurological Exam Neurological Exam: Alert, Oriented x3 - Psychiatric Exam Psychiatric exam: Anxious - Skin Skin Exam: Dry Assessment and Plan (1) Seizure disorder Assessment & Plan: Stable on Keppra follow-up with neurology Status: Acute (2) CHF (congestive heart failure) Status: Chronic
[2018-06-06 16:29] LABS: ABG ALLEN TEST POS; ARTERIAL BLOOD GAS HCO3 31.5 mmol/L (21-28); ARTERIAL BLOOD GAS PCO2 47 mm/Hg (35-45); ARTERIAL BLOOD GAS PH 7.46 (7.35-7.45); ARTERIAL BLOOD GAS PO2 154 mm/Hg (80-100); ARTERIAL BLOOD GAS TCO2 34.8 mmol/L (22-28)
[2018-06-06 19:42] LABS: SQUAMOUS EPITHIAL 6 /hpf (0-5); URINE BACTERIA RARE (<OCC); URINE BILIRUBIN NEGATIVE (NEGATIVE); URINE BLOOD 1+ (NEGATIVE); URINE CLARITY Clear (Clear); URINE COLOR Yellow (YELLOW); URINE GLUCOSE (UA) NORMAL (Normal); URINE LEUKOCYTE ESTERASE 2+ Leu/uL (Negative); URINE PROTEIN NEGATIVE (NEGATIVE); URINE UROBILINOGEN NORMAL mg/dL (0.2-1.0)
[2018-06-06 23:14] LABS: PROLACTIN 16.9 ng/mL (3.0-18.9)
[2018-06-07] MEDS: Albuterol-Ipratrop 3 mg / 0.5 (3 ml) UD INH SCH ×5 (01:36→19:05)
--- NOTE | 2018-06-07 07:11 | CP.PCM.CON ---
History of Present Illness - History of Present Illness History of Present Illness: CONSULTATION DICTATED PARTIAL COMPLEX SEIZURE ? INC KEPPRA TO 500 MG BID EEG/MRI Past Patient History - Infectious Disease Hx of Infectious Diseases: None - Past Medical History & Family History Past Medical History?: Yes - Past Social History Smoking Status: Never Smoked - CARDIAC Hx Congestive Heart Failure: Yes Hx Hypercholesterolemia: Yes Hx Hypertension: Yes - PULMONARY Hx Asthma: Yes - NEUROLOGICAL Hx Neurological Disorder: Yes Hx Syncope: Yes (10 yrs ago unknown reason) - HEENT Hx HEENT Problems: Yes Hx Cataracts: Yes Hx Glaucoma: Yes - RENAL Hx Chronic Kidney Disease: No - ENDOCRINE/METABOLIC Hx Endocrine Disorders: No - HEMATOLOGICAL/ONCOLOGICAL Hx Blood Disorders: No - INTEGUMENTARY Hx Dermatological Problems: No - MUSCULOSKELETAL/RHEUMATOLOGICAL Hx Arthritis: Yes - GASTROINTESTINAL Hx Gastrointestinal Disorders: No - GENITOURINARY/GYNECOLOGICAL Hx Genitourinary Disorders: No - PSYCHIATRIC Hx Substance Use: No - SURGICAL HISTORY Hx Surgeries: Yes Hx Cataract Extraction: Yes (cat ext left eye iol 7 yrs ago) Hx Hysterectomy: Yes Hx Orthopedic Surgery: Yes (R leg) Hx Vascular Surgery: Yes - ANESTHESIA Hx Anesthesia: Yes Hx Anesthesia Reactions: No Hx Malignant Hyperthermia: No Meds Allergies/Adverse Reactions: Allergies Allergy/AdvReac Type Severity Reaction Status Date / Time acetaminophen [From Percocet] AdvReac RASH Verified 06/05/18 00:51 hydromorphone [From Dilaudid] AdvReac RASH Verified 06/05/18 00:51 oxycodone [From Percocet] AdvReac RASH Verified 06/05/18 00:51 - Medications Medications: Current Medications Albuterol/Ipratropium (Duoneb 3 Mg/0.5 Mg (3 Ml) Ud) 3 ml INH RQ6 [facility] Last Admin: 06/07/18 01:36 Dose: Not Given Allopurinol (Zyloprim) 100 mg PO DAILY [facility] Last Admin: 06/06/18 09:49 Dose: 100 mg Apixaban (Eliquis) 5 mg PO DAILY [facility] Last Admin: 06/06/18 09:49 Dose: 5 mg Aspirin (Ecotrin) 81 mg PO DAILY [facility] Last Admin: 06/06/18 09:48 Dose: 81 mg Budesonide (Pulmicort Respules) 0.25 mg INH RQ12 [facility] Last Admin: 06/06/18 20:29 Dose: 0.25 mg Carvedilol (Coreg) 3.125 mg PO HS [facility] Last Admin: 06/06/18 21:04 Dose: 3.125 mg Docusate Sodium (Colace) 100 mg PO BID [facility] Last Admin: 06/06/18 17:16 Dose: Not Given Furosemide (Lasix) 20 mg IVP DAILY [facility] Last Admin: 06/06/18 09:49 Dose: 20 mg Ceftriaxone Sodium 1 gm/ (Sodium Chloride) 100 mls @ 100 mls/hr IVPB Q12H [facility]; Protocol Last Admin: 06/07/18 06:10 Dose: 100 mls/hr Lactobacillus Acidophilus (Lactobacillus) 1 cap PO BID [facility] Last Admin: 06/06/18 17:18 Dose: 1 cap Levetiracetam (Keppra) 500 mg PO BID [facility] Nystatin (Nystop Topical Powder) 1 applic TOP BID [facility] Last Admin: 06/06/18 17:18 Dose: 1 applic Rosuvastatin Calcium (Crestor) 10 mg PO HS [facility] Last Admin: 06/06/18 21:04 Dose: 10 mg Results - Vital Signs Recent Vital Signs: Last Vital Signs Temp 97.6 F 06/06/18 23:25 Pulse 95 H 06/06/18 23:45 Resp 20 06/06/18 23:25 BP 109/69 06/06/18 23:25 Pulse Ox 99 06/06/18 23:45 - Labs Result Diagrams: 06/06/18 07:50 06/06/18 07:50 Labs: Laboratory Results - last 24 hr 06/06/18 06/06/18 06/06/18 07:50 07:50 16:20 WBC 4.0 L RBC 4.24 Hgb 11.8 Hct 34.9 MCV 82.4 MCH 27.8 MCHC 33.7 RDW 14.6 H Plt Count 84 L MPV 9.3 Neut % (Auto) 75.3 H Lymph % (Auto) 14.1 L [place] % (Auto) 10.1 H Eos % (Auto) 0.3 Baso % (Auto) 0.2 Neut # (Auto) 3.0 Lymph # (Auto) 0.6 L [place] # (Auto) 0.4 Eos # (Auto) 0.0 Baso # (Auto) 0.0 Puncture Site Rba pCO2 47 H pO2 154 H HCO3 31.5 H ABG pH 7.46 H ABG Total CO2 34.8 H ABG O2 Saturation 100.0 H ABG Base Excess 8.3 H Hitesh Test Pos ABG Potassium 3.4 L Glucose 83 Lactate 1.2 Sodium 138 138.0 Potassium 4.2 Chloride 96 L 101.0 Carbon Dioxide 31 H Anion Gap 15 BUN 30 H Creatinine 1.3 H Est GFR ( Amer) 47 Est GFR (Non-Af Amer) 39 Random Glucose 80 D Calcium 9.1 Phosphorus 4.6 H Magnesium 1.9 Total Bilirubin 0.7 AST 76 H ALT 48 Alkaline Phosphatase 80 NT-Pro-B Natriuret Pep 6060 H Total Protein 6.7 Albumin 3.5 Globulin 3.2 Albumin/Globulin Ratio 1.1 Prolactin Arterial Blood Potassium 3.4 L Urine Color Urine Clarity Urine pH Ur Specific [place] Urine Protein Urine Glucose (UA) Urine Ketones Urine Blood Urine Nitrate Urine Bilirubin Urine Urobilinogen Ur Leukocyte Esterase Urine WBC (Auto) Urine RBC (Auto) Ur Squamous Epith Cells Urine Bacteria 06/06/18 06/06/18 19:25 22:38 WBC RBC Hgb Hct MCV MCH MCHC RDW Plt Count MPV Neut % (Auto) Lymph % (Auto) [place] % (Auto) Eos % (Auto) Baso % (Auto) Neut # (Auto) Lymph # (Auto) [place] # (Auto) Eos # (Auto) Baso # (Auto) Puncture Site pCO2 pO2 HCO3 ABG pH ABG Total CO2 ABG O2 Saturation ABG Base Excess Hietsh Test ABG Potassium Glucose Lactate Sodium Potassium Chloride Carbon Dioxide Anion Gap BUN Creatinine Est GFR ( Amer) Est GFR (Non-Af Amer) Random Glucose Calcium Phosphorus 4.3 Magnesium 2.0 Total Bilirubin AST ALT Alkaline Phosphatase NT-Pro-B Natriuret Pep Total Protein Albumin Globulin Albumin/Globulin Ratio Prolactin 16.9 Arterial Blood Potassium Urine Color Yellow Urine Clarity Clear Urine pH 5.0 Ur Specific [place] 1.015 Urine Protein Negative Urine Glucose (UA) Normal Urine Ketones Negative Urine Blood 1+ H Urine Nitrate Negative Urine Bilirubin Negative Urine Urobilinogen Normal Ur Leukocyte Esterase 2+ H Urine WBC (Auto) 13 H Urine RBC (Auto) 1 Ur Squamous Epith Cells 6 H Urine Bacteria Rare
[2018-06-07] MEDS: Budesonide 0.25 mg/2 ml Inhal Susp UD INH SCH ×4 (07:51→19:06)
[2018-06-07 07:58] LABS: BASO % 0.2 % (0.0-2.0); EOS % 0.4 % (0.0-4.0); HEMOGLOBIN 11.6 g/dL (11.0-16.0); LYMPH # 0.5 K/uL (1.0-4.3); LYMPH % 15.1 % (20.0-40.0); MEAN CELL VOLUME 82.2 fL (81.0-99.0); MEAN CORPUSCULAR HEMOGLOBIN 27.5 pg (27.0-31.0); MEAN CORPUSCULAR HGB CONC 33.4 g/dL (33.0-37.0); MEAN PLATELET VOLUME 9.4 fL (7.2-11.7); MONO # 0.6 K/uL (0.0-0.8); NEUT # 2.4 K/uL (1.8-7.0); NEUT % 67.3 % (50.0-75.0); NRBC % 0.1 % (0.0-2.0); RBC 4.22 Mil/uL (3.80-5.20); RED CELL DISTRIBUTION WIDTH 14.9 % (11.5-14.5); WHITE BLOOD COUNT 3.5 K/uL (4.8-10.8)
[2018-06-07 08:10] LABS: ALB/GLOB RATIO 1.1 (1.0-2.1); ALBUMIN 3.4 g/dL (3.5-5.0); ALT/SGPT 36 U/L (9-52); AST/SGOT 64 U/L (14-36); BLOOD UREA NITROGEN 26 mg/dL (7-17); CALCIUM 8.7 mg/dl (8.6-10.4); GFR NON-AFRICAN AMERICAN 52
--- NOTE | 2018-06-07 08:11 | CP.PCM.PN ---
<Carlos Castellano - Last Filed: 06/07/18 13:31> Subjective - Date & Time of Evaluation Date of Evaluation: 06/07/18 Time of Evaluation: 08:09 - Subjective Subjective: Medicine progress note for Dr. Carlos Suresh Pt seen and examined at bedside. Pt is resting comfortably, denies any complaints at this time. Denies fevers, chills, chest pain sob, palpitations, abdominal pain, n/v/d, dysuria, headache, dizziness, seizure-like activity, lightheadedness. Objective - Vital Signs/Intake and Output Vital Signs (last 24 hours): Temp Pulse Resp BP Pulse Ox 97.6 F 95 H 20 109/69 99 06/06/18 23:25 06/06/18 23:45 06/06/18 23:25 06/06/18 23:25 06/06/18 23:45 Intake and Output: 06/07/18 06/07/18 06:59 18:59 Output Total 250 Balance -250 - Medications Medications: Current Medications Albuterol/Ipratropium (Duoneb 3 Mg/0.5 Mg (3 Ml) Ud) 3 ml INH RQ6 [facility] Last Admin: 06/07/18 07:55 Dose: 3 ml Allopurinol (Zyloprim) 100 mg PO DAILY [facility] Last Admin: 06/06/18 09:49 Dose: 100 mg Apixaban (Eliquis) 5 mg PO DAILY [facility] Last Admin: 06/06/18 09:49 Dose: 5 mg Aspirin (Ecotrin) 81 mg PO DAILY [facility] Last Admin: 06/06/18 09:48 Dose: 81 mg Budesonide (Pulmicort Respules) 0.25 mg INH RQ12 [facility] Last Admin: 06/07/18 07:56 Dose: 0.25 mg Carvedilol (Coreg) 3.125 mg PO HS [facility] Last Admin: 06/06/18 21:04 Dose: 3.125 mg Docusate Sodium (Colace) 100 mg PO BID [facility] Last Admin: 06/06/18 17:16 Dose: Not Given Furosemide (Lasix) 20 mg IVP DAILY [facility] Last Admin: 06/06/18 09:49 Dose: 20 mg Ceftriaxone Sodium 1 gm/ (Sodium Chloride) 100 mls @ 100 mls/hr IVPB Q12H [facility]; Protocol Last Admin: 06/07/18 06:10 Dose: 100 mls/hr Lactobacillus Acidophilus (Lactobacillus) 1 cap PO BID [facility] Last Admin: 06/06/18 17:18 Dose: 1 cap Levetiracetam (Keppra) 500 mg PO BID [facility] Nystatin (Nystop Topical Powder) 1 applic TOP BID [facility] Last Admin: 06/06/18 17:18 Dose: 1 applic Rosuvastatin Calcium (Crestor) 10 mg PO HS [facility] Last Admin: 06/06/18 21:04 Dose: 10 mg - Labs Labs: 06/06/18 07:50 06/06/18 07:50 - Additional Findings Additional findings: - Constitutional Appears: Non-toxic, No Acute Distress, Chronically Ill - Head Exam Head Exam: ATRAUMATIC, NORMAL INSPECTION - Eye Exam Eye Exam: EOMI, Normal appearance, PERRL - ENT Exam ENT Exam: Mucous Membranes Moist Additional comments: no tongue laceration - Neck Exam Neck exam: Positive for: Normal Inspection - Respiratory Exam Respiratory Exam: Decreased Breath Sounds, Clear to Auscultation Bilateral, N ORMAL BREATHING PATTERN. absent: Rales, Rhonchi, Wheezes, Stridor - Cardiovascular Exam Cardiovascular Exam: REGULAR RHYTHM, +S1, +S2 Additional comments: 1/6 Systolic Ejection Murmur - GI/Abdominal Exam GI & Abdominal Exam: Normal Bowel Sounds, Soft. absent: Distended, Firm, Rebound, Tenderness Additional comments: no suprapubic tenderness - Back Exam Back Exam: No CVA tenderness bilaterally - Extremities Exam Extremities exam: Positive for: pedal edema. Negative for: calf tenderness Additional comments: 2+ pitting edema to bilateral lower extremities to the mid ruiz. Bilateral thready DP pulses. Capillary refill < 3 seconds bilateral toes. Limited ROM of lower extremities secondary to severe arthritis. (+) prevalon boots - Neurological Exam Neurological exam: Alert, CN II-XII Intact, Oriented x3 Additional comments: decreased strength in the bilateral lower extremities - Psychiatric Exam Psychiatric exam: Normal Affect, Normal Mood - Skin Skin Exam: Dry, Intact, Normal Color, Warm - Additional Findings Additional findings: (+) erythema to the lower abdominal skin folds Assessment and Plan - Assessment and Plan (Free Text) Assessment: 87 year old female with PMHx of CHF, COPD, HTN, HLD, asthma, previous DVT with IVC filter placement, PAD and arthritis admitted for altered mental status, likely secondary to UTI. Patient was just discharged the previous day from a hospital stay for CHF exacerbation. AMS has resolved. Neurology consulted for h/o seizure disorder. Patient being treated for UTI. Plan: Delirium secondary to Urinary tract infection, acute, improving - CT head: no acute pathology - Afebrile - No leukocytosis- leukopenia at baseline (stable) - Lactate wnl (1.9) on admission - Procal low <0.05 - UA: 2+ leukocyte esterase, WBC of 23, rare jared - Repeat shows similar findings, but with squamous cells - F/u Urine C and S catheterized - Urine Cx 06/05 shows E. coli sensitive to Ceftriaxone - Blood Cx prelim negative for 48 hours - Rocephin 1g IVPB Q12H- started 06/05 - Lactobacillus BID - Carotid dopplers shows no hemodynamically significant lesions bilaterally. - F/u EEG, completed but not read. - F/u brain MRI without contrast H/o Seizure disorder - CT head: no acute pathology - Prolactin is normal at 16.9 - Neurology consulted (Miguel Angel) * Potential partial complex seizures. Keppra 250 PO BID increased to 500 mg PO BID. EEG and MRI without contrast of the brain. Diastolic congestive heart failure HFpEF with Elevated troponins - CXR on admission: cardiomegaly and pulmoary vascular congestion with small right pleural effusion - Chest CT (prior admission): bilateral small pleural effusions - Echocardiogram (06/02) shows EF 65-70%, severe pulmonary hypertension. grade I diastolic dysfunction. 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 Supportive care. TNI was checked, again elevated minimally, again it is not an VT, did not cause change of mentation. 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 - Eliquis 5 mg PO daily - CI to SCDs Intertrigo to lower abdominal folds - Nystatin power BID Peripheral artery disease, chronic - ASA 81 mg PO daily - Crestor 10 mg PO QHS Thrombocytopenia, chronic, stable - Platelets 87 - Monitor Hypertension, chronic - Vitals Q6H - Lasix 20mg IVP daily - Coreg 3.125 mg PO QHS - Losartan 100 mg PO daily Hyperlipidemia, chronic - TG/CHL/LDL/HDL is 69/77/37/42 on 06/02 - Crestor 10mg PO HS H/o Gout - Allopurinol 100 mg PO daily Ppx: VTE: Eliquis, SCDs contraindicated GI: not indicated Diet: Heart healthy <Carmine Suresh - Last Filed: 06/07/18 14:59> Objective - Vital Signs/Intake and Output Vital Signs (last 24 hours): Temp Pulse Resp BP Pulse Ox 97.7 F 82 20 109/73 100 06/07/18 08:00 06/07/18 08:00 06/07/18 08:00 06/07/18 10:50 06/07/18 08:00 Intake and Output: 06/07/18 06/07/18 06:59 18:59 Output Total 250 Balance -250 - Medications Medications: Current Medications Albuterol/Ipratropium (Duoneb 3 Mg/0.5 Mg (3 Ml) Ud) 3 ml INH RQ6 [facility] Last Admin: 06/07/18 13:28 Dose: 3 ml Allopurinol (Zyloprim) 100 mg PO DAILY [facility] Last Admin: 06/07/18 10:50 Dose: 100 mg Apixaban (Eliquis) 5 mg PO DAILY [facility] Last Admin: 06/07/18 10:50 Dose: 5 mg Aspirin (Ecotrin) 81 mg PO DAILY [facility] Last Admin: 06/07/18 10:50 Dose: 81 mg Budesonide (Pulmicort Respules) 0.25 mg INH RQ12 [facility] Last Admin: 06/07/18 07:56 Dose: 0.25 mg Carvedilol (Coreg) 3.125 mg PO [facility] Last Admin: 06/06/18 21:04 Dose: 3.125 mg Docusate Sodium (Colace) 100 mg PO BID [facility] Last Admin: 06/07/18 10:50 Dose: 100 mg Furosemide (Lasix) 20 mg IVP DAILY [facility] Last Admin: 06/07/18 10:50 Dose: 20 mg Ceftriaxone Sodium 1 gm/ (Sodium Chloride) 100 mls @ 100 mls/hr IVPB Q12H [facility]; Protocol Last Admin: 06/07/18 06:10 Dose: 100 mls/hr Lactobacillus Acidophilus (Lactobacillus) 1 cap PO BID [facility] Last Admin: 06/07/18 10:50 Dose: 1 cap Levetiracetam (Keppra) 500 mg PO BID [facility] Last Admin: 06/07/18 10:50 Dose: 500 mg Nystatin (Nystop Topical Powder) 1 applic TOP BID [facility] Last Admin: 06/07/18 10:50 Dose: 1 applic Rosuvastatin Calcium (Crestor) 10 mg PO [facility] Last Admin: 06/06/18 21:04 Dose: 10 mg - Labs Labs: 06/07/18 07:40 06/07/18 07:40 Attending/Attestation - Attestation I have personally seen and examined this patient.: Yes I have fully participated in the care of the patient.: Yes I have reviewed all pertinent clinical information, including history, physical exam and plan: Yes Notes (Text): 06/07/18 14:53 Patient was seen and examined at 10:55 AM Care of this patient was gone over in detail with resident Dr. Castellano. F/U EEG report F/U MRI Brain (which I have stressed to Nurse Audelia needs to be done today) F/U repeat Urine Culture Catheterized 06/07/18 Urine Culture shows E. coli sensitive to only IV antibiotics. Disposition: D/C to home once above studies performed and NO issues. Spoke with Son Noah who was at bedside and he was updated as to patient's care Carmine Suresh D.O.
[2018-06-07 08:51] LABS: B-TYPE NATRIURETIC PEPTIDE 5150 pg/mL (0-900)
[2018-06-07] MEDS: Lactobacillus Acidophilus 500 MU Cap PO SCH ×2 (10:50→17:02)
--- NOTE | 2018-06-07 12:17 | CP.PCM.PN ---
Subjective - Date & Time of Evaluation Date of Evaluation: 06/07/18 Time of Evaluation: 12:00 - Subjective Subjective: No further seizures, seen by neuro, agreed partial complex and increased Breath to 500 twice a day. The patient is stable with continue observation Objective - Vital Signs/Intake and Output Vital Signs (last 24 hours): Temp Pulse Resp BP Pulse Ox 97.7 F 82 20 104/71 100 06/07/18 08:00 06/07/18 08:00 06/07/18 08:00 06/07/18 08:00 06/07/18 08:00 Intake and Output: 06/07/18 06/07/18 06:59 18:59 Output Total 250 Balance -250 - Medications Medications: Current Medications Albuterol/Ipratropium (Duoneb 3 Mg/0.5 Mg (3 Ml) Ud) 3 ml INH RQ6 [facility] Last Admin: 06/07/18 07:55 Dose: 3 ml Allopurinol (Zyloprim) 100 mg PO DAILY [facility] Last Admin: 06/06/18 09:49 Dose: 100 mg Apixaban (Eliquis) 5 mg PO DAILY [facility] Last Admin: 06/06/18 09:49 Dose: 5 mg Aspirin (Ecotrin) 81 mg PO DAILY [facility] Last Admin: 06/06/18 09:48 Dose: 81 mg Budesonide (Pulmicort Respules) 0.25 mg INH RQ12 [facility] Last Admin: 06/07/18 07:56 Dose: 0.25 mg Carvedilol (Coreg) 3.125 mg PO HS [facility] Last Admin: 06/06/18 21:04 Dose: 3.125 mg Docusate Sodium (Colace) 100 mg PO BID [facility] Last Admin: 06/06/18 17:16 Dose: Not Given Furosemide (Lasix) 20 mg IVP DAILY [facility] Last Admin: 06/06/18 09:49 Dose: 20 mg Ceftriaxone Sodium 1 gm/ (Sodium Chloride) 100 mls @ 100 mls/hr IVPB Q12H [facility]; Protocol Last Admin: 06/07/18 06:10 Dose: 100 mls/hr Lactobacillus Acidophilus (Lactobacillus) 1 cap PO BID [facility] Last Admin: 06/06/18 17:18 Dose: 1 cap Levetiracetam (Keppra) 500 mg PO BID [facility] Nystatin (Nystop Topical Powder) 1 applic TOP BID [facility] Last Admin: 06/06/18 17:18 Dose: 1 applic Rosuvastatin Calcium (Crestor) 10 mg PO HS [facility] Last Admin: 06/06/18 21:04 Dose: 10 mg - Labs Labs: 06/07/18 07:40 06/07/18 07:40 - Constitutional Appears: Non-toxic - Head Exam Head Exam: ATRAUMATIC - Eye Exam Eye Exam: EOMI - ENT Exam ENT Exam: Mucous Membranes Moist - Neck Exam Neck Exam: absent: Lymphadenopathy, Thyromegaly - Respiratory Exam Respiratory Exam: Clear to Ausculation Bilateral - Cardiovascular Exam Cardiovascular Exam: REGULAR RHYTHM, Murmur - GI/Abdominal Exam GI & Abdominal Exam: Normal Bowel Sounds. absent: Organomegaly - Rectal Exam Rectal Exam: Deferred - Extremities Exam Extremities Exam: Normal Capillary Refill. absent: Calf Tenderness - Neurological Exam Neurological Exam: Alert, Oriented x3 - Psychiatric Exam Psychiatric exam: Normal Mood - Skin Skin Exam: Dry Assessment and Plan (1) Seizure disorder Status: Acute (2) CHF (congestive heart failure) Status: Chronic
--- NOTE | 2018-06-07 12:26 | VASCLAB ---
Date of service: 06/07/2018 PROCEDURE: Carotid Duplex Exam. HISTORY: AMS COMPARISON: None available. TECHNIQUE: Grayscale and duplex Doppler evaluation of the cervical carotid and vertebral arteries were performed. The common carotid, carotid bifurcations and cervical Internal Carotid Artery (ICA) and proximal External Carotid Artery (ECA) were evaluated. The vertebral arteries were evaluated for gross patency and flow direction. Report prepared by CHELE Booth FINDINGS: RIGHT CAROTID ARTERIES: 1. Common Carotid Artery: No significant focal plaque formation of the right common carotid artery. Maximum Peak Systolic velocity: 85 cm/sec: End-diastolic velocity 12 cm/sec. 2. Carotid Bifurcation: plaque formation. Maximum Peak Systolic velocity: 30 cm/sec: End-diastolic velocity 7 cm/sec. 3. Internal Carotid Artery: Plaque description: Calcific 3.1. Proximal Segment: Peak systolic velocity 30 cm/sec: End-diastolic velocity 11 cm/sec - % stenosis 0-15% 3.2. Middle Segment: Peak systolic velocity 58 cm/sec: End-diastolic velocity 12 cm/sec - % stenosis 0-15% 3.3. Distal Segment: Peak systolic velocity 77 cm/sec: End-diastolic velocity 14 cm/sec - % stenosis 0-15% 4. External Carotid Artery: No significant focal plaque formation. Peak systolic velocity 51 cm/sec 5. ICA/CCA Ratio: 2.4 LEFT CAROTID ARTERIES: 1. Common Carotid Artery: No significant focal plaque formation of the left common carotid artery. Maximum Peak Systolic velocity: 76 cm/sec: End-diastolic velocity 14 cm/sec. 2. Carotid Bifurcation: plaque formation. Maximum Peak Systolic velocity: 32 cm/sec: End-diastolic velocity 8 cm/sec. 3. Internal Carotid Artery: Plaque description: Calcific 3.1. Proximal Segment: Peak systolic velocity 29 cm/sec: End-diastolic velocity 11 cm/sec - % stenosis 0-15% 3.2. Middle Segment: Peak systolic velocity 93 cm/sec: End-diastolic velocity 30 cm/sec - % stenosis 0-15% 3.3. Distal Segment: Peak systolic velocity 49 cm/sec: End-diastolic velocity 16 cm/sec - % stenosis 0-15% 4. External Carotid Artery: No significant focal plaque formation. Peak systolic velocity 33 cm/sec 5. ICA/CCA Ratio: 2.6 VERTEBRAL ARTERIES: 1. Right Vertebral Artery: The right vertebral artery flow direction is antegrade. 2. Left Vertebral Artery: The left vertebral artery flow direction is antegrade. OTHER FINDINGS: NONE IMPRESSION: RIGHT: Duplex scan does not suggest hemodynamically significant stenosis of the right extracranial carotid arteries. LEFT: Duplex scan does not suggest hemodynamically significant stenosis of the left extracranial carotid arteries.
--- NOTE | 2018-06-07 13:03 | CP.PCM.PCO ---
Physician Communication Note - Physician Communication Note Physician Communication Note: Please see above
--- NOTE | 2018-06-07 16:27 | MRI ---
Date of service: 06/07/2018 PROCEDURE: MRI BRAIN WITHOUT CONTRAST HISTORY: r/o mass Vs bleed COMPARISON: CT head contrast from 06/05/2018. TECHNIQUE: Multiplanar, multisequence MR images of the brain were obtained without intravenous contrast enhancement. FINDINGS: HEMORRHAGE: None DWI: No evidence of an acute or early subacute infarction. BRAIN PARENCHYMA: There are moderate chronic microangiopathic changes. There are chronic lacunar infarctions in both cerebellar hemispheres there is no mass, mass effect or abnormal extra-axial fluid collection. There is no territorial infarction. The midline sagittal structures are normal. VENTRICLES: There is mild age-related global parenchymal volume loss and proportionate enlargement of the ventricles and cortical sulci. There are prominent perivascular spaces in bilateral basal ganglia. CRANIUM: There is normal bone marrow signal pattern. ORBITS: Grossly unremarkable. PARANASAL SINUSES/MASTOIDS: There is mild mucosal thickening in the paranasal sinuses. The mastoid air cells are predominantly clear. VASCULAR SYSTEM: There are normal signal voids in the larger intracranial arteries. OTHER FINDINGS: None. IMPRESSION: No acute intracranial abnormality. Moderate chronic microangiopathic changes and mild age-related global parenchymal volume loss. 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
--- NOTE | 2018-06-07 18:47 | CP.PCM.PN ---
Subjective - Date & Time of Evaluation Date of Evaluation: 06/07/18 Time of Evaluation: 09:00 - Subjective Subjective: 87 year old female day 2 of hospitalization seen at bedside with Dr. Penelope Suresh. Patient appears to be clinically improving. Her 02 saturation has improved and remain at 100% on 3L NC. Her urine has grown gram negative rods (E.coli). Penelope ent denies any more hand clenching/choking episodes overnight. 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 PE: HEENT: Atraumatic, normocephalic, moist mucous membranes, normal neck inspection Respiratory: Lungs clear to auscultation bilaterally Cardiovascular: regular rate and rhythm GI/abdominal: normoactive bowel sounds Extremities: +pedal edema, +chronic venous stasis, + Pneumatic compression devices Neurologic: alert Assesment/Plan: 1. 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 Continue current regimen of lasix 20mg daily, Continue Oxy gen, nebulizer, budesonide 2. Unresponisve episode Antibiotics for UTI. Neurology increased Keppra to 500mg and ordered an EEG for today 3. 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 Continue current medication regimen and PCD's while in bed. Objective - Vital Signs/Intake and Output Vital Signs (last 24 hours): Temp Pulse Resp BP Pulse Ox 97 F L 93 H 20 107/74 94 L 06/07/18 16:32 06/07/18 16:51 06/07/18 16:32 06/07/18 16:32 06/07/18 16:51 Intake and Output: 06/07/18 06/07/18 06:59 18:59 Output Total 250 Balance -250 - Medications Medications: Current Medications Albuterol/Ipratropium (Duoneb 3 Mg/0.5 Mg (3 Ml) Ud) 3 ml INH RQ6 [facility] Last Admin: 06/07/18 13:28 Dose: 3 ml Allopurinol (Zyloprim) 100 mg PO DAILY [facility] Last Admin: 06/07/18 10:50 Dose: 100 mg Apixaban (Eliquis) 5 mg PO DAILY [facility] Last Admin: 06/07/18 10:50 Dose: 5 mg Aspirin (Ecotrin) 81 mg PO DAILY [facility] Last Admin: 06/07/18 10:50 Dose: 81 mg Budesonide (Pulmicort Respules) 0.25 mg INH RQ12 [facility] Last Admin: 06/07/18 07:56 Dose: 0.25 mg Carvedilol (Coreg) 3.125 mg PO HS [facility] Last Admin: 06/06/18 21:04 Dose: 3.125 mg Docusate Sodium (Colace) 100 mg PO BID [facility] Last Admin: 06/07/18 17:02 Dose: 100 mg Furosemide (Lasix) 20 mg IVP DAILY [facility] Last Admin: 06/07/18 10:50 Dose: 20 mg Ceftriaxone Sodium 1 gm/ (Sodium Chloride) 100 mls @ 100 mls/hr IVPB Q12H [facility]; Protocol Last Admin: 06/07/18 06:10 Dose: 100 mls/hr Lactobacillus Acidophilus (Lactobacillus) 1 cap PO BID [facility] Last Admin: 06/07/18 17:02 Dose: 1 cap Levetiracetam (Keppra) 500 mg PO BID [facility] Last Admin: 06/07/18 17:02 Dose: 500 mg Nystatin (Nystop Topical Powder) 1 applic TOP BID [facility] Last Admin: 06/07/18 17:02 Dose: 1 applic Rosuvastatin Calcium (Crestor) 10 mg PO HS [facility] Last Admin: 06/06/18 21:04 Dose: 10 mg - Labs Labs: 06/07/18 07:40 06/07/18 07:40 Assessment and Plan (1) Pulmonary hypertension Status: Chronic (2) Unresponsive episode Status: Acute (3) 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
[2018-06-08] MEDS: Albuterol-Ipratrop 3 mg / 0.5 (3 ml) UD INH SCH ×3 (01:55→13:20)
--- NOTE | 2018-06-08 06:31 | CON ---
DATE: 06/07/2018 ATTENDING PHYSICIAN: . ROOM NUMBER: 553, bed A. REASON FOR THE CONSULTATION: Change in mental status and involuntary movements. CHIEF COMPLAINT: The patient was readmitted in [facility] with a history of change in mental status associating with involuntary movements. From neurological point of view, I was called into evaluate her for further management. HISTORY OF PRESENTING ILLNESS: The patient is an 87-year-old right-handed -Turkish female, who was recently discharged from [facility], treated for possible pulmonary embolism, significant pulmonary hypertension, heart failure, hypertension, dyslipidemia, and possible seizures. She had been treated 2 days ago and discharged from the [facility], coming back with a history of recurrent some involuntary movement of her hands and change in mental status. During this episode, the patient did not or bitten tongue. As per the note, no change in mental status. The patient could not recall what went through and what was before the incident started. No similar episodes happened in the past. In previous admission, the patient did take Lamictal, which was changed to Keppra and which is subtherapeutic dose at present. PAST MEDICAL HISTORY: As stated above. PERSONAL HISTORY; Denies smoking or alcohol use. ALLERGIES: NO KNOWN ALLERGIES. REVIEW OF SYSTEMS: A 12-point system being reviewed. From neuro, change in mental status with involuntary movements. MEDICATIONS: Ceftriaxone, Colace, Coreg, Crestor, DuoNeb, aspirin, Eliquis, and Keppra. PHYSICAL EXAMINATION: VITAL SIGNS: Blood pressure 109/69, mean arterial pressure of 82, respiratory rate 18, pulse rate 94, and temperature 97.6 currently. NECK: Supple. No carotid bruits. HEART: Sounds tachycardia without any murmur. EXTREMITIES: Edema in legs. Postsurgical scar on her right knee. Right leg is externally rotated. NEUROLOGICAL: Mental status: She is awake, alert and oriented to person and place. She does not know the hospital and does not know the year. She follows 1 to 2-step command. Mild right and left confusion. Speech is fluent. Cranial nerve: Visual field respond to visual threat. Pupils reactive to light. Extraocular movement decreased in all direction. No facial sensory deficit. No facial asymmetry. Hearing is normal. Tongue is midline. Good gag. Motor: She was able to lift both upper extremities against gravity. Mild sensory tremor. No asterixis. Both lower extremities, she could not able to move and some movement in the toes noted voluntarily. Deep tendon reflexes are absent. Plantars are mute. Sensory: Responds to pain symmetrically on both sides. Coordination: Finger-nose test is intact in both upper extremities. Gait is deferred at this time. CONCLUSIONS: 1. On reviewing her history in the medical records as well as from her examination, the patient does have involuntary movements with change in mental status consistent with possible seizures. By knowing the previous history of lamotrigine and switched to Keppra, probably the dose what she has been taking may be a subtherapeutic level. Empirically, I would like to adjust the dose to keep the therapeutic range. 2. Change in mental status, considerably having risk factors and other possible causes of new stroke process or cardiac causes should be ruled out. 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 WORKUP: CT of the head reviewed, no acute pathology is noted except small vessel disease. BLOOD WORKUP: WBC 4, hemoglobin 11.8, hematocrit 34.9, and platelet 84. Blood gas; pH is 7.46, pO2 of 154, pCO2 of 47, bicarbonate 34.8 with oxygen sats towards 100%. Sodium 138, potassium 4.2, chloride 96, bicarbonate 31, BUN 30, creatinine 1.3, calcium 9.1, phosphorus 4.3, magnesium 1.9, CK 177, troponin 0.3490, and BNP 6060. Prolactin level 16.9. Urine shows blood and wbc's. RECOMMENDATIONS: 1. Empirically Keppra dose could be increased to 500 mg twice a day. 2. MRI of the brain to rule out any structural cause that could explain her presenting problem. 3. Electroencephalogram to rule out any paroxysmal activities. 4. Continue the present management. The patient will be followed while she is in the hospital. Jackson Michelle MD
[2018-06-08 07:19] LABS: BASO % 0.3 % (0.0-2.0); EOS % 0.9 % (0.0-4.0); HEMOGLOBIN 11.9 g/dL (11.0-16.0); LYMPH # 0.6 K/uL (1.0-4.3); LYMPH % 14.1 % (20.0-40.0); MEAN CELL VOLUME 82.8 fL (81.0-99.0); MEAN CORPUSCULAR HEMOGLOBIN 27.5 pg (27.0-31.0); MEAN CORPUSCULAR HGB CONC 33.2 g/dL (33.0-37.0); MEAN PLATELET VOLUME 9.1 fL (7.2-11.7); MONO # 0.6 K/uL (0.0-0.8); MONO % 14.6 % (0.0-10.0); NEUT # 2.8 K/uL (1.8-7.0); NEUT % 70.1 % (50.0-75.0); NRBC % 0.2 % (0.0-2.0); RBC 4.32 Mil/uL (3.80-5.20); RED CELL DISTRIBUTION WIDTH 14.8 % (11.5-14.5)
--- NOTE | 2018-06-08 07:33 | EEG ---
DATE: 06/07/2018 This is a 16-channel electroencephalogram of awake and drowsy adult. During the study, photic stimulation was performed. Hyperventilation was not performed. The resting electroencephalogram begins with moderate voltage theta activities followed with polyspike and wave activities seen in bilateral cortical leads. This followed with slow activities consistent with epileptiform focal activities. This generalized polyspike and wave activity is noted intermittently followed with slow activities from the beginning. Mostly pronounced on the right cerebral cortex than her left side. The photic stimulation did not evoke driving response noted at 2 to 20 Hz. IMPRESSION: This is an abnormal electroencephalogram because of slow activities followed with paroxysmal polyspike and wave activities noted at right followed with bilateral cortical activities consistent with epileptiform focus. Please correlate the findings with the neurological and radiological studies. Jackson Michelle MD
[2018-06-08] MEDS: Budesonide 0.25 mg/2 ml Inhal Susp UD INH SCH (07:37)
[2018-06-08 07:49] LABS: ALB/GLOB RATIO 1.1 (1.0-2.1); ALBUMIN 3.5 g/dL (3.5-5.0); ALT/SGPT 29 U/L (9-52); AST/SGOT 51 U/L (14-36); BLOOD UREA NITROGEN 23 mg/dL (7-17); CALCIUM 8.8 mg/dl (8.6-10.4); GFR NON-AFRICAN AMERICAN 52
[2018-06-08 08:16] LABS: B-TYPE NATRIURETIC PEPTIDE 9380 pg/mL (0-900)
[2018-06-08] MEDS: Lactobacillus Acidophilus 500 MU Cap PO SCH ×2 (10:01→16:54)
--- NOTE | 2018-06-08 12:56 | CP.PCM.DIS ---
Provider - Provider Date of Admission: 06/07/18 12:59 Attending physician: Heide Kelly DO Consults: 06/05/18 07:50 Cardiology Consult Routine Comment: Consulting Provider: Tory Sousa Consulting Physician: Tory Sousa Reason for Consult: hx of CHF, pulm htn; known to you Pulmonology Consult Routine Comment: Consulting Provider: Michael Huntley Consulting Physician: Michael Huntley Reason for Consult: hx of copd, chf, known to you 06/06/18 11:28 Neurology Consult Routine Comment: Consulting Provider: Jackson Michelle Consulting Physician: Jackson Michelle Reason for Consult: seizure disorder Time Spent in preparation of Discharge (in minutes): 35 Diagnosis - Discharge Diagnosis (1) CHF (congestive heart failure) Status: Chronic (2) 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 (3) HTN (hypertension) Status: Chronic Priority: Low (4) Leukopenia Status: Chronic (5) Pulmonary hypertension Status: Chronic (6) Thrombocytopenia Status: Chronic Priority: Medium (7) Complex partial seizure Status: Acute Hospital Course - Lab Results Lab Results: Micro Results 06/06/18 19:25 Urine,Clean Catch Urine Culture - Final No Growth (<1,000 CFU/ML) 06/05/18 07:20 Blood Blood Culture - Preliminary NO GROWTH AFTER 3 DAYS 06/05/18 07:20 Blood Blood Culture - Preliminary NO GROWTH AFTER 3 DAYS 06/05/18 07:26 Urine,Catheterized Urine Culture - Final Escherichia Coli Most Recent Lab Values WBC 4.0 K/uL (4.8-10.8) L 06/08/18 07:03 RBC 4.32 Mil/uL (3.80-5.20) 06/08/18 07:03 Hgb 11.9 g/dL (11.0-16.0) 06/08/18 07:03 Hct 35.8 % (34.0-47.0) 06/08/18 07:03 MCV 82.8 fL (81.0-99.0) 06/08/18 07:03 MCH 27.5 pg (27.0-31.0) 06/08/18 07:03 MCHC 33.2 g/dL (33.0-37.0) 06/08/18 07:03 RDW 14.8 % (11.5-14.5) H 06/08/18 07:03 Plt Count 86 K/uL (130-400) L 06/08/18 07:03 MPV 9.1 fL (7.2-11.7) 06/08/18 07:03 Neut % (Auto) 70.1 % (50.0-75.0) 06/08/18 07:03 Lymph % (Auto) 14.1 % (20.0-40.0) L 06/08/18 07:03 Morton % (Auto) 14.6 % (0.0-10.0) H 06/08/18 07:03 Eos % (Auto) 0.9 % (0.0-4.0) 06/08/18 07:03 Baso % (Auto) 0.3 % (0.0-2.0) 06/08/18 07:03 Neut # (Auto) 2.8 K/uL (1.8-7.0) 06/08/18 07:03 Lymph # (Auto) 0.6 K/uL (1.0-4.3) L 06/08/18 07:03 Morton # (Auto) 0.6 K/uL (0.0-0.8) 06/08/18 07:03 Eos # (Auto) 0.0 K/uL (0.0-0.7) 06/08/18 07:03 Baso # (Auto) 0.0 K/uL (0.0-0.2) 06/08/18 07:03 Puncture Site Rba 06/06/18 16:20 pCO2 47 mm/Hg (35-45) H 06/06/18 16:20 pO2 154 mm/Hg (80-100) H 06/06/18 16:20 HCO3 31.5 mmol/L (21-28) H 06/06/18 16:20 ABG pH 7.46 (7.35-7.45) H 06/06/18 16:20 ABG Total CO2 34.8 mmol/L (22-28) H 06/06/18 16:20 ABG O2 Saturation 100.0 % (95-98) H 06/06/18 16:20 ABG Base Excess 8.3 mmol/L (-2.0-3.0) H 06/06/18 16:20 ABG Hemoglobin 11.9 g/dL (11.7-17.4) 06/05/18 07:41 ABG Carboxyhemoglobin 2.0 % (0.5-1.5) H 06/05/18 07:41 POC ABG HHb (Measured) 4.4 % (0.0-5.0) 06/05/18 07:41 ABG Methemoglobin 1.2 % (0.0-3.0) 06/05/18 07:41 Hitesh Test Pos 06/06/18 16:20 ABG Potassium 3.4 mmol/L (3.6-5.2) L 06/06/18 16:20 A-a O2 Difference 35.0 mm/Hg 06/05/18 07:41 Respiratory Index 0.5 06/05/18 07:41 Hgb O2 Saturation 92.5 % (95.0-98.0) L 06/05/18 07:41 Sodium 138.0 mmol/l (132-148) 06/06/18 16:20 Chloride 101.0 mmol/L (98-107) 06/06/18 16:20 Glucose 83 mg/dl (65-105) 06/06/18 16:20 Lactate 1.2 mmol/L (0.7-2.1) 06/06/18 16:20 FiO2 21.0 % 06/05/18 07:41 Sodium 135 mmol/L (132-148) 06/08/18 07:03 Potassium 3.6 mmol/L (3.6-5.2) 06/08/18 07:03 Chloride 93 mmol/L (98-107) L 06/08/18 07:03 Carbon Dioxide 35 mmol/L (22-30) H 06/08/18 07:03 Anion Gap 11 (10-20) 06/08/18 07:03 BUN 23 mg/dL (7-17) H 06/08/18 07:03 Creatinine 1.0 mg/dL (0.7-1.2) 06/08/18 07:03 Est GFR ( Amer) > 60 06/08/18 07:03 Est GFR (Non-Af Amer) 52 06/08/18 07:03 POC Glucose (mg/dL) 154 mg/dL (65-110) H 06/05/18 00:37 Random Glucose 108 mg/dL (65-105) H D 06/08/18 07:03 Lactic Acid 1.9 mmol/L (0.7-2.1) 06/05/18 11:46 Calcium 8.8 mg/dl (8.6-10.4) 06/08/18 07:03 Phosphorus 3.1 mg/dL (2.5-4.5) 06/08/18 07:03 Magnesium 1.9 mg/dL (1.6-2.3) 06/08/18 07:03 Total Bilirubin 0.7 mg/dL (0.2-1.3) 06/08/18 07:03 AST 51 U/L (14-36) H D 06/08/18 07:03 ALT 29 U/L (9-52) 06/08/18 07:03 Alkaline Phosphatase 79 U/L (38-126) 06/08/18 07:03 Total Creatine Kinase 177 U/L (30-135) H 06/06/18 00:37 CK-MB (Mass) 3.07 ng/mL (0.0-3.38) 06/06/18 00:37 Troponin I 0.3490 ng/mL (0.00-0.120) H* 06/06/18 00:37 NT-Pro-B Natriuret Pep 9380 pg/mL (0-900) H 06/08/18 07:03 Total Protein 6.7 g/dL (6.3-8.3) 06/08/18 07:03 Albumin 3.5 g/dL (3.5-5.0) 06/08/18 07:03 Globulin 3.1 gm/dL (2.2-3.9) 06/08/18 07:03 Albumin/Globulin Ratio 1.1 (1.0-2.1) 06/08/18 07:03 Procalcitonin < 0.05 NG/ML (0.19-0.49) L 06/05/18 16:58 Prolactin 16.9 ng/mL (3.0-18.9) 06/06/18 22:38 Arterial Blood Potassium 3.4 mmol/L (3.6-5.2) L 06/06/18 16:20 Urine Color Yellow (YELLOW) 06/06/18 19:25 Urine Clarity Clear (Clear) 06/06/18 19:25 Urine pH 5.0 (5.0-8.0) 06/06/18 19:25 Ur Specific [place] 1.015 (1.003-1.030) 06/06/18 19:25 Urine Protein Negative mg/dL (NEGATIVE) 06/06/18 19:25 Urine Glucose (UA) Normal mg/dL (Normal) 06/06/18 19:25 Urine Ketones Negative mg/dL (NEGATIVE) 06/06/18 19:25 Urine Blood 1+ (NEGATIVE) H 06/06/18 19:25 Urine Nitrate Negative (NEGATIVE) 06/06/18 19:25 Urine Bilirubin Negative (NEGATIVE) 06/06/18 19:25 Urine Urobilinogen Normal mg/dL (0.2-1.0) 06/06/18 19:25 Ur Leukocyte Esterase 2+ Sera/uL (Negative) H 06/06/18 19:25 Urine WBC (Auto) 13 /hpf (0-5) H 06/06/18 19:25 Urine RBC (Auto) 1 /hpf (0-3) 06/06/18 19:25 Ur Squamous Epith Cells 6 /hpf (0-5) H 06/06/18 19:25 Urine Bacteria Rare (<OCC) 06/06/18 19:25 Hyaline Casts >20 /lpf (0-2) H 06/05/18 05:17 Broad Casts 4 /lpf (0-1) 06/05/18 05:17 - Hospital Course Hospital Course: On admission: 87 year old female with PMHx of CHF, COPD, HTN, HLD chronic DVT/PE, and arthritis presents after delirious episode while at home last night. Pt reports that she does not remember the episode, but recalls her family telling her that was "talking about weird things." Son reports multiple episodes of bilateral hand clenching, and screaming during these episodes. She endorses history of intermittent pain on urination lately, denies back pain or flank pain. Pt was recently discharged from [facility] for HFpEF exacerbation (06/01-05/26). Patient denies headache, fever, chills, focal weakness, weakness, dysphagia, dysarthria, loss of consciousness, tongue biting, bowel or bladder incontinence, visual changes, chest pain, palpitations, cough, abdominal pain, nausea, vomiting, diarrhea. Pt with chronic bilateral lower extremity weakness. Hospital course: No post-ictal period noted, and pt with resolution of symptoms on admission, and without episodes during admission. Head CT showed no acute intracranial pathology. Pt with remote history of seizure previously treated with Keppra, but discontinued for unknown reasons as per Evans Zamora. Pt found to have UTI on UA, started on Rocephin IVPB. Pt's home medications were restarted. Neurology, Dr. Michelle, consulted. Pulmonology, Dr. Huntley, consulted. Dr. Sousa, cardiology/PMD, consulted. Cardiology notes that minimal troponin elevation is not an SC and did not contribute to changes in mental status. Carotid dopplers shows no hemodynamically significant lesions bilaterally. Neurology requests MRI without contrast, EEG. 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 Prolactin was not elevated. However, EEG was positive for epilleptiform waves. Neurology increased Keppra to 500 mg PO BID, and this is what pt will be discharged home with. Urine culture showed ecoli sensitive to third generation cephalosporin. Pt discharged with 5 day course of Vantin oral. Repeat urine culture prior to discharge was normal, pt's blood cultures have no growth to date, pt without leukocytosis, and afebrile. On discharge interview, pt is at baseline as per evans Zamora. Denies fever, chills, chest pain, sob, abdominal pain, n/v/d, headache, dizziness, lightheadedness, numbness or tingling, seizure like activity, dysuria. This is a summary of the discharge plan. Please see EMR for full details. Pt is medically stable for discharge home as per Dr. Carlos Suresh. Prescriptions needed: Vantin 100 mg 1 tab by mouth twice daily (8 am and 8 pm) until finished. Dispense #10. Coreg 3.125 mg 1 tab by mouth twice daily (8 am and 8 pm). Dispense #60. Lasix 20 mg 1 tab by mouth once daily (2 pm). Dispense #30. Potassium Chloride 20 mEq 1 tab by mouth once daily (8 am). Dispense #30. Crestor 10 mg 1 tab by mouth once daily (8 pm). Dispense #30 Pulmicort 180 mcg/actuation 1 inhalation by mouth twice daily (8 am and 8 pm). Dispense #1 Zlyoprim 100 mg 1 tab by mouth once daily (8 am). Dispense #30 Nystatin powder 100,000 units/g, apply powder to the lower belly folds on both sides above the groin twice daily (8 am and 8 pm). Dispense 2 week supply. Levetiracetam 500 mg 1 tab by mouth twice daily (8 am and 8pm). Dispense #60 Aspirin 81 mg 1 tab by mouth once daily (8 am). Dispense #30 Eliquis 5 mg 1 tab by mouth once daily (2 pm). Dispense #30 Lactobaccilus 1 capsule by mouth twice daily (10 am and 6 pm) until finished. Dispense #70 Pt must be turned every 2 hours. Apply Medihoney to buttcrack once daily and cover. (Medihoney and Optifoam dressing provided) Schedule follow up with neurology, Dr. Carlos Michelle, by calling his office [phone] for appointment to take place in 2-3 weeks. Schedule follow up with pulmonology, Dr. Huntley, by calling his office for appointment to take place in 2 weeks. Schedule follow up with primary physician, Dr. Sousa, in 7-10 days for repeat of Urine Culture and coordination of care. Dr. Sousa's number is . Should symptoms worsen, please head to the nearest Emergency Department for further evaluation. Instructions explained to pt and son, Noah, who understand and agree with discharge plan. Discharge Exam - Additional Findings Additional findings: - Constitutional Appears: Non-toxic, No Acute Distress, Chronically Ill - Head Exam Head Exam: ATRAUMATIC, NORMAL INSPECTION - Eye Exam Eye Exam: EOMI, Normal appearance, PERRL - ENT Exam ENT Exam: Mucous Membranes Moist Additional comments: no tongue laceration - Neck Exam Neck exam: Positive for: Normal Inspection - Respiratory Exam Respiratory Exam: Decreased Breath Sounds, Clear to Auscultation Bilateral, NORMAL BREATHING PATTERN. absent: Rales, Rhonchi, Wheezes, Stridor - Cardiovascular Exam Cardiovascular Exam: REGULAR RHYTHM, +S1, +S2. Absent: tachycardia Additional comments: 03/14 Systolic Ejection Murmur - GI/Abdominal Exam GI & Abdominal Exam: Normal Bowel Sounds, Soft. absent: Distended, Firm, Rebound, Tenderness Additional comments: no suprapubic tenderness - Back Exam Back Exam: No CVA tenderness bilaterally - Extremities Exam Extremities exam: Positive for: pedal edema. Negative for: calf tenderness Additional comments: 2+ pitting edema to bilateral lower extremities to the mid ruiz. Bilateral thready DP pulses. Capillary refill < 3 seconds bilateral toes. Limited ROM of lower extremities secondary to severe arthritis. - Neurological Exam Neurological exam: Alert, CN II-XII Intact, Oriented x3 Additional comments: decreased strength in the bilateral lower extremities - Psychiatric Exam Psychiatric exam: Normal Affect, Normal Mood - Skin Skin Exam: Dry, Intact, Normal Color, Warm - Additional Findings Additional findings: (+) erythema to the lower abdominal skin folds Discharge Plan - Discharge Medications Prescriptions: Budesonide [Pulmicort Flexhaler] 180 mcg IH BID #1 aer.[email or web address] Carvedilol [Coreg] 3.125 mg PO BID #60 tab Cefpodoxime [Vantin] 100 mg PO BID #10 tab Lactobacillus Acidophilus [Lactobacillus] 1 cap PO BID #70 cap Levetiracetam 500 mg PO BID #60 tablet Nystatin [Nystop Topical Powder] 1 applic TOP BID #1 bottle Potassium Chloride 20 meq PO DAILY #30 tablet.er - Follow Up Plan Condition: STABLE Disposition: HOME/ ROUTINE Instructions: Nystatin (Topical), Seizures, Adult (DC), Pulmonary Hypertension, Adult (DC), Carvedilol, Cefpodoxime, Lactobacillus, Levetiracetam Additional Instructions: Pt is medically stable for discharge home as per Dr. Carlos Suresh. Prescriptions needed: Vantin 100 mg 1 tab by mouth twice daily (8 am and 8 pm) until finished. Dispense #10. Coreg 3.125 mg 1 tab by mouth twice daily (8 am and 8 pm). Dispense #60. Lasix 20 mg 1 tab by mouth once daily (2 pm). Dispense #30. Potassium Chloride 20 mEq 1 tab by mouth once daily (8 am). Dispense #30. Crestor 10 mg 1 tab by mouth once daily (8 pm). Dispense #30 Pulmicort 180 mcg/actuation 1 inhalation by mouth twice daily (8 am and 8 pm). Dispense #1 Zlyoprim 100 mg 1 tab by mouth once daily (8 am). Dispense #30 Nystatin powder 100,000 units/g, apply powder to the lower belly folds on both sides above the groin twice daily (8 am and 8 pm). Dispense 2 week supply. Levetiracetam 500 mg 1 tab by mouth twice daily (8 am and 8pm). Dispense #60 Aspirin 81 mg 1 tab by mouth once daily (8 am). Dispense #30 Eliquis 5 mg 1 tab by mouth once daily (2 pm). Dispense #30 Lactobaccilus 1 capsule by mouth twice daily (10 am and 6 pm) until finished. Dispense #70 Pt must be turned every 2 hours. Apply Medihoney to buttcrack once daily and cover. (Medihoney and Optifoam dressing provided) Schedule follow up with neurology, Dr. Carlos Michelle, by calling his office for appointment to take place in 2-3 weeks. Schedule follow up with pulmonology, Dr. Huntley, by calling his office [phone] for appointment to take place in 2 weeks. Schedule follow up with primary physician, Dr. Sousa, in 7-10 days for repeat of Urine Culture and coordination of care. Dr. Sousa's number is . Should symptoms worsen, please head to the nearest Emergency Department for further evaluation. Instructions explained to pt and son, Noah, who understand and agree with discharge plan. Referrals: Michael Huntley MD [Staff Provider] - Jackson Michlele MD [Staff Provider] - Tory Sousa MD [Staff Provider] -
[2018-06-08 14:32] VITALS: PULSE 100; RESP 20
[2018-06-08] MEDS ORDERED: Aluminum Hydroxide/Magnesium Hydroxide Susp (30 mL) PO ONE (15:00)
--- NOTE | 2018-06-08 15:15 | CP.PCM.PN ---
Subjective - Date & Time of Evaluation Date of Evaluation: 06/08/18 Time of Evaluation: 12:00 - Subjective Subjective: 87 year old female day 3 of hospitalization seen at bedside with son. Patient appears to be clinically improving. Her 02 saturation has improved and remain at 97% on 3L NC. Patient denies shortness of breath, cough or any more hand natacha nching/choking episodes overnight. Patient ready to be sat up in bedside chair. ROS: All systems reviewed at bedside and no additional remarkable complaints noted. PE: HEENT: Atraumatic, normocephalic, moist mucous membranes, normal neck inspection Respiratory: Lungs clear to auscultation bilaterally Cardiovascular: regular rate and rhythm GI/abdominal: normoactive bowel sounds Extremities: +pedal edema, +chronic venous stasis, + Pneumatic compression devices Neurologic: alert Assesment/Plan: 1. 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 Continue current regimen of lasix 20mg daily, Continue Oxygen, nebulizer, budesonide 2. Unresponisve episode Antibiotics for UTI. Neurology increased Keppra to 500mg and ordered an EEG for today 3. 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 Continue current medication regimen and PCD's while in bed. Objective - Vital Signs/Intake and Output Vital Signs (last 24 hours): Temp Pulse Resp BP Pulse Ox 97.8 F 100 H 20 102/71 95 06/08/18 14:31 06/08/18 14:31 06/08/18 14:31 06/08/18 14:31 06/08/18 14:31 Intake and Output: 06/08/18 06/08/18 06:59 18:59 Output Total 100 Balance -100 - Medications Medications: Current Medications Albuterol/Ipratropium (Duoneb 3 Mg/0.5 Mg (3 Ml) Ud) 3 ml INH RQ6 [facility] Last Admin: 06/08/18 13:20 Dose: Not Given Allopurinol (Zyloprim) 100 mg PO DAILY [facility] Last Admin: 06/08/18 10:01 Dose: 100 mg Apixaban (Eliquis) 5 mg PO DAILY [facility] Last Admin: 06/08/18 10:02 Dose: 5 mg Aspirin (Ecotrin) 81 mg PO DAILY [facility] Last Admin: 06/08/18 10:01 Dose: 81 mg Budesonide (Pulmicort Respules) 0.25 mg INH RQ12 [facility] Last Admin: 06/08/18 07:37 Dose: 0.25 mg Carvedilol (Coreg) 3.125 mg PO HS [facility] Last Admin: 06/07/18 21:23 Dose: 3.125 mg Docusate Sodium (Colace) 100 mg PO BID [facility] Last Admin: 06/08/18 10:01 Dose: 100 mg Furosemide (Lasix) 20 mg IVP DAILY [facility] Last Admin: 06/08/18 10:02 Dose: 20 mg Ceftriaxone Sodium 1 gm/ (Sodium Chloride) 100 mls @ 100 mls/hr IVPB Q12H [facility]; Protocol Last Admin: 06/08/18 06:50 Dose: 100 mls/hr Lactobacillus Acidophilus (Lactobacillus) 1 cap PO BID [facility] Last Admin: 06/08/18 10:01 Dose: 1 cap Levetiracetam (Keppra) 500 mg PO BID [facility] Last Admin: 06/08/18 10:01 Dose: 500 mg Nystatin (Nystop Topical Powder) 1 applic TOP BID [facility] Last Admin: 06/08/18 10:02 Dose: 1 applic Rosuvastatin Calcium (Crestor) 10 mg PO HS [facility] Last Admin: 06/07/18 21:23 Dose: 10 mg - Labs Labs: 06/08/18 07:03 06/08/18 07:03 Assessment and Plan (1) Pulmonary hypertension Status: Chronic (2) Unresponsive episode Status: Acute (3) 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
[2018-06-08 16:23] VITALS: BP 111/77; TEMP 98.1; O2SAT 100
--- NOTE | 2018-06-08 17:42 | PN ---
DATE: 06/08/2018 NEUROLOGICAL INITIAL EVALUATION TIME OF EVALUATION: 06:55 a.m. NEUROLOGICAL PROBLEM: Focal seizures. PHYSICAL EXAMINATION: VITAL SIGNS: Blood pressure 105/73, mean arterial pressure of 83, respiratory rate 18, temperature 97.4 with pulse rate 96, regular. GENERAL: The patient is sleepy, easily arousable on calling her name. No new episodes happened ever since she was admitted. The patient can tolerate Keppra 500 mg twice a day. Her exam has not changed when compared with the previous examination. The patient's electroencephalogram had been reviewed, showed polyspike and wave activities noted, which is predominantly originating on her right cerebral cortex. This has been going on periodically with intermittent slow activities consistent with epileptiform foci, epileptiform activities. Please correlate the findings with the neurological and radiological studies. Jackson Michelle MD
== END 2018-06-08 17:34 | disposition home or self-care (01) | DRG 689 ==
LOC: C.ER 00:29 → C.9E 05:14 → C.3T 05:45 → C.9E 06:36 → C.5S 07:19 → OBSVTOIN 06-07 12:59
PROVIDERS: ADMIT Hospitalist; ATTEND Hospitalist
DX: N39.0 Urinary tract infection, site not specified (principal); G93.41 Metabolic encephalopathy; J98.11 Atelectasis; G40.209 Localization-related (focal) (partial) symptomatic epilepsy and epileptic syndromes with complex partial seizures, not intractable, without status epilepticus; I82.511 Chronic embolism and thrombosis of right femoral vein; I50.32 Chronic diastolic (congestive) heart failure; I11.0 Hypertensive heart disease with heart failure; R09.02 Hypoxemia; Z95.828 Presence of other vascular implants and grafts; Z99.3 Dependence on wheelchair; J44.9 Chronic obstructive pulmonary disease, unspecified; H40.9 Unspecified glaucoma; E78.5 Hyperlipidemia, unspecified; E87.5 Hyperkalemia; I27.20 Pulmonary hypertension, unspecified; I65.29 Occlusion and stenosis of unspecified carotid artery; I70.0 Atherosclerosis of aorta; Z86.711 Personal history of pulmonary embolism; D69.6 Thrombocytopenia, unspecified; D72.819 Decreased white blood cell count, unspecified; I77.819 Aortic ectasia, unspecified site; L30.4 Erythema intertrigo

== ENCOUNTER 2018-06-09 22:42 | Inpatient (IN) | payer MEDICARE ==
[2018-06-09 22:42] VITALS: BMI 28.2
--- NOTE | 2018-06-09 23:05 | C.PDOC ---
History Of Present Illness The patient is brought to the ED by family for evaluation of questionable seizure-like activity noted prior to arrival. As per family, patient appeared to be acting strange. Patient noted to be staring into space, with moments of marco antonio idity where she is able to answer questions momentarily. Family denies fever, chills, nausea and vomiting on patients behalf. Additional information limited secondary to patients clinical condition. Time Seen by Provider: 06/09/18 23:04 Chief Complaint (Nursing): Seizure History Per: Family History/Exam Limitations: clinical condition Recent Seizure Activity Began: Unknown Length Of Seizures (Duration): Unknown Precipitating Factor(s): Other (unknown ) Recent travel outside of the [place]: No Additional History Per: Patient Past Medical History Reviewed: Historical Data, Nursing Documentation, Vital Signs - Medical History PMH: Arthritis, Asthma, Cardia Arrhythmia, CHF, HTN, Hypercholesterolemia, Peripheral Edema Denies: Chronic Kidney Disease Surgical History: No Surg Hx - [facility] Procedures CATARAC PHACOEMULS/ASPIR (07/20/13) DEBRIDEMENT OF NAIL, NAIL BED OR NAIL FOLD (11/15/13) INSERT LENS AT CATAR EXT (07/20/13) OP RED-INT FIX TIB/FIBUL (11/15/13) PACKED CELL TRANSFUSION (11/15/13) PLICATION OF VENA CAVA (11/15/13) VACCINATION NEC (11/15/13) Family History: States: Unknown Family Hx - Social History Hx Tobacco Use: No Hx Alcohol Use: No Hx Substance Use: No - Immunization History Hx Tetanus Toxoid Vaccination: No Hx Influenza Vaccination: No Hx Pneumococcal Vaccination: No Review Of Systems Review Of Systems: ROS cannot be obtained secondary to pt's inabilty to answer questions. Physical Exam - Physical Exam Appears: Non-toxic, No Acute Distress Skin: Warm, Dry, Rash (diffuse rash over chest and abdomen (onset while in the hospital yesterday, of unknown etiology)) Head: Normacephalic Eye(s): bilateral: Normal Inspection Oral Mucosa: Moist, Other (small rash to upper palate ) Neck: Supple Chest: Symmetrical, No Deformity, No Tenderness Cardiovascular: Rhythm Regular, No Murmur Respiratory: No Rales, No Rhonchi, No Wheezing Gastrointestinal/Abdominal: Soft, No Guarding, No Rebound, Other (obese ) Extremity: Normal ROM (bilateral upper and lower extremities ), Pedal Edema (trace ), Capillary Refill (less than 2 seconds ) Pulses: Left Dorsalis Pedis: Normal, Right Dorsalis Pedis: Normal Neurological/Psych: Other (awake, alert and oriented x1. Patient occasionally noted to scream, grimace and stare into space for duration of 10-20 seconds with no regularity. sensation intact. ) ED Course And Treatment - Laboratory Results Result Diagrams: 06/10/18 00:10 06/10/18 00:10 ECG: Interpreted By Me, Viewed By Me ECG Rhythm: Sinus Rhythm (80), 1st Degree HB, Nonspecific Changes O2 Sat by Pulse Oximetry: 100 Pulse Ox Interpretation: Normal Progress Note: Right femoral artery stick was done by me in order to obtain blood. Bloodwork, urinalysis, CXR, EKG ordered and reviewed. Aspirin IL, Vancomycin IVPB, Zosyn IVPB, and IV Fluids given. Critical Care Time - Critical Care Note Total Time (in mins): 30 Documented critical care: time excludes all time spent performing seperately billable procedures. Disposition Discussed With DrJessy: Tien Solorzano Comment: accepted the pt on his service and took over the care Doctor Will See Patient In The: ED Counseled Patient/Family Regarding: Studies Performed, Diagnosis - Disposition Disposition: HOSPITALIZED Disposition Time: 23:04 Condition: FAIR - Clinical Impression Clinical Impression: Dementia, NSTEMI (non-ST elevated myocardial infarction) - Scribe Statement The provider has reviewed the documentation as recorded by the Scribe (Josephine Suresh) Provider Attestation: All medical record entries made by the Scribe were at my direction and personally dictated by me. I have reviewed the chart and agree that the record accurately reflects my personal performance of the history, physical exam, medical decision making, and the department course for this patient. I have also personally directed, reviewed, and agree with the discharge instructions and disposition. Decision To Admit - Pt Status Changed To: Hospital Disposition Of: Inpatient - Admit Certification Admit to Inpatient:: After my assessment, the patient will require hospitalization for at least two midnights. This is because of the severity of symptoms shown, intensity of services needed, and/or the medical risk in this patient being treated as an outpatient. - InPatient: Physician Admission Certification: I certify that this patient requires 2 or more midnights of care for the following reason:: After my assessment, the patient will require hospitalization for at least two midnights. This is because of the severity of symptoms shown, intensity of services needed, and/or the medical risk in this patient being treated as an outpatient. - . Bed Request Type: Telemetry Admitting Physician: Tien Solorzano Patient Diagnosis: Dementia, NSTEMI (non-ST elevated myocardial infarction)
[2018-06-10 00:10] LABS: VENOUS BLOOD GAS BASE EXCESS 3.3 mmol/L (0.0-2.0); VENOUS BLOOD GAS PCO2 41 mmHg (40-60); VENOUS BLOOD GAS PO2 179 mm/Hg (30-55); VENOUS BLOOD PH 7.44 (7.32-7.43)
[2018-06-10 00:19] LABS: BASO % 0.4 % (0.0-2.0); EOS # 0.1 K/uL (0.0-0.7); EOS % 1.2 % (0.0-4.0); LYMPH # 1.1 K/uL (1.0-4.3); LYMPH % 16.6 % (20.0-40.0); MEAN CELL VOLUME 83.6 fL (81.0-99.0); MEAN CORPUSCULAR HEMOGLOBIN 28.1 pg (27.0-31.0); MEAN CORPUSCULAR HGB CONC 33.6 g/dL (33.0-37.0); MEAN PLATELET VOLUME 9.5 fL (7.2-11.7); MONO % 15.2 % (0.0-10.0); NEUT # 4.6 K/uL (1.8-7.0); NEUT % 66.6 % (50.0-75.0); NRBC % 0.3 % (0.0-2.0); RBC 4.27 Mil/uL (3.80-5.20); RED CELL DISTRIBUTION WIDTH 15.4 % (11.5-14.5); WHITE BLOOD COUNT 6.9 K/uL (4.8-10.8)
[2018-06-10 00:27] LABS: URINE BILIRUBIN NEGATIVE (NEGATIVE); URINE BLOOD NEGATIVE (NEGATIVE); URINE CLARITY Hazy (Clear); URINE COLOR Amber (YELLOW); URINE GLUCOSE (UA) NORMAL (Normal); URINE LEUKOCYTE ESTERASE NEG Leu/uL (Negative); URINE PROTEIN 2+ mg/dL (NEGATIVE); URINE UROBILINOGEN NORMAL mg/dL (0.2-1.0)
[2018-06-10] MEDS ORDERED: Sodium Chloride 0.9% 1,000 ML ONE (00:36)
[2018-06-10] MEDS ORDERED: Piperacillin/Tazobact 3.375 gm 100 ML IVPB ONE (00:36)
[2018-06-10] MEDS ORDERED: Sodium Chloride 0.9% 1,000 ML IV ONE (00:38)
[2018-06-10] MEDS ORDERED: Piperacillin/Tazobact 3.375 gm 100 ML IVPB STA (00:38)
[2018-06-10] MEDS ORDERED: Vancomycin 1 GM 1 GM/250 ML BAG IVPB STA (00:43)
[2018-06-10 00:50] LABS: INR 3.3
[2018-06-10 00:51] LABS: ALB/GLOB RATIO 1.2 (1.0-2.1); ALBUMIN 3.6 g/dL (3.5-5.0); CALCIUM 8.5 mg/dl (8.6-10.4); TROPONIN I 0.684 ng/mL (0.00-0.120)
[2018-06-10] MEDS ORDERED: Vancomycin 1 GM 1 GM/250 ML BAG IVPB ONE (01:42)
--- NOTE | 2018-06-10 02:07 | CP.PCM.HP ---
<Celeste Hazel P - Last Filed: 06/10/18 09:42> History of Present Illness - History of Present Illness History of Present Illness: H&P for Dr. Solorzano. HPI: 87 year old female with PMHx of CHF, HTN, HLD, COPD previous DVT, and arthritis brought to ED by family for episode of AMS where patient was noted to stare into space, hyperextend neck, clench fists and scream. Family states patient had a number of these episodes throughout the entire ambulance ride to the hospital. Family did notice patient was incontinent of urine and stool. Family denies tongue biting and postictal period. Patient complains of generalized weakness and slight dry cough. She does not recall the episodes. Patient denies fever, chills, headache, change in vision, focal numbness, tingling, nausea, vomiting, abdominal pain, nausea, vomiting, dysuria, hematuria and urinary frequency. Patient was recently admitted from 06/05-06/08/18 for similar episode and evaluated by Neurology, Dr. Michelle. During this previous admission, EEG was positive for epilleptiform waves and it was determined that patient had partial complex seizures. Patient was discharged on Keppra to 500 mg PO BID, as well as Vantin 100 BID and lactobaccilus for a UTI. Patient has been complaint with medication. Family states she developed a rash to her abdomen after starting these new medications. PMHx: PMHx of CHF, HTN, HLD, COPD previous DVT, and arthritis PSHx: IVC filter, R leg surgery, hysterectomy Meds: Asa 81mg daily, allopurinol 100mg daily, Eliquis 5mg Daily, Irbesartan 300mg QPM, Crestor 10mg HS, Carvedilol 3.125 BID, nystatin topical, Keppra 500mg PO BID, Lasix 20mg PO daily, Budesonide 180mcg INH BID Allergies: hydromorphone, oxycodone-unknown reaction FamHx: HTN in parents SocHx: Denies tobacco, alcohol and drugs. Lives with son. Patient is wheelchair bound. PMD: Dr. Sousa, Pulm: Audi Review of Systems: -Gen: No fever, No chills, No headache, No lethargy, + weakness. -HEENT: No dizziness, No change in vision, No change in hearing, No sore throat, No dysphagia, No nasal congestion, No mucous. -Cardio: No chest pain, No palpitations, No lower extremity edema, No orthopnea. -Resp: +cough, No dyspnea, No hemoptysis, No wheezing, No pain on inspiration. -GI: No abdominal pain, No nausea/vomiting, No diarrhea/constipation, No hematochezia, No hematemesis. -: No dysuria, No urinary freq, No incontinence, No hematuria, No change in urinary stream. -MSK: No back pain, No muscle weakness, No radiating pain. -Skin: No itching, + rash, No lesions. -Neuro: +AMS, No numbness, No tingling, No focal weakness, No radicular pain, No syncope. Present on Admission - Present on Admission Any Indicators Present on Admission: No Past Patient History - Infectious Disease Hx of Infectious Diseases: None - Past Medical History & Family History Past Medical History?: Yes - Past Social History Smoking Status: Never Smoked - CARDIAC Hx Cardia Arrhythmia: Yes Hx Congestive Heart Failure: Yes Hx Hypercholesterolemia: Yes Hx Hypertension: Yes Hx Peripheral Edema: Yes - PULMONARY Hx Asthma: Yes - NEUROLOGICAL Hx Neurological Disorder: Yes Hx Syncope: Yes (10 yrs ago unknown reason) - HEENT Hx HEENT Problems: Yes Hx Cataracts: Yes Hx Glaucoma: Yes - RENAL Hx Chronic Kidney Disease: No - ENDOCRINE/METABOLIC Hx Endocrine Disorders: No - HEMATOLOGICAL/ONCOLOGICAL Hx Blood Disorders: No - INTEGUMENTARY Hx Dermatological Problems: No - MUSCULOSKELETAL/RHEUMATOLOGICAL Hx Arthritis: Yes - GASTROINTESTINAL Hx Gastrointestinal Disorders: No - GENITOURINARY/GYNECOLOGICAL Hx Genitourinary Disorders: No - PSYCHIATRIC Hx Substance Use: No - SURGICAL HISTORY Hx Surgeries: Yes Hx Cataract Extraction: Yes (cat ext left eye iol 7 yrs ago) Hx Hysterectomy: Yes Hx Orthopedic Surgery: Yes (R leg) Hx Vascular Surgery: Yes - ANESTHESIA Hx Anesthesia: Yes Hx Anesthesia Reactions: No Hx Malignant Hyperthermia: No Meds Allergies/Adverse Reactions: Allergies Allergy/AdvReac Type Severity Reaction Status Date / Time cefpodoxime Allergy RASH Verified 06/10/18 11:37 acetaminophen [From Percocet] AdvReac RASH Verified 06/09/18 23:14 hydromorphone [From Dilaudid] AdvReac RASH Verified 06/09/18 23:14 oxycodone [From Percocet] AdvReac RASH Verified 06/09/18 23:14 Physical Exam - Constitutional Appears: No Acute Distress - Head Exam Head Exam: ATRAUMATIC, NORMOCEPHALIC - Eye Exam Eye Exam: EOMI, Normal appearance, PERRL - ENT Exam ENT Exam: Mucous Membranes Moist, Normal Oropharynx - Neck Exam Neck exam: Positive for: Full Rom, Normal Inspection. Negative for: Lymphadenopathy - Respiratory Exam Respiratory Exam: Clear to Auscultation Bilateral, NORMAL BREATHING PATTERN. absent: Rales, Rhonchi, Wheezes - Cardiovascular Exam Cardiovascular Exam: REGULAR RHYTHM, +S1, +S2, Systolic Murmur (best heard over the left lower sternal border) - GI/Abdominal Exam GI & Abdominal Exam: Normal Bowel Sounds, Soft. absent: Guarding, Rebound, Tenderness Additional comments: Powder noted to abdominal creases - Extremities Exam Extremities exam: Positive for: pedal edema (2+ pitting edema from toes to tibial tuberosity bilaterally L>R. ). Negative for: normal inspection (chronic venous stasis changes b/l lower extremities) - Neurological Exam Additional comments: Awake, alert, oriented to person and place (recalled month, however could not state year). CN2-12 intact. Finger to nose normal. Muscle strength 5/5 bilateral UE, LE 0/5 muscle strength but able to dorsi and plantarflex at the ankles. Sensation intact - Psychiatric Exam Psychiatric exam: Normal Affect - Skin Skin Exam: Dry, Warm Additional comments: Erythema to gluteal cleft. Diffuse erythematous macular rash to abdomen and around to flanks bilaterally. Petechiae to L upper chest. ulcer noted to L 2nd toe. Results - Vital Signs Recent Vital Signs: Last Vital Signs Temp 99.9 F H 06/09/18 22:55 Pulse 81 06/10/18 02:03 Resp 22 06/10/18 02:03 BP 109/70 06/10/18 02:03 Pulse Ox 95 06/10/18 02:03 - Labs Result Diagrams: 06/10/18 00:10 06/10/18 00:10 Labs: Laboratory Results - last 24 hr 06/10/18 06/10/18 06/10/18 00:07 00:10 00:10 WBC 6.9 D RBC 4.27 Hgb 12.0 Hct 35.7 MCV 83.6 MCH 28.1 MCHC 33.6 RDW 15.4 H Plt Count 110 L D MPV 9.5 Neut % (Auto) 66.6 Lymph % (Auto) 16.[address] [place] % (Auto) 15.2 H Eos % (Auto) 1.2 Baso % (Auto) 0.4 Neut # (Auto) 4.6 Lymph # (Auto) 1.1 [place] # (Auto) 1.0 H Eos # (Auto) 0.1 Baso # (Auto) 0.0 INR APTT pO2 179 H VBG pH 7.44 H VBG pCO2 41 VBG HCO3 27.6 VBG Total CO2 29.1 H VBG O2 Sat (Calc) 99.6 H VBG Base Excess 3.3 H VBG Potassium 3.5 L Sodium 133.0 132 Chloride 96.0 L 91 L Glucose 125 H Lactate 2.8 H Potassium 4.1 Carbon Dioxide 29 Anion Gap 17 BUN 31 H Creatinine 1.6 H Est GFR ( Amer) 37 Est GFR (Non-Af Amer) 30 Random Glucose 120 H Calcium 8.5 L Magnesium 2.1 Total Bilirubin 1.1 AST 106 H D ALT 54 H D Alkaline Phosphatase 84 Troponin I 0.6840 H* Total Protein 6.6 Albumin 3.6 Globulin 3.0 Albumin/Globulin Ratio 1.2 Lipase 57 Venous Blood Potassium 3.5 L Urine Color Urine Clarity Urine pH Ur Specific [place] Urine Protein Urine Glucose (UA) Urine Ketones Urine Blood Urine Nitrate Urine Bilirubin Urine Urobilinogen Ur Leukocyte Esterase 06/10/18 06/10/18 00:13 00:21 WBC RBC Hgb Hct MCV MCH MCHC RDW Plt Count MPV Neut % (Auto) Lymph % (Auto) [place] % (Auto) Eos % (Auto) Baso % (Auto) Neut # (Auto) Lymph # (Auto) [place] # (Auto) Eos # (Auto) Baso # (Auto) INR 3.3 H* APTT 23 pO2 VBG pH VBG pCO2 VBG HCO3 VBG Total CO2 VBG O2 Sat (Calc) VBG Base Excess VBG Potassium Sodium Chloride Glucose Lactate Potassium Carbon Dioxide Anion Gap BUN Creatinine Est GFR ( Amer) Est GFR (Non-Af Amer) Random Glucose Calcium Magnesium Total Bilirubin AST ALT Alkaline Phosphatase Troponin I Total Protein Albumin Globulin Albumin/Globulin Ratio Lipase Venous Blood Potassium Urine Color Nancy Urine Clarity Hazy Urine pH 5.0 Ur Specific [place] 1.021 Urine Protein 2+ H Urine Glucose (UA) Normal Urine Ketones Trace Urine Blood Negative Urine Nitrate Negative Urine Bilirubin Negative Urine Urobilinogen Normal Ur Leukocyte Esterase Neg Assessment & Plan - Assessment and Plan (Free Text) Plan: AMS Partial Complex seizures-increased frequency Neurology, Dr. Michelle consulted. Follow up recs. EKG: NSR with first degree AV block MRI brain on previous admission: No acute abnormality. Chronic microangiopathic changes. Age related parenchymal volume loss. Chronic lacunar infarct. See full report. EEG previous admission: + epilleptiform waves Patient discharged home on Keppra 500mg BID on 06/08/18 Keppra held as family states gave her rash Ativan 1mg IVP Q4PRN for seizure activity HFpEF Elevated troponins Echocardiogram (06/02/18) shows EF 65-70%, severe pulmonary hypertension. grade I diastolic dysfunction. CXR: cardiomegaly, pulmonary vascular congestion, right pleural effusion slightly increased from previous F/u ProBNP; 7990 on previous admission Troponin 0.2330-->0.3890-->0.684, likely due to CHF Will trend Q8h x 2 I&Os Lasix 20mg IVP daily-Held for low BP/TYRA Medications on hold until patient passes swallow evaluation: Coreg 3.125 mg PO BID Losartan 100 mg PO daily Hypotension Hx of HTN Home meds held: Carvedilol 3.125mg PO BID Losartan 100mg PO daily Lasix 20mg IVP daily Elevated lactate 2.8 on admission f/u repeat in AM Gluteal cleft wound culture Urine cx, blood cx Zosyn 3.375g IV Q6H vanco 500mg IV Q24H TYRA Cr. 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 Pt with IVC filter home med Eliquis 5 mg PO daily held pending swallow eval Intertrigo to lower abdominal folds Continue Nystatin power Hx of PAD ASA 300mg FL daily-Held Crestor 10 mg PO QHS-held Hx of HLD Crestor 10mg PO HS-held pending swallow eval TG/CHL/LDL/HDL is 69/77/37/42 on 06/02/18 PPx No indication for GI ppx at this time Eliquis 2.5mg PO BID-held pending swallow eval NPO pending swallow eval Seizure precautions Discussed with Dr. Solorzano. Celeste Annado, PGY-1 <Tien Solorzano - Last Filed: 06/11/18 06:14> Results - Vital Signs Recent Vital Signs: Last Vital Signs Temp 97.3 F L 06/11/18 05:00 Pulse 93 H 06/11/18 05:00 Resp 16 06/11/18 05:00 BP 111/78 06/11/18 05:00 Pulse Ox 99 06/11/18 05:00 - Labs Result Diagrams: 06/10/18 09:35 06/10/18 09:35 Labs: Laboratory Results - last 24 hr 06/09/18 06/10/18 06/10/18 22:52 06:35 09:35 WBC 4.8 RBC 4.21 Hgb 11.7 Hct 35.3 MCV 83.9 MCH 27.7 MCHC 33.0 RDW 15.5 H Plt Count 88 L D MPV 9.2 Neut % (Auto) 74.1 Lymph % (Auto) 13.[address] [place] % (Auto) 11.7 H Eos % (Auto) 0.6 Baso % (Auto) 0.5 Neut # (Auto) 3.5 Lymph # (Auto) 0.[address] [place] # (Auto) 0.6 Eos # (Auto) 0.0 Baso # (Auto) 0.0 PT INR APTT Sodium Potassium Chloride Carbon Dioxide Anion Gap BUN Creatinine Est GFR ( Amer) Est GFR (Non-Af Amer) POC Glucose (mg/dL) 128 H 118 H Random Glucose Lactic Acid Calcium Total Bilirubin AST ALT Alkaline Phosphatase Total Creatine Kinase Troponin I NT-Pro-B Natriuret Pep Total Protein Albumin Globulin Albumin/Globulin Ratio Procalcitonin Urine Color Urine Clarity Urine pH Ur Specific [place] Urine Protein Urine Glucose (UA) Urine Ketones Urine Blood Urine Nitrate Urine Bilirubin Urine Urobilinogen Ur Leukocyte Esterase Urine WBC (Auto) Urine RBC (Auto) Ur Squamous Epith Cells Urine Bacteria Granular Casts (Auto) Ur Random Creatinine Ur Random Sodium RPR 06/10/18 06/10/18 06/10/18 09:35 09:35 09:36 WBC RBC Hgb Hct MCV MCH MCHC RDW Plt Count MPV Neut % (Auto) Lymph % (Auto) [place] % (Auto) Eos % (Auto) Baso % (Auto) Neut # (Auto) Lymph # (Auto) [place] # (Auto) Eos # (Auto) Baso # (Auto) PT INR APTT Sodium 138 Potassium 4.0 Chloride 94 L Carbon Dioxide 32 H Anion Gap 16 BUN 34 H Creatinine 1.8 H Est GFR ( Amer) 32 Est GFR (Non-Af Amer) 27 POC Glucose (mg/dL) Random Glucose 96 Lactic Acid 3.1 H Calcium 8.7 Total Bilirubin 0.9 AST 112 H ALT 65 H D Alkaline Phosphatase 74 Total Creatine Kinase 152 H Troponin I 0.6860 H* NT-Pro-B Natriuret Pep 89681 H Total Protein 6.7 Albumin 3.6 Globulin 3.1 Albumin/Globulin Ratio 1.1 Procalcitonin Urine Color Urine Clarity Urine pH Ur Specific [place] Urine Protein Urine Glucose (UA) Urine Ketones Urine Blood Urine Nitrate Urine Bilirubin Urine Urobilinogen Ur Leukocyte Esterase Urine WBC (Auto) Urine RBC (Auto) Ur Squamous Epith Cells Urine Bacteria Granular Casts (Auto) Ur Random Creatinine Ur Random Sodium RPR 06/10/18 06/10/18 06/10/18 10:25 12:57 13:54 WBC RBC Hgb Hct MCV MCH MCHC RDW Plt Count MPV Neut % (Auto) Lymph % (Auto) [place] % (Auto) Eos % (Auto) Baso % (Auto) Neut # (Auto) Lymph # (Auto) [place] # (Auto) Eos # (Auto) Baso # (Auto) PT 26.8 H D INR 2.4 D APTT 32 D Sodium Potassium Chloride Carbon Dioxide Anion Gap BUN Creatinine Est GFR ( Amer) Est GFR (Non-Af Amer) POC Glucose (mg/dL) Random Glucose Lactic Acid Calcium Total Bilirubin AST ALT Alkaline Phosphatase Total Creatine Kinase Troponin I NT-Pro-B Natriuret Pep Total Protein Albumin Globulin Albumin/Globulin Ratio Procalcitonin 0.09 L Urine Color Urine Clarity Urine pH Ur Specific [place] Urine Protein Urine Glucose (UA) Urine Ketones Urine Blood Urine Nitrate Urine Bilirubin Urine Urobilinogen Ur Leukocyte Esterase Urine WBC (Auto) Urine RBC (Auto) Ur Squamous Epith Cells Urine Bacteria Granular Casts (Auto) Ur Random Creatinine Ur Random Sodium RPR Nonreactive 06/10/18 06/10/18 06/10/18 15:58 17:01 19:18 WBC RBC Hgb Hct MCV MCH MCHC RDW Plt Count MPV Neut % (Auto) Lymph % (Auto) [place] % (Auto) Eos % (Auto) Baso % (Auto) Neut # (Auto) Lymph # (Auto) [place] # (Auto) Eos # (Auto) Baso # (Auto) PT INR APTT Sodium Potassium Chloride Carbon Dioxide Anion Gap BUN Creatinine Est GFR ( Amer) Est GFR (Non-Af Amer) POC Glucose (mg/dL) 85 Random Glucose Lactic Acid Calcium Total Bilirubin AST ALT Alkaline Phosphatase Total Creatine Kinase Troponin I NT-Pro-B Natriuret Pep Total Protein Albumin Globulin Albumin/Globulin Ratio Procalcitonin Urine Color Nancy Urine Clarity Hazy Urine pH 5.0 Ur Specific [place] 1.031 H Urine Protein 2+ H Urine Glucose (UA) Normal Urine Ketones Trace Urine Blood Negative Urine Nitrate Negative Urine Bilirubin Negative Urine Urobilinogen Normal Ur Leukocyte Esterase Neg Urine WBC (Auto) 12 H Urine RBC (Auto) 11 H Ur Squamous Epith Cells 2 Urine Bacteria Rare Granular Casts (Auto) 3 Ur Random Creatinine 240.3 Ur Random Sodium < 5 RPR 06/10/18 21:24 WBC RBC Hgb Hct MCV MCH MCHC RDW Plt Count MPV Neut % (Auto) Lymph % (Auto) [place] % (Auto) Eos % (Auto) Baso % (Auto) Neut # (Auto) Lymph # (Auto) [place] # (Auto) Eos # (Auto) Baso # (Auto) PT INR APTT Sodium Potassium Chloride Carbon Dioxide Anion Gap BUN Creatinine Est GFR ( Amer) Est GFR (Non-Af Amer) POC Glucose (mg/dL) 103 Random Glucose Lactic Acid Calcium Total Bilirubin AST ALT Alkaline Phosphatase Total Creatine Kinase Troponin I NT-Pro-B Natriuret Pep Total Protein Albumin Globulin Albumin/Globulin Ratio Procalcitonin Urine Color Urine Clarity Urine pH Ur Specific [place] Urine Protein Urine Glucose (UA) Urine Ketones Urine Blood Urine Nitrate Urine Bilirubin Urine Urobilinogen Ur Leukocyte Esterase Urine WBC (Auto) Urine RBC (Auto) Ur Squamous Epith Cells Urine Bacteria Granular Casts (Auto) Ur Random Creatinine Ur Random Sodium RPR Assessment & Plan - Date & Time Date: 06/11/18 (I have seen and examined the patient. I agree with the findings and plan of care as documented by Dr. Hazel. Patient with seizures. Recently discharged with Keppra but continues to have seizures at home. Consult to neuro. Hold Keppra for now due to new rash. Ativan prn seizure. Elevated troponin. Elevated on last admission as well. Continue to trend. History of CHF. Hypotension. Hold BP meds. Renal insufficiency. Continue to monitor. I&Os. Monitor for acute changes.) Time: 06:11 Attending/Attestation - Attestation I have personally seen and examined this patient.: Yes I have fully participated in the care of the patient.: Yes I have reviewed all pertinent clinical information: Yes
[2018-06-10 04:03] LABS: PROTHROMBIN TIME 36.7 SECONDS (9.7-12.2)
[2018-06-10] MEDS ORDERED: Piperacillin/Tazobact 3.375 GM in Sodium Chloride 100 ML IVPB SCH (04:30)
[2018-06-10] MEDS ORDERED: Sodium Chloride 0.9% 1,000 ML IV SCH (04:30)
[2018-06-10] MEDS ORDERED: levETIRAcetam 500 MG in Sodium Chloride 0.9% 100 ML IVPB ONE ×2 (06:45→08:00)
--- NOTE | 2018-06-10 07:22 | CP.PCM.CON ---
History of Present Illness - History of Present Illness History of Present Illness: CONSULTATION DICTATED EPILEPSIA PARTIALIS CONTINUA PROBABLE SUB THERAPEUTIC AED WILL IV BOLUS FOLLOWED BY KEPPRA 750 BID EEG SEIZURE PRECAUTION Past Patient History - Infectious Disease Hx of Infectious Diseases: None - Past Medical History & Family History Past Medical History?: Yes - Past Social History Smoking Status: Never Smoked - CARDIAC Hx Cardia Arrhythmia: Yes Hx Congestive Heart Failure: Yes Hx Hypercholesterolemia: Yes Hx Hypertension: Yes Hx Peripheral Edema: Yes - PULMONARY Hx Asthma: Yes - NEUROLOGICAL Hx Neurological Disorder: Yes Hx Syncope: Yes (10 yrs ago unknown reason) - HEENT Hx HEENT Problems: Yes Hx Cataracts: Yes Hx Glaucoma: Yes - RENAL Hx Chronic Kidney Disease: No - ENDOCRINE/METABOLIC Hx Endocrine Disorders: No - HEMATOLOGICAL/ONCOLOGICAL Hx Blood Disorders: No - INTEGUMENTARY Hx Dermatological Problems: No - MUSCULOSKELETAL/RHEUMATOLOGICAL Hx Arthritis: Yes - GASTROINTESTINAL Hx Gastrointestinal Disorders: No - GENITOURINARY/GYNECOLOGICAL Hx Genitourinary Disorders: No - PSYCHIATRIC Hx Substance Use: No - SURGICAL HISTORY Hx Surgeries: Yes Hx Cataract Extraction: Yes (cat ext left eye iol 7 yrs ago) Hx Hysterectomy: Yes Hx Orthopedic Surgery: Yes (R leg) Hx Vascular Surgery: Yes - ANESTHESIA Hx Anesthesia: Yes Hx Anesthesia Reactions: No Hx Malignant Hyperthermia: No Meds Allergies/Adverse Reactions: Allergies Allergy/AdvReac Type Severity Reaction Status Date / Time acetaminophen [From Percocet] AdvReac RASH Verified 06/09/18 23:14 hydromorphone [From Dilaudid] AdvReac RASH Verified 06/09/18 23:14 oxycodone [From Percocet] AdvReac RASH Verified 06/09/18 23:14 - Medications Medications: Current Medications Albuterol/Ipratropium (Duoneb 3 Mg/0.5 Mg (3 Ml) Ud) 3 ml INH RQ4 PRN PRN Reason: Shortness of Breath Allopurinol (Zyloprim) 100 mg PO DAILY [facility] Apixaban (Eliquis) 5 mg PO DAILY [facility] Aspirin (Aspirin Supp) 300 mg [place] DAILY [facility] Budesonide (Pulmicort Respules) 0.25 mg INH RQ12 [facility] Carvedilol (Coreg) 3.125 mg PO BID [facility] Furosemide (Lasix) 20 mg IVP DAILY [facility] Piperacillin Sod/Tazobactam (Sod 3.375 gm/ Sodium Chloride) 100 mls @ 200 mls/hr IVPB Q6H [facility]; Protocol Last Admin: 06/10/18 05:18 Dose: 200 mls/hr Sodium Chloride (Sodium Chloride 0.9%) 1,000 mls @ 80 mls/hr IV .[id number] [facility] Last Admin: 06/10/18 05:18 Dose: 80 mls/hr Vancomycin HCl 500 mg/ Sodium (Chloride) 100 mls @ 100 mls/hr IVPB Q24H [facility]; Protocol Levetiracetam 500 mg/ Sodium (Chloride) 105 mls @ 420 mls/hr IVPB ONCE ONE Stop: 06/10/18 08:14 Levetiracetam 750 mg/ Sodium (Chloride) 107.5 mls @ 420 mls/hr IVPB Q12H [facility] Lorazepam (Ativan) 1 mg IVP Q4H PRN PRN Reason: Seizure activity Losartan Potassium (Cozaar) 25 mg PO DAILY [facility] Nystatin (Nystop Topical Powder) 1 applic TOP BID [facility] Pneumococcal Polyvalent Vaccine (Pneumovax 23 Vaccine) 0.5 ml IM .ONCE ONE Stop: 06/14/18 10:01 Rosuvastatin Calcium (Crestor) 10 mg PO HS [facility] Results - Vital Signs Recent Vital Signs: Last Vital Signs Temp 97.7 F 06/10/18 03:04 Pulse 79 06/10/18 03:04 Resp 16 06/10/18 03:04 BP 104/76 06/10/18 03:04 Pulse Ox 100 06/10/18 06:18 - Labs Result Diagrams: 06/10/18 00:10 06/10/18 00:10 Labs: Laboratory Results - last 24 hr 06/10/18 06/10/18 06/10/18 00:07 00:10 00:10 WBC 6.9 D RBC 4.27 Hgb 12.0 Hct 35.7 MCV 83.6 MCH 28.1 MCHC 33.6 RDW 15.4 H Plt Count 110 L D MPV 9.5 Neut % (Auto) 66.6 Lymph % (Auto) 16.6 L [place] % (Auto) 15.2 H Eos % (Auto) 1.2 Baso % (Auto) 0.4 Neut # (Auto) 4.6 Lymph # (Auto) 1.1 [place] # (Auto) 1.0 H Eos # (Auto) 0.1 Baso # (Auto) 0.0 PT INR APTT pO2 179 H VBG pH 7.44 H VBG pCO2 41 VBG HCO3 27.6 VBG Total CO2 29.1 H VBG O2 Sat (Calc) 99.6 H VBG Base Excess 3.3 H VBG Potassium 3.5 L Sodium 133.0 132 Chloride 96.0 L 91 L Glucose 125 H Lactate 2.8 H Potassium 4.1 Carbon Dioxide 29 Anion Gap 17 BUN 31 H Creatinine 1.6 H Est GFR ( Amer) 37 Est GFR (Non-Af Amer) 30 POC Glucose (mg/dL) Random Glucose 120 H Calcium 8.5 L Magnesium 2.1 Total Bilirubin 1.1 AST 106 H D ALT 54 H D Alkaline Phosphatase 84 Troponin I 0.6840 H* Total Protein 6.6 Albumin 3.6 Globulin 3.0 Albumin/Globulin Ratio 1.2 Lipase 57 Venous Blood Potassium 3.5 L Urine Color Urine Clarity Urine pH Ur Specific [place] Urine Protein Urine Glucose (UA) Urine Ketones Urine Blood Urine Nitrate Urine Bilirubin Urine Urobilinogen Ur Leukocyte Esterase 06/10/18 06/10/18 06/10/18 00:13 00:21 06:35 WBC RBC Hgb Hct MCV MCH MCHC RDW Plt Count MPV Neut % (Auto) Lymph % (Auto) [place] % (Auto) Eos % (Auto) Baso % (Auto) Neut # (Auto) Lymph # (Auto) [place] # (Auto) Eos # (Auto) Baso # (Auto) PT 36.7 H INR 3.3 H* APTT 23 pO2 VBG pH VBG pCO2 VBG HCO3 VBG Total CO2 VBG O2 Sat (Calc) VBG Base Excess VBG Potassium Sodium Chloride Glucose Lactate Potassium Carbon Dioxide Anion Gap BUN Creatinine Est GFR ( Amer) Est GFR (Non-Af Amer) POC Glucose (mg/dL) 118 H Random Glucose Calcium Magnesium Total Bilirubin AST ALT Alkaline Phosphatase Troponin I Total Protein Albumin Globulin Albumin/Globulin Ratio Lipase Venous Blood Potassium Urine Color [place] Urine Clarity Hazy Urine pH 5.0 Ur Specific [place] 1.021 Urine Protein 2+ H Urine Glucose (UA) Normal Urine Ketones Trace Urine Blood Negative Urine Nitrate Negative Urine Bilirubin Negative Urine Urobilinogen Normal Ur Leukocyte Esterase Neg
--- NOTE | 2018-06-10 07:44 | CP.PCM.PN ---
<Carlos Castellano - Last Filed: 06/10/18 16:32> Subjective - Date & Time of Evaluation Date of Evaluation: 06/10/18 Time of Evaluation: 11:27 - Subjective Subjective: Medicine progress note for Dr. Carlos Suresh Pt seen and examined at bedside. Pt with no complaints at this time, but states "things aren't good." She is able to answer my questions appropriately. Pt's son, Noah, is at bedside. Pt denies fever, chills, chest pain, sob, abdominal pain, n/v/d, numbness or tingling, seizure activity, headache, dizziness, lightheadedness, throat swelling. Objective - Vital Signs/Intake and Output Vital Signs (last 24 hours): Temp Pulse Resp BP Pulse Ox 97.7 F 79 16 104/76 100 06/10/18 03:04 06/10/18 03:04 06/10/18 03:04 06/10/18 03:04 06/10/18 06:18 Intake and Output: 06/10/18 06/10/18 06:59 18:59 Intake Total 160 Output Total 150 Balance 10 - Medications Medications: Current Medications Albuterol/Ipratropium (Duoneb 3 Mg/0.5 Mg (3 Ml) Ud) 3 ml INH RQ4 PRN PRN Reason: Shortness of Breath Allopurinol (Zyloprim) 100 mg PO DAILY [facility] Apixaban (Eliquis) 5 mg PO DAILY [facility] Aspirin (Aspirin Supp) 300 mg [place] DAILY [facility] Budesonide (Pulmicort Respules) 0.25 mg INH RQ12 [facility] Carvedilol (Coreg) 3.125 mg PO BID [facility] Furosemide (Lasix) 20 mg IVP DAILY [facility] Piperacillin Sod/Tazobactam (Sod 3.375 gm/ Sodium Chloride) 100 mls @ 200 mls/hr IVPB Q6H [facility]; Protocol Last Admin: 06/10/18 05:18 Dose: 200 mls/hr Vancomycin HCl 500 mg/ Sodium (Chloride) 100 mls @ 100 mls/hr IVPB Q24H [facility]; Protocol Levetiracetam 500 mg/ Sodium (Chloride) 105 mls @ 420 mls/hr IVPB ONCE ONE Stop: 06/10/18 08:14 Levetiracetam 750 mg/ Sodium (Chloride) 107.5 mls @ 420 mls/hr IVPB Q12H [facility] Lorazepam (Ativan) 1 mg IVP Q4H PRN PRN Reason: Seizure activity Losartan Potassium (Cozaar) 25 mg PO DAILY [facility] Nystatin (Nystop Topical Powder) 1 applic TOP BID [facility] Pneumococcal Polyvalent Vaccine (Pneumovax 23 Vaccine) 0.5 ml IM .ONCE ONE Stop: 06/14/18 10:01 Rosuvastatin Calcium (Crestor) 10 mg PO HS [facility] - Labs Labs: 06/10/18 00:10 06/10/18 00:10 PT 36.7 SECONDS (9.7-12.2) H 06/10/18 00:13 INR 3.3 H* 06/10/18 00:13 APTT 23 SECONDS (21-34) 06/10/18 00:13 - Constitutional Appears: Non-toxic, No Acute Distress - Head Exam Head Exam: ATRAUMATIC, NORMAL INSPECTION - Eye Exam Eye Exam: EOMI, Normal appearance, PERRL - ENT Exam ENT Exam: Mucous Membranes Moist, Normal Oropharynx Additional comments: no tongue laceration - Respiratory Exam Respiratory Exam: Decreased Breath Sounds, Rales (at the bases bilaterally), NORMAL BREATHING PATTERN. absent: Rhonchi, Wheezes, Respiratory Distress - Cardiovascular Exam Cardiovascular Exam: REGULAR RHYTHM, +S1, +S2 Additional comments: (+) 1/6 systolic ejection murmur (+) 1+ DPs bilaterally, 2+ radial pulses bilaterally - GI/Abdominal Exam GI & Abdominal Exam: Soft, Normal Bowel Sounds. absent: Distended, Firm, Guarding, Rigid, Tenderness, Rebound - Extremities Exam Extremities Exam: Pedal Edema (1+ pitting edema of the bilateral lower extremities extending to the mid proximal tibia). absent: Calf Tenderness - Back Exam Back Exam: NORMAL INSPECTION - Neurological Exam Neurological Exam: Alert, Awake, CN II-XII Intact. absent: Oriented x3 (not oriented to year) Neuro motor strength exam: Left Upper Extremity: 5, Right Upper Extremity: 5, Left Lower Extremity: 2/1 (chronic), Right Lower Extremity: 2/1 (chronic) - Psychiatric Exam Psychiatric exam: Depressed, Normal Affect, Normal Mood - Skin Skin Exam: Dry, Warm Additional comments: (+) excoriations to the left and right upper chest wall, no swelling; no active bleeding (+) erythema, without warmth, slightly raised rash to the medial left upper arm (+) small 1 cm skin tear, (improved compared to prior admission), which medihoney and dressing was applied to (+) erythema to the lower abdominal skin folds, left greater than right (+) 0.5 cm ulceration with eschar to the left second toe (+) chronic venous stasis to the bilateral lower extremities Assessment and Plan - Assessment and Plan (Free Text) Assessment: 87 year old female with PMHx of CHF, severe pulmonary hypertension, COPD, HTN, HLD, asthma, previous DVT with IVC filter placement, PAD and arthritis admitted for altered mental status. Patient was just discharged the previous day from a hospital stay for altered mental status and determine to have UTI (which was treated with Vantin) and partial complex seizures (which is being treated with Keppra PO). Noted to have acute renal failure likely due to Vantin and Keppra elevate lactate, elevated INR. Pt with allergic reaction (rash) to outpatient vantin. Potential component of dementia with sundowning. Plan: Partial complex seizure CT head 06/10: no acute pathology. generalized volume loss. Nonspecific white matter changes. * Prior head CT 06/05 shows chronic changes as well (see report). 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 06/05 Carotid dopplers shows no hemodynamically significant lesions bilaterally. Neurology, Dr. Michelle, consulted. * 06/06 EEG shows abnormal EEG because of slow activities followed with paroxysmal polyspike and wave actvities noted at right followed with bilateral cortical activities consistent with epileptiform focus * Keppra 500 mg PO BID outpatient increased to Keppra 750 mg IVPB q12 to start tonight as per neurology * F/u repeat EEG Aspiration, Fall, Seizure precautions F/u keppra level, RPR Acute renal failure Likely secondary to Keppra and Vantin BUN is 34, Cr is 1.8; S/p IVF bolus of 1L Baseline is 1.0 CPK is 152 Bedside RN bladder scan shows no retention Nephrology, Dr. Pabon, consulted Renal/bladder US shows increased echogenicity of the bilateral renal parenchymal cortices suggestive for medical renal disease. Cholelithiasis. HFpEF CXR shows moderate venous congestion. Bibasilar airspace opacities. Right hilar prominence. Enlarged ectatic aorta with atherosclerotic calcifications. Biapical pleural thickening with upper lobe granulomatous changes. Lasix 20mg IVP daily Coreg 3.125 mg PO BID (8 am and 8 pm) Hold home Losartan 25 mg PO due to ARF as below Cardiology/PMD, Dr. Sousa, consulted. Elevated Lactate Hx recent UTI (e.coli sensitive to 3rd gen cephalosporin), treated Likely due to ARF and muscles hypertonicity noted at home Pt without leukocytosis, hypotension, tachycardia, fevers Procalcitonin is low at 0.09 Blood cultures (06/05) negative to date Urine culture negative 06/06 and 06/07 2.8 on admission--> 3.1 S/p NS IVF bolus 1 L S/p Vancomycin 1g IVPB, Zosyn 3.375 mg IVPB x2 in the ED F/u repeat blood cultures done on admission Severe pulmonary hypertension COPD Duonebs Q6H Budesonide Q12H O2 via NC PRN RVSP is 100 mmHg Pulmonology consulted (Audi) F/u ABG Abdominal rash Potentially allergic reaction to outpatient Vantin Medication allergy Cefpodoxime added Continue to monitor Elevated LFTs Likely due to Keppra AST/ALT/ALP is 106/54/84 on admission Today, 112/65/74 Elevated Troponin Likely due to HFpEF and ARF as above 0.6840-->0.6860 No changes on EKGs at this time F/u third troponin Elevated INR PT/PTT/INR is 36.7/23/3.3 on admission Repeat is 26.8/32/2.4 PT/PTT/INR is 25.3/36/2.3 on 06/01 Pt is not on warfarin NO indication for vitamin K as pt is not bleeding 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 Eliquis 5 mg PO daily on hold due to elevated INR CI to SCDs Intertrigo to lower abdominal folds Improving from discharge on 06/08 Continue Nystatin power BID Peripheral artery disease, chronic ASA 81 mg PO daily Crestor 10 mg PO QHS Hx sacral/gluteal cleft skin tear Improving from discharge on 06/08 Continue medihoney and optiform Thrombocytopenia, chronic, stable Platelets 88 Continue to monitor Hypertension, chronic Coreg 3.125 mg PO QHS Losartan 100 mg PO daily on hold due to RARF Hyperlipidemia, chronic TG/CHL/LDL/HDL is 69/77/37/42 on 06/02 Crestor 10mg PO HS H/o Gout Hold home Allopurinol 100 mg PO due to ARF Depression Possible dementia with sundown Pt's brother recently in the winter Psychiatry, Dr. Jni, consulted. Ppx: VTE: Eliquis, SCDs contraindicated GI: not indicated PT/OT eval Aspiration, Fall, Seizure precautions CM eval for rehab (son prefers [facility]) Speech therapist recommends pureed solids, thin liquids. Bed at 90 degrees at all oral intake HHD/CCD/2g Na <Carmine Suresh - Last Filed: 06/11/18 19:09> Objective - Vital Signs/Intake and Output Vital Signs (last 24 hours): Temp Pulse Resp BP Pulse Ox 97.9 F 81 20 122/85 98 06/11/18 15:00 06/11/18 15:00 06/11/18 15:00 06/11/18 15:00 06/11/18 15:00 Intake and Output: 06/11/18 06/12/18 18:59 06:59 Intake Total 200 Output Total 1100 Balance -900 - Medications Medications: Current Medications Albuterol/Ipratropium (Duoneb 3 Mg/0.5 Mg (3 Ml) Ud) 3 ml INH RQ4 PRN PRN Reason: Shortness of Breath Last Admin: 06/11/18 08:00 Dose: 3 ml Apixaban (Eliquis) 5 mg PO DAILY [facility] Aspirin (Ecotrin) 81 mg PO DAILY [facility] Last Admin: 06/11/18 10:04 Dose: 81 mg Budesonide (Pulmicort Respules) 0.25 mg INH RQ12 [facility] Last Admin: 06/11/18 08:00 Dose: 0.25 mg Carvedilol (Coreg) 3.125 mg PO BID [facility] Last Admin: 06/11/18 17:45 Dose: 3.125 mg Furosemide (Lasix) 20 mg IVP Q8H [facility] Last Admin: 06/11/18 14:40 Dose: 20 mg Lorazepam (Ativan) 1 mg IVP Q4H PRN PRN Reason: Seizure activity Losartan Potassium (Cozaar) 25 mg PO DAILY [facility] Nystatin (Nystop Topical Powder) 1 applic TOP BID [facility] Last Admin: 06/11/18 17:45 Dose: Not Given Pneumococcal Polyvalent Vaccine (Pneumovax 23 Vaccine) 0.5 ml IM .ONCE ONE Stop: 06/14/18 10:01 Rosuvastatin Calcium (Crestor) 10 mg PO HS [facility] Last Admin: 06/10/18 21:40 Dose: 10 mg Spironolactone (Aldactone) 25 mg PO BID [facility] Last Admin: 06/11/18 17:45 Dose: 25 mg - Labs Labs: 06/11/18 13:12 06/11/18 13:12 PT 22.0 SECONDS (9.7-12.2) H 06/11/18 14:36 INR 2.0 06/11/18 14:36 APTT 32 SECONDS (21-34) D 06/10/18 13:54 Attending/Attestation - Attestation I have personally seen and examined this patient.: Yes I have fully participated in the care of the patient.: Yes I have reviewed all pertinent clinical information, including history, physical exam and plan: Yes Notes (Text): 06/11/18 19:09 This is a late entry. Care of this patient was gone over in detail with resident Dr. Castellano. Carmine Suresh D.O.
--- NOTE | 2018-06-10 08:15 | CON ---
DATE: 06/10/2018 ATTENDING PHYSICIAN: . LOCATION: Room 565, bed B. REASON FOR CONSULTATION: Change in mental status. CHIEF COMPLAINT: The patient was brought in back to [facility] who was discharged few days ago for change in mental status. From neurological point of view, I was called in to evaluate her for further management. HISTORY OF PRESENT ILLNESS: Ms. Radha Covington is an 87-year-old right-handed -French female known to have seizures, been stable with levetiracetam and increased the dose on previous admission, been sent to home with 500 mg twice a day. The patient presenting with recurrent episode of change in mental status with clenching movement and fisting hands. The patient also had evidence of incontinence of urine as well as stool associating with this problem. The patient could not recall all these episodes. However, she feels sick by herself but she could not explain how she is going through with this problem. PAST MEDICAL HISTORY: Hypertension, dyslipidemia, coronary artery disease, COPD, history of DVT, arthritis, seizures. PAST SURGICAL HISTORY: IVC filter, right leg surgery and hysterectomy. MEDICATIONS: Allopurinol, Eliquis, irbesartan, Crestor, carvedilol, Keppra, Lasix. ALLERGIES: HYDROMORPHONE AND OXYCODONE. PERSONAL HISTORY: Denies smoking or alcohol use. REVIEW OF SYSTEMS: A 12-point system being reviewed. From neuro, recurrent seizure episodes. PHYSICAL EXAMINATION: VITAL SIGNS: Blood pressure 104/76, mean artery pressure of 85, respiratory rate 18, temperature 97.7 with a pulse rate 79 regular. NECK: Supple. No carotid bruit. HEART: Sounds are regular. CHEST: Fair air entry. EXTREMITIES: 1+ pitting edema on both legs, externally rotated. NEUROLOGIC: Mental status examination: She is arousable on calling her first name. She knows she is in the hospital. Speech is fluent. Follows one-step command. Significant right and left confusion. Cranial nerve examination: Respond to visual threat on both sides. Pupils reactive. Extraocular movement markedly decreased in all direction. No facial sensory deficit. No facial asymmetry. Hearing is normal. Tongue is midline. Good gag. Motor examination: He could able to move both upper extremities against the gravity; however, the lower extremities are markedly limited due to the pain and weakness. Deep tendon reflexes absent throughout. Plantars are mute. Sensory examination: Respond to pain symmetrically on both sides. Coordination: The patient felt weak. She could not able to follow at present. 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 Knowing that the patient did have seizures, been on medication and recent electroencephalogram was abnormal consistent with epileptiform activities. This probably is subtherapeutic dose of antiepileptic drugs. RECOMMENDATION: I would like to increase her dose of Keppra with a bolus of 500 mg IV, then followed with 750 mg IV twice a day to optimize the therapeutic level. We will do one Keppra level follow prior to the discharge. The patient will be followed while she is in the hospital. ADDENDUM: The patient should have electroencephalogram to see any further paroxysmal activities at present with this current dose. Jackson Michelle MD
[2018-06-10 09:42] LABS: BASO % 0.5 % (0.0-2.0); EOS % 0.6 % (0.0-4.0); HEMOGLOBIN 11.7 g/dL (11.0-16.0); LYMPH # 0.6 K/uL (1.0-4.3); LYMPH % 13.1 % (20.0-40.0); MEAN CELL VOLUME 83.9 fL (81.0-99.0); MEAN CORPUSCULAR HEMOGLOBIN 27.7 pg (27.0-31.0); MEAN PLATELET VOLUME 9.2 fL (7.2-11.7); MONO # 0.6 K/uL (0.0-0.8); MONO % 11.7 % (0.0-10.0); NEUT # 3.5 K/uL (1.8-7.0); NEUT % 74.1 % (50.0-75.0); NRBC % 0.1 % (0.0-2.0); RBC 4.21 Mil/uL (3.80-5.20); RED CELL DISTRIBUTION WIDTH 15.5 % (11.5-14.5); WHITE BLOOD COUNT 4.8 K/uL (4.8-10.8)
[2018-06-10] MEDS ORDERED: levETIRAcetam 100 mg/ml (5ml) Oral Syringe PO SCH (10:00)
[2018-06-10 10:05] LABS: ALB/GLOB RATIO 1.1 (1.0-2.1); ALBUMIN 3.6 g/dL (3.5-5.0); CALCIUM 8.7 mg/dl (8.6-10.4)
--- NOTE | 2018-06-10 10:16 | CT ---
Date of service: 06/10/2018 PROCEDURE: CT HEAD WITHOUT CONTRAST. HISTORY: AMS COMPARISON: Noncontrast head CT performed 06/05/18 TECHNIQUE: Axial computed tomography images were obtained through the head/brain without intravenous contrast. Radiation dose: Total exam DLP = 1221.6 mGy-cm. This CT exam was performed using one or more of the following dose reduction techniques: Automated exposure control, adjustment of the mA and/or kV according to patient size, and/or use of iterative reconstruction technique. FINDINGS: HEMORRHAGE: No intracranial hemorrhage. BRAIN: Diffuse atrophy with prominence of the ventricles and sulci noted. No mass effect or edema. Intracranial atherosclerosis. Scattered periventricular and subcortical white matter hypodensities, which are nonspecific, but often seen with chronic microvascular ischemic disease. Please note that MRI with diffusion imaging is more sensitive in the detection of acute ischemic event. VENTRICLES: No hydrocephalus. CALVARIUM: Unremarkable. PARANASAL SINUSES: Unremarkable as visualized. No significant inflammatory changes. MASTOID AIR CELLS: Unremarkable as visualized. No inflammatory changes. OTHER FINDINGS: Partial opacification of the external auditory canals, likely cerumen. IMPRESSION: Generalized volume loss. Nonspecific white matter changes.
[2018-06-10 10:23] LABS: TROPONIN I 0.686 ng/mL (0.00-0.120)
--- NOTE | 2018-06-10 11:05 | RAD ---
Chest x-ray single frontal view HISTORY: Shortness of breath. COMPARISON: 06/01/2018 FINDINGS: Moderate venous congestion. Bibasilar airspace opacities. Small bilateral pleural effusions. Right hilar prominence. Enlarged ectatic aorta with prominent atherosclerotic calcification. Biapical pleural thickening with upper lobe granulomatous changes. Cardiomegaly. Degenerative changes in the spine and shoulders. IMPRESSION: Moderate venous congestion. Bibasilar airspace opacities. Small bilateral pleural effusions. Right hilar prominence. Enlarged ectatic aorta with prominent atherosclerotic calcification. Biapical pleural thickening with upper lobe granulomatous changes. Cardiomegaly.
--- NOTE | 2018-06-10 12:59 | US ---
Renal ultrasound HISTORY: Acute renal failure. COMPARISON: None available. Technique: Real-time sonography was performed through the kidneys. Findings: Right kidney: 11.3 x 4.4 x 4.5 centimeters. Increased echogenicity of the renal parenchymal cortex suggestive for medical renal disease. No calculi or hydronephrosis. Left Kidney: 10.9 x 5.2 x 5.3 centimeters. Increased echogenicity of the renal parenchymal cortex suggestive for medical renal disease. No calculi or hydronephrosis. Incidentally noted is cholelithiasis. Underdistended urinary bladder limits evaluation. Bilateral ureteral jets were not well visualized. No gross wall thickening or calculi appreciated. Impression: Increased echogenicity of the bilateral renal parenchymal cortices suggestive for medical renal disease. Clinical correlation. Cholelithiasis.
[2018-06-10 14:11] LABS: INR 2.4; PROTHROMBIN TIME 26.8 SECONDS (9.7-12.2)
[2018-06-10 17:28] LABS: CREATININE, RANDOM URINE 240.3 mg/dL
[2018-06-10 19:28] LABS: SQUAMOUS EPITHIAL 2 /hpf (0-5); URINE BACTERIA RARE (<OCC); URINE BILIRUBIN NEGATIVE (NEGATIVE); URINE BLOOD NEGATIVE (NEGATIVE); URINE CLARITY Hazy (Clear); URINE COLOR Amber (YELLOW); URINE GLUCOSE (UA) NORMAL (Normal); URINE LEUKOCYTE ESTERASE NEG Leu/uL (Negative); URINE PROTEIN 2+ mg/dL (NEGATIVE); URINE UROBILINOGEN NORMAL mg/dL (0.2-1.0)
[2018-06-10 19:30] LABS: GRANULAR CAST 3 /lpf (0-1)
[2018-06-10] MEDS: Budesonide 0.25 mg/2 ml Inhal Susp UD INH SCH (20:01)
[2018-06-10] MEDS: Albuterol-Ipratrop 3 mg / 0.5 (3 ml) UD INH PRN (20:01)
--- NOTE | 2018-06-11 01:49 | CON ---
DATE: 06/10/2018 LOCATION: [facility]. NEPHROLOGY CONSULTATION HISTORY OF PRESENT ILLNESS: The patient is an 87-year-old female with past medical history of hypertension, CHF with diastolic dysfunction and pulmonary hypertension, COPD, status post DVT, on Eliquis; brought by family to ED due to altered mental status and possible seizure. Nephrology being consulted for acute kidney injury. History taken primarily from medical record as the patient says that she cannot give much information. Records state that family had an episode of altered mental status and was noted to stare into space with associated hyperextended neck, clenched fists, and scream. The patient also reportedly had multiple such episodes during ambulance ride to ED. The patient denies being short of breath. Cannot say whether she is urinating any less lately. Unclear if the patient has been having adequate p.o. intake. No nausea, vomiting, or diarrhea per record. Of note, the patient was admitted just few days ago with aura considered to be seizure like activity and was discharged on Keppra as well as Vantin for UTI. PAST MEDICAL HISTORY: As above. FAMILY HISTORY: Parents with hypertension. SOCIAL HISTORY: Denies smoking. REVIEW OF SYSTEMS: Taken primarily from the chart. No fever or chills. HEENT: No change in vision. No sore throat. No nasal congestion. CARDIOVASCULAR: No chest pain or palpitations. EXTREMITIES: The patient has been noted to have increased lower extremity edema. GASTROINTESTINAL: No nausea, vomiting, or diarrhea. GENITOURINARY: No dysuria. MUSCULOSKELETAL: No back pain. SKIN: The patient does report some pruritus. NEUROLOGIC: As per HPI. PHYSICAL EXAMINATION: VITAL SIGNS: This afternoon, blood pressure 114/77, heart rate is 84, respirations 18, temperature 97.7, O2 sat 98% on nasal cannula 2 L oxygen. GENERAL: No distress. Able to answer questions appropriately. HEENT: Moist mucous membranes. NECK: Elevated JVD. No cervical lymphadenopathy. RESPIRATORY: Some basal rales present. Otherwise no rhonchi. No wheezes. CARDIOVASCULAR: Somewhat distant heart sounds. No obvious murmurs. Regular rate and rhythm. GASTROINTESTINAL: Abdomen soft. Some tenderness. Nondistended. GENITOURINARY: No bladder distention. EXTREMITIES: Moderate bilateral leg edema extending to upper thighs. SKIN: Warm. No cyanosis. Warm hands. Cool feet. PSYCHIATRIC: Not agitated. LABORATORY DATA: Labs this morning CBC; WBC 4.8, hemoglobin 11.7, hematocrit 35.3, platelets 88. Chemistry panel; sodium 138, potassium 4, chloride 94, bicarb 32, BUN 34, creatinine 1.8, glucose 96, calcium 8.7. AST 112, ALT 65, albumin 3.6, proBNP 12,300. Troponin I 0.68. Lactic acid level 3.1. Urine studies UA 2+ protein, urine sodium less than 5, urine creatinine 240. Chest x-ray directly visualized, lungs relatively clear. Renal US - No hydronephrosis; ASSESSMENT AND PLAN: 1. Acute renal failure. Oliguric renal failure with serum creatinine increasing from baseline of 1 to 1.8. In the setting of severe pulmonary hypertension and with very low urine sodium level, cardiorenal etiology of acute kidney injury is suspected. The patient received aggressive volume repletion with intravenous fluid bolus without any improvement. At this point, the patient should have preload reduction and offloading of RV with aggressive IV diuretics. -We will increase intravenous Lasix 20 mg to every 8 hours. -Agree withholding angiotensin receptor blockers. -Avoid all nephrotoxic agents. -May need to consider ionotropic support if no improvement. 2. Congestive heart failure with diastolic dysfunction and severe pulmonary hypertension. Right ventricular systolic function was normal just one week ago. Nevertheless, there is concern for worsening right-sided heart failure in the setting of severe pulmonary hypertension. We will try above measures for decreasing preload. Thank you for this referral. We will be following up closely. Bryce Pabon MD MIN
[2018-06-11] MEDS ORDERED: Fosphenytoin 1,000 MG in Sodium Chloride 0.9% 50 ML IV STA (06:31)
[2018-06-11] MEDS ORDERED: Fosphenytoin 100 MG in Dextrose 5% In Water 50 ML IV SCH (06:45)
--- NOTE | 2018-06-11 06:51 | CP.PCM.PN ---
<Palma Tamayo - Last Filed: 06/11/18 18:18> Subjective - Date & Time of Evaluation Date of Evaluation: 06/11/18 Time of Evaluation: 06:50 - Subjective Subjective: PGY-1 Palma Tamayo D.O. medicine progress note for Dr. Carmine Suresh's service: Patient was seen and examined this morning. She was very lethargic and could not participate in exam. There has not been any seizure-like activity observed since patient was admitted. Patient re-evaluated in the afternoon. Patient's son was at bedside. He was updated on patient's conditions. Patient was more alert. She stated that she felt "so-so." She denied pain. She was oriented to person and knew she was in a hospital. She was able to follow all commands and speak appropriately. Objective - Vital Signs/Intake and Output Vital Signs (last 24 hours): Temp Pulse Resp BP Pulse Ox 97.3 F L 93 H 16 111/78 99 06/11/18 05:00 06/11/18 05:00 06/11/18 05:00 06/11/18 05:00 06/11/18 05:00 Intake and Output: 06/10/18 06/11/18 18:59 06:59 Intake Total 50 Output Total 500 Balance -450 - Medications Medications: Current Medications Albuterol/Ipratropium (Duoneb 3 Mg/0.5 Mg (3 Ml) Ud) 3 ml INH RQ4 PRN PRN Reason: Shortness of Breath Last Admin: 06/10/18 20:01 Dose: 3 ml Apixaban (Eliquis) 5 mg PO DAILY [facility] Aspirin (Ecotrin) 81 mg PO DAILY [facility] Last Admin: 06/10/18 15:16 Dose: 81 mg Budesonide (Pulmicort Respules) 0.25 mg INH RQ12 [facility] Last Admin: 06/10/18 20:01 Dose: 0.25 mg Bumetanide (Bumex) 1 mg PO Q8H [facility] Last Admin: 06/11/18 00:24 Dose: 1 mg Carvedilol (Coreg) 3.125 mg PO BID [facility] Last Admin: 06/10/18 17:21 Dose: 3.125 mg Furosemide (Lasix) 20 mg IVP Q8H [facility] Last Admin: 06/10/18 21:26 Dose: Not Given Fosphenytoin Sodium 1,000 mg/ (Sodium Chloride) 70 mls @ 100 mls/hr IV STAT STA Stop: 06/11/18 07:12 Fosphenytoin Sodium 100 mg/ (Dextrose) 52 mls @ 100 mls/hr IV Q8H [facility] Lorazepam (Ativan) 1 mg IVP Q4H PRN PRN Reason: Seizure activity Losartan Potassium (Cozaar) 25 mg PO DAILY [facility] Nystatin (Nystop Topical Powder) 1 applic TOP BID [facility] Last Admin: 06/10/18 18:10 Dose: Not Given Pneumococcal Polyvalent Vaccine (Pneumovax 23 Vaccine) 0.5 ml IM .ONCE ONE Stop: 06/14/18 10:01 Rosuvastatin Calcium (Crestor) 10 mg PO HS [facility] Last Admin: 06/10/18 21:40 Dose: 10 mg - Labs Labs: 06/10/18 09:35 06/10/18 09:35 PT 26.8 SECONDS (9.7-12.2) H D 06/10/18 13:54 INR 2.4 D 06/10/18 13:54 APTT 32 SECONDS (21-34) D 06/10/18 13:54 - Additional Findings Additional findings: - Constitutional Appears: Non-toxic, No Acute Distress - Head Exam Head Exam: ATRAUMATIC, NORMAL INSPECTION - Eye Exam Eye Exam: EOMI, Normal appearance, PERRL - ENT Exam ENT Exam: Mucous Membranes Moist, Normal Oropharynx Additional comments: no tongue laceration face symmetrical - Respiratory Exam Respiratory Exam: Decreased Breath Sounds, Mild bilateral Rales lower lung granados, NORMAL BREATHING PATTERN. absent: Murmur, Rhonchi, Wheezes, Respiratory Distress - Cardiovascular Exam Cardiovascular Exam: REGULAR RHYTHM, +S1, +S2 Additional comments: pedal pulses palpable but faint, 2+ cap refill - GI/Abdominal Exam GI & Abdominal Exam: Obese, Soft, Normal Bowel Sounds. absent: Distended, Firm, Guarding, Rigid, Tenderness, Rebound - Extremities Exam Extremities Exam: Pedal Edema (trace pitting edema of the bilateral lower extremities extending to just above ankles. absent: Calf Tenderness - Neurological Exam Neurological Exam: Alert, Awake, CN II-XII Intact. absent: Oriented x3 (not mikie ented to year or city) Neuro motor strength exam: Left Upper Extremity: 5, Right Upper Extremity: 5, Left Lower Extremity: 2/ (chronic), Right Lower Extremity: 2/ (chronic) - Psychiatric Exam Psychiatric exam: Normal Affect, Normal Mood - Skin Skin Exam: Dry, Warm Additional comments: (+) excoriations to the left and right upper chest wall, no swelling; no active bleeding (+) erythema, without warmth, slightly raised rash to the medial left upper arm (+) small 1 cm skin tear, (improved compared to prior admission), which medihoney and dressing was applied to (+) erythema to the lower abdominal skin folds, left greater than right (right nearly resolved) (+) 0.5 cm ulceration with eschar to the left second toe (+) chronic venous stasis to the bilateral lower extremities Assessment and Plan - Assessment and Plan (Free Text) Assessment: Patient is an 87 year old female with CHF, severe pulmonary hypertension, COPD/asthma, HTN, HLD, previous DVT with IVC filter placement, PAD, and arthriti s admitted for altered mental status. Patient was just discharged the previous day from a hospital stay for altered mental status and determine to have UTI (which was treated with Vantin) and partial complex seizures (which is being treated with Keppra PO). Noted to have acute renal failure (suspect due to Vantin and Keppra), elevated lactate, elevated INR, and transaminitis. Patient also noted to have allergic reaction (rash) to Vantin. Neurology and psychiatry consulted. Suspect that patient's symptoms are more related to sundowning/delirium and possibly depression rather than seizure. Plan: Altered mental status, intermittent- suspect sundowning with component of dementia/depression - Patient's brother recently - Continue to orient patient - Psychiatry consulted (Davin) - Recommend outpatient eval for dementia - PT/OT/ST Partial complex seizure - CT head: no acute pathology. generalized volume loss. Nonspecific white matter changes. * Prior head CT 06/05 shows chronic changes as well (see report). 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 - Carotid dopplers (06/05): no hemodynamically significant lesions bilaterally. - EEG (06/06): abnormal EEG because of slow activities followed with paroxysmal polyspike and wave actvities noted at right followed with bilateral cortical activities consistent with epileptiform focus - Repeat EEG 4/5- report pending - RPR nonreactive - Keppra level pending - Seizure precautions - Neuro checks - Patient was placed on Keppra last admission; neurology switched her to Phenytoin for one day then discontinued, Phenytoin made patient extremely lethargic - Ativan 2 mg IV Q4H PRN - Neurology consulted (Miguel Angel) Acute renal failure, improving- suspect medication side effect (Vantin, Keppra) - Baseline Cr 1.0 - On admission BUN/Cr 34/1.8--> 32/1.5 - CPK 152 - Bedside RN bladder scan shows no retention - Renal/bladder US: Increased echogenicity of the bilateral renal parenchymal cortices suggestive for medical renal disease. - Urine random Na <5 - Urine random Cr 240.3 - Nephrology consulted (Cm) Acute exacerbation of HFpEF, improving - CXR: Moderate venous congestion. Bibasilar airspace opacities. Right hilar prominence. Enlarged ectatic aorta with atherosclerotic calcifications. Biapical pleural thickening with upper lobe granulomatous changes. - Lasix 20mg IVP Q8H - Coreg 3.125 mg PO BID (8 am and 8 pm) - Losartan 100 mg PO daily- held due to ARF - Start Aldactone 25 mg PO BID - Cardiology/PMD consulted (Lars) Transaminitis, acute- suspect medication side effect (Keppra) - AST/ALT/ALP is 106/54/84-->120/81/78 - Discontinue Keppra - Avoid hepatotoxic agents when possible - Monitor Severe pulmonary hypertension and COPD, chronic - RVSP is 100 mmHg - Humidified O2 via NC - Duonebs Q4H PRN - Budesonide Q12H - Pulmonology consulted (Audi) Supratherapeutic INR, acute, improving- suspect due to acute liver and/or kidney disease - 06/01/18: PT/PTT/INR is 25.3/36/2.3 on 06/01 - On admission 06/10: PT/PTT/INR is 36.7/23/3.3 - INR now 2.0 on 06/11- restart Eliquis - Monitor coags Elevated Troponin, chronic, stable- suspect due to HFpEF and ARF - Elevated on previous admissions - 0.6840-->0.6860-->0.6540 - No acute EKG changes Elevated Lactate, acute, resolved- recent UTI (E. coli)- suspect due to ARF and muscles hypertonicity noted at home - 2.8--> 3.1--> 1.4 - Afebrile, no leukocytosis, no hypotension, no tachycardia - Procalcitonin low (0.09) - V/Q scan: low probability of PE - Urine Cx 4/4 no growth - Wound Cx from gluteal tear no growth - Blood Cx 1/2 positive for GPC (likely contamination)- wait for final read - 1 L NS x1 in ED - Vanco, Zosyn x1 in ED Abdominal rash, acute, improving- suspect allergic reaction to outpatient Vantin/Keppra - No angioedema/anaphylaxis - Discontinue Vantin and Keppra Intertrigo to lower abdominal folds, chronic, improving - Daily skin checks - Nystatin power BID Gluteal cleft skin tear, chronic, improving - Wound Cx no growth - Turn Q2H - Daily skin checks - Medihoney and optiform 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 - V/Q scan: low probability of PE - Avoid SCDs - Eliquis 5 mg PO daily- restart 06/11 (previously held due to elevated INR) Hypertension, chronic - Vitals Q6H - Coreg 3.125 mg PO QHS - Losartan 100 mg PO daily- held due to ARF - Start Aldactone 25 mg PO BID Peripheral artery disease, chronic - ASA 81 mg PO daily - Crestor 10 mg PO QHS Hyperlipidemia, chronic - 06/02/18: TG/CHL/LDL/HDL is 69/77/37/42 - Crestor 10 mg PO QHS- held due to transamnitis Thrombocytopenia, chronic, stable - Platelets 80s-110s - Monitor CBC H/o Gout - Allopurinol 100 mg PO- held due to ARF Ppx: VTE: SCDs contraindicated due to chronic DVT, Eliquis 5 PO daily GI: not indicated Diet: Heart health, low carb, 2 g Na Dispo: [place] home with services. Patient does not qualify for [facility] as she is not able to participate in therapy. Patient's insurance does not provide for long- term placement. CM/SW referred patient to [facility] (respite care, social adult daycare, transport to [facility]), [place] [facility] (dementia eval in home, emotional support, PT/OT), and [facility] (dementia services). Case discussed with attending, Dr. Carmine Suresh. <Carmine Suresh - Last Filed: 06/11/18 19:08> Objective - Vital Signs/Intake and Output Vital Signs (last 24 hours): Temp Pulse Resp BP Pulse Ox 97.9 F 81 20 122/85 98 06/11/18 15:00 06/11/18 15:00 06/11/18 15:00 06/11/18 15:00 06/11/18 15:00 Intake and Output: 06/11/18 06/12/18 18:59 06:59 Intake Total 200 Output Total 1100 Balance -900 - Medications Medications: Current Medications Albuterol/Ipratropium (Duoneb 3 Mg/0.5 Mg (3 Ml) Ud) 3 ml INH RQ4 PRN PRN Reason: Shortness of Breath Last Admin: 06/11/18 08:00 Dose: 3 ml Apixaban (Eliquis) 5 mg PO DAILY [facility] Aspirin (Ecotrin) 81 mg PO DAILY [facility] Last Admin: 06/11/18 10:04 Dose: 81 mg Budesonide (Pulmicort Respules) 0.25 mg INH RQ12 [facility] Last Admin: 06/11/18 08:00 Dose: 0.25 mg Carvedilol (Coreg) 3.125 mg PO BID [facility] Last Admin: 06/11/18 17:45 Dose: 3.125 mg Furosemide (Lasix) 20 mg IVP Q8H [facility] Last Admin: 06/11/18 14:40 Dose: 20 mg Lorazepam (Ativan) 1 mg IVP Q4H PRN PRN Reason: Seizure activity Losartan Potassium (Cozaar) 25 mg PO DAILY [facility] Nystatin (Nystop Topical Powder) 1 applic TOP BID [facility] Last Admin: 06/11/18 17:45 Dose: Not Given Pneumococcal Polyvalent Vaccine (Pneumovax 23 Vaccine) 0.5 ml IM .ONCE ONE Stop: 06/14/18 10:01 Rosuvastatin Calcium (Crestor) 10 mg PO HS [facility] Last Admin: 06/10/18 21:40 Dose: 10 mg Spironolactone (Aldactone) 25 mg PO BID [facility] Last Admin: 06/11/18 17:45 Dose: 25 mg - Labs Labs: 06/11/18 13:12 06/11/18 13:12 PT 22.0 SECONDS (9.7-12.2) H 06/11/18 14:36 INR 2.0 06/11/18 14:36 APTT 32 SECONDS (21-34) D 06/10/18 13:54 Attending/Attestation - Attestation I have personally seen and examined this patient.: Yes I have fully participated in the care of the patient.: Yes I have reviewed all pertinent clinical information, including history, physical exam and plan: Yes Notes (Text): 06/11/18 19:06 Patient was seen and examined with resident Dr. Tamayo Care of this patient was gone over in detail with resident Dr. Tamayo. Please note on exam above: Skin tear is between the gluteal cheeks and this dressing was changed by us during exam. Bilateral Lower Legs trace pitting edema from feet up to mid tibia (improved from 1+ pitting edema on 06/10/18) Extensive conversation with Son Noah at bedside concerning plan of care. Will need to follow up with Neurology Dr. Michelle concerning the use of Phenytoin with Eliquis: Phenytoin reduces the efficacy of Eliquis. Carmine Suresh D.O.
[2018-06-11] MEDS: Albuterol-Ipratrop 3 mg / 0.5 (3 ml) UD INH PRN (08:00)
[2018-06-11] MEDS: Budesonide 0.25 mg/2 ml Inhal Susp UD INH SCH ×2 (08:00→20:10)
--- NOTE | 2018-06-11 08:58 | PN ---
DATE: 06/11/2018 TIME OF EVALUATION: 7:05 a.m. NEUROLOGICAL PROBLEM: Possible epilepsy, with clinical depression. PHYSICAL EXAMINATION: VITAL SIGNS: Blood pressure 111/78, mean artery pressure of 89, respiratory rate 18, temperature 97.3 with a pulse rate 93. The patient is awake, seems to be depressed. One word answers, does not want to communicate much. She did not sleep last night. Rest of the examination is unchanged. There is no clinical or witnessed seizure activities since she is admitted. The patient's Keppra dose was increased due to the subtherapeutic level with breakthrough seizures. The patient's condition has been discussed with Dr. Carmine Suresh yesterday. Nephrology consult was appreciated knowing that due to sign of acute renal failure, binding agents should be discontinued. I will follow the recommendation. We will discontinue Keppra for now and in the meantime I would like to lower the Dilantin with Dilantin followup of 100 mg three times a day. Knowing the fact that the patient's IV line has been on hold as per the family's request. The patient is looking for the central line. The patient is advised to get Dilantin at least 300 mg p.o. for now and then 100 mg three times a day through mouth. The patient will be followed closely with you. Jackson Michelle MD
--- NOTE | 2018-06-11 09:43 | PCM.PSYCH ---
Initial Psychiatric Evaluation - Initial Psychiatric Evaluation Type of Admission: Voluntary Chief Complaint (in patient's own words): I do not know History of Present Illness and Precipitating Events: HPI: 87 year old female with PMHx of CHF, HTN, HLD, COPD previous DVT, and arthritis brought to ED by family for episode of AMS where patient was noted to stare into space, hyperextend neck, clench fists and scream. Today psychiatry was consulted. Patient was seen at bedside, noticed to be sleepy but easily awaken. Son is at bedside. Patient denies feeling sad or anxious, admits to feeling tired, and that she can't sleep well because medical staff waking her up constantly. Patient denies having any history of depression or anxiety, and has never seen a psychiatrist in the past or have taking any medications. Patient denies decrease in interest in daily activities, or sleep changes. As per son, patient is sleepy due to the anti seizure medication she has been received in the hospital. Patient state she is not eating well in the hospital, but usually eats well at home. She denies any auditory hallucinations or any paranoia. She denies any suicidal ideation or any homicidal ideation. Mini mental status partially completed. As per son, patient is illiterate, and is not able to read, write or spell. Patient is oriented to person and place but not to time. Patient repeats 3 objects, but is only able to recall 2 of the objects later, patient is able to name two objects and to repeat the sentence "no ifs, ands or buts", patient is able to follow a three stage command. Pmhx: CHF, HTN, HLD, COPD, DVT, arthirtis Psych hx: denies Sochx: denies tobacco, alcohol, drug use Psych fam hx: denies Meds: in house- Keppra 750 mg IV Q12H Current Medications: Active Medications Generic Name Dose Route Start Last Admin Trade Name Freq PRN Reason Stop Dose Admin Albuterol/Ipratropium 3 ml 06/10/18 04:55 06/10/18 20:01 Duoneb 3 Mg/0.5 Mg (3 Ml) Ud INH 3 ml RQ4 PRN Administration Shortness of Breath Apixaban 5 mg 06/10/18 10:00 Eliquis PO DAILY [facility] Aspirin 81 mg 06/10/18 10:00 06/10/18 15:16 Ecotrin PO 81 mg DAILY [facility] Administration Budesonide 0.25 mg 06/10/18 08:00 06/10/18 20:01 Pulmicort Respules INH 0.25 mg RQ12 [facility] Administration Bumetanide 1 mg 06/10/18 23:00 06/11/18 07:57 Bumex PO 1 mg Q8H [facility] Administration Carvedilol 3.125 mg 06/10/18 10:00 06/10/18 17:21 Coreg PO 3.125 mg BID [facility] Administration Furosemide 20 mg 06/10/18 22:00 06/11/18 06:54 Lasix IVP Not Given Q8H [facility] Lorazepam 1 mg 06/10/18 03:59 Ativan IVP Q4H PRN Seizure activity Losartan Potassium 25 mg 06/10/18 10:00 Cozaar PO DAILY [facility] Nystatin 1 applic 06/10/18 10:00 06/10/18 18:10 Nystop Topical Powder TOP Not Given BID [facility] Phenytoin Sodium 100 mg 06/11/18 10:00 Dilantin PO TID [facility] Pneumococcal Polyvalent Vaccine 0.5 ml 06/14/18 10:00 Pneumovax 23 Vaccine IM 06/14/18 10:01 .ONCE ONE Rosuvastatin Calcium 10 mg 06/10/18 22:00 06/10/18 21:40 Crestor PO 10 mg HS [facility] Administration Past Psychiatric History - Past Psychiatric History Previous Treatment History: None Pertinent Medical Hx (Current Medical&Sleep Prob, Allergies): Allergies Allergy/AdvReac Type Severity Reaction Status Date / Time cefpodoxime Allergy RASH Verified 06/10/18 11:37 acetaminophen [From Percocet] AdvReac RASH Verified 06/09/18 23:14 hydromorphone [From Dilaudid] AdvReac RASH Verified 06/09/18 23:14 oxycodone [From Percocet] AdvReac RASH Verified 06/09/18 23:14 Allopurinol [Zyloprim] 100 mg PO DAILY tab 11/20/16 Rosuvastatin Calcium [Crestor] 10 mg PO HS tab 11/20/16 Irbesartan 300 mg PO HS 03/08/17 Sennosides A and B [Senokot Tab] 8.6 mg PO DAILY #30 tab 06/04/18 Aspirin [Ecotrin] 81 mg PO DAILY 06/05/18 Furosemide [Lasix] 20 mg PO DAILY 06/05/18 Apixaban [Eliquis] 5 mg PO DAILY tab 06/08/18 Budesonide [Pulmicort Flexhaler] 180 mcg IH BID #1 aer.[email or web address] 06/08/18 Carvedilol [Coreg] 3.125 mg PO BID #60 tab 06/08/18 Cefpodoxime [Vantin] 100 mg PO BID #10 tab 06/08/18 Lactobacillus Acidophilus [Lactobacillus] 1 cap PO BID #70 cap 06/08/18 Levetiracetam 500 mg PO BID #60 tablet 06/08/18 Nystatin [Nystop Topical Powder] 1 applic TOP BID #1 bottle 06/08/18 Potassium Chloride 20 meq PO DAILY #30 tablet.er 06/08/18 Potassium Chloride [K-Dur 20] 20 meq PO DAILY 06/09/18 Review of Systems - Review of Systems All systems: reviewed and no additional remarkable complaints except - Psychiatric Psychiatric: Anxiety, Irritability. absent: Suicidal Ideation Mental Status Examination - Personal Presentation Personal Presentation: Looks stated age - Affect Affect: Constricted - Motor Activity Motor Activity: Calm - Reliability in Providing Information Reliability in Providing Information: Poor, due to altered mood - Speech Speech: Organized - Mood Mood: Anxious - Formal Thought Process Formal Thought Process: Loosening of associations - Obsessions/Compulsions Obsessions: No Compulsions: No - Cognitive Functions Orientation: Person, Place Sensorium: Alert Attention/Concentration: Easily distracted Abstract Thinking: [place] Estimate of Intelligence: Below average Judgement: Imparied, as evidence by: Poor judgement, Imparied, as evidence by: Lack of insight into illness - Risk Risk: Diminished functioning - Limitations Limitations: Living alone DSM 5 DX - DSM 5 DSM 5 Diagnosis: Delirium - Recommended/Plan of Treatment Treatment Recommendations and Plan of Treatment: Patient psychiatrically stable and cleared for discharge
--- NOTE | 2018-06-11 11:16 | NM ---
Date of service: 06/10/2018 COMPARISON: June 10, 2018. TECHNIQUE: 8.2 mCi technetium 99-m Xe-133 Gas. 5.3 mCI technetium 99-m MAA administered intravenously. FINDINGS: VENTILATION COMPONENT: Normal. PERFUSION COMPONENT: Heterogeneous distribution of radionuclide. No geographic, segmental, lobar abnormalities apparent on the present examination. IMPRESSION: Low probability ventilation perfusion scan for pulmonary embolism. Concordant findings (preliminary report) provided by [facility].
[2018-06-11 13:19] LABS: BASO % 0.5 % (0.0-2.0); EOS % 0.7 % (0.0-4.0); HEMOGLOBIN 11.1 g/dL (11.0-16.0); LYMPH # 0.6 K/uL (1.0-4.3); MEAN CELL VOLUME 82.5 fL (81.0-99.0); MEAN CORPUSCULAR HEMOGLOBIN 27.5 pg (27.0-31.0); MEAN CORPUSCULAR HGB CONC 33.3 g/dL (33.0-37.0); MONO # 0.5 K/uL (0.0-0.8); NEUT % 71.8 % (50.0-75.0); NRBC % 0.1 % (0.0-2.0); RBC 4.05 Mil/uL (3.80-5.20); WHITE BLOOD COUNT 4.1 K/uL (4.8-10.8)
[2018-06-11 13:40] LABS: ALB/GLOB RATIO 1.3 (1.0-2.1); ALBUMIN 3.5 g/dL (3.5-5.0); CALCIUM 8.7 mg/dl (8.6-10.4); URIC ACID 6.8 mg/dL (2.2-7.5)
--- NOTE | 2018-06-11 14:45 | CP.PCM.CON ---
History of Present Illness - History of Present Illness History of Present Illness: Palliative Care consult requested by Dr. Solorzano for Goals of Care Patient is an 87 year old female who came to the ED because family felt she was acting strange and possibly having seizures. Family say the patient had moments of staring into to space, taking a long time to respond to questions, and occasionally screaming. Patient was admitted last week on 06/05 with the same complaints, and was diagnosed with epilepsy. She was sent home on Keppra and has been compliant with taking the medication according to family. Son Noah also states that he noticed his mom legs began to swell up for the past 2 weeks. PMH: Arthritis, Arrhythmias, CHF, HTN, COPD, PE Social Hx: Lives at home with son Dalton Hx: Unknown 06/10/18 CXR: moderate venous congestion, small bilateral pleural effusions, cardiomegaly 06/10/[address]: Generalized volume loss, non specific white matter changes Pro BNP:[id number] Review of Systems - Review of Systems Review of Systems: : Limited ROS obtained from patient, patient lethargic - Constitutional Constitutional: Fatigue Past Patient History - Infectious Disease Hx of Infectious Diseases: None - Past Medical History & Family History Past Medical History?: Yes - Past Social History Smoking Status: Never Smoked - CARDIAC Hx Pacemaker: No - PULMONARY Hx Chronic Obstructive Pulmonary Disease (COPD): Yes - NEUROLOGICAL Hx Neurological Disorder: Yes Hx Syncope: Yes (10 yrs ago unknown reason) - HEENT Hx HEENT Problems: Yes Hx Cataracts: Yes Hx Glaucoma: Yes - RENAL Hx Chronic Kidney Disease: No - ENDOCRINE/METABOLIC Hx Endocrine Disorders: No - HEMATOLOGICAL/ONCOLOGICAL Hx Cancer: No - INTEGUMENTARY Hx Dermatological Problems: No - MUSCULOSKELETAL/RHEUMATOLOGICAL Hx Arthritis: Yes - GASTROINTESTINAL Hx Gastrointestinal Disorders: No - GENITOURINARY/GYNECOLOGICAL Hx Genitourinary Disorders: No - PSYCHIATRIC Hx Substance Use: No - SURGICAL HISTORY Hx Mastectomy: No - ANESTHESIA Hx Anesthesia: Yes Hx Anesthesia Reactions: No Hx Malignant Hyperthermia: No Meds Allergies/Adverse Reactions: Allergies Allergy/AdvReac Type Severity Reaction Status Date / Time cefpodoxime Allergy RASH Verified 06/10/18 11:37 acetaminophen [From Percocet] AdvReac RASH Verified 06/09/18 23:14 hydromorphone [From Dilaudid] AdvReac RASH Verified 06/09/18 23:14 oxycodone [From Percocet] AdvReac RASH Verified 06/09/18 23:14 - Medications Medications: Current Medications Albuterol/Ipratropium (Duoneb 3 Mg/0.5 Mg (3 Ml) Ud) 3 ml INH RQ4 PRN PRN Reason: Shortness of Breath Last Admin: 06/10/18 20:01 Dose: 3 ml Apixaban (Eliquis) 5 mg PO DAILY [facility] Aspirin (Ecotrin) 81 mg PO DAILY [facility] Last Admin: 06/11/18 10:04 Dose: 81 mg Budesonide (Pulmicort Respules) 0.25 mg INH RQ12 [facility] Last Admin: 06/10/18 20:01 Dose: 0.25 mg Carvedilol (Coreg) 3.125 mg PO BID [facility] Last Admin: 06/11/18 10:04 Dose: 3.125 mg Furosemide (Lasix) 20 mg IVP Q8H [facility] Last Admin: 06/11/18 06:54 Dose: Not Given Lorazepam (Ativan) 1 mg IVP Q4H PRN PRN Reason: Seizure activity Losartan Potassium (Cozaar) 25 mg PO DAILY [facility] Nystatin (Nystop Topical Powder) 1 applic TOP BID [facility] Last Admin: 06/11/18 10:05 Dose: Not Given Phenytoin Sodium (Dilantin) 100 mg PO TID [facility] Last Admin: 06/11/18 10:04 Dose: 100 mg Pneumococcal Polyvalent Vaccine (Pneumovax 23 Vaccine) 0.5 ml IM .ONCE ONE Stop: 06/14/18 10:01 Rosuvastatin Calcium (Crestor) 10 mg PO [facility] Last Admin: 06/10/18 21:40 Dose: 10 mg Physical Exam - Constitutional Appears: No Acute Distress, Confused, Chronically Ill - Head Exam Head Exam: ATRAUMATIC, NORMAL INSPECTION, NORMOCEPHALIC - Eye Exam Eye Exam: Normal appearance, PERRL - ENT Exam ENT Exam: Mucous Membranes Moist - Respiratory Exam Respiratory Exam: Decreased Breath Sounds - Cardiovascular Exam Cardiovascular Exam: REGULAR RHYTHM - GI/Abdominal Exam GI & Abdominal Exam: Normal Bowel Sounds, Soft - Extremities Exam Extremities exam: Positive for: pedal edema Additional comments: discoloration to bilateral lower extremities - Neurological Exam Neurological exam: Alert - Psychiatric Exam Psychiatric exam: Anxious - Skin Skin Exam: Abrasion, Dry, Pallor, Rash, Warm Results - Vital Signs Recent Vital Signs: Last Vital Signs Temp 97.8 F 06/11/18 07:00 Pulse 86 06/11/18 10:00 Resp 16 06/11/18 05:00 BP 119/79 06/11/18 07:00 Pulse Ox 94 L 06/11/18 07:00 - Labs Result Diagrams: 06/11/18 13:12 06/11/18 13:12 Labs: Laboratory Results - last 24 hr 06/10/18 06/10/18 06/10/18 10:25 12:57 15:58 WBC RBC Hgb Hct MCV MCH MCHC RDW Plt Count MPV Neut % (Auto) Lymph % (Auto) Lee % (Auto) Eos % (Auto) Baso % (Auto) Neut # (Auto) Lymph # (Auto) Lee # (Auto) Eos # (Auto) Baso # (Auto) Differential Comment Sodium Potassium Chloride Carbon Dioxide Anion Gap BUN Creatinine Est GFR ( Amer) Est GFR (Non-Af Amer) POC Glucose (mg/dL) 85 Random Glucose Lactic Acid Uric Acid Calcium Phosphorus Magnesium Total Bilirubin AST ALT Alkaline Phosphatase Troponin I NT-Pro-B Natriuret Pep Total Protein Albumin Globulin Albumin/Globulin Ratio Procalcitonin 0.09 L Urine Color Urine Clarity Urine pH Ur Specific [place] Urine Protein Urine Glucose (UA) Urine Ketones Urine Blood Urine Nitrate Urine Bilirubin Urine Urobilinogen Ur Leukocyte Esterase Urine WBC (Auto) Urine RBC (Auto) Ur Squamous Epith Cells Urine Bacteria Granular Casts (Auto) Ur Random Creatinine Ur Random Sodium Random Vancomycin RPR Nonreactive 06/10/18 06/10/18 06/10/18 17:01 19:18 21:24 WBC RBC Hgb Hct MCV MCH MCHC RDW Plt Count MPV Neut % (Auto) Lymph % (Auto) Lee % (Auto) Eos % (Auto) Baso % (Auto) Neut # (Auto) Lymph # (Auto) Lee # (Auto) Eos # (Auto) Baso # (Auto) Differential Comment Sodium Potassium Chloride Carbon Dioxide Anion Gap BUN Creatinine Est GFR ( Amer) Est GFR (Non-Af Amer) POC Glucose (mg/dL) 103 Random Glucose Lactic Acid Uric Acid Calcium Phosphorus Magnesium Total Bilirubin AST ALT Alkaline Phosphatase Troponin I NT-Pro-B Natriuret Pep Total Protein Albumin Globulin Albumin/Globulin Ratio Procalcitonin Urine Color Nancy Urine Clarity Hazy Urine pH 5.0 Ur Specific [place] 1.031 H Urine Protein 2+ H Urine Glucose (UA) Normal Urine Ketones Trace Urine Blood Negative Urine Nitrate Negative Urine Bilirubin Negative Urine Urobilinogen Normal Ur Leukocyte Esterase Neg Urine WBC (Auto) 12 H Urine RBC (Auto) 11 H Ur Squamous Epith Cells 2 Urine Bacteria Rare Granular Casts (Auto) 3 Ur Random Creatinine 240.3 Ur Random Sodium < 5 Random Vancomycin RPR 06/11/18 06/11/18 06/11/18 06:04 13:12 13:12 WBC 4.1 L RBC 4.05 Hgb 11.1 Hct 33.4 L MCV 82.5 MCH 27.5 MCHC 33.3 RDW 15.0 H Plt Count 103 L MPV 9.0 Neut % (Auto) 71.8 Lymph % (Auto) 14.0 L Lee % (Auto) 13.0 H Eos % (Auto) 0.7 Baso % (Auto) 0.5 Neut # (Auto) 3.0 Lymph # (Auto) 0.6 L Lee # (Auto) 0.5 Eos # (Auto) 0.0 Baso # (Auto) 0.0 Differential Comment Sodium 132 Potassium 3.0 L Chloride 91 L Carbon Dioxide 31 H Anion Gap 13 BUN 32 H Creatinine 1.5 H Est GFR ( Amer) 40 Est GFR (Non-Af Amer) 33 POC Glucose (mg/dL) 97 Random Glucose 89 Lactic Acid Uric Acid 6.8 Calcium 8.7 Phosphorus 3.7 Magnesium 1.9 Total Bilirubin 0.8 AST 120 H ALT 81 H D Alkaline Phosphatase 78 Troponin I NT-Pro-B Natriuret Pep 7190 H Total Protein 6.2 L Albumin 3.5 Globulin 2.7 Albumin/Globulin Ratio 1.3 Procalcitonin Urine Color Urine Clarity Urine pH Ur Specific [place] Urine Protein Urine Glucose (UA) Urine Ketones Urine Blood Urine Nitrate Urine Bilirubin Urine Urobilinogen Ur Leukocyte Esterase Urine WBC (Auto) Urine RBC (Auto) Ur Squamous Epith Cells Urine Bacteria Granular Casts (Auto) Ur Random Creatinine Ur Random Sodium Random Vancomycin RPR 06/11/18 06/11/18 06/11/18 13:12 13:12 13:12 WBC RBC Hgb Hct MCV MCH MCHC RDW Plt Count MPV Neut % (Auto) Lymph % (Auto) Lee % (Auto) Eos % (Auto) Baso % (Auto) Neut # (Auto) Lymph # (Auto) Lee # (Auto) Eos # (Auto) Baso # (Auto) Differential Comment Sodium Potassium Chloride Carbon Dioxide Anion Gap BUN Creatinine Est GFR ( Amer) Est GFR (Non-Af Amer) POC Glucose (mg/dL) Random Glucose Lactic Acid 1.4 Uric Acid Calcium Phosphorus Magnesium Total Bilirubin AST ALT Alkaline Phosphatase Troponin I 0.6540 H* NT-Pro-B Natriuret Pep Total Protein Albumin Globulin Albumin/Globulin Ratio Procalcitonin Urine Color Urine Clarity Urine pH Ur Specific [place] Urine Protein Urine Glucose (UA) Urine Ketones Urine Blood Urine Nitrate Urine Bilirubin Urine Urobilinogen Ur Leukocyte Esterase Urine WBC (Auto) Urine RBC (Auto) Ur Squamous Epith Cells Urine Bacteria Granular Casts (Auto) Ur Random Creatinine Ur Random Sodium Random Vancomycin 7.7 RPR Assessment & Plan - Assessment and Plan (Free Text) Assessment: Palliative Care Full Code: There is no advanced directive in the chart: Palliative Performance Scale 30% I have reviewed medical records, all diagnostic tests, and examined and interviewed the patient in bed. -Awake, alert, Oriented to Person -non ambulatory, needs max assist with ADLS -decreased breath sounds, on 2L NC -Normal HR, -abdomen soft, non tender, normal bowel sounds, ate 50% of lunch today -Discoloration to bilateral lower extremities (venous stasis), Bilateral pitting edema -Skin is clean, dry, and not intact with abnormalities (multiple abrasions and skin tears) -No complaints of pain at this time Goals of Care: Goals of care discussion held with patient victoriano Zamora over the phone. He states that he would like him mother to go to rehab first before coming home. He states that he and his sisters are comfortable taking care of her and that they take turns. He states they are capable of assisting with medication administration and patients ADLs. Son acknowledged that his mom does not have an advanced directive or POLST and would like to complete one here during this admission. Meeting will be set up to have Goals of Care documented on POLST form. Code Status: Patient is currently a full code. As per victoriano Zamora, he would like to discuss code status to get more of an understanding. Meeting will be set up to discuss and have designations documented on POLST form. Impression CHF Acute Renal Failure Altered Mental Status Decreased Mobility Needs further Goals of care/code status discussion Suggestion Continue Lasix Redirect/reorient as needed Max assist with ADLs Reposition q2h Continue PT /OT Full Code Pending discussion with patient son Palliative Care will remain on board as needed Advance Care planning 35 min
[2018-06-11] MEDS: Potassium Chloride 20 mEq/15 ml LIQ UD PO SCH ×2 (15:41→17:10)
--- NOTE | 2018-06-11 15:52 | CP.PCM.PN ---
Subjective - Date & Time of Evaluation Date of Evaluation: 06/11/18 Time of Evaluation: 13:00 - Subjective Subjective: 87 yo F w/ pmh of CHF w/ diastolic dysfunction and pulm htn, COPD, s/p DVT on eliquis, new seizure disorder, admitted with breakthrough seizure, nephrology following for acute renal failure; Patient still with poor PO intake per nursing staff; she otherwise denies any difficulty breathing; no GI losses mentioned; Objective - Vital Signs/Intake and Output Vital Signs (last 24 hours): Temp Pulse Resp BP Pulse Ox 97.8 F 86 16 118/82 94 L 06/11/18 07:00 06/11/18 10:00 06/11/18 05:00 06/11/18 14:40 06/11/18 07:00 Intake and Output: 06/11/18 06/11/18 06:59 18:59 Intake Total 50 Output Total 500 Balance -450 - Medications Medications: Current Medications Albuterol/Ipratropium (Duoneb 3 Mg/0.5 Mg (3 Ml) Ud) 3 ml INH RQ4 PRN PRN Reason: Shortness of Breath Last Admin: 06/11/18 08:00 Dose: 3 ml Apixaban (Eliquis) 5 mg PO DAILY [facility] Aspirin (Ecotrin) 81 mg PO DAILY [facility] Last Admin: 06/11/18 10:04 Dose: 81 mg Budesonide (Pulmicort Respules) 0.25 mg INH RQ12 [facility] Last Admin: 06/11/18 08:00 Dose: 0.25 mg Carvedilol (Coreg) 3.125 mg PO BID [facility] Last Admin: 06/11/18 10:04 Dose: 3.125 mg Furosemide (Lasix) 20 mg IVP Q8H [facility] Last Admin: 06/11/18 14:40 Dose: 20 mg Lorazepam (Ativan) 1 mg IVP Q4H PRN PRN Reason: Seizure activity Losartan Potassium (Cozaar) 25 mg PO DAILY [facility] Nystatin (Nystop Topical Powder) 1 applic TOP BID [facility] Last Admin: 06/11/18 10:05 Dose: Not Given Pneumococcal Polyvalent Vaccine (Pneumovax 23 Vaccine) 0.5 ml IM .ONCE ONE Stop: 06/14/18 10:01 Potassium Chloride (Potassium Chloride Oral Soln) 40 meq PO Q2H [facility] Stop: 06/11/18 17:31 Last Admin: 06/11/18 15:41 Dose: 40 meq Rosuvastatin Calcium (Crestor) 10 mg PO HS [facility] Last Admin: 06/10/18 21:40 Dose: 10 mg Spironolactone (Aldactone) 25 mg PO BID [facility] - Labs Labs: 06/11/18 13:12 06/11/18 13:12 PT 22.0 SECONDS (9.7-12.2) H 06/11/18 14:36 INR 2.0 06/11/18 14:36 APTT 32 SECONDS (21-34) D 06/10/18 13:54 - Constitutional Appears: Non-toxic, No Acute Distress - Eye Exam Eye Exam: Normal appearance - ENT Exam ENT Exam: Mucous Membranes Moist - Respiratory Exam Respiratory Exam: absent: Respiratory Distress Additional comments: decreased air movement, mild basal rales appreciated; - Cardiovascular Exam Cardiovascular Exam: RRR Additional comments: soft S2 - GI/Abdominal Exam GI & Abdominal Exam: Soft. absent: Distended, Tenderness - Extremities Exam Additional comments: markedly edematous legs extending to thighs b/l - Neurological Exam Neurological Exam: Alert, Awake - Psychiatric Exam Psychiatric exam: absent: Agitated - Skin Skin Exam: absent: Cyanosis Additional comments: mildly cool hands Assessment and Plan (1) Acute kidney injury Assessment & Plan: Consistent with cardiorenal etiology in the setting of severe pulmonary htn; renal function now showing improvement with increasing urine output after starting aggressive diuresis; does have ensuing hypokalemia; proteinuria in UA along with mild pyuria and hematuria of unclear signifcance; there is some concern that recent antibiotic cefpodoxime/ceftriaxone may have induced AIN, however, very low urine sodium goes against this process and is much more consistent with acute cardiorenal syndrome; -continue IV lasix 20 mg q8h; -adding aldactone 25 mg bid (to offset alkalosis and hypokalemia); -supplementing potassium PO, goal level ~4.0; -strict I/O, daily weights; goal is to keep net neg 1.5-2L fluid balance daily; -avoid nephrotoxic agents; Status: Acute (2) CHF (congestive heart failure) Assessment & Plan: Acute decompensated CHF with diastolic dysfunction and severe pulm htn; is responding to diuretics as above; no need for inotropic support at this time; Status: Acute (3) Lactic acidosis Assessment & Plan: Resolved; mildly elevated lactate level seen yesterday of unclear etiology; BP has been normal, nevertheless, may have had some mild degree of hypoperfusion; Status: Resolved (4) Hypokalemia Assessment & Plan: see above Status: Acute (5) HTN (hypertension) Assessment & Plan: BP on lower end of normal; on low dose coreg; continue to hold ARB; Status: Chronic
[2018-06-11] MEDS ORDERED: Potassium Chloride 20 mEq ER Tab PO ONE (17:28)
--- NOTE | 2018-06-11 20:36 | CP.PCM.CON ---
History of Present Illness - History of Present Illness History of Present Illness: 87 year old female with past medical history of CHF, HTN, HLD, COPD, DVT, and arthritis is being admitted to hospital for unexplained seizure like activity witnessed by son. Patient was admitted on 06/02/18 for lower extremity edema se condary to CHF exacerbation and discharged on 06/04/18 after appropriate management. Patient returned to the hospital on 06/05 with an episode her son described as "seizures, fist clenching, lasting for a couple minutes then dissipating then returning. She would scream things that weren't like her during the episodes, not cursing but close to it saying "boy you better get in here" She never would speak to me like that." Son states the patient's eyes would be closed and although she would speak during episodes saying things like "Oh Gulshan" she was not responsive to questions by him. He stated she looked like she was in pain and he would try to unclench her fists. On this admission neurology, cardiology and pulmonology were consulted. Neurology conducted an EEG as well as MRI. MRI showed no acute changes, EEG was positive for epilleptiform waves however. Patient has a history of episodes of unresponsiveness dating back to 2017 however EEG's at that time showed no seizure activity. On this admission patient was treated with Keppra 500mg BID. Patient was also found to have a UTI and was started on antibiotic Vantin. Potential for sun-downing or delirium as patient had no seizure activity in hospital and was discharged on 06/08/18 Patient returned to hospital on 06/10/18 due to similar unresponsive episodes. This time the son was able to video record the episode on his phone. The p atient's eyes were closed and fists clenched saying "Oh Gulshan." The patient denies recollection of episodes and declines to speak about any symptomology related to the episodes. As per the son, the patient did not complain of any prelude symptoms such as sensation alterations, automatisms, but did state he could sense when something was going to happen because her tone of voice would change. There was no tongue biting noted during episodes and no post-ictal state recognized after episodes. The patient refused to speak of her issues, looking very somber and fatigued. Upon closer interview of the son, with whom the patient lives, the only new information not previously represented and explored in prior notes is the patients home life. The patient lives with her son and is dependent on him. The son states he gets the impression his mother feels shes a burden on him although he vehemently denies she is stating "she took care of me and my sisters so of course I am going to do everything I can for her." He states her brother this winter with whom the patient was extremely close to. But the son denies any stress or other reasons for depression or anxiety at home. However, this morning when I met with patient, I asked the patient if her homelife is okay, is she shook her head. Patient does not eat. Patient denies any seizure activity since being hospitalized and has never had the episodes in hospital. She denies pain anywhere, SOB, CP, F/C, but does admit to fatigue On this hospitalization patient developed a rash on flanks and upper chest. As per family this is from the [facility]. ROS: As seen in HPI, otherwise all systems reviewed at bedside and no additional remarkable complaints noted. PE: HEENT: Atraumatic, normocephalic, moist mucous membranes, normal neck inspection Respiratory: Lungs clear to auscultation bilaterally Cardiovascular: regular rate and rhythm GI/abdominal: normoactive bowel sounds Extremities: +pedal edema, +chronic venous stasis, + Pneumatic compression devices Neurologic: oriented and alter, refused neurological exam Pyschiatric: somber afffect, refused eye contact, feigned sleep when asked if she felt depressed Assesment/Plan: 1. 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 Continue current regimen of lasix 20mg IV q8, Continue Oxygen, nebulizer, budesonide 2. Unresponisve episode Antibiotics for UTI. Neurology changed keppra to dilantin and ativan as needed. 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 Consider psychiatry consult. 3. 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 On eliquis. Past Patient History - Infectious Disease Hx of Infectious Diseases: None - Past Medical History & Family History Past Medical History?: Yes - Past Social History Smoking Status: Never Smoked - CARDIAC Hx Pacemaker: No - PULMONARY Hx Chronic Obstructive Pulmonary Disease (COPD): Yes - NEUROLOGICAL Hx Neurological Disorder: Yes Hx Syncope: Yes (10 yrs ago unknown reason) - HEENT Hx HEENT Problems: Yes Hx Cataracts: Yes Hx Glaucoma: Yes - RENAL Hx Chronic Kidney Disease: No - ENDOCRINE/METABOLIC Hx Endocrine Disorders: No - HEMATOLOGICAL/ONCOLOGICAL Hx Cancer: No - INTEGUMENTARY Hx Dermatological Problems: No - MUSCULOSKELETAL/RHEUMATOLOGICAL Hx Arthritis: Yes - GASTROINTESTINAL Hx Gastrointestinal Disorders: No - GENITOURINARY/GYNECOLOGICAL Hx Genitourinary Disorders: No - PSYCHIATRIC Hx Substance Use: No - SURGICAL HISTORY Hx Mastectomy: No - ANESTHESIA Hx Anesthesia: Yes Hx Anesthesia Reactions: No Hx Malignant Hyperthermia: No Meds Allergies/Adverse Reactions: Allergies Allergy/AdvReac Type Severity Reaction Status Date / Time cefpodoxime Allergy RASH Verified 06/10/18 11:37 acetaminophen [From Percocet] AdvReac RASH Verified 06/09/18 23:14 hydromorphone [From Dilaudid] AdvReac RASH Verified 06/09/18 23:14 oxycodone [From Percocet] AdvReac RASH Verified 06/09/18 23:14 - Medications Medications: Current Medications Albuterol/Ipratropium (Duoneb 3 Mg/0.5 Mg (3 Ml) Ud) 3 ml INH RQ4 PRN PRN Reason: Shortness of Breath Last Admin: 06/11/18 08:00 Dose: 3 ml Apixaban (Eliquis) 5 mg PO DAILY [facility] Aspirin (Ecotrin) 81 mg PO DAILY [facility] Last Admin: 06/11/18 10:04 Dose: 81 mg Budesonide (Pulmicort Respules) 0.25 mg INH RQ12 [facility]ITCHIE Last Admin: 06/11/18 20:10 Dose: 0.25 mg Carvedilol (Coreg) 3.125 mg PO BID [facility] Last Admin: 06/11/18 17:45 Dose: 3.125 mg Furosemide (Lasix) 20 mg IVP Q8H RITCHIE Last Admin: 06/11/18 14:40 Dose: 20 mg Lorazepam (Ativan) 1 mg IVP Q4H PRN PRN Reason: Seizure activity Losartan Potassium (Cozaar) 25 mg PO DAILY [facility] Nystatin (Nystop Topical Powder) 1 applic TOP BID [facility] Last Admin: 06/11/18 17:45 Dose: Not Given Pneumococcal Polyvalent Vaccine (Pneumovax 23 Vaccine) 0.5 ml IM .ONCE ONE Stop: 06/14/18 10:01 Rosuvastatin Calcium (Crestor) 10 mg PO HS RITCHIE Last Admin: 06/10/18 21:40 Dose: 10 mg Spironolactone (Aldactone) 25 mg PO BID [facility]ITCHIE Last Admin: 06/11/18 17:45 Dose: 25 mg Results - Vital Signs Recent Vital Signs: Last Vital Signs Temp 97.9 F 06/11/18 15:00 Pulse 81 06/11/18 15:00 Resp 20 06/11/18 15:00 BP 122/85 06/11/18 15:00 Pulse Ox 98 06/11/18 15:00 - Labs Result Diagrams: 06/11/18 13:12 06/11/18 13:12 Labs: Laboratory Results - last 24 hr 06/10/18 06/11/18 06/11/18 21:24 06:04 12:23 WBC RBC Hgb Hct MCV MCH MCHC RDW Plt Count MPV Neut % (Auto) Lymph % (Auto) [place] % (Auto) Eos % (Auto) Baso % (Auto) Neut # (Auto) Lymph # (Auto) [place] # (Auto) Eos # (Auto) Baso # (Auto) Differential Comment PT INR Sodium Potassium Chloride Carbon Dioxide Anion Gap BUN Creatinine Est GFR ( Amer) Est GFR (Non-Af Amer) POC Glucose (mg/dL) 103 97 97 Random Glucose Lactic Acid Uric Acid Calcium Phosphorus Magnesium Total Bilirubin AST ALT Alkaline Phosphatase Troponin I NT-Pro-B Natriuret Pep Total Protein Albumin Globulin Albumin/Globulin Ratio Random Vancomycin 06/11/18 06/11/18 06/11/18 13:12 13:12 13:12 WBC 4.1 L RBC 4.05 Hgb 11.1 Hct 33.4 L MCV 82.5 MCH 27.5 MCHC 33.3 RDW 15.0 H Plt Count 103 L MPV 9.0 Neut % (Auto) 71.8 Lymph % (Auto) 14.0 L [place] % (Auto) 13.0 H Eos % (Auto) 0.7 Baso % (Auto) 0.5 Neut # (Auto) 3.0 Lymph # (Auto) 0.6 L [place] # (Auto) 0.5 Eos # (Auto) 0.0 Baso # (Auto) 0.0 Differential Comment PT INR Sodium 132 Potassium 3.0 L Chloride 91 L Carbon Dioxide 31 H Anion Gap 13 BUN 32 H Creatinine 1.5 H Est GFR ( Amer) 40 Est GFR (Non-Af Amer) 33 POC Glucose (mg/dL) Random Glucose 89 Lactic Acid Uric Acid 6.8 Calcium 8.7 Phosphorus 3.7 Magnesium 1.9 Total Bilirubin 0.8 AST 120 H ALT 81 H D Alkaline Phosphatase 78 Troponin I NT-Pro-B Natriuret Pep 7190 H Total Protein 6.2 L Albumin 3.5 Globulin 2.7 Albumin/Globulin Ratio 1.3 Random Vancomycin 7.7 06/11/18 06/11/18 06/11/18 13:12 13:12 14:36 WBC RBC Hgb Hct MCV MCH MCHC RDW Plt Count MPV Neut % (Auto) Lymph % (Auto) [place] % (Auto) Eos % (Auto) Baso % (Auto) Neut # (Auto) Lymph # (Auto) [place] # (Auto) Eos # (Auto) Baso # (Auto) Differential Comment PT 22.0 H INR 2.0 Sodium Potassium Chloride Carbon Dioxide Anion Gap BUN Creatinine Est GFR ( Amer) Est GFR (Non-Af Amer) POC Glucose (mg/dL) Random Glucose Lactic Acid 1.4 Uric Acid Calcium Phosphorus Magnesium Total Bilirubin AST ALT Alkaline Phosphatase Troponin I 0.6540 H* NT-Pro-B Natriuret Pep Total Protein Albumin Globulin Albumin/Globulin Ratio Random Vancomycin 06/11/18 15:52 WBC RBC Hgb Hct MCV MCH MCHC RDW Plt Count MPV Neut % (Auto) Lymph % (Auto) [place] % (Auto) Eos % (Auto) Baso % (Auto) Neut # (Auto) Lymph # (Auto) [place] # (Auto) Eos # (Auto) Baso # (Auto) Differential Comment PT INR Sodium Potassium Chloride Carbon Dioxide Anion Gap BUN Creatinine Est GFR ( Amer) Est GFR (Non-Af Amer) POC Glucose (mg/dL) 104 Random Glucose Lactic Acid Uric Acid Calcium Phosphorus Magnesium Total Bilirubin AST ALT Alkaline Phosphatase Troponin I NT-Pro-B Natriuret Pep Total Protein Albumin Globulin Albumin/Globulin Ratio Random Vancomycin
[2018-06-12] MEDS: Budesonide 0.25 mg/2 ml Inhal Susp UD INH SCH ×2 (07:48→20:23)
[2018-06-12] MEDS: Albuterol-Ipratrop 3 mg / 0.5 (3 ml) UD INH PRN ×2 (07:48→20:22)
--- NOTE | 2018-06-12 08:43 | CP.PCM.PN ---
<Malvin Knapp - Last Filed: 06/12/18 19:32> Subjective - Date & Time of Evaluation Date of Evaluation: 06/12/18 Time of Evaluation: 19:32 - Subjective Subjective: Patient seen and examined at bedside. No overnight reported. Patient denies any fever, chills, chest pain, SOB, abdominal pain, nausea, vomiting, changes in bowel habits or urinary symptoms. This evening around 7:15, patient's family stated the witnessed a seizure. Objective - Vital Signs/Intake and Output Vital Signs (last 24 hours): Temp Pulse Resp BP Pulse Ox 97.6 F 90 20 137/86 20 L 06/12/18 08:08 06/12/18 08:08 06/12/18 08:08 06/12/18 08:08 06/12/18 08:08 Intake and Output: 06/12/18 06/12/18 06:59 18:59 Output Total 450 Balance -450 - Medications Medications: Current Medications Albuterol/Ipratropium (Duoneb 3 Mg/0.5 Mg (3 Ml) Ud) 3 ml INH RQ4 PRN PRN Reason: Shortness of Breath Last Admin: 06/12/18 07:48 Dose: 3 ml Apixaban (Eliquis) 5 mg PO DAILY [facility] Aspirin (Ecotrin) 81 mg PO DAILY [facility] Last Admin: 06/11/18 10:04 Dose: 81 mg Budesonide (Pulmicort Respules) 0.25 mg INH RQ12 [facility] Last Admin: 06/12/18 07:48 Dose: 0.25 mg Carvedilol (Coreg) 3.125 mg PO BID [facility] Last Admin: 06/11/18 17:45 Dose: 3.125 mg Furosemide (Lasix) 20 mg IVP Q8H [facility] Last Admin: 06/12/18 05:38 Dose: 20 mg Lorazepam (Ativan) 1 mg IVP Q4H PRN PRN Reason: Seizure activity Losartan Potassium (Cozaar) 25 mg PO DAILY [facility] Nystatin (Nystop Topical Powder) 1 applic TOP BID [facility] Last Admin: 06/11/18 17:45 Dose: Not Given Pneumococcal Polyvalent Vaccine (Pneumovax 23 Vaccine) 0.5 ml IM .ONCE ONE Stop: 06/14/18 10:01 Rosuvastatin Calcium (Crestor) 10 mg PO HS [facility] Last Admin: 06/10/18 21:40 Dose: 10 mg Spironolactone (Aldactone) 25 mg PO BID [facility] Last Admin: 06/11/18 17:45 Dose: 25 mg - Labs Labs: 06/11/18 13:12 06/11/18 13:12 PT 22.0 SECONDS (9.7-12.2) H 06/11/18 14:36 INR 2.0 06/11/18 14:36 APTT 32 SECONDS (21-34) D 06/10/18 13:54 - Neck Exam Additional comments: - Constitutional Appears: Non-toxic, No Acute Distress - Head Exam Head Exam: ATRAUMATIC, NORMAL INSPECTION - Eye Exam Eye Exam: EOMI, Normal appearance, PERRL - ENT Exam ENT Exam: Mucous Membranes Moist, Normal Oropharynx Additional comments: no tongue laceration face symmetrical - Respiratory Exam Respiratory Exam: Decreased Breath Sounds, Clear to Auscultation NORMAL BREATHING PATTERN. absent: Murmur, Rhonchi, Wheezes, Respiratory Distress - Cardiovascular Exam Cardiovascular Exam: REGULAR RHYTHM, +S1, +S2 Additional comments: pedal pulses palpable but faint, 2+ cap refill - GI/Abdominal Exam GI & Abdominal Exam: Obese, Soft, Normal Bowel Sounds. absent: Distended, Firm, Guarding, Rigid, Tenderness, Rebound - Extremities Exam Extremities Exam: Pedal Edema (trace pitting edema of the bilateral lower extremities extending to just above ankles. absent: Calf Tenderness - Neurological Exam Neurological Exam: Alert, Awake, CN II-XII Intact. absent: Oriented x3 (not oriented to year or city) Neuro motor strength exam: Left Upper Extremity: 5, Right Upper Extremity: 5, Left Lower Extremity: 2/1 (chronic), Right Lower Extremity: 2/1 (chronic) - Psychiatric Exam Psychiatric exam: Normal Affect, Normal Mood - Skin Skin Exam: Dry, Warm Additional comments: (+) excoriations to the left and right upper chest wall, no swelling; no active bleeding (Improved) (+) erythema, without warmth, slightly raised rash to the medial left upper arm (+) small 1 cm skin tear, (improved compared to prior admission), which medihoney and dressing was applied to (+) erythema to the lower abdominal skin folds, left greater than right (right nearly resolved) (+) 0.5 cm ulceration with eschar to the left second toe (+) chronic venous stasis to the bilateral lower extremities - Additional Findings Additional findings: - Constitutional Appears: Non-toxic, No Acute Distress - Head Exam Head Exam: ATRAUMATIC, NORMAL INSPECTION - Eye Exam Eye Exam: EOMI, Normal appearance, PERRL - ENT Exam ENT Exam: Mucous Membranes Moist, Normal Oropharynx Additional comments: no tongue laceration face symmetrical - Respiratory Exam Respiratory Exam: Decreased Breath Sounds, Clear to Auscultation NORMAL BREATHING PATTERN. absent: Murmur, Rhonchi, Wheezes, Respiratory Distress - Cardiovascular Exam Cardiovascular Exam: REGULAR RHYTHM, +S1, +S2 Additional comments: pedal pulses palpable but faint, 2+ cap refill - GI/Abdominal Exam GI & Abdominal Exam: Obese, Soft, Normal Bowel Sounds. absent: Distended, Firm, Guarding, Rigid, Tenderness, Rebound - Extremities Exam Extremities Exam: Pedal Edema (trace pitting edema of the bilateral lower extremities extending to just above ankles. absent: Calf Tenderness - Neurological Exam Neurological Exam: Alert, Awake, CN II-XII Intact. absent: Oriented x3 (not oriented to year or city) Neuro motor strength exam: Left Upper Extremity: 5, Right Upper Extremity: 5, Left Lower Extremity: 2/1 (chronic), Right Lower Extremity: 2/1 (chronic) - Psychiatric Exam Psychiatric exam: Normal Affect, Normal Mood - Skin Skin Exam: Dry, Warm Additional comments: (+) excoriations to the left and right upper chest wall, no swelling; no active bleeding (Improved) (+) erythema, without warmth, slightly raised rash to the medial left upper arm (+) small 1 cm skin tear, (improved compared to prior admission), which medihoney and dressing was applied to (+) erythema to the lower abdominal skin folds, left greater than right (right nearly resolved) (+) 0.5 cm ulceration with eschar to the left second toe (+) chronic venous stasis to the bilateral lower extremities Assessment and Plan - Assessment and Plan (Free Text) Assessment: Patient is an 87 year old female with CHF, severe pulmonary hypertension, COPD/asthma, HTN, HLD, previous DVT with IVC filter placement, PAD, and arthritis admitted for altered mental status. Patient was just discharged the previous day from a hospital stay for altered mental status and determine to have UTI (which was treated with Vantin) and partial complex seizures (which is being treated with Keppra PO). Noted to have acute renal failure (suspect due to Vantin and Keppra), elevated lactate, elevated INR, and transaminitis. Patient also noted to have allergic reaction (rash) to Vantin. Neurology and psychiatry consulted. Suspect that patient's symptoms are more related to sundowning/delirium and possibly depression rather than seizure. Plan: Altered mental status, intermittent- suspect sundowning with component of dementia/depression - Patient's brother recently - Continue to orient patient - Psychiatry consulted (Davin) - Recommend outpatient eval for dementia - PT/OT/ST Staph Bacteremia - Consult ID (Dr. Aguilar), F/U Recs - Vancomycin 1 gram Q24H (Renal Dosing) Partial complex seizure - CT head: no acute pathology. generalized volume loss. Nonspecific white matter changes. * Prior head CT 06/05 shows chronic changes as well (see report). 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 - Carotid dopplers (06/05): no hemodynamically significant lesions bilaterally. - EEG (06/06): abnormal EEG because of slow activities followed with paroxysmal polyspike and wave actvities noted at right followed with bilateral cortical activities consistent with epileptiform focus - Repeat EEG 06/11- report pending - RPR nonreactive - Keppra level pending - Seizure precautions - Neuro checks - Patient was placed on Keppra last admission; neurology switched her to Phenytoin for one day then discontinued, Phenytoin made patient extremely lethargic - Ativan 2 mg IV Q4H PRN - Neurology consulted (Miguel Angel) - FosPhenytoin 100mg IV Q8H - ProLactin Ordered Once within 10 minutes after what family thought was a seizure today. Acute renal failure, improving- suspect medication side effect (Vantin, Keppra) - Baseline Cr 1.0 - On admission BUN/Cr 34/1.8--> 32/1.5 - CPK 152 - Bedside RN bladder scan shows no retention - Renal/bladder US: Increased echogenicity of the bilateral renal parenchymal cortices suggestive for medical renal disease. - Urine random Na <5 - Urine random Cr 240.3 - [facility] Acute exacerbation of HFpEF, improving - CXR: Moderate venous congestion. Bibasilar airspace opacities. Right hilar prominence. Enlarged ectatic aorta with atherosclerotic calcifications. Biapical pleural thickening with upper lobe granulomatous changes. - Lasix 20mg IVP Q8H - Coreg 3.125 mg PO BID (8 am and 8 pm) - Losartan 100 mg PO daily- held due to ARF - Start Aldactone 25 mg PO BID - Cardiology/PMD consulted (Lars) Transaminitis, acute- suspect medication side effect (Keppra) - AST/ALT/ALP is 106/54/84-->120/81/78 - Discontinue Keppra - Avoid hepatotoxic agents when possible - Monitor Severe pulmonary hypertension and COPD, chronic - RVSP is 100 mmHg - Humidified O2 via NC - Duonebs Q4H PRN - Budesonide Q12H - Pulmonology consulted (Audi) Supratherapeutic INR, acute, improving- suspect due to acute liver and/or kidney disease - 06/01/18: PT/PTT/INR is 25.3/36/2.3 on 06/01 - On admission 06/10: PT/PTT/INR is 36.7/23/3.3 - INR now 2.0 on 06/11- restart Eliquis - Monitor coags Elevated Troponin, chronic, stable- suspect due to HFpEF and ARF - Elevated on previous admissions - 0.6840-->0.6860-->0.6540 - No acute EKG changes Elevated Lactate, acute, resolved- recent UTI (E. coli)- suspect due to ARF and muscles hypertonicity noted at home - 2.8--> 3.1--> 1.4 - Afebrile, no leukocytosis, no hypotension, no tachycardia - Procalcitonin low (0.09) - V/Q scan: low probability of PE - Urine Cx 06/10 no growth - Wound Cx from gluteal tear no growth - Blood Cx 1/2 positive for GPC (likely contamination)- wait for final read - 1 L NS x1 in ED - Vanco Zosyn x1 in ED Abdominal rash, acute, improving- suspect allergic reaction to outpatient Vantin/Keppra - No angioedema/anaphylaxis - Discontinue Vantin and Keppra Intertrigo to lower abdominal folds, chronic, improving - Daily skin checks - Nystatin power BID Gluteal cleft skin tear, chronic, improving - Wound Cx POSITIVE for Gram Positive Cocci - Turn Q2H - Daily skin checks - Ivy and optiform - Vancomycin 1 gram Q24H (Renal Dosing) - ID Consult (Dr. Aguilar), Recs Appreciated. 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 - V/Q scan: low probability of PE - Avoid SCDs - Eliquis 5 mg PO daily- restart 06/11 (previously held due to elevated INR) Hypertension, chronic - Vitals Q6H - Coreg 3.125 mg PO QHS - Losartan 100 mg PO daily- (HELD due to ARF) - Start Aldactone 25 mg PO BID Peripheral artery disease, chronic - ASA 81 mg PO daily - Crestor 10 mg PO QHS (HELD) Hyperlipidemia, chronic - 06/02/18: TG/CHL/LDL/HDL is 69/77/37/42 - Crestor 10 mg PO QHS- held due to transamnitis Thrombocytopenia, chronic, stable - Platelets 80s-110s - Monitor CBC H/o Gout - Allopurinol 100 mg PO- held due to ARF Ppx: VTE: SCDs contraindicated due to chronic DVT, Eliquis 5 PO daily GI: not indicated Diet: Heart health, low carb, 2 g Na Dispo: AR home with services. Patient does not qualify for [facility] as she is not able to participate in therapy. Patient's insurance does not provide for long- term placement. CM/SW referred patient to [facility] (respite care, social adult daycare, transport to [facility]), [facility] services (dementia eval in home, emotional support, PT/OT), and [facility] [place] (dementia services). While in-patient: to get loading dose of Cerebyx 1000 mg IV (which she did on 06/11/18) and then Cerebyx should be continued at 100 mg IV Q8H When ready for discharge: switch to Dilantin 100 mg PO 3x/day Continue the Eliquis 5 mg PO 1x/day for history of Chronic DVT Right Leg. As Dilantin can reduce the effect of Eliquis, this will have to be carefully monitored. Case discussed with attending, Dr. Carmine Suresh. Malvin Knapp, PGY-2 <Carmine Suresh J - Last Filed: 06/13/18 18:53> Objective - Vital Signs/Intake and Output Vital Signs (last 24 hours): Temp Pulse Resp BP Pulse Ox 97.9 F 65 18 122/88 99 06/13/18 15:00 06/13/18 15:00 06/13/18 15:00 06/13/18 17:20 06/13/18 15:00 Intake and Output: 06/13/18 06/13/18 06:59 18:59 Intake Total 170 Output Total 650 Balance -480 - Medications Medications: Current Medications Albuterol/Ipratropium (Duoneb 3 Mg/0.5 Mg (3 Ml) Ud) 3 ml INH RQ4 PRN PRN Reason: Shortness of Breath Last Admin: 06/12/18 20:22 Dose: 3 ml Apixaban (Eliquis) 5 mg PO DAILY [facility] Last Admin: 06/13/18 09:44 Dose: 5 mg Aspirin (Ecotrin) 81 mg PO DAILY [facility] Last Admin: 06/13/18 09:44 Dose: 81 mg Budesonide (Pulmicort Respules) 0.25 mg INH RQ12 [facility] Last Admin: 06/13/18 10:10 Dose: Not Given Carvedilol (Coreg) 3.125 mg PO BID [facility] Last Admin: 06/13/18 17:19 Dose: 3.125 mg Furosemide (Lasix) 20 mg IVP Q12H [facility] Last Admin: 06/13/18 17:20 Dose: 20 mg Fosphenytoin Sodium 100 mg/ (Dextrose) 52 mls @ 100 mls/hr IV Q8H [facility] Last Admin: 06/13/18 16:19 Dose: 100 mls/hr Linezolid (Zyvox 600mg/300ml D5w) 600 mg in 300 mls @ 200 mls/hr IVPB Q12H [facility]; Protocol Last Admin: 06/13/18 18:12 Dose: 200 mls/hr Lorazepam (Ativan) 1 mg IVP Q4H PRN PRN Reason: Seizure activity Losartan Potassium (Cozaar) 25 mg PO DAILY [facility] Nystatin (Nystop Topical Powder) 1 applic TOP BID [facility] Last Admin: 06/13/18 17:23 Dose: 1 applic Pneumococcal Polyvalent Vaccine (Pneumovax 23 Vaccine) 0.5 ml IM .ONCE ONE Stop: 06/14/18 10:01 Rosuvastatin Calcium (Crestor) 10 mg PO HS [facility] Last Admin: 06/10/18 21:40 Dose: 10 mg Spironolactone (Aldactone) 25 mg PO BID [facility] Last Admin: 06/13/18 17:19 Dose: 25 mg - Labs Labs: 06/13/18 10:41 06/13/18 08:55 PT 20.0 SECONDS (9.7-12.2) H 06/12/18 08:37 INR 1.8 06/12/18 08:37 APTT 32 SECONDS (21-34) D 06/10/18 13:54 Attending/Attestation - Attestation I have personally seen and examined this patient.: Yes I have fully participated in the care of the patient.: Yes I have reviewed all pertinent clinical information, including history, physical exam and plan: Yes Notes (Text): 06/13/18 18:52 This is a late entry. Care of this patient was gone over in detail with resident Dr. Coombs. Carmine Suresh D.O.
[2018-06-12] MEDS ORDERED: Potassium Chloride 20 mEq ER Tab PO ONE (08:46)
[2018-06-12 08:48] LABS: BASO % 0.3 % (0.0-2.0); EOS % 0.9 % (0.0-4.0); HEMOGLOBIN 11.6 g/dL (11.0-16.0); LYMPH # 0.7 K/uL (1.0-4.3); LYMPH % 15.6 % (20.0-40.0); MEAN CELL VOLUME 82.8 fL (81.0-99.0); MEAN CORPUSCULAR HEMOGLOBIN 27.4 pg (27.0-31.0); MEAN CORPUSCULAR HGB CONC 33.1 g/dL (33.0-37.0); MEAN PLATELET VOLUME 8.8 fL (7.2-11.7); MONO # 0.9 K/uL (0.0-0.8); NEUT # 3.1 K/uL (1.8-7.0); NEUT % 64.2 % (50.0-75.0); NRBC % 0.3 % (0.0-2.0); RBC 4.23 Mil/uL (3.80-5.20); RED CELL DISTRIBUTION WIDTH 14.8 % (11.5-14.5); WHITE BLOOD COUNT 4.8 K/uL (4.8-10.8)
[2018-06-12 08:58] LABS: INR 1.8
[2018-06-12 09:05] LABS: ALB/GLOB RATIO 1.3 (1.0-2.1); ALBUMIN 3.7 g/dL (3.5-5.0)
[2018-06-12] MEDS ORDERED: Vancomycin 1 gm/NS 200 ml 1 GM/200 ML BAG IVPB SCH (10:00)
--- NOTE | 2018-06-12 15:24 | CP.PCM.PCO ---
Physician Communication Note - Physician Communication Note Physician Communication Note: Please see above
[2018-06-12] MEDS: Fosphenytoin 100 MG in Dextrose 5% In Water 50 ML IV SCH ×2 (16:30→23:56)
--- NOTE | 2018-06-12 20:08 | CP.PCM.PN ---
Subjective - Date & Time of Evaluation Date of Evaluation: 06/12/18 Time of Evaluation: 14:00 - Subjective Subjective: 87 yo F w/ pmh of CHF w/ diastolic dysfunction and pulm htn, COPD, s/p DVT on eliquis, new seizure disorder, admitted with breakthrough seizure, nephrology following for acute renal failure; Patient reports not feeling well but cannot explain further; denies any difficulty breathing, pain, nausea/vomiting; poor PO intake per nursing staff and hasn't gotten out of bed; Objective - Vital Signs/Intake and Output Vital Signs (last 24 hours): Temp Pulse Resp BP Pulse Ox 97.5 F L 84 18 115/59 L 97 06/12/18 15:00 06/12/18 15:00 06/12/18 15:00 06/12/18 15:00 06/12/18 15:00 Intake and Output: 06/12/18 06/13/18 18:59 06:59 Intake Total 200 Output Total 600 Balance -400 - Medications Medications: Current Medications Albuterol/Ipratropium (Duoneb 3 Mg/0.5 Mg (3 Ml) Ud) 3 ml INH RQ4 PRN PRN Reason: Shortness of Breath Last Admin: 06/12/18 07:48 Dose: 3 ml Apixaban (Eliquis) 5 mg PO DAILY [facility] Last Admin: 06/12/18 09:37 Dose: 5 mg Aspirin (Ecotrin) 81 mg PO DAILY [facility] Last Admin: 06/12/18 09:37 Dose: 81 mg Budesonide (Pulmicort Respules) 0.25 mg INH RQ12 [facility] Last Admin: 06/12/18 07:48 Dose: 0.25 mg Carvedilol (Coreg) 3.125 mg PO BID [facility] Last Admin: 06/12/18 17:35 Dose: 3.125 mg Furosemide (Lasix) 20 mg IVP Q8H [facility] Last Admin: 06/12/18 13:06 Dose: 20 mg Vancomycin/Sodium Chloride (Vancomycin 1 Gm/Ns 200 Ml) 1 gm in 200 mls @ 133 ml s/hr IVPB Q24H [facility]; Protocol Stop: 06/17/18 10:01 Last Admin: 06/12/18 10:44 Dose: 133 mls/hr Fosphenytoin Sodium 100 mg/ (Dextrose) 52 mls @ 100 mls/hr IV Q8H [facility] Last Admin: 06/12/18 16:30 Dose: 100 mls/hr Lorazepam (Ativan) 1 mg IVP Q4H PRN PRN Reason: Seizure activity Losartan Potassium (Cozaar) 25 mg PO DAILY [facility] Nystatin (Nystop Topical Powder) 1 applic TOP BID [facility] Last Admin: 06/12/18 10:46 Dose: Not Given Pneumococcal Polyvalent Vaccine (Pneumovax 23 Vaccine) 0.5 ml IM .ONCE ONE Stop: 06/14/18 10:01 Rosuvastatin Calcium (Crestor) 10 mg PO HS [facility] Last Admin: 06/10/18 21:40 Dose: 10 mg Spironolactone (Aldactone) 25 mg PO BID [facility] Last Admin: 06/12/18 17:35 Dose: 25 mg - Labs Labs: 06/12/18 08:37 06/12/18 08:37 PT 20.0 SECONDS (9.7-12.2) H 06/12/18 08:37 INR 1.8 06/12/18 08:37 APTT 32 SECONDS (21-34) D 06/10/18 13:54 - Constitutional Appears: Non-toxic, No Acute Distress - Eye Exam Eye Exam: Normal appearance - Respiratory Exam Additional comments: poor air movement; no rales/rhonchi; - Cardiovascular Exam Cardiovascular Exam: JVD, RRR Additional comments: systolic murmur; - GI/Abdominal Exam GI & Abdominal Exam: Soft. absent: Distended, Tenderness - Extremities Exam Additional comments: moderate leg edema b/l (much improved) - Neurological Exam Neurological Exam: Alert, Awake - Psychiatric Exam Psychiatric exam: absent: Agitated - Skin Skin Exam: absent: Cyanosis Additional comments: mildly cool hands Assessment and Plan (1) Acute kidney injury Assessment & Plan: Cardiorenal etiology with renal function improving on aggressive diuretic regimen; however, cannot rule out superimposed intrinsic renal process with significant proteinuria (1.2 g/g on random protein/creat ratio); ideally needs further workup to look for other causes of renal failure; given advanced age and comorbidities, will hold off on any further workup for now; Otherwise, stable electrolyte status, volume status improving; -continue lasix IV 20 mg q8h; -continue aldactone 25 mg bid (to offset hypokalemia and metabolic alkalosis); -strict I/O; -avoid nephrotoxic agents; Status: Acute (2) CHF (congestive heart failure) Assessment & Plan: Acute decompensated CHF w/ diastolic dysfunction and severe pulm htn; will continue IV lasix as above for now; will need to switch to adequate PO regimen prior to d/c; Status: Acute (3) Lactic acidosis Status: Resolved (4) Hypokalemia Status: Acute (5) HTN (hypertension) Status: Chronic
[2018-06-13] MEDS: Fosphenytoin 100 MG in Dextrose 5% In Water 50 ML IV SCH ×2 (07:57→16:19)
[2018-06-13 09:27] LABS: ALB/GLOB RATIO 1.2 (1.0-2.1); ALBUMIN 3.7 g/dL (3.5-5.0)
--- NOTE | 2018-06-13 10:05 | CP.PCM.PN ---
<Malvin Knapp - Last Filed: 06/13/18 13:16> Subjective - Date & Time of Evaluation Date of Evaluation: 06/13/18 Time of Evaluation: 12:09 - Subjective Subjective: Patient seen and examined at bedside. No overnight reported. Patient denies any fever, chills, chest pain, SOB, abdominal pain, nausea, vomiting, changes in bowel habits or urinary symptoms. Patient does say she is in a depressed mood. No "events' since yesterday night. Objective - Vital Signs/Intake and Output Vital Signs (last 24 hours): Temp Pulse Resp BP Pulse Ox 97.6 F 89 20 115/83 94 L 06/13/18 07:00 06/13/18 07:00 06/13/18 07:00 06/13/18 07:00 06/13/18 07:00 Intake and Output: 06/13/18 06/13/18 06:59 18:59 Intake Total 170 Output Total 650 Balance -480 - Medications Medications: Current Medications Albuterol/Ipratropium (Duoneb 3 Mg/0.5 Mg (3 Ml) Ud) 3 ml INH RQ4 PRN PRN Reason: Shortness of Breath Last Admin: 06/12/18 20:22 Dose: 3 ml Apixaban (Eliquis) 5 mg PO DAILY [facility] Last Admin: 06/13/18 09:44 Dose: 5 mg Aspirin (Ecotrin) 81 mg PO DAILY [facility] Last Admin: 06/13/18 09:44 Dose: 81 mg Budesonide (Pulmicort Respules) 0.25 mg INH RQ12 [facility] Last Admin: 06/12/18 20:23 Dose: 0.25 mg Carvedilol (Coreg) 3.125 mg PO BID [facility] Last Admin: 06/13/18 09:44 Dose: 3.125 mg Furosemide (Lasix) 20 mg IVP Q8H [facility] Last Admin: 06/13/18 05:59 Dose: 20 mg Fosphenytoin Sodium 100 mg/ (Dextrose) 52 mls @ 100 mls/hr IV Q8H [facility] Last Admin: 06/13/18 07:57 Dose: 100 mls/hr Vancomycin/Sodium Chloride (Vancomycin 1 Gm/Ns 200 Ml) 1 gm in 200 mls @ 133 mls/hr IVPB Q24H [facility]; Protocol Stop: 06/18/18 10:16 Lorazepam (Ativan) 1 mg IVP Q4H PRN PRN Reason: Seizure activity Losartan Potassium (Cozaar) 25 mg PO DAILY [facility] Nystatin (Nystop Topical Powder) 1 applic TOP BID [facility] Last Admin: 06/13/18 09:47 Dose: Not Given Pneumococcal Polyvalent Vaccine (Pneumovax 23 Vaccine) 0.5 ml IM .ONCE ONE Stop: 06/14/18 10:01 Rosuvastatin Calcium (Crestor) 10 mg PO HS [facility] Last Admin: 06/10/18 21:40 Dose: 10 mg Spironolactone (Aldactone) 25 mg PO BID [facility] Last Admin: 06/13/18 09:44 Dose: 25 mg - Labs Labs: 06/12/18 08:37 06/13/18 08:55 PT 20.0 SECONDS (9.7-12.2) H 06/12/18 08:37 INR 1.8 06/12/18 08:37 APTT 32 SECONDS (21-34) D 06/10/18 13:54 - Additional Findings Additional findings: - Constitutional Appears: Non-toxic, No Acute Distress - Head Exam Head Exam: ATRAUMATIC, NORMAL INSPECTION - Eye Exam Eye Exam: EOMI, Normal appearance, PERRL - ENT Exam ENT Exam: Mucous Membranes Moist, Normal Oropharynx Additional comments: no tongue laceration face symmetrical - Respiratory Exam Respiratory Exam: Decreased Breath Sounds, Clear to Auscultation NORMAL BREATHING PATTERN. absent: Murmur, Rhonchi, Wheezes, Respiratory Distress - Cardiovascular Exam Cardiovascular Exam: REGULAR RHYTHM, +S1, +S2 Additional comments: pedal pulses palpable but faint, 2+ cap refill - GI/Abdominal Exam GI & Abdominal Exam: Obese, Soft, Normal Bowel Sounds. absent: Distended, Firm, Guarding, Rigid, Tenderness, Rebound - Extremities Exam Extremities Exam: Pedal Edema (trace pitting edema of the bilateral lower extremities extending to just above ankles. absent: Calf Tenderness - Neurological Exam Neurological Exam: Alert, Awake, CN II-XII Intact. absent: Oriented x3 (not oriented to year or city) Neuro motor strength exam: Left Upper Extremity: 5, Right Upper Extremity: 5, Left Lower Extremity: 2/1 (chronic), Right Lower Extremity: 2/1 (chronic) - Psychiatric Exam Psychiatric exam: Normal Affect, Normal Mood - Skin Skin Exam: Dry, Warm Additional comments: (+) excoriations to the left and right upper chest wall, no swelling; no active bleeding (Improved) (+) erythema, without warmth, slightly raised rash to the medial left upper arm (+) small 1 cm skin tear, (improved compared to prior admission), which medihoney and dressing was applied to (+) erythema to the lower abdominal skin folds, left greater than right (right nearly resolved) (+) 0.5 cm ulceration with eschar to the left second toe (+) chronic venous stasis to the bilateral lower extremities Assessment and Plan - Assessment and Plan (Free Text) Assessment: Patient is an 87 year old female with CHF, severe pulmonary hypertension, COPD/asthma, HTN, HLD, previous DVT with IVC filter placement, PAD, and arthritis admitted for altered mental status. Patient was just discharged the previous day from a hospital stay for altered mental status and determine to have UTI (which was treated with Vantin) and partial complex seizures (which is being treated with Keppra PO). Noted to have acute renal failure (suspect due to Vantin and Keppra), elevated lactate, elevated INR, and transaminitis. Patient also noted to have allergic reaction (rash) to Vantin. Neurology and psychiatry consulted. Suspect that patient's symptoms are more related to sundowning/delirium and possibly depression rather than seizure. Plan: Altered mental status/Depression intermittent- suspect sundowning with component of dementia/depression - Patient's brother recently - Continue to orient patient - Psychiatry consulted (Davin), Will need to ask him for continued follow up on Thursday. 06/14/18 - Recommend outpatient eval for dementia/depression - PT/OT/ST Staph Bacteremia - Consult ID (Dr. Aguilar), F/U Recs - Vancomycin 1 gram Q24H (Renal Dosing) Partial complex seizure - CT head: no acute pathology. generalized volume loss. Nonspecific white matter changes. * Prior head CT 06/05 shows chronic changes as well (see report). 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 - Carotid dopplers (06/05): no hemodynamically significant lesions bilaterally. - EEG (06/06): abnormal EEG because of slow activities followed with paroxysmal polyspike and wave actvities noted at right followed with bilateral cortical activities consistent with epileptiform focus - Repeat EEG 06/11- report pending - RPR nonreactive - Seizure precautions - Neuro checks - Patient was placed on Keppra last admission; neurology switched her to Phenytoin for one day then discontinued, Phenytoin made patient extremely lethargic - Ativan 2 mg IV Q4H PRN - Neurology consulted (Miguel Angel) - FosPhenytoin 100mg IV Q8H - ProLactin Ordered Once within 10 minutes after what family thought was a seizure on 06/12; which was ELEVATED @ 23.1 Acute renal failure,(Resolved) - Baseline Cr 1.0 - On admission BUN/Cr 34/1.8--> 32/1.5 - CPK 152 - Bedside RN bladder scan shows no retention - Renal/bladder US: Increased echogenicity of the bilateral renal parenchymal cortices suggestive for medical renal disease. - Urine random Na <5 - Urine random Cr 240.3 - Nephrology consulted (Cm) Acute exacerbation of HFpEF, improving - CXR: Moderate venous congestion. Bibasilar airspace opacities. Right hilar prominence. Enlarged ectatic aorta with atherosclerotic calcifications. Biapical pleural thickening with upper lobe granulomatous changes. - Lasix 20mg IVP Q8H - Coreg 3.125 mg PO BID (8 am and 8 pm) - Losartan 100 mg PO daily- held due to ARF - Start Aldactone 25 mg PO BID - Cardiology/PMD consulted (Lars) Transaminitis (Improving), acute- suspect medication side effect (Keppra) - AST/ALT/ALP is 106/54/84-->120/81/78 - Discontinue Keppra - Avoid hepatotoxic agents when possible - Monitor Severe pulmonary hypertension and COPD, chronic - RVSP is 100 mmHg - Humidified O2 via NC - Duonebs Q4H PRN - Budesonide Q12H - Pulmonology consulted (Audi) Supratherapeutic INR, acute, improving- suspect due to acute liver and/or kidney disease - 06/01/18: PT/PTT/INR is 25.3/36/2.3 on 06/01 - On admission 06/10: PT/PTT/INR is 36.7/23/3.3 - INR now 2.0 on 06/11- restart Eliquis - Monitor coags Elevated Troponin, chronic, stable- suspect due to HFpEF and ARF - Elevated on previous admissions - 0.6840-->0.6860-->0.6540 - No acute EKG changes Elevated Lactate, acute, resolved- recent UTI (E. coli)- suspect due to ARF and muscles hypertonicity noted at home - 2.8--> 3.1--> 1.4 - Afebrile, no leukocytosis, no hypotension, no tachycardia - Procalcitonin low (0.09) - V/Q scan: low probability of PE - Urine Cx 06/10 no growth - Wound Cx from gluteal tear no growth - Blood Cx /2 positive for GPC (likely contamination)- wait for final read - 1 L NS x1 in ED - Vanco, Zosyn x1 in ED Abdominal rash, acute, improving- suspect allergic reaction to outpatient Vantin/Keppra - No angioedema/anaphylaxis - Discontinue Vantin and Keppra Intertrigo to lower abdominal folds, chronic, improving - Daily skin checks - Nystatin power BID Gluteal cleft skin tear, chronic, improving - 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 Discussed with Dr. Aguilar/Dr. Penelope Suresh. Her wound is healing nicely and they may be no reason to start systemic Linezolid. At this time we will continue with Vancomycin unless ID states otherwise. - Turn Q2H - Daily skin checks - Medihoney and optiform - Vancomycin 1 gram Q24H (Renal Dosing) - ID Consult (Dr. Aguilar), Recs Appreciated. Need to follow up with Dr. Aguilar regarding length of antibiotic treatment. 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 - V/Q scan: low probability of PE - Avoid SCDs - Eliquis 5 mg PO daily- restart 06/11 (previously held due to elevated INR) Hypertension, chronic - Vitals Q6H - Coreg 3.125 mg PO QHS - Losartan 100 mg PO daily- (HELD due to ARF) - Start Aldactone 25 mg PO BID Peripheral artery disease, chronic - ASA 81 mg PO daily - Crestor 10 mg PO QHS (HELD) Hyperlipidemia, chronic - 06/02/18: TG/CHL/LDL/HDL is 69/77/37/42 - Crestor 10 mg PO QHS- held due to transamnitis Thrombocytopenia, chronic, stable - Platelets 80s-110s - Monitor CBC H/o Gout - Allopurinol 100 mg PO- held due to ARF Ppx: VTE: SCDs contraindicated due to chronic DVT, Eliquis 5 PO daily GI: not indicated Diet: Heart health, low carb, 2 g Na Dispo: DC home with services. Patient does not qualify for [facility] as she is not able to participate in therapy. Patient's insurance does not provide for long- term placement. CM/SW referred patient to [facility] (respite care, [facility] daycare, [facility] (dementia eval in home, emotional support, PT/OT), and [facility] (dementia services). While in-patient: to get loading dose of Cerebyx 1000 mg IV (which she did on 06/11/18) and then Cerebyx should be continued at 100 mg IV Q8H When ready for discharge: switch to Dilantin 100 mg PO 3x/day Continue the Eliquis 5 mg PO 1x/day for history of Chronic DVT Right Leg. As Dilantin can reduce the effect of Eliquis, this will have to be carefully monitored. Will need to follow up with Dr. Aguilar regarding length of IV antiobiotics and antibiotic choice when DC'd. Will also need to follow up with Psych regarding her possible Depression/Dementia. Case discussed with attending, Dr. Carmine Suresh. Malvin Knapp, PGY-2 <Carmine Suresh J - Last Filed: 06/13/18 18:52> Objective - Vital Signs/Intake and Output Vital Signs (last 24 hours): Temp Pulse Resp BP Pulse Ox 97.9 F 65 18 122/88 99 06/13/18 15:00 06/13/18 15:00 06/13/18 15:00 06/13/18 17:20 06/13/18 15:00 Intake and Output: 06/13/18 06/13/18 06:59 18:59 Intake Total 170 Output Total 650 Balance -480 - Medications Medications: Current Medications Albuterol/Ipratropium (Duoneb 3 Mg/0.5 Mg (3 Ml) Ud) 3 ml INH RQ4 PRN PRN Reason: Shortness of Breath Last Admin: 06/12/18 20:22 Dose: 3 ml Apixaban (Eliquis) 5 mg PO DAILY [facility] Last Admin: 06/13/18 09:44 Dose: 5 mg Aspirin (Ecotrin) 81 mg PO DAILY [facility] Last Admin: 06/13/18 09:44 Dose: 81 mg Budesonide (Pulmicort Respules) 0.25 mg INH RQ12 [facility] Last Admin: 06/13/18 10:10 Dose: Not Given Carvedilol (Coreg) 3.125 mg PO BID [facility] Last Admin: 06/13/18 17:19 Dose: 3.125 mg Furosemide (Lasix) 20 mg IVP Q12H [facility] Last Admin: 06/13/18 17:20 Dose: 20 mg Fosphenytoin Sodium 100 mg/ (Dextrose) 52 mls @ 100 mls/hr IV Q8H [facility] Last Admin: 06/13/18 16:19 Dose: 100 mls/hr Linezolid (Zyvox 600mg/300ml D5w) 600 mg in 300 mls @ 200 mls/hr IVPB Q12H [facility]; Protocol Last Admin: 06/13/18 18:12 Dose: 200 mls/hr Lorazepam (Ativan) 1 mg IVP Q4H PRN PRN Reason: Seizure activity Losartan Potassium (Cozaar) 25 mg PO DAILY [facility] Nystatin (Nystop Topical Powder) 1 applic TOP BID [facility] Last Admin: 06/13/18 17:23 Dose: 1 applic Pneumococcal Polyvalent Vaccine (Pneumovax 23 Vaccine) 0.5 ml IM .ONCE ONE Stop: 06/14/18 10:01 Rosuvastatin Calcium (Crestor) 10 mg PO HS [facility] Last Admin: 06/10/18 21:40 Dose: 10 mg Spironolactone (Aldactone) 25 mg PO BID [facility] Last Admin: 06/13/18 17:19 Dose: 25 mg - Labs Labs: 06/13/18 10:41 06/13/18 08:55 PT 20.0 SECONDS (9.7-12.2) H 06/12/18 08:37 INR 1.8 06/12/18 08:37 APTT 32 SECONDS (21-34) D 06/10/18 13:54 Attending/Attestation - Attestation I have personally seen and examined this patient.: Yes I have fully participated in the care of the patient.: Yes I have reviewed all pertinent clinical information, including history, physical exam and plan: Yes Notes (Text): 06/13/18 18:43 Patient was seen and examined at 12:00 PM 06/13/18 Care of this patient was gone over with resident Dr. Coombs. F/U repeat Blood Culture which has been ordered for morning 06/14/18 and once negative at 72 hours then may be discharged to home with services as documented above Medicine Team please reach out to Psychiatrist Dr. Jin again on 06/14/18 for revaluation of patient for possible Depression (she recently lost her brother). Explained to Son Noah multiple times this past week and Daughter Sonam on 06/12/18 that Depression may present at times as Dementia and this should be explored. Once the LFTs come down, please cautiously restart the Crestor for the Hx of PAD. Once the patient is ready to be discharged to home, and she is switched from Cerebyx to Dilantin, her Dilantin level will need to be monitored. Patient's gluteal cleft skin tear is improving with no surrounding signs of cellulitis. Therefore will not start Linezolid for now unless advised otherwise by ID Dr. Aguilar. I changed this dressing today after applying medihoney and covering with optifoam dressing with the help of Nurse Reyes and this should be done daily. Carmine Suresh D.O.
[2018-06-13] MEDS: Budesonide 0.25 mg/2 ml Inhal Susp UD INH SCH (10:10)
[2018-06-13] MEDS ORDERED: Vancomycin 1 gm/NS 200 ml 1 GM/200 ML BAG IVPB SCH (10:15)
[2018-06-13 10:44] LABS: HEMOGLOBIN 12.1 g/dL (11.0-16.0); MEAN CORPUSCULAR HEMOGLOBIN 27.5 pg (27.0-31.0); MEAN CORPUSCULAR HGB CONC 33.2 g/dL (33.0-37.0); MEAN PLATELET VOLUME 8.9 fL (7.2-11.7); RBC 4.41 Mil/uL (3.80-5.20); RED CELL DISTRIBUTION WIDTH 15.4 % (11.5-14.5); WHITE BLOOD COUNT 5.3 K/uL (4.8-10.8)
--- NOTE | 2018-06-13 15:30 | CP.PCM.CON ---
History of Present Illness - History of Present Illness History of Present Illness: 87 year old female was brought to the ER for AMS and blood cultures done on admission were positive in 2/2 sets for coag neg staph A culture of a small sacral skin tear was + for VRE ( patient was on IV antibiotics last admission ) During prev admission was worked up for seizures and also found to have E Coli UTI A midline catheter was placed after admission here Patient is a poor historian ID consulted for antibiotic management PMHx: PMHx of CHF, HTN, HLD, COPD previous DVT, and arthritis PSHx: IVC filter, R leg surgery, hysterectomy Allergies: hydromorphone, oxycodone-unknown reaction FamHx: HTN in parents SocHx: Denies tobacco, alcohol and drugs. Lives with son. Patient is wheelchair bound. Review of Systems - Review of Systems All systems: reviewed and no additional remarkable complaints except - Constitutional Constitutional: As Per HPI - EENT Eyes: absent: As Per HPI, Blind Spots, Blurred Vision, Change in Vision, Decreased Night Vision, Diplopia, Discharge, Dry Eye, Exophthalmos, Floaters, Irritation, Itchy Eyes, Loss of Peripheral Vision, Pain, Photophobia, Requires Corrective Lenses, Sees Flashes, Spots in Vision, Tunnel Vision, Other Visual Disturbances, Loss of Vision, Other Ears: absent: As Per HPI, Decreased Hearing, Ear Discharge, Ear Pain, Tinnitus, Abnormal Hearing, Disequilibrium, Dizziness, Other Nose/Mouth/Throat: absent: As Per HPI, Epistaxis, Nasal Congestion, Nasal Discharge, Nasal Obstruction, Nasal Trauma, Nose Pain, Post Nasal Drip, Sinus Pain, Sinus Pressure, Bleeding Gums, Change in Voice, Dental Pain, Dry Mouth, Dysphagia, Halitosis, Hoarsness, Lip Swelling, Mouth Lesions, Mouth Pain, Odynophagia, Sore Throat, Throat Swelling, Tongue Swelling, Facial Pain, Neck Pain, Neck Mass, Other - Breasts Breasts: absent: As Per HPI, Change in Shape, Mass, Pain, Nipple Discharge, Nipple Inversion, Skin Changes, Swelling, Other - Cardiovascular Cardiovascular: absent: As Per HPI, Acrocyanosis, Chest Pain, Chest Pain at Rest, Chest Pain with Activity, Claudication, Diaphoresis, Dyspnea, Dyspnea on Exertion, Edema, Irregular Heart Rhythm, Pain Radiating to Arm/Neck/Jaw, Leg Edema, Leg Ulcers, Lightheadedness, Orthopnea, Palpitations, Paroxysmal Nocturnal Dyspnea, Pedal Edema, Radiating Pain, Rapid Heart Rate, Slow Heart Rate, Syncope, Other - Respiratory Respiratory: absent: As Per HPI, Cough, Dyspnea, Hemoptysis, Dyspnea on Exertion, Wheezing, Snoring, Stridor, Pain on Inspiration, Chest Congestion, Excessive Mucous Production, Change in Mucous Color, Pain with Coughing, Other - Gastrointestinal Gastrointestinal: absent: As Per HPI, Abdominal Pain, Belching, Bloating, Change in Bowel Habits, Change in Stool Character, Coffee Ground Emesis, Constipation, Cramping, Diarrhea, Dyspepsia, Dysphagia, Early Satiety, Excessive Flatus, Fecal Incontinence, Heartburn, Hematemesis, Hematochezia, Loose Stools, Melena, Josué sea, Odynophagia, Temesmus, Vomiting, Other - Genitourinary Genitourinary: absent: As Per HPI, Change in Urinary Stream, Difficulty Urinating, Dysuria, Flank Pain, Hematuria, Pyuria, Nocturia, Urinary Incontinence, Urinary Frequency, Urinary Hesitance, Urinary Urgency, Voiding Freq/Small Amts, Freq UTI, Hx Renal/Bladder Calculi, Hx /Renal Surgery, Bladder Distension, Other - Reproductive: Female Reproductive:Female: absent: As Per HPI, Amenorrhea, Amenorrhea/ Control, Currently Menstual, Cycle <21 Days, Cycle >35 Days, Cycle Variable, Menses 1-7 Days, Menses >/= 8 Days, Menses Variable, Cycle > 4 Weeks Between, No Menses for 6 Months, Heavy Menses, Light Menses, Normal Menses, Spotting Between Cycles, S/P Hysterectomy, Menopausal, Post Menopausal, Premenarche, Abnormal Vaginal Bleeding, Dysmenorrhea, Dyspareunia, Genital Lesions, Genital Pruritis, Pelvic Pain, Prolapse Symptoms, Sexual Dysfunction, Vaginal Discharge, Vaginal Dryness, Vaginal Odor, Vaginal Pruritis, Other - Menstruation Menstruation: absent: As Per HPI, Amenorrhea, Amenorrhea/ Control, Cur rently Menstual, Cycle <21 Days, Cycle >35 Days, Cycle Variable, Menses 1-7 Days, Menses >/= 8 Days, Menses Variable, Cycle > 4 Weeks Between, No Menses for 6 Months, Heavy Menses, Light Menses, Normal Menses, Spotting Between Cycles, S/P Hysterectomy, Menopausal, Post Menopausal, Premenarche, Abnormal Vaginal Bleeding, Dysmenorrhea, Other - Musculoskeletal Musculoskeletal: As Per HPI - Integumentary Integumentary: As Per HPI, Skin Pain, Wounds - Neurological Neurological: As Per HPI - Psychiatric Psychiatric: absent: As Per HPI, Abnormal Sleep Pattern, Anhedonia, Anxiety, Auditory Hallucinations, Behavioral Changes, Change in Appetite, Change in Libido, Confusion, Depression, Difficulty Concentrating, Hallucinations, Homicidal Ideation, Hopelessness, Irritability, Memory Loss, Mood Swings, Panic Attacks, Paranoia, Suicidal Ideation, Visual Hallucinations, Tactile Hallucinations, Other - Endocrine Endocrine: absent: As Per HPI, Change in Body Appearance, Change in Libido, Cold Intolorance, Deepening of Voice, Excessive Sweating, Fatigue, Flushing, Heat Intolorance, Increase in Ring/Shoe/Hat Size, Palpitations, Polydipsia, Polyphagia, Polyuria, Other - Hematologic/Lymphatic Hematologic: absent: As Per HPI, Easy Bleeding, Easy Bruising, Lymphadenopathy, Other Past Patient History - Infectious Disease Hx of Infectious Diseases: None - Past Medical History & Family History Past Medical History?: Yes - Past Social History Smoking Status: Never Smoked - CARDIAC Hx Cardiac Disorders: Yes (Cardia Arrhythmia) Hx Congestive Heart Failure: Yes - PULMONARY Hx Chronic Obstructive Pulmonary Disease (COPD): Yes - NEUROLOGICAL Hx Neurological Disorder: Yes Hx Syncope: Yes (10 yrs ago unknown reason) - HEENT Hx HEENT Problems: Yes Hx Cataracts: Yes Hx Glaucoma: Yes - RENAL Hx Chronic Kidney Disease: No - ENDOCRINE/METABOLIC Hx Endocrine Disorders: No - HEMATOLOGICAL/ONCOLOGICAL Hx Cancer: No - INTEGUMENTARY Hx Dermatological Problems: No - MUSCULOSKELETAL/RHEUMATOLOGICAL Hx Arthritis: Yes - GASTROINTESTINAL Hx Gastrointestinal Disorders: No - GENITOURINARY/GYNECOLOGICAL Hx Genitourinary Disorders: No - PSYCHIATRIC Hx Substance Use: No - SURGICAL HISTORY Hx Mastectomy: No - ANESTHESIA Hx Anesthesia: Yes Hx Anesthesia Reactions: No Hx Malignant Hyperthermia: No Meds Allergies/Adverse Reactions: Allergies Allergy/AdvReac Type Severity Reaction Status Date / Time cefpodoxime Allergy RASH Verified 06/10/18 11:37 acetaminophen [From Percocet] AdvReac RASH Verified 06/09/18 23:14 hydromorphone [From Dilaudid] AdvReac RASH Verified 06/09/18 23:14 oxycodone [From Percocet] AdvReac RASH Verified 06/09/18 23:14 - Medications Medications: Current Medications Albuterol/Ipratropium (Duoneb 3 Mg/0.5 Mg (3 Ml) Ud) 3 ml INH RQ4 PRN PRN Reason: Shortness of Breath Last Admin: 06/12/18 20:22 Dose: 3 ml Apixaban (Eliquis) 5 mg PO DAILY [facility] Last Admin: 06/13/18 09:44 Dose: 5 mg Aspirin (Ecotrin) 81 mg PO DAILY [facility] Last Admin: 06/13/18 09:44 Dose: 81 mg Budesonide (Pulmicort Respules) 0.25 mg INH RQ12 [facility] Last Admin: 06/13/18 10:10 Dose: Not Given Carvedilol (Coreg) 3.125 mg PO BID [facility] Last Admin: 06/13/18 09:44 Dose: 3.125 mg Furosemide (Lasix) 20 mg IVP Q12H [facility] Fosphenytoin Sodium 100 mg/ (Dextrose) 52 mls @ 100 mls/hr IV Q8H [facility] Last Admin: 06/13/18 07:57 Dose: 100 mls/hr Vancomycin/Sodium Chloride (Vancomycin 1 Gm/Ns 200 Ml) 1 gm in 200 mls @ 133 mls/hr IVPB Q24H [facility]; Protocol Stop: 06/18/18 10:16 Last Admin: 06/13/18 10:23 Dose: 133 mls/hr Lorazepam (Ativan) 1 mg IVP Q4H PRN PRN Reason: Seizure activity Losartan Potassium (Cozaar) 25 mg PO DAILY [facility] Nystatin (Nystop Topical Powder) 1 applic TOP BID [facility] Last Admin: 06/13/18 09:47 Dose: Not Given Pneumococcal Polyvalent Vaccine (Pneumovax 23 Vaccine) 0.5 ml IM .ONCE ONE Stop: 06/14/18 10:01 Rosuvastatin Calcium (Crestor) 10 mg PO HS [facility] Last Admin: 06/10/18 21:40 Dose: 10 mg Spironolactone (Aldactone) 25 mg PO BID [facility] Last Admin: 06/13/18 09:44 Dose: 25 mg Physical Exam - Constitutional Appears: Non-toxic, No Acute Distress, Chronically Ill - Head Exam Head Exam: ATRAUMATIC, NORMOCEPHALIC - Eye Exam Eye Exam: PERRL. absent: Scleral icterus - ENT Exam ENT Exam: Mucous Membranes Dry - Neck Exam Neck exam: Negative for: Lymphadenopathy - Respiratory Exam Respiratory Exam: Decreased Breath Sounds, Clear to Auscultation Bilateral - Cardiovascular Exam Cardiovascular Exam: REGULAR RHYTHM, +S1, +S2 - GI/Abdominal Exam GI & Abdominal Exam: Diminished Bowel Sounds, Distended, Soft. absent: Guarding, Rebound, Rigid, Tenderness - Rectal Exam Rectal Exam: Deferred - Exam Exam: NORMAL INSPECTION - Extremities Exam Extremities exam: Positive for: pedal edema, tenderness, pedal pulses present. Negative for: calf tenderness - Back Exam Back exam: absent: CVA tenderness (L), CVA tenderness (R), paraspinal tenderness - Neurological Exam Neurological exam: Alert, CN II-XII Intact, Reflexes Normal - Psychiatric Exam Psychiatric exam: Depressed - Skin Skin Exam: Dry Additional comments: small skin tear noted small ulcer to lkeft foot noted stasis changes to skin Results - Vital Signs Recent Vital Signs: Last Vital Signs Temp 97.6 F 06/13/18 07:00 Pulse 89 06/13/18 07:00 Resp 20 06/13/18 07:00 BP 115/83 06/13/18 07:00 Pulse Ox 94 L 06/13/18 07:00 - Labs Result Diagrams: 06/13/18 10:41 06/13/18 08:55 Labs: Laboratory Results - last 24 hr 06/12/18 06/12/18 06/12/18 16:50 19:32 21:20 WBC RBC Hgb Hct MCV MCH MCHC RDW Plt Count MPV Sodium Potassium Chloride Carbon Dioxide Anion Gap BUN Creatinine Est GFR ( Amer) Est GFR (Non-Af Amer) POC Glucose (mg/dL) 115 H 144 H Random Glucose Calcium Phosphorus Magnesium Total Bilirubin AST ALT Alkaline Phosphatase Total Protein Albumin Globulin Albumin/Globulin Ratio Prolactin 23.1 H Vancomycin Trough Random Vancomycin 06/13/18 06/13/18 06/13/18 05:57 08:55 08:55 WBC RBC Hgb Hct MCV MCH MCHC RDW Plt Count MPV Sodium 133 Potassium 4.1 Chloride 94 L Carbon Dioxide 27 Anion Gap 16 BUN 30 H Creatinine 1.2 Est GFR ( Amer) 51 Est GFR (Non-Af Amer) 42 POC Glucose (mg/dL) 126 H Random Glucose 105 Calcium 9.0 Phosphorus 3.4 Magnesium 1.9 Total Bilirubin 0.9 AST 120 H ALT 81 H Alkaline Phosphatase 104 Total Protein 6.7 Albumin 3.7 Globulin 3.0 Albumin/Globulin Ratio 1.2 Prolactin Vancomycin Trough Random Vancomycin 11.7 06/13/18 06/13/18 06/13/18 10:41 10:41 11:51 WBC 5.3 RBC 4.41 Hgb 12.1 Hct 36.5 MCV 83.0 MCH 27.5 MCHC 33.2 RDW 15.4 H Plt Count 123 L MPV 8.9 Sodium Potassium Chloride Carbon Dioxide Anion Gap BUN Creatinine Est GFR ( Amer) Est GFR (Non-Af Amer) POC Glucose (mg/dL) Random Glucose Calcium Phosphorus Magnesium Total Bilirubin AST ALT Alkaline Phosphatase Total Protein Albumin Globulin Albumin/Globulin Ratio Prolactin Vancomycin Trough 11.9 H 40.7 H Random Vancomycin Assessment & Plan (1) Acute kidney injury Status: Acute (2) Dementia Status: Acute (3) Bacteremia Status: Acute (4) CAD (coronary artery disease) Status: Acute (5) Seizures Status: Acute - Assessment and Plan (Free Text) Assessment: will repeat blood cultures unclear if positive blood cultures done on admission reflect contamination? Because of TYRA and high Vanco levels will d/c Vanco will follow with you
[2018-06-13] MEDS: Linezolid 600 mg in D5W 300 ml 600 MG/300 ML BAG IVPB SCH ×2 (16:20→18:12)
--- NOTE | 2018-06-13 20:01 | CARD ---
APPROVED REPORT Date of service: 06/09/2018 EKG Measurement Heart [id number] <Conclusion> Normal sinus rhythm with sinus arrhythmia Rightward axis Nonspecific T wave abnormality Abnormal ECG
[2018-06-14] MEDS: Fosphenytoin 100 MG in Dextrose 5% In Water 50 ML IV SCH ×3 (00:02→18:00)
[2018-06-14] MEDS: Linezolid 600 mg in D5W 300 ml 600 MG/300 ML BAG IVPB SCH ×2 (03:04→16:29)
[2018-06-14] MEDS: Budesonide 0.25 mg/2 ml Inhal Susp UD INH SCH ×2 (07:45→20:31)
--- NOTE | 2018-06-14 09:38 | PN ---
DATE: 06/14/2018 NEUROLOGIC PROBLEM: Nonconvulsive seizures. PHYSICAL EXAMINATION: VITAL SIGNS: Blood pressure 113/82, mean artery pressure of 92, respiratory rate 18, pulse rate 80 and regular, temperature 97.4. GENERAL: The patient is awake. She feels little better as per her statement. She slept better. The examination which is unchanged compared with my previous examination. The patient has been getting IV Cerebryx as recommended. The patient should have an electroencephalogram and Dilantin level to be checked and keep it on therapeutic level. Her Eliquis dose can be adjusted as needed for her DVT prophylaxis because of interactions with Dilantin at present. The patient's condition has been well discussed with the resident as well as the attending, Dr. Carmine Suresh in detail. The patient will be followed closely with you. Jackson Michelle MD MTDDamian
[2018-06-14] MEDS ORDERED: Pneumococcal 23-Valent Vaccine IM ONE (10:00)
[2018-06-14 11:29] LABS: EOS # 0.1 K/uL (0.0-0.7); LYMPH # 0.8 K/uL (1.0-4.3); MEAN PLATELET VOLUME 9.1 fL (7.2-11.7); MONO # 0.6 K/uL (0.0-0.8); NEUT # 3.1 K/uL (1.8-7.0); WHITE BLOOD COUNT 4.6 K/uL (4.8-10.8)
[2018-06-14 11:35] LABS: BASO % 0.8 % (0.0-2.0); EOS % 1.5 % (0.0-4.0); LYMPH % 17.8 % (20.0-40.0); MEAN CELL VOLUME 83.6 fL (81.0-99.0); MEAN CORPUSCULAR HEMOGLOBIN 27.9 pg (27.0-31.0); MEAN CORPUSCULAR HGB CONC 33.4 g/dL (33.0-37.0); MONO % 12.9 % (0.0-10.0); NRBC % 0.7 % (0.0-2.0); RBC 4.3 Mil/uL (3.80-5.20); RED CELL DISTRIBUTION WIDTH 15.4 % (11.5-14.5)
[2018-06-14 11:42] LABS: ALB/GLOB RATIO 1.1 (1.0-2.1); ALBUMIN 3.4 g/dL (3.5-5.0); CALCIUM 8.8 mg/dl (8.6-10.4)
--- NOTE | 2018-06-14 12:25 | CP.PCM.PN ---
Subjective - Date & Time of Evaluation Date of Evaluation: 06/14/18 Time of Evaluation: 10:00 - Subjective Subjective: afeb on zyvox repeat blood c/s so far neg Objective - Vital Signs/Intake and Output Vital Signs (last 24 hours): Temp Pulse Resp BP Pulse Ox 97.7 F 82 20 116/78 99 06/14/18 07:00 06/14/18 07:00 06/14/18 07:00 06/14/18 07:00 06/14/18 07:00 Intake and Output: 06/14/18 06/14/18 06:59 18:59 Intake Total 810 Output Total 600 Balance 210 - Medications Medications: Current Medications Albuterol/Ipratropium (Duoneb 3 Mg/0.5 Mg (3 Ml) Ud) 3 ml INH RQ4 PRN PRN Reason: Shortness of Breath Last Admin: 06/12/18 20:22 Dose: 3 ml Apixaban (Eliquis) 5 mg PO DAILY [facility] Last Admin: 06/14/18 09:15 Dose: 5 mg Aspirin (Ecotrin) 81 mg PO DAILY [facility] Last Admin: 06/14/18 09:15 Dose: 81 mg Budesonide (Pulmicort Respules) 0.25 mg INH RQ12 [facility] Last Admin: 06/14/18 07:45 Dose: 0.25 mg Carvedilol (Coreg) 3.125 mg PO BID [facility] Last Admin: 06/14/18 09:15 Dose: 3.125 mg Furosemide (Lasix) 20 mg IVP Q12H [facility] Last Admin: 06/14/18 05:35 Dose: 20 mg Fosphenytoin Sodium 100 mg/ (Dextrose) 52 mls @ 100 mls/hr IV Q8H [facility] Last Admin: 06/14/18 08:57 Dose: 100 mls/hr Linezolid (Zyvox 600mg/300ml D5w) 600 mg in 300 mls @ 200 mls/hr IVPB Q12H [facility]; Protocol Last Admin: 06/14/18 03:04 Dose: 200 mls/hr Lorazepam (Ativan) 1 mg IVP Q4H PRN PRN Reason: Seizure activity Losartan Potassium (Cozaar) 25 mg PO DAILY [facility] Nystatin (Nystop Topical Powder) 1 applic TOP BID [facility] Last Admin: 04/08/19 09:17 Dose: 1 applic Rosuvastatin Calcium (Crestor) 10 mg PO HS [facility] Last Admin: 06/10/18 21:40 Dose: 10 mg Spironolactone (Aldactone) 25 mg PO BID [facility] Last Admin: 06/14/18 09:15 Dose: 25 mg - Labs Labs: 06/14/18 11:19 06/14/18 11:19 PT 20.0 SECONDS (9.7-12.2) H 06/12/18 08:37 INR 1.8 06/12/18 08:37 APTT 32 SECONDS (21-34) D 06/10/18 13:54 - Constitutional Appears: Non-toxic, Chronically Ill - Head Exam Head Exam: NORMOCEPHALIC - Eye Exam Eye Exam: absent: Scleral icterus Pupil Exam: NORMAL ACCOMODATION - ENT Exam ENT Exam: Mucous Membranes Dry - Neck Exam Neck Exam: absent: Lymphadenopathy - Respiratory Exam Respiratory Exam: Decreased Breath Sounds, Clear to Ausculation Bilateral - Cardiovascular Exam Cardiovascular Exam: REGULAR RHYTHM - GI/Abdominal Exam GI & Abdominal Exam: Distended, Soft. absent: Tenderness - Rectal Exam Rectal Exam: Deferred - Exam Exam: NORMAL INSPECTION - Extremities Exam Extremities Exam: Pedal Edema, Tenderness. absent: Calf Tenderness, Normal Inspection - Back Exam Back Exam: absent: CVA tenderness (L), CVA tenderness (R) - Neurological Exam Neurological Exam: Alert, Awake, CN II-XII Intact, Oriented x3 - Psychiatric Exam Psychiatric exam: Depressed - Skin Skin Exam: Dry Assessment and Plan (1) Acute kidney injury Status: Acute (2) Dementia Status: Acute (3) Bacteremia Status: Acute (4) CAD (coronary artery disease) Status: Acute (5) Seizures Status: Acute - Assessment and Plan (Free Text) Assessment: admitted with SSTI and TYRA blood c/s + coag neg staph urine + VRE but likely a contaminant Cont Zyvox for 7 days
--- NOTE | 2018-06-14 16:05 | US ---
HISTORY: elevated LFTs COMPARISON: None available. TECHNIQUE: Sonographic evaluation of the abdomen. FINDINGS: LIVER: Measures 15.4 cm in sagittal dimension. Echogenic liver may be seen in setting of hepatic parenchymal disease or fatty infiltration. No focal hepatic mass identified. The main portal vein appears patent with normal directional flow. No intrahepatic bile duct dilatation. GALLBLADDER: Gallstones. No gallbladder wall thickening. Negative sonographic Andrews's sign as assessed by the dental office coordinator. COMMON BILE DUCT: Measures 4 mm. PANCREAS: Not well visualized. RIGHT KIDNEY: Measures 8.8 x 4.5 x 4.9 cm. Echogenic renal parenchyma no obstructing calculus or hydronephrosis identified. LEFT KIDNEY: Measures 10.8 x 5.2 x 5.3 cm. Echogenic renal parenchyma. No obstructing calculus or hydronephrosis identified. SPLEEN: Measures approximately 9.3 cm. AORTA: Limited views appear unremarkable. IVC: Limited views appear unremarkable. OTHER FINDINGS: Incidental note is made of right-sided pleural effusion. IMPRESSION: Echogenic renal parenchyma may be seen in setting of medical renal disease. Cholelithiasis. Incidental note is made of right-sided pleural effusion.
--- NOTE | 2018-06-14 18:59 | CP.PCM.PN ---
Subjective - Date & Time of Evaluation Date of Evaluation: 06/14/18 Time of Evaluation: 13:00 - Subjective Subjective: 87 yo F w/ pmh of CHF w/ diastolic dysfunction and pulm htn, COPD, s/p DVT on eliquis, new seizure disorder, admitted with breakthrough seizure, nephrology following for acute renal failure; Patient not having much PO intake per son; patient not verbalizing currently, on making slight nods to questions; found to have VRE in buttock wound culture; Objective - Vital Signs/Intake and Output Vital Signs (last 24 hours): Temp Pulse Resp BP Pulse Ox 98.2 F 81 18 116/83 100 06/14/18 15:45 06/14/18 15:45 06/14/18 15:45 06/14/18 15:45 06/14/18 15:45 Intake and Output: 06/14/18 06/14/18 06:59 18:59 Intake Total 810 Output Total 600 Balance 210 - Medications Medications: Current Medications Albuterol/Ipratropium (Duoneb 3 Mg/0.5 Mg (3 Ml) Ud) 3 ml INH RQ4 PRN PRN Reason: Shortness of Breath Last Admin: 06/12/18 20:22 Dose: 3 ml Apixaban (Eliquis) 5 mg PO DAILY [facility] Last Admin: 06/14/18 09:15 Dose: 5 mg Aspirin (Ecotrin) 81 mg PO DAILY [facility] Last Admin: 06/14/18 09:15 Dose: 81 mg Budesonide (Pulmicort Respules) 0.25 mg INH RQ12 [facility] Last Admin: 06/14/18 07:45 Dose: 0.25 mg Carvedilol (Coreg) 3.125 mg PO BID [facility] Last Admin: 06/14/18 17:59 Dose: 3.125 mg Fosphenytoin Sodium 100 mg/ (Dextrose) 52 mls @ 100 mls/hr IV Q8H [facility] Last Admin: 06/14/18 18:00 Dose: 100 mls/hr Linezolid (Zyvox 600mg/300ml D5w) 600 mg in 300 mls @ 200 mls/hr IVPB Q12H [facility]; Protocol Last Admin: 06/14/18 16:29 Dose: 200 mls/hr Lorazepam (Ativan) 1 mg IVP Q4H PRN PRN Reason: Seizure activity Losartan Potassium (Cozaar) 25 mg PO DAILY [facility] Nystatin (Nystop Topical Powder) 1 applic TOP BID [facility] Last Admin: 06/14/18 18:10 Dose: 1 applic Rosuvastatin Calcium (Crestor) 10 mg PO HS [facility] Last Admin: 06/10/18 21:40 Dose: 10 mg Spironolactone (Aldactone) 25 mg PO DAILY [facility] - Labs Labs: 06/14/18 11:19 06/14/18 11:19 PT 20.0 SECONDS (9.7-12.2) H 06/12/18 08:37 INR 1.8 06/12/18 08:37 APTT 32 SECONDS (21-34) D 06/10/18 13:54 - Constitutional Appears: Non-toxic, No Acute Distress - Eye Exam Eye Exam: Normal appearance - Respiratory Exam Respiratory Exam: Clear to Ausculation Bilateral. absent: Respiratory Distress - Cardiovascular Exam Cardiovascular Exam: RRR, +S1, +S2 - GI/Abdominal Exam GI & Abdominal Exam: Soft. 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
--- NOTE | 2018-06-14 20:53 | CP.PCM.PN ---
<Celeste Hazel P - Last Filed: 06/14/18 20:51> Subjective - Date & Time of Evaluation Date of Evaluation: 06/14/18 Time of Evaluation: 08:00 - Subjective Subjective: Progress note for Dr. Kelly. Patient seen and examined at bedside. She complains of burning on urination. Denies fever, chills, nausea, vomiting, abdominal pain, chest pain, shortness of breath. Objective - Vital Signs/Intake and Output Vital Signs (last 24 hours): Temp Pulse Resp BP Pulse Ox 98.2 F 81 18 116/83 100 06/14/18 15:45 06/14/18 15:45 06/14/18 15:45 06/14/18 15:45 06/14/18 15:45 - Medications Medications: Current Medications Albuterol/Ipratropium (Duoneb 3 Mg/0.5 Mg (3 Ml) Ud) 3 ml INH RQ4 PRN PRN Reason: Shortness of Breath Last Admin: 06/12/18 20:22 Dose: 3 ml Apixaban (Eliquis) 5 mg PO DAILY [facility] Last Admin: 06/14/18 09:15 Dose: 5 mg Aspirin (Ecotrin) 81 mg PO DAILY [facility] Last Admin: 06/14/18 09:15 Dose: 81 mg Budesonide (Pulmicort Respules) 0.25 mg INH RQ12 [facility] Last Admin: 06/14/18 20:31 Dose: 0.25 mg Carvedilol (Coreg) 3.125 mg PO BID [facility] Last Admin: 06/14/18 17:59 Dose: 3.125 mg Fosphenytoin Sodium 100 mg/ (Dextrose) 52 mls @ 100 mls/hr IV Q8H RITCHIE Last Admin: 06/14/18 18:00 Dose: 100 mls/hr Linezolid (Zyvox 600mg/300ml D5w) 600 mg in 300 mls @ 200 mls/hr IVPB Q12H [facility]; Protocol Last Admin: 06/14/18 16:29 Dose: 200 mls/hr Lorazepam (Ativan) 1 mg IVP Q4H PRN PRN Reason: Seizure activity Losartan Potassium (Cozaar) 25 mg PO DAILY [facility] Nystatin (Nystop Topical Powder) 1 applic TOP BID [facility] Last Admin: 06/14/18 18:10 Dose: 1 applic Rosuvastatin Calcium (Crestor) 10 mg PO HS [facility] Last Admin: 06/10/18 21:40 Dose: 10 mg Spironolactone (Aldactone) 25 mg PO DAILY RITCHIE - Labs Labs: 06/14/18 11:19 06/14/18 11:19 PT 20.0 SECONDS (9.7-12.2) H 06/12/18 08:37 INR 1.8 06/12/18 08:37 APTT 32 SECONDS (21-34) D 06/10/18 13:54 - Constitutional Appears: Non-toxic, Younger Than Stated Age - Head Exam Head Exam: ATRAUMATIC, NORMOCEPHALIC - Eye Exam Eye Exam: EOMI, Normal appearance, PERRL - ENT Exam ENT Exam: Mucous Membranes Dry - Respiratory Exam Respiratory Exam: Decreased Breath Sounds, Clear to Ausculation Bilateral. absent: Rales, Rhonchi, Wheezes - Cardiovascular Exam Cardiovascular Exam: REGULAR RHYTHM, +S1, +S2, Murmur - GI/Abdominal Exam GI & Abdominal Exam: Soft, Normal Bowel Sounds. absent: Firm, Guarding, Tenderness, Rebound Additional comments: Obese. Nystatin powder noted to abdominal folds. - Extremities Exam Extremities Exam: Pedal Edema (Trace pitting edema bilateral LE). absent: Calf Tenderness, Full ROM (Unable to move LE against gravity), Normal Inspection (c hronic venous stasis changes b/l LE), Tenderness Additional comments: Midline RUE. Multipodus boot to LLE - Neurological Exam Neurological Exam: Alert, Awake, Oriented x3 Neuro motor strength exam: Left Upper Extremity: 5, Right Upper Extremity: 5, Left Lower Extremity: 2/1, Right Lower Extremity: 2/1 - Psychiatric Exam Psychiatric exam: Depressed, Flat Affect - Skin Skin Exam: Dry, Warm. absent: Rash Additional comments: 1cm skin tear to gluteal fold, no signs of infection. small ulceration to L 2nd toe. Assessment and Plan - Assessment and Plan (Free Text) Plan: Patient is an 87 year old female with CHF, severe pulmonary hypertension, COPD/asthma, HTN, HLD, previous DVT with IVC filter placement, PAD, and arthritis admitted for altered mental status. Patient was just discharged the previous day from a hospital stay for altered mental status and determine to have UTI (which was treated with Vantin) and partial complex seizures (which is being treated with Keppra PO). Noted to have acute renal failure (suspect due to Vantin and Keppra), elevated lactate, elevated INR, and transaminitis. Patient also noted to have allergic reaction (rash) to Vantin. Neurology and psychiatry consulted. Suspect that patient's symptoms are more related to sundowning/delirium and possibly depression rather than seizure. Altered mental status/Depression intermittent- suspect sundowning with component of dementia/depression - Patient's brother recently - Continue to orient patient - Psychiatry consulted (Davin), Will need to ask him for continued follow up on Thursday. 06/14/18 - Recommend outpatient eval for dementia/depression - PT/OT/ST Staph Bacteremia - Consult ID (Dr. Aguilar), F/U Recs - Vancomycin 1 gram Q24H (Renal Dosing) Partial complex seizure - CT head: no acute pathology. generalized volume loss. Nonspecific white matter changes. * Prior head CT 06/05 shows chronic changes as well (see report). 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 - Carotid dopplers (06/05): no hemodynamically significant lesions bilaterally. - EEG (06/06): abnormal EEG because of slow activities followed with paroxysmal polyspike and wave actvities noted at right followed with bilateral cortical activities consistent with epileptiform focus - Repeat EEG 06/11- report pending - RPR nonreactive - Seizure precautions - Neuro checks - Patient was placed on Keppra last admission; neurology switched her to Phenytoin for one day then discontinued, Phenytoin made patient extremely l ethargic - Ativan 2 mg IV Q4H PRN - Neurology consulted (Miguel Angel) - FosPhenytoin 100mg IV Q8H - ProLactin Ordered Once within 10 minutes after what family thought was a seizure on 06/12; which was ELEVATED @ 23.1 Acute renal failure,(Resolved) - Baseline Cr 1.0 - On admission BUN/Cr 34/1.8--> 32/1.5 - CPK 152 - Bedside RN bladder scan shows no retention - Renal/bladder US: Increased echogenicity of the bilateral renal parenchymal cortices suggestive for medical renal disease. - Urine random Na <5 - Urine random Cr 240.3 - Nephrology consulted (Cm) Acute exacerbation of HFpEF, improving - CXR: Moderate venous congestion. Bibasilar airspace opacities. Right hilar prominence. Enlarged ectatic aorta with atherosclerotic calcifications. Biapical pleural thickening with upper lobe granulomatous changes. - Lasix 20mg IVP Q8H - Coreg 3.125 mg PO BID (8 am and 8 pm) - Losartan 100 mg PO daily- held due to ARF - Start Aldactone 25 mg PO BID - Cardiology/PMD consulted (Lars) Transaminitis (Improving), acute- suspect medication side effect (Keppra) - AST/ALT/ALP is 106/54/84-->120/81/78 - Discontinue Keppra - Avoid hepatotoxic agents when possible - Monitor Severe pulmonary hypertension and COPD, chronic - RVSP is 100 mmHg - Humidified O2 via NC - Duonebs Q4H PRN - Budesonide Q12H - Pulmonology consulted (Audi) Supratherapeutic INR, acute, improving- suspect due to acute liver and/or kidney disease - 06/01/18: PT/PTT/INR is 25.3/36/2.3 on 06/01 - On admission 06/10: PT/PTT/INR is 36.7/23/3.3 - INR now 2.0 on 06/11- restart Eliquis - Monitor coags Elevated Troponin, chronic, stable- suspect due to HFpEF and ARF - Elevated on previous admissions - 0.6840-->0.6860-->0.6540 - No acute EKG changes Elevated Lactate, acute, resolved- recent UTI (E. coli)- suspect due to ARF and muscles hypertonicity noted at home - 2.8--> 3.1--> 1.4 - Afebrile, no leukocytosis, no hypotension, no tachycardia - Procalcitonin low (0.09) - V/Q scan: low probability of PE - Urine Cx 06/10 no growth - Wound Cx from gluteal tear no growth - Blood Cx 1/2 positive for GPC (likely contamination)- wait for final read - 1 L NS x1 in ED - Vanco, Zosyn x1 in ED Abdominal rash, acute, improving- suspect allergic reaction to outpatient Vantin/Keppra - No angioedema/anaphylaxis - Discontinue Vantin and Keppra Intertrigo to lower abdominal folds, chronic, improving - Daily skin checks - Nystatin power BID Gluteal cleft skin tear, chronic, improving - 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 Started Linezolid 600mg IVPB Q12H - Turn Q2H - Daily skin checks - Slime - Started Linezolid 600mg IVPB Q12H on 06/13/18 - ID Consult (Dr. Aguilar), Recs Appreciated. Need to follow up with Dr. Aguilar regarding length of antibiotic treatment. 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 - V/Q scan: low probability of PE - Avoid SCDs - Eliquis 5 mg PO daily- restart 06/11 (previously held due to elevated INR) Hypertension, chronic - Vitals Q6H - Coreg 3.125 mg PO QHS - Losartan 100 mg PO daily- (HELD due to ARF) - Start Aldactone 25 mg PO BID Peripheral artery disease, chronic - ASA 81 mg PO daily - Crestor 10 mg PO QHS (HELD) Hyperlipidemia, chronic - 06/02/18: TG/CHL/LDL/HDL is 69/77/37/42 - Crestor 10 mg PO QHS- held due to transamnitis Thrombocytopenia, chronic, stable - Platelets 80s-110s - Monitor CBC H/o Gout - Allopurinol 100 mg PO- held due to ARF Ppx: VTE: SCDs contraindicated due to chronic DVT, Eliquis 5 PO daily GI: not indicated Diet: Heart health, low carb, 2 g Na Dispo: [place] home with services. Patient does not qualify for [facility] as she is not able to participate in therapy. Patient's insurance does not provide for long- term placement. CM/SW referred patient to [facility] (respite care, social adult daycare, transport to [facility]), [place] [facility] (lianna guardado in home, emotional support, PT/OT), and [facility] Now [facility] (dementia services). While in-patient: to get loading dose of Cerebyx 1000 mg IV (which she did on 06/11/18) and then Cerebyx should be continued at 100 mg IV Q8H When ready for discharge: switch to Dilantin 100 mg PO 3x/day Continue the Eliquis 5 mg PO 1x/day for history of Chronic DVT Right Leg. As Dilantin can reduce the effect of Eliquis, this will have to be carefully monitored. Follow up with Dr. Aguilar regarding length of IV antiobiotics and antibiotic choice when DC'd. Follow up on EEG study performed 06/14/18. Follow up with Psych regarding her possible Depression/Dementia. F/u Abdominal US. Case discussed with Dr. Robin Hazel, PGY-1 <Heide Kelly V - Last Filed: 06/15/18 20:49> Objective - Vital Signs/Intake and Output Vital Signs (last 24 hours): Temp Pulse Resp BP Pulse Ox 93.8 F L 143 H 0 L 126/97 H 29 L 06/15/18 18:00 06/15/18 19:30 06/15/18 20:00 06/15/18 19:28 06/15/18 19:30 Intake and Output: 06/15/18 06/16/18 18:59 06:59 Intake Total 1671 89 Output Total 0 0 Balance 1671 89 - Medications Medications: Current Medications Apixaban (Eliquis) 5 mg PO DAILY [facility] Last Admin: 06/15/18 09:58 Dose: 5 mg Aspirin (Ecotrin) 81 mg PO DAILY [facility] Last Admin: 06/15/18 09:58 Dose: 81 mg Budesonide (Pulmicort Respules) 0.25 mg INH RQ12 [facility] Last Admin: 06/15/18 08:01 Dose: 0.25 mg Carvedilol (Coreg) 3.125 mg PO BID [facility] Last Admin: 06/15/18 17:46 Dose: Not Given Fosphenytoin Sodium 100 mg/ (Dextrose) 52 mls @ 100 mls/hr IV Q8H [facility] Last Admin: 06/15/18 17:16 Dose: Not Given Linezolid (Zyvox 600mg/300ml D5w) 600 mg in 300 mls @ 200 mls/hr IVPB Q12H [facility]; Protocol Last Admin: 06/15/18 17:45 Dose: Not Given Epinephrine HCl 1 mg/ Sodium (Chloride) 251 mls @ 15.06 mls/hr IV .[id number] PRN; Protocol PRN Reason: TITRATE PER MD ORDER Last Admin: 06/15/18 16:53 Dose: 1 mcg/min, 15.06 mls/hr Dopamine HCl/Dextrose (Dopamine 400mg/250ml D5w) 400 mg in 250 mls @ 7.382 mls/hr IV .Q24H PRN; Protocol PRN Reason: TITRATE PER MD ORDER Last Titration: 06/15/18 17:50 Dose: 20 mcg/kg/min, 73.823 mls/hr Lorazepam (Ativan) 1 mg IVP Q4H PRN PRN Reason: Seizure activity Losartan Potassium (Cozaar) 25 mg PO DAILY [facility] Nystatin (Nystop Topical Powder) 1 applic TOP BID [facility]CT[facility] Last Admin: 06/15/18 17:45 Dose: Not Given Rosuvastatin Calcium (Crestor) 10 mg PO HS [facility]ITCHIE Last Admin: 06/10/18 21:40 Dose: 10 mg - Labs Labs: 06/15/18 16:27 06/15/18 16:27 PT 38.3 SECONDS (9.7-12.2) H 06/15/18 16:27 INR 3.5 H* 06/15/18 16:27 APTT 31 SECONDS (21-34) 06/15/18 16:27 Attending/Attestation - Attestation I have personally seen and examined this patient.: Yes I have fully participated in the care of the patient.: Yes I have reviewed all pertinent clinical information, including history, physical exam and plan: Yes Notes (Text): This is a late computer entry for June 14, 2018. Patient seen, examined, case discussed with hospital medical biller. Patient seen at bedside with her son present. Patient noted awake alert a little bit lethargic conversational with us. She remembers me from last visit. Patient noted to have a bowel movement present at bedside does not appear diarrhea mild gluteal cleft which appears stable. I had a brief discussion terms of patient possibly sundowning towards the afternoon with the patient's son is present at bedside. Patient is currently on Zyvox for prior positive blood culture she has had a repeat blood cultures on June 13 ordered by infectious disease and they ordered a set does not this morning of June 14. Patient had midline placed because she has a difficult access and having a hard time getting blood work. Patient is also pending EEG ordered by neurology patient is currently on Cerebyx her antiseizure. Note patient is planning for intended discharge to home pending workup in terms of infection, seizure, and dementia/depression.
[2018-06-15] MEDS: Fosphenytoin 100 MG in Dextrose 5% In Water 50 ML IV SCH ×3 (00:08→17:16)
[2018-06-15] MEDS: Linezolid 600 mg in D5W 300 ml 600 MG/300 ML BAG IVPB SCH ×2 (03:15→17:45)
[2018-06-15] MEDS ORDERED: DEXTROSE 5% IV STA (07:06)
[2018-06-15] MEDS ORDERED: WATER IV STA (07:06)
[2018-06-15] MEDS ORDERED: FOSPHENYTOIN IV STA (07:06)
[2018-06-15 07:17] LABS: BASO % 0.6 % (0.0-2.0); EOS # 0.1 K/uL (0.0-0.7); EOS % 1.7 % (0.0-4.0); HEMOGLOBIN 12.2 g/dL (11.0-16.0); LYMPH # 0.8 K/uL (1.0-4.3); LYMPH % 16.3 % (20.0-40.0); MEAN CELL VOLUME 83.5 fL (81.0-99.0); MEAN CORPUSCULAR HGB CONC 33.5 g/dL (33.0-37.0); MEAN PLATELET VOLUME 8.9 fL (7.2-11.7); MONO # 0.7 K/uL (0.0-0.8); MONO % 15.3 % (0.0-10.0); NEUT # 3.1 K/uL (1.8-7.0); NEUT % 66.1 % (50.0-75.0); NRBC % 1.5 % (0.0-2.0); RBC 4.37 Mil/uL (3.80-5.20); RED CELL DISTRIBUTION WIDTH 15.6 % (11.5-14.5); WHITE BLOOD COUNT 4.7 K/uL (4.8-10.8)
[2018-06-15 07:45] LABS: ALB/GLOB RATIO 1.1 (1.0-2.1); ALBUMIN 3.4 g/dL (3.5-5.0)
[2018-06-15] MEDS: Budesonide 0.25 mg/2 ml Inhal Susp UD INH SCH (08:01)
--- NOTE | 2018-06-15 11:12 | CP.PCM.PN ---
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 Pt denies acute events overnight CODE BLUE CALLED @ 327PM Pt was unresponsive, pulseless, asystole- intubated, ROSC achieved , Pulse present BP 120/70 transferred to ICU Objective - Vital Signs/Intake and Output Vital Signs (last 24 hours): Temp Pulse Resp BP Pulse Ox 97.5 F L 78 20 114/81 100 06/15/18 08:00 06/15/18 08:00 06/15/18 08:00 06/15/18 08:00 06/15/18 08:00 Intake and Output: 06/15/18 06/15/18 06:59 18:59 Output Total 150 Balance -150 - Medications Medications: Current Medications Apixaban (Eliquis) 5 mg PO DAILY [facility] Last Admin: 06/15/18 09:58 Dose: 5 mg Aspirin (Ecotrin) 81 mg PO DAILY [facility] Last Admin: 06/15/18 09:58 Dose: 81 mg Budesonide (Pulmicort Respules) 0.25 mg INH RQ12 [facility] Last Admin: 06/15/18 08:01 Dose: 0.25 mg Carvedilol (Coreg) 3.125 mg PO BID [facility] Last Admin: 06/15/18 09:58 Dose: 3.125 mg Fosphenytoin Sodium 100 mg/ (Dextrose) 52 mls @ 100 mls/hr IV Q8H [facility] Last Admin: 06/15/18 08:02 Dose: Not Given Linezolid (Zyvox 600mg/300ml D5w) 600 mg in 300 mls @ 200 mls/hr IVPB Q12H [facility]; Protocol Last Admin: 06/15/18 03:15 Dose: 200 mls/hr Lorazepam (Ativan) 1 mg IVP Q4H PRN PRN Reason: Seizure activity Losartan Potassium (Cozaar) 25 mg PO DAILY [facility] Nystatin (Nystop Topical Powder) 1 applic TOP BID [facility] Last Admin: 06/15/18 09:59 Dose: 1 applic Rosuvastatin Calcium (Crestor) 10 mg PO HS [facility] Last Admin: 06/10/18 21:40 Dose: 10 mg - Labs Labs: 06/15/18 07:07 06/15/18 07:07 PT 20.0 SECONDS (9.7-12.2) H 06/12/18 08:37 INR 1.8 06/12/18 08:37 APTT 32 SECONDS (21-34) D 06/10/18 13:54 - Additional Findings Additional findings: - Constitutional Appears: Non-toxic, Younger Than Stated Age - Head Exam Head Exam: ATRAUMATIC, NORMOCEPHALIC - Eye Exam Eye Exam: EOMI, Normal appearance, PERRL - ENT Exam ENT Exam: Mucous Membranes Dry - Respiratory Exam Respiratory Exam: Decreased Breath Sounds, Clear to Ausculation Bilateral. absent: Rales, Rhonchi, Wheezes - Cardiovascular Exam Cardiovascular Exam: REGULAR RHYTHM, +S1, +S2, Murmur - GI/Abdominal Exam GI & Abdominal Exam: Soft, Normal Bowel Sounds. absent: Firm, Guarding, Tenderness, Rebound Additional comments: Obese. Nystatin powder noted to abdominal folds. - Extremities Exam Extremities Exam: Pedal Edema (Trace pitting edema bilateral LE). absent: Calf Tenderness, Full ROM (Unable to move LE against gravity), Normal Inspection (chronic venous stasis changes b/l LE), Tenderness Upper extremities extended and supinated, no rigidity, no signs of posturing however possible choreoform active motion noted. Additional comments: Midline RUE. Multipodus boot to LLE - Neurological Exam Neurological Exam: Alert, Awake, Oriented x3 Neuro motor strength exam: Left Upper Extremity: 5, Right Upper Extremity: 5, Left Lower Extremity: 2/1, Right Lower Extremity: 2/1 - Psychiatric Exam Psychiatric exam: Depressed, Flat Affect, limited cognition, poor insight - Skin Skin Exam: Dry, Warm. absent: Rash Additional comments: 1cm skin tear to gluteal fold, no signs of infection. small ulceration to L 2nd toe. Assessment and Plan - Assessment and Plan (Free Text) Plan: Patient is an 87 year old female with CHF, severe pulmonary hypertension, COPD/asthma, HTN, HLD, previous DVT with IVC filter placement, PAD, and arthritis admitted for altered mental status. Patient was just discharged the previous day from a hospital stay for altered mental status and determine to have UTI (which was treated with Vantin) and partial complex seizures (which is being treated with Keppra PO). Noted to have acute renal failure (suspect due to Vantin and Keppra), elevated lactate, elevated INR, and transaminitis. Patient also noted to have allergic reaction (rash) to Vantin. Neurology and psychiatry consulted. Suspect that patient's symptoms are more related to sundowning/delirium and possibly depression rather than seizure. PLAN Asystole - code blue called - Compressions initiated, epi given, intubated - CCU Dr Huntley consulted - Pt transfered to ICU Altered mental status/Depression intermittent- suspect sundowning with component of dementia/depression - Patient's brother recently - Continue to orient patient - Psychiatry consulted (Davin), Will need to ask him for continued follow up on Thursday. 06/14/18 - Recommend outpatient eval for dementia/depression - PT/OT/ST - Neuro recs Dr Michelle: 24hr video EEG f/u Staph Bacteremia - Consult ID (Dr. Aguilar), F/U Recs --ID recs Lauren: continue Zyvox 7 days, last day 06/20 Partial complex seizure - CT head: no acute pathology. generalized volume loss. Nonspecific white matter changes. * Prior head CT 06/05 shows chronic changes as well (see report). 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 - Carotid dopplers (06/05): no hemodynamically significant lesions bilaterally. - EEG (06/06): abnormal EEG because of slow activities followed with paroxysmal polyspike and wave actvities noted at right followed with bilateral cortical activities consistent with epileptiform focus - Repeat EEG 06/11- report pending - RPR nonreactive - Seizure precautions - Neuro checks - Patient was placed on Keppra last admission; neurology switched her to Phenyt oin for one day then discontinued, Phenytoin made patient extremely lethargic - Ativan 2 mg IV Q4H PRN - Neurology consulted (Miguel Angel) - FosPhenytoin 100mg IV Q8H - ProLactin Ordered Once within 10 minutes after what family thought was a seizure on 06/12; which was ELEVATED @ 23.1 - 24hr EEG Acute renal failure,(Resolved) - Baseline Cr 1.0 - On admission BUN/Cr 34/1.8--> 32/1.5 - CPK 152 - Bedside RN bladder scan shows no retention - Renal/bladder US: Increased echogenicity of the bilateral renal parenchymal cortices suggestive for medical renal disease. - Urine random Na <5 - Urine random Cr 240.3 - Nephrology consulted (Cm) Acute exacerbation of HFpEF, improving - CXR: Moderate venous congestion. Bibasilar airspace opacities. Right hilar prominence. Enlarged ectatic aorta with atherosclerotic calcifications. Biapical pleural thickening with upper lobe granulomatous changes. - Lasix 20mg IVP Q8H - Coreg 3.125 mg PO BID (8 am and 8 pm) - Losartan 100 mg PO daily- held due to ARF - Start Aldactone 25 mg PO BID - Cardiology/PMD consulted (Lars) Transaminitis (Improving), acute- suspect medication side effect (Keppra) - AST/ALT/ALP is 106/54/84-->120/81/78 - Discontinue Keppra - Avoid hepatotoxic agents when possible - Monitor Severe pulmonary hypertension and COPD, chronic - RVSP is 100 mmHg - Humidified O2 via NC - Duonebs Q4H PRN - Budesonide Q12H - Pulmonology consulted (Audi) Supratherapeutic INR, acute, improving- suspect due to acute liver and/or kidney disease - 06/01/18: PT/PTT/INR is 25.3/36/2.3 on 06/01 - On admission 06/10: PT/PTT/INR is 36.7/23/3.3 - INR now 2.0 on 06/11- restart Eliquis - Monitor coags Elevated Troponin, chronic, stable- suspect due to HFpEF and ARF - Elevated on previous admissions - 0.6840-->0.6860-->0.6540 - No acute EKG changes Elevated Lactate, acute, resolved- recent UTI (E. coli)- suspect due to ARF and muscles hypertonicity noted at home - 2.8--> 3.1--> 1.4 - Afebrile, no leukocytosis, no hypotension, no tachycardia - Procalcitonin low (0.09) - V/Q scan: low probability of PE - Urine Cx 06/10 no growth - Wound Cx from gluteal tear no growth - Blood Cx 1/2 positive for GPC (likely contamination)- wait for final read - 1 L NS x1 in ED - Vanco, Zosyn x1 in ED Abdominal rash, acute, improving- suspect allergic reaction to outpatient Vantin/Keppra - No angioedema/anaphylaxis - Discontinue Vantin and Keppra Intertrigo to lower abdominal folds, chronic, improving - Daily skin checks - Nystatin power BID Gluteal cleft skin tear, chronic, improving - 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 Started Linezolid 600mg IVPB Q12H - Turn Q2H - Daily skin checks - Medihoney and optiform - Started Linezolid 600mg IVPB Q12H on 06/13/18 - ID Consult (Dr. Aguilar), Recs Appreciated. Need to follow up with Dr. Aguilar regarding length of antibiotic treatment. 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 - V/Q scan: low probability of PE - Avoid SCDs - Eliquis 5 mg PO daily- restart 06/11 (previously held due to elevated INR) Hypertension, chronic - Vitals Q6H - Coreg 3.125 mg PO QHS - Losartan 100 mg PO daily- (HELD due to ARF) - Start Aldactone 25 mg PO BID Peripheral artery disease, chronic - ASA 81 mg PO daily - Crestor 10 mg PO QHS (HELD) Hyperlipidemia, chronic - 06/02/18: TG/CHL/LDL/HDL is 69/77/37/42 - Crestor 10 mg PO QHS- held due to transamnitis Thrombocytopenia, chronic, stable - Platelets 80s-110s - Monitor CBC H/o Gout - Allopurinol 100 mg PO- held due to ARF Ppx: VTE: SCDs contraindicated due to chronic DVT, Eliquis 5 PO daily GI: not indicated Diet: Heart health, low carb, 2 g Na Dispo: Pt transferred to ICU CK pgy1 <Heide Kelly V - Last Filed: 06/15/18 21:24> Objective - Vital Signs/Intake and Output Vital Signs (last 24 hours): Temp Pulse Resp BP Pulse Ox 93.8 F L 143 H 0 L 126/97 H 29 L 06/15/18 18:00 06/15/18 19:30 06/15/18 20:00 06/15/18 19:28 06/15/18 19:30 Intake and Output: 06/15/18 06/16/18 18:59 06:59 Intake Total 1671 89 Output Total 0 0 Balance 1671 89 - Medications Medications: Current Medications Apixaban (Eliquis) 5 mg PO DAILY [facility] Last Admin: 06/15/18 09:58 Dose: 5 mg Aspirin (Ecotrin) 81 mg PO DAILY [facility] Last Admin: 06/15/18 09:58 Dose: 81 mg Budesonide (Pulmicort Respules) 0.25 mg INH RQ12 [facility] Last Admin: 06/15/18 08:01 Dose: 0.25 mg Carvedilol (Coreg) 3.125 mg PO BID [facility] Last Admin: 06/15/18 17:46 Dose: Not Given Fosphenytoin Sodium 100 mg/ (Dextrose) 52 mls @ 100 mls/hr IV Q8H [facility] Last Admin: 06/15/18 17:16 Dose: Not Given Linezolid (Zyvox 600mg/300ml D5w) 600 mg in 300 mls @ 200 mls/hr IVPB Q12H [facility]; Protocol Last Admin: 06/15/18 17:45 Dose: Not Given Epinephrine HCl 1 mg/ Sodium (Chloride) 251 mls @ 15.06 mls/hr IV .[id number] PRN; Protocol PRN Reason: TITRATE PER MD ORDER Last Admin: 06/15/18 16:53 Dose: 1 mcg/min, 15.06 mls/hr Dopamine HCl/Dextrose (Dopamine 400mg/250ml D5w) 400 mg in 250 mls @ 7.382 mls/hr IV .Q24H [facility]; Protocol PRN Reason: TITRATE PER MD ORDER Last Titration: 06/15/18 17:50 Dose: 20 mcg/kg/min, 73.823 mls/hr Lorazepam (Ativan) 1 mg IVP Q4H PRN PRN Reason: Seizure activity Losartan Potassium (Cozaar) 25 mg PO DAILY [facility] Nystatin (Nystop Topical Powder) 1 applic TOP BID [facility] Last Admin: 06/15/18 17:45 Dose: Not Given Rosuvastatin Calcium (Crestor) 10 mg PO HS [facility] Last Admin: 06/10/18 21:40 Dose: 10 mg - Labs Labs: 06/15/18 16:27 04/09/19 16:27 PT 38.3 SECONDS (9.7-12.2) H 06/15/18 16:27 INR 3.5 H* 06/15/18 16:27 APTT 31 SECONDS (21-34) 06/15/18 16:27 Attending/Attestation - Attestation I have personally seen and examined this patient.: Yes I have fully participated in the care of the patient.: Yes I have reviewed all pertinent clinical information, including history, physical exam and plan: Yes Notes (Text): patient seen, examined, and case discussed with medical care evaluation specialist. Patient seen this morning; AAOX3, no acute distress, discussed with son at bedside regarding repeat blood cultures clearing with IV Zyvox. Patient is awaiting repeat EEG. This afternoon, patient was "code blue" noted for acute respiratory distress, did not have pulse, ACLS/CPR initiated, intubated on site by ICU, discussed with patient's daughter Guera at bedside, transferred to the ICU for further management. In the ICU, patient placed on Dopamine, patient have additional code blue X2 in the unit, received multiple doses and compressions. Rosc each time. Updated family included daughter, Sonam and Noah. Patient during last code (3rd code in the evening), family requested for resuscitative efforts to be discontinue, they echoed they do not want her to suffer any more and understood she will likely . Patient pronounced at 1 9:28. EDRS completed.
--- NOTE | 2018-06-15 11:51 | PN ---
DATE: 06/15/2018 TIME OF EVALUATION: 06:45 a.m. NEUROLOGIC PROBLEM: Nonconvulsive seizures. PHYSICAL EXAMINATION: VITAL SIGNS: Blood pressure 103/73, mean artery pressure of 83, respiratory rate 18, pulse rate 79, temperature 97.2. GENERAL: The patient is sleepy. She is arousable on calling her name and tactile stimuli. Examination does not show any show any new findings. DIAGNOSTIC DATA: She had an electroencephalogram, which was done over the weekend. It revealed paroxysmal activities consistent with epileptiform focus. These episodes happened multiple times with brief period of about 2 to 5 seconds. RECOMMENDATIONS: Dilantin level to be checked and repeat EEG should be done as well. The patient will be followed closely with you. Jackson Michelle MD
--- NOTE | 2018-06-15 12:06 | CP.PCM.PN ---
Subjective - Date & Time of Evaluation Date of Evaluation: 06/15/18 Time of Evaluation: 09:00 - Subjective Subjective: awake alert nad denies fever cough or chest pain Objective - Vital Signs/Intake and Output Vital Signs (last 24 hours): Temp Pulse Resp BP Pulse Ox 97.5 F L 78 20 114/81 100 06/15/18 08:00 06/15/18 08:00 06/15/18 08:00 06/15/18 08:00 06/15/18 08:00 Intake and Output: 06/15/18 06/15/18 06:59 18:59 Output Total 150 Balance -150 - Medications Medications: Current Medications Apixaban (Eliquis) 5 mg PO DAILY [facility] Last Admin: 06/15/18 09:58 Dose: 5 mg Aspirin (Ecotrin) 81 mg PO DAILY [facility] Last Admin: 06/15/18 09:58 Dose: 81 mg Budesonide (Pulmicort Respules) 0.25 mg INH RQ12 [facility] Last Admin: 06/15/18 08:01 Dose: 0.25 mg Carvedilol (Coreg) 3.125 mg PO BID [facility] Last Admin: 06/15/18 09:58 Dose: 3.125 mg Fosphenytoin Sodium 100 mg/ (Dextrose) 52 mls @ 100 mls/hr IV Q8H [facility] Last Admin: 06/15/18 08:02 Dose: Not Given Linezolid (Zyvox 600mg/300ml D5w) 600 mg in 300 mls @ 200 mls/hr IVPB Q12H [facility]; Protocol Last Admin: 06/15/18 03:15 Dose: 200 mls/hr Lorazepam (Ativan) 1 mg IVP Q4H PRN PRN Reason: Seizure activity Losartan Potassium (Cozaar) 25 mg PO DAILY [facility] Nystatin (Nystop Topical Powder) 1 applic TOP BID [facility] Last Admin: 06/15/18 09:59 Dose: 1 applic Rosuvastatin Calcium (Crestor) 10 mg PO HS [facility] Last Admin: 06/10/18 21:40 Dose: 10 mg - Labs Labs: 06/15/18 07:07 06/15/18 07:07 PT 20.0 SECONDS (9.7-12.2) H 06/12/18 08:37 INR 1.8 06/12/18 08:37 APTT 32 SECONDS (21-34) D 04/04/19 13:54 - Constitutional Appears: Non-toxic, No Acute Distress, Chronically Ill - Head Exam Head Exam: ATRAUMATIC, NORMAL INSPECTION, NORMOCEPHALIC - Eye Exam Eye Exam: EOMI, Normal appearance, PERRL Pupil Exam: NORMAL ACCOMODATION, PERRL - ENT Exam ENT Exam: Mucous Membranes Moist, Normal Exam - Neck Exam Neck Exam: Full ROM, Normal Inspection. absent: Lymphadenopathy - Respiratory Exam Respiratory Exam: Clear to Ausculation Bilateral, NORMAL BREATHING PATTERN - Cardiovascular Exam Cardiovascular Exam: REGULAR RHYTHM, +S1, +S2. absent: Murmur - GI/Abdominal Exam GI & Abdominal Exam: Soft, Normal Bowel Sounds. absent: Tenderness - Rectal Exam Rectal Exam: Deferred - Exam Exam: NORMAL INSPECTION - Extremities Exam Extremities Exam: Full ROM, Normal Capillary Refill, Normal Inspection. absent: Joint Swelling, Pedal Edema - Back Exam Back Exam: NORMAL INSPECTION - Neurological Exam Neurological Exam: Alert, Awake, CN II-XII Intact, Normal Gait, Oriented x3 - Psychiatric Exam Psychiatric exam: Normal Affect, Normal Mood - Skin Skin Exam: Dry, Normal Color, Warm Assessment and Plan (1) Acute kidney injury Status: Acute (2) Dementia Status: Acute (3) Bacteremia Status: Acute (4) CAD (coronary artery disease) Status: Acute (5) Seizures Status: Acute - Assessment and Plan (Free Text) Assessment: repeat cultures negative to complete 7 days zyvox
[2018-06-15] MEDS ORDERED: DOPamine 400mg/250ml D5W IV ONE (15:30)
[2018-06-15 15:43] LABS: SQUAMOUS EPITHIAL < 1 /hpf (0-5); URINE BILIRUBIN NEGATIVE (NEGATIVE); URINE BLOOD NEGATIVE (NEGATIVE); URINE CLARITY Clear (Clear); URINE COLOR Amber (YELLOW); URINE GLUCOSE (UA) NORMAL (Normal); URINE LEUKOCYTE ESTERASE NEG Leu/uL (Negative); URINE PROTEIN 2+ mg/dL (NEGATIVE); URINE UROBILINOGEN NORMAL mg/dL (0.2-1.0)
[2018-06-15] MEDS ORDERED: Sodium Chloride 0.9% 1,000 ML IV ONE (15:52)
[2018-06-15 15:54] LABS: CREATININE, RANDOM URINE 161.3 mg/dL
[2018-06-15] MEDS ORDERED: EPINEPHrine- 1 MG in Sodium Chloride 0.9% 250 ML IV PRN (16:01)
--- NOTE | 2018-06-15 16:01 | CP.PCM.CON ---
<YoselinReggie denis - Last Filed: 06/15/18 17:11> History of Present Illness - History of Present Illness History of Present Illness: PGY-1 Critical Care Progress Note for Dr. Huntley MARINE ENGINE MECHANIC was initially called for patient in respiratory distress thought not to be breathing, and resident field artillery cannoneer arrived at scene and was unable to find a pulse. ACLS was initiated and compressions started immediately. Epinephrine administered x1, compressions continued and pulse rechecked confirming patient achieved ROSC. Patient intubated and escorted to ICU, where she was started on pressure support with midline in place. Epinephrine given x1 for bradycardia, patient continues to be closely monitored. PMHx: PMHx of CHF, HTN, HLD, COPD previous DVT, and arthritis PSHx: IVC filter, R leg surgery, hysterectomy Meds: Asa 81mg daily, allopurinol 100mg daily, Eliquis 5mg Daily, Irbesartan 300mg QPM, Crestor 10mg HS, Carvedilol 3.125 BID, nystatin topical, Keppra 500mg PO BID, Lasix 20mg PO daily, Budesonide 180mcg INH BID Allergies: hydromorphone, oxycodone-unknown reaction FamHx: HTN in parents SocHx: Denies tobacco, alcohol and drugs. Lives with son. Patient is wheelchair bound. PMD: Dr. Sousa, Pulm: Audi Review of Systems - Review of Systems Systems not reviewed;Unavailable: Intubated Past Patient History - Infectious Disease Hx of Infectious Diseases: None - Past Medical History & Family History Past Medical History?: Yes - Past Social History Smoking Status: Never Smoked - CARDIAC Hx Cardiac Disorders: Yes (Cardia Arrhythmia) Hx Congestive Heart Failure: Yes - PULMONARY Hx Chronic Obstructive Pulmonary Disease (COPD): Yes - NEUROLOGICAL Hx Neurological Disorder: Yes Hx Syncope: Yes (10 yrs ago unknown reason) - HEENT Hx HEENT Problems: Yes Hx Cataracts: Yes Hx Glaucoma: Yes - RENAL Hx Chronic Kidney Disease: No - ENDOCRINE/METABOLIC Hx Endocrine Disorders: No - HEMATOLOGICAL/ONCOLOGICAL Hx Cancer: No - INTEGUMENTARY Hx Dermatological Problems: No - MUSCULOSKELETAL/RHEUMATOLOGICAL Hx Arthritis: Yes - GASTROINTESTINAL Hx Gastrointestinal Disorders: No - GENITOURINARY/GYNECOLOGICAL Hx Genitourinary Disorders: No - PSYCHIATRIC Hx Substance Use: No - SURGICAL HISTORY Hx Mastectomy: No - ANESTHESIA Hx Anesthesia: Yes Hx Anesthesia Reactions: No Hx Malignant Hyperthermia: No Meds Allergies/Adverse Reactions: Allergies Allergy/AdvReac Type Severity Reaction Status Date / Time cefpodoxime Allergy RASH Verified 06/10/18 11:37 acetaminophen [From Percocet] AdvReac RASH Verified 06/09/18 23:14 hydromorphone [From Dilaudid] AdvReac RASH Verified 06/09/18 23:14 oxycodone [From Percocet] AdvReac RASH Verified 06/09/18 23:14 - Medications Medications: Current Medications Apixaban (Eliquis) 5 mg PO DAILY [facility] Last Admin: 06/15/18 09:58 Dose: 5 mg Aspirin (Ecotrin) 81 mg PO DAILY [facility] Last Admin: 06/15/18 09:58 Dose: 81 mg Budesonide (Pulmicort Respules) 0.25 mg INH RQ12 [facility] Last Admin: 06/15/18 08:01 Dose: 0.25 mg Carvedilol (Coreg) 3.125 mg PO BID [facility] Last Admin: 06/15/18 09:58 Dose: 3.125 mg Fosphenytoin Sodium 100 mg/ (Dextrose) 52 mls @ 100 mls/hr IV Q8H [facility] Last Admin: 06/15/18 08:02 Dose: Not Given Linezolid (Zyvox 600mg/300ml D5w) 600 mg in 300 mls @ 200 mls/hr IVPB Q12H [facility]; Protocol Last Admin: 06/15/18 03:15 Dose: 200 mls/hr Lorazepam (Ativan) 1 mg IVP Q4H PRN PRN Reason: Seizure activity Losartan Potassium (Cozaar) 25 mg PO DAILY [facility] Nystatin (Nystop Topical Powder) 1 applic TOP BID [facility] Last Admin: 06/15/18 09:59 Dose: 1 applic Rosuvastatin Calcium (Crestor) 10 mg PO HS [facility] Last Admin: 06/10/18 21:40 Dose: 10 mg Physical Exam - Constitutional Appears: In Acute Distress Additional comments: s/p code blue, intubated, on pressor support - Head Exam Head Exam: ATRAUMATIC, NORMOCEPHALIC - Eye Exam Eye Exam: EOMI - ENT Exam ENT Exam: Mucous Membranes Moist - Respiratory Exam Respiratory Exam: absent: Rales, Rhonchi - Cardiovascular Exam Cardiovascular Exam: REGULAR RHYTHM, +S1, +S2 - GI/Abdominal Exam Additional comments: Obese - Neurological Exam Additional comments: Sedated - Skin Skin Exam: Dry, Intact Results - Vital Signs Recent Vital Signs: Last Vital Signs Temp 97.5 F L 06/15/18 08:00 Pulse 78 06/15/18 08:00 Resp 20 06/15/18 08:00 BP 114/81 06/15/18 08:00 Pulse Ox 100 06/15/18 08:00 - Labs Result Diagrams: 06/15/18 16:27 06/15/18 16:27 Labs: Laboratory Results - last 24 hr 06/10/18 06/14/18 06/14/18 13:59 16:21 21:07 WBC RBC Hgb Hct MCV MCH MCHC RDW Plt Count MPV Neut % (Auto) Lymph % (Auto) [place] % (Auto) Eos % (Auto) Baso % (Auto) Neut # (Auto) Lymph # (Auto) [place] # (Auto) Eos # (Auto) Baso # (Auto) Sodium Potassium Chloride Carbon Dioxide Anion Gap BUN Creatinine Est GFR ( Amer) Est GFR (Non-Af Amer) POC Glucose (mg/dL) 123 H 140 H Random Glucose Calcium Phosphorus Magnesium Total Bilirubin AST ALT Alkaline Phosphatase Total Protein Albumin Globulin Albumin/Globulin Ratio Procalcitonin Urine Color Urine Clarity Urine pH Ur Specific [place] Urine Protein Urine Glucose (UA) Urine Ketones Urine Blood Urine Nitrate Urine Bilirubin Urine Urobilinogen Ur Leukocyte Esterase Urine WBC (Auto) Urine RBC (Auto) Ur Squamous Epith Cells Hyaline Casts Urine Osmolality T.pallidum Ab (FTA-ABS) Nonreactive 06/15/18 06/15/18 06/15/18 06:13 07:07 07:07 WBC 4.7 L RBC 4.37 Hgb 12.2 Hct 36.5 MCV 83.5 MCH 28.0 MCHC 33.5 RDW 15.6 H Plt Count 132 MPV 8.9 Neut % (Auto) 66.1 Lymph % (Auto) 16.3 L [place] % (Auto) 15.3 H Eos % (Auto) 1.7 Baso % (Auto) 0.6 Neut # (Auto) 3.1 Lymph # (Auto) 0.8 L [place] # (Auto) 0.7 Eos # (Auto) 0.1 Baso # (Auto) 0.0 Sodium 130 L Potassium 4.0 Chloride 90 L Carbon Dioxide 31 H Anion Gap 13 BUN 34 H Creatinine 1.5 H Est GFR ( Amer) 40 Est GFR (Non-Af Amer) 33 POC Glucose (mg/dL) 141 H Random Glucose 128 H Calcium 9.0 Phosphorus 3.9 Magnesium 1.9 Total Bilirubin 0.9 AST 142 H ALT 117 H Alkaline Phosphatase 104 Total Protein 6.5 Albumin 3.4 L Globulin 3.1 Albumin/Globulin Ratio 1.1 Procalcitonin Urine Color Urine Clarity Urine pH Ur Specific [place] Urine Protein Urine Glucose (UA) Urine Ketones Urine Blood Urine Nitrate Urine Bilirubin Urine Urobilinogen Ur Leukocyte Esterase Urine WBC (Auto) Urine RBC (Auto) Ur Squamous Epith Cells Hyaline Casts Urine Osmolality T.pallidum Ab (FTA-ABS) 06/15/18 06/15/18 06/15/18 07:07 11:50 15:29 WBC RBC Hgb Hct MCV MCH MCHC RDW Plt Count MPV Neut % (Auto) Lymph % (Auto) [place] % (Auto) Eos % (Auto) Baso % (Auto) Neut # (Auto) Lymph # (Auto) [place] # (Auto) Eos # (Auto) Baso # (Auto) Sodium Potassium Chloride Carbon Dioxide Anion Gap BUN Creatinine Est GFR ( Amer) Est GFR (Non-Af Amer) POC Glucose (mg/dL) 178 H Random Glucose Calcium Phosphorus Magnesium Total Bilirubin AST ALT Alkaline Phosphatase Total Protein Albumin Globulin Albumin/Globulin Ratio Procalcitonin < 0.05 L Urine Color Urine Clarity Urine pH Ur Specific [place] Urine Protein Urine Glucose (UA) Urine Ketones Urine Blood Urine Nitrate Urine Bilirubin Urine Urobilinogen Ur Leukocyte Esterase Urine WBC (Auto) Urine RBC (Auto) Ur Squamous Epith Cells Hyaline Casts Urine Osmolality 455 T.pallidum Ab (FTA-ABS) 06/15/18 06/15/18 15:29 15:34 WBC RBC Hgb Hct MCV MCH MCHC RDW Plt Count MPV Neut % (Auto) Lymph % (Auto) [place] % (Auto) Eos % (Auto) Baso % (Auto) Neut # (Auto) Lymph # (Auto) [place] # (Auto) Eos # (Auto) Baso # (Auto) Sodium Potassium Chloride Carbon Dioxide Anion Gap BUN Creatinine Est GFR ( Amer) Est GFR (Non-Af Amer) POC Glucose (mg/dL) 177 H Random Glucose Calcium Phosphorus Magnesium Total Bilirubin AST ALT Alkaline Phosphatase Total Protein Albumin Globulin Albumin/Globulin Ratio Procalcitonin Urine Color Nancy Urine Clarity Clear Urine pH 5.0 Ur Specific [place] 1.017 Urine Protein 2+ H Urine Glucose (UA) Normal Urine Ketones Negative Urine Blood Negative Urine Nitrate Negative Urine Bilirubin Negative Urine Urobilinogen Normal Ur Leukocyte Esterase Neg Urine WBC (Auto) 2 Urine RBC (Auto) 1 Ur Squamous Epith Cells < 1 Hyaline Casts 6-10 H Urine Osmolality T.pallidum Ab (FTA-ABS) Assessment & Plan - Assessment and Plan (Free Text) Assessment: Assessment: Patient is an 87 year old female with CHF, severe pulmonary hypertension, COPD/asthma, HTN, HLD, previous DVT with IVC filter placement, PAD, and arthritis admitted for altered mental status. Patient discharged recently with diagnosis of UTI-related AMS and also has history of partial seizures being treated with Keppra. Rapid response called for apparent repiratory distress. P atient not on telemetry at the time and found to be puleseless on rapid responder arrival. Compressions started, ACLS protocol initiated, epi given x1 and patient achieved ROSC. Intubated and transferred directly to ICU. Cardio Cardiac Arrest, Code Blue -MARINE ENGINE MECHANIC called for respiratory distress, patient found to be without a pulse and compressions started -ACLS initiated, ROSC achieved following compressoins and epi x1 -Patient to ICU for acute care and monitoring -Started epinephrine, dopamine ggt -Monitoring on vent -Acute hypoxic hypercapneic resp alkalosis - adjust vent settings HFpEF with acute CHF exacerbation -Cardiology on board, Dr. Sousa. Dr. Weller consulted as he is in house and code blue called with need for stat echo. 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 Audi Trevino, PGY-1 <Michael Huntley - Last Filed: 06/15/18 18:09> Meds - Medications Medications: Current Medications Apixaban (Eliquis) 5 mg PO DAILY [facility] Last Admin: 06/15/18 09:58 Dose: 5 mg Aspirin (Ecotrin) 81 mg PO DAILY [facility] Last Admin: 06/15/18 09:58 Dose: 81 mg Budesonide (Pulmicort Respules) 0.25 mg INH RQ12 [facility] Last Admin: 06/15/18 08:01 Dose: 0.25 mg Carvedilol (Coreg) 3.125 mg PO BID [facility] Last Admin: 06/15/18 17:46 Dose: Not Given Fosphenytoin Sodium 100 mg/ (Dextrose) 52 mls @ 100 mls/hr IV Q8H [facility] Last Admin: 06/15/18 17:16 Dose: Not Given Linezolid (Zyvox 600mg/300ml D5w) 600 mg in 300 mls @ 200 mls/hr IVPB Q12H [facility]; Protocol Last Admin: 06/15/18 17:45 Dose: Not Given Epinephrine HCl 1 mg/ Sodium (Chloride) 251 mls @ 15.06 mls/hr IV .[id number] PRN; Protocol PRN Reason: TITRATE PER MD ORDER Last Admin: 06/15/18 16:53 Dose: 1 mcg/min, 15.06 mls/hr Dopamine HCl/Dextrose (Dopamine 400mg/250ml D5w) 400 mg in 250 mls @ 7.382 mls/hr IV .Q24H PRN; Protocol PRN Reason: TITRATE PER MD ORDER Last Titration: 06/15/18 17:50 Dose: 20 mcg/kg/min, 73.823 mls/hr Lorazepam (Ativan) 1 mg IVP Q4H PRN PRN Reason: Seizure activity Losartan Potassium (Cozaar) 25 mg PO DAILY [facility] Nystatin (Nystop Topical Powder) 1 applic TOP BID [facility] Last Admin: 06/15/18 17:45 Dose: Not Given Rosuvastatin Calcium (Crestor) 10 mg PO HS [facility] Last Admin: 06/10/18 21:40 Dose: 10 mg Results - Vital Signs Recent Vital Signs: Last Vital Signs Temp 97.5 F L 06/15/18 08:00 Pulse 82 06/15/18 15:56 Resp 24 06/15/18 15:56 BP 66/40 L 06/15/18 15:56 Pulse Ox 77 L 06/15/18 15:56 - Labs Result Diagrams: 06/15/18 16:27 06/15/18 16:27 Labs: Laboratory Results - last 24 hr 06/10/18 06/10/18 06/14/18 09:35 13:59 16:21 WBC RBC Hgb Hct MCV MCH MCHC RDW Plt Count MPV Neut % (Auto) Lymph % (Auto) [place] % (Auto) Eos % (Auto) Baso % (Auto) Neut # (Auto) Lymph # (Auto) [place] # (Auto) Eos # (Auto) Baso # (Auto) PT INR APTT Puncture Site pCO2 pO2 HCO3 ABG pH ABG Total CO2 ABG O2 Saturation ABG Base Excess Hitesh Test A-a O2 Difference Respiratory Index Vent Mode Mechanical Rate FiO2 Tidal Volume PEEP Crit Value Called To Crit Value Called By Crit Value Read Back Blood Gas Notified Time Sodium Potassium Chloride Carbon Dioxide Anion Gap BUN Creatinine Est GFR ( Amer) Est GFR (Non-Af Amer) POC Glucose (mg/dL) 123 H Random Glucose Calcium Phosphorus Magnesium Total Bilirubin AST ALT Alkaline Phosphatase Total Creatine Kinase CK-MB (Mass) Troponin I Total Protein Albumin Globulin Albumin/Globulin Ratio Procalcitonin Urine Color Urine Clarity Urine pH Ur Specific [place] Urine Protein Urine Glucose (UA) Urine Ketones Urine Blood Urine Nitrate Urine Bilirubin Urine Urobilinogen Ur Leukocyte Esterase Urine WBC (Auto) Urine RBC (Auto) Ur Squamous Epith Cells Hyaline Casts Urine Osmolality Ur Random Creatinine U Random Total Protein Ur Random Sodium Levetiracetam 51.0 T.pallidum Ab (FTA-ABS) Nonreactive Blood Type 06/14/18 06/15/18 06/15/18 21:07 06:13 07:07 WBC 4.7 L RBC 4.37 Hgb 12.2 Hct 36.5 MCV 83.5 MCH 28.0 MCHC 33.5 RDW 15.6 H Plt Count 132 MPV 8.9 Neut % (Auto) 66.1 Lymph % (Auto) 16.3 L [place] % (Auto) 15.3 H Eos % (Auto) 1.7 Baso % (Auto) 0.6 Neut # (Auto) 3.1 Lymph # (Auto) 0.8 L [place] # (Auto) 0.7 Eos # (Auto) 0.1 Baso # (Auto) 0.0 PT INR APTT Puncture Site pCO2 pO2 HCO3 ABG pH ABG Total CO2 ABG O2 Saturation ABG Base Excess Hitesh Test A-a O2 Difference Respiratory Index Vent Mode Mechanical Rate FiO2 Tidal Volume PEEP Crit Value Called To Crit Value Called By Crit Value Read Back Blood Gas Notified Time Sodium Potassium Chloride Carbon Dioxide Anion Gap BUN Creatinine Est GFR ( Amer) Est GFR (Non-Af Amer) POC Glucose (mg/dL) 140 H 141 H Random Glucose Calcium Phosphorus Magnesium Total Bilirubin AST ALT Alkaline Phosphatase Total Creatine Kinase CK-MB (Mass) Troponin I Total Protein Albumin Globulin Albumin/Globulin Ratio Procalcitonin Urine Color Urine Clarity Urine pH Ur Specific [place] Urine Protein Urine Glucose (UA) Urine Ketones Urine Blood Urine Nitrate Urine Bilirubin Urine Urobilinogen Ur Leukocyte Esterase Urine WBC (Auto) Urine RBC (Auto) Ur Squamous Epith Cells Hyaline Casts Urine Osmolality Ur Random Creatinine U Random Total Protein Ur Random Sodium Levetiracetam T.pallidum Ab (FTA-ABS) Blood Type 06/15/18 06/15/18 06/15/18 07:07 07:07 11:50 WBC RBC Hgb Hct MCV MCH MCHC RDW Plt Count MPV Neut % (Auto) Lymph % (Auto) [place] % (Auto) Eos % (Auto) Baso % (Auto) Neut # (Auto) Lymph # (Auto) [place] # (Auto) Eos # (Auto) Baso # (Auto) PT INR APTT Puncture Site pCO2 pO2 HCO3 ABG pH ABG Total CO2 ABG O2 Saturation ABG Base Excess Hitesh Test A-a O2 Difference Respiratory Index Vent Mode Mechanical Rate FiO2 Tidal Volume PEEP Crit Value Called To Crit Value Called By Crit Value Read Back Blood Gas Notified Time Sodium 130 L Potassium 4.0 Chloride 90 L Carbon Dioxide 31 H Anion Gap 13 BUN 34 H Creatinine 1.5 H Est GFR ( Amer) 40 Est GFR (Non-Af Amer) 33 POC Glucose (mg/dL) 178 H Random Glucose 128 H Calcium 9.0 Phosphorus 3.9 Magnesium 1.9 Total Bilirubin 0.9 AST 142 H ALT 117 H Alkaline Phosphatase 104 Total Creatine Kinase CK-MB (Mass) Troponin I Total Protein 6.5 Albumin 3.4 L Globulin 3.1 Albumin/Globulin Ratio 1.1 Procalcitonin < 0.05 L Urine Color Urine Clarity Urine pH Ur Specific [place] Urine Protein Urine Glucose (UA) Urine Ketones Urine Blood Urine Nitrate Urine Bilirubin Urine Urobilinogen Ur Leukocyte Esterase Urine WBC (Auto) Urine RBC (Auto) Ur Squamous Epith Cells Hyaline Casts Urine Osmolality Ur Random Creatinine U Random Total Protein Ur Random Sodium Levetiracetam T.pallidum Ab (FTA-ABS) Blood Type 06/15/18 06/15/18 06/15/18 15:29 15:29 15:34 WBC RBC Hgb Hct MCV MCH MCHC RDW Plt Count MPV Neut % (Auto) Lymph % (Auto) [place] % (Auto) Eos % (Auto) Baso % (Auto) Neut # (Auto) Lymph # (Auto) [place] # (Auto) Eos # (Auto) Baso # (Auto) PT INR APTT Puncture Site pCO2 pO2 HCO3 ABG pH ABG Total CO2 ABG O2 Saturation ABG Base Excess Hitesh Test A-a O2 Difference Respiratory Index Vent Mode Mechanical Rate FiO2 Tidal Volume PEEP Crit Value Called To Crit Value Called By Crit Value Read Back Blood Gas Notified Time Sodium Potassium Chloride Carbon Dioxide Anion Gap BUN Creatinine Est GFR ( Amer) Est GFR (Non-Af Amer) POC Glucose (mg/dL) 177 H Random Glucose Calcium Phosphorus Magnesium Total Bilirubin AST ALT Alkaline Phosphatase Total Creatine Kinase CK-MB (Mass) Troponin I Total Protein Albumin Globulin Albumin/Globulin Ratio Procalcitonin Urine Color Nancy Urine Clarity Clear Urine pH 5.0 Ur Specific [place] 1.017 Urine Protein 2+ H Urine Glucose (UA) Normal Urine Ketones Negative Urine Blood Negative Urine Nitrate Negative Urine Bilirubin Negative Urine Urobilinogen Normal Ur Leukocyte Esterase Neg Urine WBC (Auto) 2 Urine RBC (Auto) 1 Ur Squamous Epith Cells < 1 Hyaline Casts 6-10 H Urine Osmolality 455 Ur Random Creatinine 161.3 U Random Total Protein 64.0 H Ur Random Sodium 9 Levetiracetam T.pallidum Ab (FTA-ABS) Blood Type 06/15/18 06/15/18 06/15/18 16:17 16:27 16:27 WBC 7.5 D RBC 4.31 Hgb 11.9 Hct 36.7 MCV 85.2 MCH 27.5 MCHC 32.3 L RDW 15.4 H Plt Count 117 L MPV 8.6 Neut % (Auto) Lymph % (Auto) [place] % (Auto) Eos % (Auto) Baso % (Auto) Neut # (Auto) Lymph # (Auto) [place] # (Auto) Eos # (Auto) Baso # (Auto) PT INR APTT Puncture Site Lr pCO2 31 L pO2 236 H HCO3 16.5 L ABG pH 7.28 L ABG Total CO2 15.6 L ABG O2 Saturation 99.9 H ABG Base Excess -10.9 L Hitesh Test Unable A-a O2 Difference 438.0 Respiratory Index 1.9 Vent Mode Prvc Mechanical Rate 24 FiO2 100.0 Tidal Volume 500 PEEP 5 Crit Value Called To Dr huntley Crit Value Called By Barbara Crit Value Read Back Y Blood Gas Notified Time 1617 Sodium 133 Potassium 4.4 Chloride 90 L Carbon Dioxide 24 Anion Gap 23 H BUN 33 H Creatinine 1.9 H Est GFR ( Amer) 30 Est GFR (Non-Af Amer) 25 POC Glucose (mg/dL) Random Glucose 178 H D Calcium 8.2 L Phosphorus 6.0 H Magnesium 2.1 Total Bilirubin 0.8 AST 243 H D ALT 156 H D Alkaline Phosphatase 120 Total Creatine Kinase 60 CK-MB (Mass) 2.49 Troponin I 0.4200 H* Total Protein 5.6 L Albumin 2.9 L Globulin 2.6 Albumin/Globulin Ratio 1.1 Procalcitonin Urine Color Urine Clarity Urine pH Ur Specific [place] Urine Protein Urine Glucose (UA) Urine Ketones Urine Blood Urine Nitrate Urine Bilirubin Urine Urobilinogen Ur Leukocyte Esterase Urine WBC (Auto) Urine RBC (Auto) Ur Squamous Epith Cells Hyaline Casts Urine Osmolality Ur Random Creatinine U Random Total Protein Ur Random Sodium Levetiracetam T.pallidum Ab (FTA-ABS) Blood Type 06/15/18 06/15/18 06/15/18 16:27 16:27 17:03 WBC RBC Hgb Hct MCV MCH MCHC RDW Plt Count MPV Neut % (Auto) Lymph % (Auto) [place] % (Auto) Eos % (Auto) Baso % (Auto) Neut # (Auto) Lymph # (Auto) [place] # (Auto) Eos # (Auto) Baso # (Auto) PT 38.3 H INR 3.5 H* APTT 31 Puncture Site pCO2 pO2 HCO3 ABG pH ABG Total CO2 ABG O2 Saturation ABG Base Excess Hitesh Test A-a O2 Difference Respiratory Index Vent Mode Mechanical Rate FiO2 Tidal Volume PEEP Crit Value Called To Crit Value Called By Crit Value Read Back Blood Gas Notified Time Sodium Potassium Chloride Carbon Dioxide Anion Gap BUN Creatinine Est GFR ( Amer) Est GFR (Non-Af Amer) POC Glucose (mg/dL) 137 H Random Glucose Calcium Phosphorus Magnesium Total Bilirubin AST ALT Alkaline Phosphatase Total Creatine Kinase CK-MB (Mass) Troponin I Total Protein Albumin Globulin Albumin/Globulin Ratio Procalcitonin Urine Color Urine Clarity Urine pH Ur Specific [place] Urine Protein Urine Glucose (UA) Urine Ketones Urine Blood Urine Nitrate Urine Bilirubin Urine Urobilinogen Ur Leukocyte Esterase Urine WBC (Auto) Urine RBC (Auto) Ur Squamous Epith Cells Hyaline Casts Urine Osmolality Ur Random Creatinine U Random Total Protein Ur Random Sodium Levetiracetam T.pallidum Ab (FTA-ABS) Blood Type O POSITIVE Attending/Attestation - Attestation I have personally seen and examined this patient.: Yes I have fully participated in the care of the patient.: Yes I have reviewed all pertinent clinical information: Yes Notes (Text): 06/15/18 18:06 Patient seen and examined 87-year-old female transferred to intensive care unit post cardiac arrest/resuscitation Patient started on epinephrine drip/dopamine for repeated bradycardia Patient status post resuscitation in the ICU x1 On ventilatory support Follow-up ABG Echocardiogram done and seen by flooring helper Case discussed with family Prognosis poor
--- NOTE | 2018-06-15 16:23 | RAD ---
Date of service: 06/15/2018 HISTORY: s/p intubation COMPARISON: 06/10/2018 TECHNIQUE: 1 view obtained. FINDINGS: LUNGS: No active pulmonary disease. PLEURA: No significant pleural effusion identified, no pneumothorax apparent. CARDIOVASCULAR: No aortic atherosclerotic calcification present. Mild cardiomegaly. Endotracheal tube noted with its tip approximately 4.0 cm above the tracheal madisyn. No pulmonary vascular congestion. OSSEOUS STRUCTURES: No significant abnormalities. VISUALIZED UPPER ABDOMEN: Normal. OTHER FINDINGS: None. IMPRESSION: ET tube tip positioned approximately 4 cm above tracheal madisyn. Limited examination. Mild cardiomegaly.
[2018-06-15 16:30] LABS: ABG ALLEN TEST UNABLE; ARTERIAL BLOOD GAS HCO3 16.5 mmol/L (21-28); ARTERIAL BLOOD GAS O2 SAT 99.9 % (95-98); ARTERIAL BLOOD GAS PCO2 31 mm/Hg (35-45); ARTERIAL BLOOD GAS PH 7.28 (7.35-7.45); ARTERIAL BLOOD GAS PO2 236 mm/Hg (80-100); ARTERIAL BLOOD GAS TCO2 15.6 mmol/L (22-28)
[2018-06-15 16:32] LABS: HEMOGLOBIN 11.9 g/dL (11.0-16.0); MEAN CELL VOLUME 85.2 fL (81.0-99.0); MEAN CORPUSCULAR HEMOGLOBIN 27.5 pg (27.0-31.0); MEAN CORPUSCULAR HGB CONC 32.3 g/dL (33.0-37.0); MEAN PLATELET VOLUME 8.6 fL (7.2-11.7); RBC 4.31 Mil/uL (3.80-5.20); RED CELL DISTRIBUTION WIDTH 15.4 % (11.5-14.5); WHITE BLOOD COUNT 7.5 K/uL (4.8-10.8)
[2018-06-15] MEDS ORDERED: EPINEPHrine 1 mg/ml (1:1000) Inj IV ONE (16:44)
[2018-06-15] MEDS ORDERED: Sodium Bicarbonate (8.4%) 50 Meq Syringe IVP ONE ×2 (16:48→16:49)
[2018-06-15] MEDS ORDERED: DOPamine 400mg/250ml D5W 400 MG/250 ML BAG IV PRN (16:48)
[2018-06-15 16:50] LABS: INR 3.5; PROTHROMBIN TIME 38.3 SECONDS (9.7-12.2)
[2018-06-15] MEDS ORDERED: Sodium Chloride 0.9% 500 ML IV ONE (17:04)
[2018-06-15 17:05] LABS: ALB/GLOB RATIO 1.1 (1.0-2.1); ALBUMIN 2.9 g/dL (3.5-5.0); CALCIUM 8.2 mg/dl (8.6-10.4)
[2018-06-15 17:17] LABS: CK-MB 2.49 ng/mL (0.0-3.38)
[2018-06-15 17:20] LABS: TROPONIN I 0.42 ng/mL (0.00-0.120)
[2018-06-15] MEDS ORDERED: CALCIUM CHLORIDE 100 MG/ML VIAL IV ONE (19:15)
[2018-06-15 19:45] VITALS: BP 126/97; PULSE 143; O2SAT 29
[2018-06-15 20:04] VITALS: RESP 0
[2018-06-15 20:08] VITALS: TEMP 93.8
--- NOTE | 2018-06-15 20:23 | CP.PCM.PRO ---
Pronouncement of Note - Clinical Findings Physical Exam: No Response Verbal/Painful Stimuli ( Certificate was completed in [employer], printed, and given to Nurse Shanna, who was caring for patient.), Absent Peripheral Pulses{Carotid & Femoral}, Absent Heart & Breath Sounds, No Pupillary Light Reflex, No Corneal Reflex, Pupils Fixed & Dilated, Absence of Vital Signs - Pronouncement Time Time of Pronouncement of : 19:33 - Notifications Pronouncement Notifications: Family Notified, Atending Notified Wheel Alignment Technician Notified: No - Autopsy Autopsy Requested: No - [place] [id number] Additional Comments: Family (Son, Daughter, GrandDaughter) were present at the time of Code Blue and requested the ICU Physician Dr. Mitch Suresh to stop resuscitation efforts after they were informed by him that the pupils were fixed and dilated.
[2018-06-15 21:11] LABS: VENOUS BLOOD GAS BASE EXCESS -3.5 mmol/L (0.0-2.0); VENOUS BLOOD GAS PCO2 60 mmHg (40-60); VENOUS BLOOD GAS PO2 14 mm/Hg (30-55); VENOUS BLOOD PH 7.23 (7.32-7.43)
[2018-06-15 21:15] LABS: VENOUS BLOOD GAS BASE EXCESS -20.4 mmol/L (0.0-2.0); VENOUS BLOOD GAS PCO2 28 mmHg (40-60); VENOUS BLOOD GAS PO2 25 mm/Hg (30-55); VENOUS BLOOD PH 7.08 (7.32-7.43)
--- NOTE | 2018-06-15 21:25 | CP.PCM.DIS ---
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 Referral Routine Comment: Physician Instructions: Reason For Exam: CHF Nursing Referral for Wound Care Routine Comment: Physician Instructions: Reason For Exam: ulceration on medial sacral fold 06/10/18 04:09 Neurology Consult Routine Comment: Consulting Provider: Jackson Michelle Consulting Physician: Jackson Michelle Reason for Consult: Increased seizure activity 06/10/18 07:29 Nephrology Consult Routine Comment: Consulting Provider: Bryce Pabon Consulting Physician: Bryce Pabon Reason for Consult: acute renal failure 06/10/18 07:41 [employer] Ambassador [Case Management Referral] Routine Comment: Physician Instructions: Reason For Exam: deconditioning, need for rehab Reason for Referral: Discharge Planning 06/10/18 09:08 Cardiology Consult Routine Comment: Consulting Provider: Tory Sousa Consulting Physician: Tory Sousa Reason for Consult: your private pt. sev. pulm htn, elevated trop 06/10/18 11:50 Psychiatry Consult Routine Comment: Consulting Provider: Luca Jin Consulting Physician: Luca Jin Reason for Consult: depression, possible dementia with subdowning 06/10/18 15:44 Palliative Care Consult Routine Comment: Consulting Provider: Tracy Elaine Physician Instructions: TO MD Carlos Villanueva Reason For Exam: Goals of care discussion 06/12/18 09:21 Infectious Disease Consult Routine Comment: Consulting Provider: Mando Aguilar Consulting Physician: Mando Aguilar Reason for Consult: Staph Bacteremia 06/15/18 16:29 Cardiology Consult Routine Comment: Consulting Provider: Avinash Weller Consulting Physician: Avinash Weller Reason for Consult: S/p code blue, f/u stat echo Time Spent in preparation of Discharge (in minutes): 31 Hospital Course - Lab Results Lab Results: Micro Results 06/14/18 10:38 Blood Blood Culture - Preliminary NO GROWTH AFTER 24 HOURS 06/14/18 11:15 Blood Blood Culture - Preliminary NO GROWTH AFTER 24 HOURS 06/13/18 10:41 Blood-Venous Blood Culture - Preliminary NO GROWTH AFTER 48 HOURS 06/13/18 08:23 Blood-Venous Blood Culture - Preliminary NO GROWTH AFTER 48 HOURS 06/09/18 00:00 Blood Blood Culture - Final Coagulase Neg Staphylococcus 06/09/18 00:00 Blood Gram Stain - Final 06/09/18 00:30 Blood S.aureus & Coag-Neg Staph PNA FISH - Final 06/09/18 00:30 Blood Blood Culture - Final Coagulase Neg Staphylococcus 06/09/18 00:30 Blood Gram Stain - Final 06/10/18 05:58 Buttock Gram Stain - Final 06/10/18 05:58 Buttock Wound Culture - Final Vancomycin Resistant E.faecium 06/10/18 05:34 Urine,Catheterized Urine Culture - Final No Growth (<1,000 CFU/ML) Most Recent Lab Values WBC 7.5 K/uL (4.8-10.8) D 06/15/18 16:27 RBC 4.31 Mil/uL (3.80-5.20) 06/15/18 16:27 Hgb 11.9 g/dL (11.0-16.0) 06/15/18 16:27 Hct 36.7 % (34.0-47.0) 06/15/18 16:27 MCV 85.2 fL (81.0-99.0) 06/15/18 16:27 MCH 27.5 pg (27.0-31.0) 06/15/18 16:27 MCHC 32.3 g/dL (33.0-37.0) L 06/15/18 16:27 RDW 15.4 % (11.5-14.5) H 06/15/18 16:27 Plt Count 117 K/uL (130-400) L 06/15/18 16:27 MPV 8.6 fL (7.2-11.7) 06/15/18 16:27 Neut % (Auto) 66.1 % (50.0-75.0) 06/15/18 07:07 Lymph % (Auto) 16.3 % (20.0-40.0) L 06/15/18 07:07 Grand % (Auto) 15.3 % (0.0-10.0) H 06/15/18 07:07 Eos % (Auto) 1.7 % (0.0-4.0) 06/15/18 07:07 Baso % (Auto) 0.6 % (0.0-2.0) 06/15/18 07:07 Neut # (Auto) 3.1 K/uL (1.8-7.0) 06/15/18 07:07 Lymph # (Auto) 0.8 K/uL (1.0-4.3) L 06/15/18 07:07 Grand # (Auto) 0.7 K/uL (0.0-0.8) 06/15/18 07:07 Eos # (Auto) 0.1 K/uL (0.0-0.7) 06/15/18 07:07 Baso # (Auto) 0.0 K/uL (0.0-0.2) 06/15/18 07:07 Differential Comment 06/11/18 13:12 PT 38.3 SECONDS (9.7-12.2) H 06/15/18 16:27 INR 3.5 H* 06/15/18 16:27 APTT 31 SECONDS (21-34) 06/15/18 16:27 Puncture Site Lr 06/15/18 16:17 pCO2 31 mm/Hg (35-45) L 06/15/18 16:17 pO2 25 mm/Hg (30-55) L 06/15/18 19:00 HCO3 16.5 mmol/L (21-28) L 06/15/18 16:17 ABG pH 7.28 (7.35-7.45) L 06/15/18 16:17 ABG Total CO2 15.6 mmol/L (22-28) L 06/15/18 16:17 ABG O2 Saturation 99.9 % (95-98) H 06/15/18 16:17 ABG Base Excess -10.9 mmol/L (-2.0-3.0) L 06/15/18 16:17 Hitesh Test Unable 06/15/18 16:17 VBG pH 7.08 (7.32-7.43) L* 06/15/18 19:00 VBG pCO2 28 mmHg (40-60) L 06/15/18 19:00 VBG HCO3 7.0 mmol/L 06/15/18 19:00 VBG Total CO2 9.2 mmol/L (22-28) L 06/15/18 19:00 VBG O2 Sat (Calc) 32.4 % (40-65) L 06/15/18 19:00 VBG Base Excess -20.4 mmol/L (0.0-2.0) L 06/15/18 19:00 VBG Potassium 1.6 mmol/L (3.6-5.2) L* 06/15/18 19:00 A-a O2 Difference 438.0 mm/Hg 06/15/18 16:17 Respiratory Index 1.9 06/15/18 16:17 Sodium 153.0 mmol/l (132-148) H 06/15/18 19:00 Chloride 129.0 mmol/L (98-107) H 06/15/18 19:00 Glucose 39 mg/dl (65-105) L* D 06/15/18 19:00 Lactate 3.7 mmol/L (0.7-2.1) H 06/15/18 19:00 Vent Mode Prvc 06/15/18 16:17 Mechanical Rate 24 06/15/18 16:17 FiO2 100.0 % 06/15/18 16:17 Tidal Volume 500 06/15/18 16:17 PEEP 5 06/15/18 16:17 Blood Gas Comments Vbg 06/15/18 19:00 Crit Value Called To Dr villanueva 06/15/18 19:00 Crit Value Called By Barbara 06/15/18 19:00 Crit Value Read Back Y 06/15/18 19:00 Blood Gas Notified Time 191506/15/18 19:00 Sodium 133 mmol/L (132-148) 06/15/18 16:27 Potassium 4.4 mmol/L (3.6-5.2) 06/15/18 16:27 Chloride 90 mmol/L (98-107) L 06/15/18 16:27 Carbon Dioxide 24 mmol/L (22-30) 06/15/18 16:27 Anion Gap 23 (10-20) H 06/15/18 16:27 BUN 33 mg/dL (7-17) H 06/15/18 16:27 Creatinine 1.9 mg/dL (0.7-1.2) H 06/15/18 16:27 Est GFR ( Amer) 30 06/15/18 16:27 Est GFR (Non-Af Amer) 25 06/15/18 16:27 POC Glucose (mg/dL) 137 mg/dL (65-110) H 06/15/18 17:03 Random Glucose 178 mg/dL (65-105) H D 06/15/18 16:27 Lactic Acid 1.4 mmol/L (0.7-2.1) 06/11/18 13:12 Uric Acid 6.8 mg/dL (2.2-7.5) 06/11/18 13:12 Calcium 8.2 mg/dl (8.6-10.4) L 06/15/18 16:27 Phosphorus 6.0 mg/dL (2.5-4.5) H 06/15/18 16:27 Magnesium 2.1 mg/dL (1.6-2.3) 06/15/18 16:27 Total Bilirubin 0.8 mg/dL (0.2-1.3) 06/15/18 16:27 AST 243 U/L (14-36) H D 06/15/18 16:27 ALT 156 U/L (9-52) H D 06/15/18 16:27 Alkaline Phosphatase 120 U/L (38-126) 06/15/18 16:27 Total Creatine Kinase 60 U/L (30-135) 06/15/18 16:27 CK-MB (Mass) 2.49 ng/mL (0.0-3.38) 06/15/18 16:27 Troponin I 0.4200 ng/mL (0.00-0.120) H* 06/15/18 16:27 NT-Pro-B Natriuret Pep 7190 pg/mL (0-900) H 06/11/18 13:12 Total Protein 5.6 g/dL (6.3-8.3) L 06/15/18 16:27 Albumin 2.9 g/dL (3.5-5.0) L 06/15/18 16:27 Globulin 2.6 gm/dL (2.2-3.9) 06/15/18 16:27 Albumin/Globulin Ratio 1.1 (1.0-2.1) 06/15/18 16:27 Lipase 57 U/L (23-300) 06/10/18 00:10 Procalcitonin < 0.05 NG/ML (0.19-0.49) L 06/15/18 07:07 Prolactin 23.1 ng/mL (3.0-18.9) H 06/12/18 19:32 Venous Blood Potassium 1.6 mmol/L (3.6-5.2) L* 06/15/18 19:00 Urine Color Nancy (YELLOW) 06/15/18 15:29 Urine Clarity Clear (Clear) 06/15/18 15:29 Urine pH 5.0 (5.0-8.0) 06/15/18 15:29 Ur Specific [place] 1.017 (1.003-1.030) 06/15/18 15:29 Urine Protein 2+ mg/dL (NEGATIVE) H 06/15/18 15:29 Urine Glucose (UA) Normal mg/dL (Normal) 06/15/18 15: Urine Ketones Negative mg/dL (NEGATIVE) 06/15/18 15: Urine Blood Negative (NEGATIVE) 06/15/18 15:29 Urine Nitrate Negative (NEGATIVE) 06/15/18 15:29 Urine Bilirubin Negative (NEGATIVE) 06/15/18 15:29 Urine Urobilinogen Normal mg/dL (0.2-1.0) 06/15/18 15:29 Ur Leukocyte Esterase Neg Sera/uL (Negative) 06/15/18 15:29 Urine WBC (Auto) 2 /hpf (0-5) 06/15/18 15:29 Urine RBC (Auto) 1 /hpf (0-3) 06/15/18 15:29 Ur Squamous Epith Cells < 1 /hpf (0-5) 06/15/18 15:29 Urine Bacteria Rare (<OCC) 06/10/18 19:18 Hyaline Casts 6-10 /lpf (0-2) H 06/15/18 15:29 Granular Casts (Auto) 3 /lpf (0-1) 06/10/18 19:18 Urine Osmolality 455 mosm/kg (300-1000) 06/15/18 15:29 Ur Random Creatinine 161.3 mg/dL 06/15/18 15:29 U Random Total Protein 64.0 mg/dL (0.0-12.0) H 06/15/18 15:29 Ur Random Sodium 9 mmol/L 06/15/18 15:29 Urine Creatinine 193 mg/dL (20-275) 06/10/18 17:01 Urine Microalbumin 28.3 mg/dL 06/10/18 17:01 Microalb/Creat Ratio 147 (<30) H 06/10/18 17:01 Vancomycin Trough 40.7 ug/mL (5.0-10.0) H 06/13/18 11:51 Random Vancomycin 11.7 ug/mL 06/13/18 08:55 Phenytoin 7.9 ug/mL (10-20) L 06/14/18 11:19 Levetiracetam 51.0 mcg/mL 06/10/18 09:35 RPR Nonreactive (NONREACTIVE) 06/10/18 10:25 T.pallidum Ab (FTA-ABS) Nonreactive (Nonreactive) 06/10/18 13:59 Blood Type O POSITIVE 06/15/18 16:27 Antibody Screen Negative 06/15/18 16:27 - Hospital Course Hospital Course: HPI: 87 year old female with PMHx of CHF, HTN, HLD, COPD previous DVT, and arthritis brought to ED by family for episode of AMS where patient was noted to stare into space, hyperextend neck, clench fists and scream. Family states patient had a number of these episodes throughout the entire ambulance ride to the hospital. Family did notice patient was incontinent of urine and stool. Family denies tongue biting and postictal period. Patient complains of generalized weakness and slight dry cough. She does not recall the episodes. P atient denies fever, chills, headache, change in vision, focal numbness, tingling, nausea, vomiting, abdominal pain, nausea, vomiting, dysuria, hematuria and urinary frequency. Patient was recently admitted from 06/05-06/08/18 for similar episode and evaluated by Neurology, Dr. Michelle. During this previous admission, EEG was positive for epilleptiform waves and it was determined that patient had partial complex seizures. Patient was discharged on Keppra to 500 mg PO BID, as well as Vantin 100 BID and lactobaccilus for a UTI. Patient has been complaint with medication. Family states she developed a rash to her abdomen after starting these new medications. PMHx: PMHx of CHF, HTN, HLD, COPD previous DVT, and arthritis PSHx: IVC filter, R leg surgery, hysterectomy Meds: Asa 81mg daily, allopurinol 100mg daily, Eliquis 5mg Daily, Irbesartan 300mg QPM, Crestor 10mg HS, Carvedilol 3.125 BID, nystatin topical, Keppra 500mg PO BID, Lasix 20mg PO daily, Budesonide 180mcg INH BID Allergies: hydromorphone, oxycodone-unknown reaction FamHx: HTN in parents SocHx: Denies tobacco, alcohol and drugs. Lives with son. Patient is wheelchair bound. PMD: Dr. Sousa, Pulm: Audi Patient admitted to the hospital. Patient underwent extensive workup for noted problems below. Infectious disease and neurology consulted during this admission. Patient noted cardiopulmonary arrest 06/15/18 on the floor, transferred the ICU. Noted during last code, patient's family requested for resuscitative efforts to be discontinued during the last code, reported she is suffering and they do not want her to suffer anymore. Patient pronounced and expiration called at 19:28. EDRS competed. This is a brief summary of patient's hospitalization. Discharge Diagnoses: Cardiopulmonary Arrest Assessment/Plan * Code blue 06/15/18 * ICU consulted; intubated; ACLS/CPR protocol, family informed throughout the day * multiple times; ROSC achieved each time; last code family requested for resuscitative efforts to be discontinued; noted that the patient is suffering. Altered mental status/Depression intermittent- suspect with component of dementia/depression Assessment/Plan * Psychiatry and neurology on board * Patient pending follow-up EEG prior to code today * Patient on IV Cerebyx Staph Bacteremia Assessment/Plan * infectious disease on consult * Blood culture: Coagulase Negative X2 * Repeat blood cultures:negative X4 * Patient on IV Zyvox since 06/20/18 * midline 06/14/18 Partial complex seizure Assessment/Plan * neurology on board help appreciated * CT head: no acute pathology. generalized volume loss. Nonspecific white matter changes. * Prior head CT 06/05 shows chronic changes as well (see report). 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 * Carotid dopplers (06/05): no hemodynamically significant lesions bilaterally. * EEG (06/06): abnormal EEG because of slow activities followed with paroxysmal polyspike and wave actvities noted at right followed with bilateral cortical activities consistent with epileptiform focus * Repeat EEG pending * RPR nonreactive * Seizure precautions * Neuro check * Patient placed on IV cerebyx; keppra d/c lethargic * Ativan 2 mg IV Q4H PRN * ProLactin Ordered Once within 10 minutes after what family thought was a seizure on 06/12; which was ELEVATED @ 23.1 Acute renal failure Assessment/Plan * nephrology on board * Bedside RN bladder scan shows no retention * Renal/bladder US: Increased echogenicity of the bilateral renal parenchymal cortices suggestive for medical renal disease. * Urine random Na <5 * Urine random Cr 240.3 * Nephrology consulted (Cm) Acute exacerbation of HFpEF, improving Assessment/Plan * CXR: Moderate venous congestion. Bibasilar airspace opacities. Right hilar prominence. Enlarged ectatic aorta with atherosclerotic calcifications. Biapical pleural thickening with upper lobe granulomatous changes. * Lasix 20mg IVP Q8H * Coreg 3.125 mg PO BID (8 am and 8 pm) * Losartan 100 mg PO daily- held due to ARF * Start Aldactone 25 mg PO BID * Cardiology/PMD consulted (Lars) Transaminitis Assessment/Plan * Abdominal US completed while in house Severe pulmonary hypertension and COPD, chronic * RVSP is 100 mmHg * Humidified O2 via NC * Duonebs Q4H PRN * Budesonide Q12H Supratherapeutic INR, acute, improving- suspect due to acute liver and/or kidney disease * 06/01/18: PT/PTT/INR is 25.3/36/2.3 on 06/01 * On admission 06/10: PT/PTT/INR is 36.7/23/3.3 * INR now 2.0 on 06/11- restart Eliquis * Monitor coags Elevated Troponin, chronic, stable- suspect due to HFpEF and ARF * secondary to CHF exacerbation * Patient seen and evaluated 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 Sousa. 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 * V/Q scan: low probability of PE * Avoid SCDs * Eliquis 5 mg PO daily Hypertension, chronic * prior to cardiopulmonary arrest 06/15/18 * Patient on beta luis, diuretic, and diuresis for heart failure. Peripheral artery disease, chronic * ASA 81 mg PO daily * Crestor 10 mg PO QHS (HELD) Hyperlipidemia, chronic * 06/02/18: TG/CHL/LDL/HDL is 69/77/37/42 * Crestor 10 mg PO QHS- held due to transamnitis Thrombocytopenia, chronic, stable * Platelets 80s-110s * Monitor CBC H/o Gout * Allopurinol 100 mg PO- held due to ARF Ppx: * VTE: SCDs contraindicated due to chronic DVT, Eliquis 5 PO daily * GI: not indicated * Diet: Heart health, low carb, 2 g Na - Date & Time of H&P Date of H&P: 06/10/18 Time of H&P: 02:04 Discharge Plan - Follow Up Plan Condition: Disposition: HOME/ ROUTINE
--- NOTE | 2018-06-15 22:31 | CP.PCM.PN ---
Subjective - Date & Time of Evaluation Date of Evaluation: 06/15/18 Time of Evaluation: 13:00 - Subjective Subjective: Patient seen this afternoon prior to code blue; was complaining of nausea but no vomiting; denied any difficulty breathing; was having poor PO intake; Objective - Vital Signs/Intake and Output Vital Signs (last 24 hours): Temp Pulse Resp BP Pulse Ox 93.8 F L 143 H 0 L 126/97 H 29 L 06/15/18 18:00 06/15/18 19:30 06/15/18 20:00 06/15/18 19:28 06/15/18 19:30 Intake and Output: 06/15/18 06/16/18 18:59 06:59 Intake Total 1671 89 Output Total 0 0 Balance 1671 89 - Labs Labs: 06/15/18 16:27 06/15/18 16:27 PT 38.3 SECONDS (9.7-12.2) H 06/15/18 16:27 INR 3.5 H* 06/15/18 16:27 APTT 31 SECONDS (21-34) 06/15/18 16:27 - Constitutional Appears: Non-toxic, No Acute Distress - Eye Exam Eye Exam: Normal appearance - Respiratory Exam Respiratory Exam: absent: Respiratory Distress Additional comments: diminished air movement, no respiratory distress; - Cardiovascular Exam Cardiovascular Exam: RRR. absent: Gallop, Rubs - GI/Abdominal Exam GI & Abdominal Exam: Soft. absent: Distended - Extremities Exam Additional comments: moderate b/l lower leg edema (overall improved); - Neurological Exam Neurological Exam: Alert, Awake - Psychiatric Exam Psychiatric exam: absent: Agitated - Skin Skin Exam: Warm. absent: Cyanosis Assessment and Plan (1) Acute kidney injury Assessment & Plan: Renal function mildly worsened since yesterday; was previously improving with diuretics for cardiorenal syndrome in the setting of severe pulm htn; diuretics stopped yesterday as patient having poor PO intake; continuing to hold diuretics; mild hyponatremia noted; obtaining urine lytes; Status: Acute (2) CHF (congestive heart failure) Status: Acute (3) Hypokalemia Status: Acute (4) HTN (hypertension) Status: Chronic
[2018-06-16 07:40] LABS: PHENYTOIN,FREE 0.5 mg/L (1.0-2.0)
--- NOTE | 2018-06-16 17:10 | CARD ---
APPROVED REPORT Date of service: 06/15/2018 EKG Measurement Heart [id number] <Conclusion> Atrial fibrillation Nonspecific ST and T wave abnormality Low voltage Abnormal ECG
== END 2018-06-15 21:10 | DRG 100 ==
LOC: C.ER 22:42 → C.9E 06-10 00:51 → C.5S 06-10 01:56 → C.9I 06-15 15:55
PROVIDERS: ADMIT Hospitalist; ATTEND Hospitalist
PROC: 02HV33Z Insertion of Infusion Device into Superior Vena Cava, Percutaneous Approach (ICD-10-PCS; principal; 2018-06-11)
PROC: 0BH17EZ Insertion of Endotracheal Airway into Trachea, Via Natural or Artificial Opening (ICD-10-PCS; 2018-06-15)
PROC: 5A1935Z Respiratory Ventilation, Less than 24 Consecutive Hours (ICD-10-PCS; 2018-06-15)
DX: G40.209 Localization-related (focal) (partial) symptomatic epilepsy and epileptic syndromes with complex partial seizures, not intractable, without status epilepticus (principal); I50.33 Acute on chronic diastolic (congestive) heart failure; F05 Delirium due to known physiological condition; E87.4 Mixed disorder of acid-base balance; E87.1 Hypo-osmolality and hyponatremia; I13.0 Hypertensive heart and chronic kidney disease with heart failure and stage 1 through stage 4 chronic kidney disease, or unspecified chronic kidney disease; N17.9 Acute kidney failure, unspecified; N39.0 Urinary tract infection, site not specified; R78.81 Bacteremia; I82.511 Chronic embolism and thrombosis of right femoral vein; I46.9 Cardiac arrest, cause unspecified; F32.9 Major depressive disorder, single episode, unspecified; H40.9 Unspecified glaucoma; F03.90 Unspecified dementia, unspecified severity, without behavioral disturbance, psychotic disturbance, mood disturbance, and anxiety; E87.6 Hypokalemia; I25.10 Atherosclerotic heart disease of native coronary artery without angina pectoris; I27.20 Pulmonary hypertension, unspecified; I73.9 Peripheral vascular disease, unspecified; J44.9 Chronic obstructive pulmonary disease, unspecified; N18.9 Chronic kidney disease, unspecified; Z99.3 Dependence on wheelchair; Z51.5 Encounter for palliative care; R09.02 Hypoxemia; E66.9 Obesity, unspecified; Z68.39 Body mass index [BMI] 39.0-39.9, adult; E78.5 Hyperlipidemia, unspecified; B95.8 Unspecified staphylococcus as the cause of diseases classified elsewhere; Z79.01 Long term (current) use of anticoagulants; R79.1 Abnormal coagulation profile; R32 Unspecified urinary incontinence